=== PATIENT | female | born 1950 | race Caucasian/White ===

== ENCOUNTER → 2016-07-28 | Outpatient (CLI) | payer MEDICARE, OTHER ==
--- NOTE | 2016-07-28 13:38 | CT ---
EXAMINATION TYPE: CT pelvis wo con DATE OF EXAM: 07/28/2016 1:09 PM COMPARISON: NONE HISTORY: Left Hip pain with wound CT DLP: 430.4 mGycm Automated exposure control for dose reduction was used. FINDINGS: There is an ostomy in the right lower quadrant. There are bilateral hip degenerative changes with dmitry rowing of the joint spaces. Some soft tissue thickening and calcifications lateral to the left hip. Soft tissue calcification is also present lateral to the right hip. Some low density air appears to be within the soft tissue thic kening. Phlegmon may be present. A discrete walled abscess is not identified. Note that the lateralmo st portion of the thighs excluded from the [id number]. IMPRESSION: SOFT TISSUE INFECTION IS LIKELY PRESENT LATERAL TO THE LEFT HIP. CORRELATE WITH THE PATIENT'S CLINICA L FINDINGS. UNDERLYING ABSCESS IS NOT IDENTIFIED BY RADIOGRAPHIC CRITERIA AT THIS TIME.
== END ==
LOC: RADCTMAIN 12:42
PROVIDERS: ATTEND Internal Medicine Infectious Disease
DX: M86.9 Osteomyelitis, unspecified (principal)
CPT/HCPCS: 72192

== ENCOUNTER → 2016-08-18 | Outpatient (CLI) | payer MEDICARE, OTHER ==
--- NOTE | 2016-08-19 01:09 | MR ---
EXAMINATION TYPE: MR pelvis wo/w con DATE OF EXAM: 08/18/2016 4:51 PM COMPARISON: NONE HISTORY: Other osteomyelitis, multiple sites CONTRAST: Standard multiplanar, multisequence MRI departmental protocol utilizing 15 mL intravenous MultiHance gadolinium contrast. FINDINGS: On the T2 and STIR images there is abnormal increased signal in the greater trochanter of t he left femur. There is surrounding soft tissue fluid signal consistent with cellulitis. I see no dis crete drainable fluid collection. The area of involvement in the femur is 5 x 3.5 cm. I see no fractu re line. There is increased signal in the soft tissues adjacent to the right ischium. I do not see convincing increased signal in the ischial bone on the right side. There is some mild soft tissue enhancement ar ound the lateral superior left femur as well as the right ischium. I see no fracture line. There is n o evidence of a pelvic mass. Sacroiliac joints appear intact. There is mild enhancement of the intert rochanteric left femur. IMPRESSION: The exam shows evidence of cellulitis with also osteomyelitis in the intertrochanteric left femur. No fracture seen. There is evidence of some cellulitis posterior to the right ischium but no definite osteomyelitis.
== END | disposition home or self-care (01) ==
LOC: RADMRIMAIN 14:59
PROVIDERS: ATTEND Internal Medicine Infectious Disease
DX: M86.8X5 Other osteomyelitis, thigh (principal); L03.116 Cellulitis of left lower limb
CPT/HCPCS: 72197; A9577

== ENCOUNTER → 2016-12-08 | Outpatient (CLI) | payer MEDICARE, OTHER ==
--- NOTE | 2016-12-08 15:34 | CT ---
EXAMINATION TYPE: CT lower extremity LT wo con DATE OF EXAM: 12/08/2016 3:23 PM COMPARISON: NONE HISTORY: Pressure ulcer to left hip area, paraplegic pt. CT DLP: 733.8 mGycm Automated exposure control for dose reduction was used. FINDINGS: There is marked induration adjacent to the greater trochanter on the left. There is air pre sent. There is erosion or partial destruction of the greater tuberosity. There is severe degenerative change in the left hip. There is also mild degenerative change in the le ft knee. There appears to be a sinus tract from the induration to the lateral skin surface. IMPRESSION: 1. MARKED INDURATION ADJACENT TO THE GREATER TROCHANTER ON THE LEFT WITH WHAT APPEARS TO BE A SINUS T RACT TO THE LATERAL SKIN SURFACE. 2. EROSION OR DESTRUCTION OF THE GREATER TUBEROSITY. LV DIFFICULT TO EXCLUDE OSTEOMYELITIS. 3. SEVERE DEGENERATIVE CHANGES WITHIN THE HIP.
== END | disposition home or self-care (01) ==
LOC: RADCTMAIN 14:58
PROVIDERS: ATTEND Surgery
DX: M16.12 Unilateral primary osteoarthritis, left hip (principal)

== ENCOUNTER 2016-12-14 11:17 | Day surgery (SDC) | payer MEDICARE, OTHER ==
[2016-12-09 09:50] VITALS: BMI 29.0
[~2016-12-14 11:17] MED LIST: DEXAMETHASONE SOD PHOSPHATE 10 MG/ML 1 ML VIAL IV ONE; HEPARIN SODIUM,PORCINE 5,000 UNIT/ML 1 ML VIAL SQ ONE; HYDROmorphone 1 MG/ML 1 ML SYRINGE IVP PRN; LACTATED RINGERS 1,000 ML IV SCH; ONDANSETRON 4 MG/2 ML VIAL IVP ONE; Pre Op ABX Message 1 EACH MISC MISCELLANE ONE
[2016-12-14] MEDS ORDERED: LIDOCAINE 1% 20 ML VIAL (10MG/ML) FOR IV START INTRADERMA ONE (12:34)
[2016-12-14] MEDS ORDERED: LIDOCAINE 1% INJ 10MG/ML (20 ML MDV) ONE (13:25)
[2016-12-14] MEDS ORDERED: MIDAZOLAM 2 MG/2 ML VIAL ONE (13:25)
[2016-12-14] MEDS ORDERED: fentaNYL (PF) 50 MCG/ML 2 ML AMP ONE (13:25)
[2016-12-14] MEDS ORDERED: PROPOFOL 10 MG/ML 20 ML VIAL IV ONE (13:25)
[2016-12-14] MEDS ORDERED: SUCCINYLCHOLINE CHLORIDE 100 MG/5 ML SYR IV ONE (13:25)
[2016-12-14] MEDS ORDERED: ePHEDrine 50 MG/ML 1 ML AMP ONE (13:25)
[2016-12-14] MEDS ORDERED: SODIUM CHLORIDE 0.9% 100 ML with CLINDAMYCIN 600 MG IV ONE ×2 (13:48)
[2016-12-14 14:33] VITALS: TEMP 98.1
--- NOTE | 2016-12-14 14:47 | P.OP ---
Date of Procedure: 12/14/16 Preoperative Diagnosis: Left Hip abscess Postoperative Diagnosis: Left Hip abscess and osteomyleitis of the torchanter Procedure(s) Performed: Incision and drainage of abscess. Excisional debridement of the abscess cavity Bone biopsy Implants: Anesthesia: DENITA Surgeon: Chris Almeida Pathology: other Condition: stable Disposition: PACU Indications for Procedure: Operative Findings: Sinus tract leading deep (6 cm) into an abscess cavity around the greater trochanter. Estimated size of the cavity was 5 x 4x 3 cm connected to the sinus tract. Abscess cavity contained pus and involucrum Cultures taken of the abscess and the bone biopsy Description of Procedure: Patient 66-year-old female multiple medical problems presents with an abscess cavity over the greater trochanter involving the bones of the knees. 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 Due to the fact that she has a very small sinus that due to the abscess cavity does not seem to be healing well. She's been recommended incision and drainage of the abscess cavity and excisional debridement with possible bone biopsy. Informed consent obtained from the patient in the preop operating holding area. Patient taken the operating room and given general anesthesia with endotracheal intubation after which was placed in the left lateral decubitus position. Patient was prepped and draped in the usual sterile surgical fashion. A Q-tip was placed within the cavity to direct the area of dissection. Elliptical incision was made around the opening of the sinus tract with the help of electrocautery into the skin and subcutaneous tissue. A core of tissue was excised along hte sinus tract leading down into the abscess cavity. Within the cavity multiple pieces of involucrum was found and removed. The pus was sent for culture. Bone biopsy was taken from the greater trochanter with the help of Rongeur. This was all sent for culture. Skin and subcutis tissue was submitted for culture as well. The cavity itself was thoroughly irrigated and sucked dry hemostasis secured with Electrocautery after which a white and vang foam was placed in the cavity itself. After creating a bridge wound VAC was initiated and therapy 125 continuous. It had to be enforced with multiple Tegaderm. Patient tolerated procedure well there were asked complications she was extubated and taken to recovery room in stable condition.
[2016-12-14 15:27] VITALS: RESP 16
[2016-12-14 15:45] VITALS: BP 118/65; PULSE 75
--- NOTE | 2017-01-04 13:41 | P.GSHP ---
History of Present Illness H&P Date: 12/14/16 Chief Complaint: Non healing left hip wound with osteomyelitis 66-year-old female who presented to Center because she has a long draining sinus tract that extends to the trochanter. His been drinking a lot. He does not closing. As been packed repeatedly for many months. Previous history of paraplegia and while moving she injured herself. Continue drainage and depth of the wound she was brought to me for consultation for debridement. - Constitutional Constitutional: Denies chills, Denies fever - EENT Eyes: denies blurred vision, denies pain - Cardiovascular Cardiovascular: Denies chest pain, Denies shortness of breath - Respiratory Respiratory: Denies cough, Denies 7 - Gastrointestinal Gastrointestinal: Denies abdominal pain, Denies diarrhea, Denies nausea, Denies vomiting - Neurological Comment: Paraplegic Past Medical History Past Medical History: Eye Disorder, GERD/Reflux, Hyperlipidemia, Hypertension, Rheumatoid Arthritis (RA), Thyroid Disorder Additional Past Medical History / Comment(s): PARAPLEGIC (fracture back and neck ) ,GLAUCOMA, wounds on lt hip-Seen in [facility] M-F, rt great toe and top of rt foot wounds healed,lt eye-now only sees shadows/light, PNE VACCINE 2-3 YEARS AGO NOT SURE OF DATE. History of Any Multi-Drug Resistant Organisms: None Reported Past Surgical History: Appendectomy, Back Surgery, Cholecystectomy Additional Past Surgical History / Comment(s): surgery abdominal tumor,UROSTOMY, GLAUCOMA SURGERY, surgery lt eye, DEBRIDEMENT of sores Past Anesthesia/Blood Transfusion Reactions: No Reported Reaction Additional Past Anesthesia/Blood Transfusion Reaction / Comment(s): no prob with prior blood transfusion Smoking Status: Current every day smoker - Past Family History Father Family Medical History: Cancer Additional Family Medical History / Comment(s): colon cancer Mother Family Medical History: CVA/TIA, Renal Disease Medications and Allergies Home Medications Medication Instructions Recorded Confirmed Type Aspirin 81 mg PO DAILY 12/31/13 01/04/17 History Levothyroxine Sodium [Synthroid] 100 mcg PO QAM 12/31/13 01/04/17 History Lovastatin [Mevacor] 40 mg PO HS 12/31/13 01/04/17 History Omeprazole [PriLOSEC] 20 mg PO AC-BRKFST 12/31/13 01/04/17 History Losartan [Cozaar] 25 mg PO QAM 03/30/16 01/04/17 History Travoprost [Travatan Z 0.004%] 1 drop BOTH EYES DAILY 03/30/16 01/04/17 History Ibuprofen 800 mg PO TID PRN 12/09/16 01/04/17 History Sulfamethox-Tmp 800-160Mg [Bactrim 1 tab PO Q12HR 12/09/16 01/04/17 History DS 800-160 mg] Allergies Allergy/AdvReac Type Severity Reaction Status Date / Time Iodinated Contrast Media - AdvReac Itching,ellen Verified 01/04/17 10:10 Oral and h [Iodinated Contrast Media - IV Dye] Surgical - Exam Vital Signs Temp Pulse Resp BP Pulse Ox 98 F 85 16 128/60 97 12/14/16 12:13 12/14/16 12:13 12/14/16 12:13 12/14/16 12:13 12/14/16 12:13 - General well developed, well nourished, no distress - Eyes PERRL, normal ocular movement - ENT normal pinna, normal nares, normal mucosa - Respiratory normal expansion, normal respiratory effort - Cardiovascular Rhythm: regular - Abdomen Abdomen: soft, non tender - Integumentary Cataract wound which measured per nurse's measurements. It is very deep and proximally 7 cm deep there is minimal periwound erythema. 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 We will also attempt doing a bone biopsy to confirm the presence of ostomy mellitus. Detailed discussion of the indications of the procedure and application were done with the patient wonders and is willing to proceed.
== END 2016-12-14 16:00 | disposition home health service (06) ==
LOC: OR 11:17
PROVIDERS: ATTEND Surgery
DX: L02.416 Cutaneous abscess of left lower limb (principal); M86.8X8 Other osteomyelitis, other site; I10 Essential (primary) hypertension; F17.200 Nicotine dependence, unspecified, uncomplicated; E07.9 Disorder of thyroid, unspecified; G82.20 Paraplegia, unspecified; M06.9 Rheumatoid arthritis, unspecified; K21.9 Gastro-esophageal reflux disease without esophagitis; Z79.82 Long term (current) use of aspirin; Z79.899 Other long term (current) drug therapy; Z91.041 Radiographic dye allergy status
CPT/HCPCS: 87070; 87205; 87075; 11044; 20999; J2250; J1644; J1100; J2405; J2001; J3010; J0330; J2704; 87077; 87186

== ENCOUNTER 2017-11-09 17:37 | Emergency (ER) | payer MEDICARE, OTHER ==
[2017-11-09 17:52] VITALS: RESP 16; TEMP 98.6
[2017-11-09] MEDS ORDERED: SODIUM CHLORIDE 0.9% 500 ML IV STA (18:04)
[2017-11-09 18:31] LABS: Basophils % (A) 1 %; Eosinophils # (A) 0.2 k/uL (0-0.7); Eosinophils % (A) 3 %; HCT 32.9 % (34.0-46.0); HGB 10.9 gm/dL (11.4-16.0); Lymphocytes # (A) 1.7 k/uL (1.0-4.8); Lymphocytes % (A) 20 %; MCHC 33.2 g/dL (31.0-37.0); MCV 90.4 fL (80.0-100.0); Mean Platelet Volume 8.2; Monocytes # (A) 0.7 k/uL (0-1.0); Monocytes % (A) 8 %; Neutrophils # (A) 5.7 k/uL (1.3-7.7); Neutrophils % (A) 67 %; Platelet Count 355 k/uL (150-450); RBC 3.63 m/uL (3.80-5.40); WBC 8.5 k/uL (3.8-10.6)
[2017-11-09 18:40] LABS: Albumin 2.9 g/dL (3.5-5.0); Calcium 8.1 mg/dL (8.4-10.2); Potassium 3.5 mmol/L (3.5-5.1); Total Bilirubin 0.5 mg/dL (0.2-1.3); Total Protein 5.8 g/dL (6.3-8.2)
--- NOTE | 2017-11-09 18:49 | XR ---
EXAMINATION TYPE: XR KUB DATE OF EXAM: 11/09/2017 COMPARISON: 04/10/2013 HISTORY: Abdominal pain TECHNIQUE: 4 views. FINDINGS: There is amorphous soft tissue calcification lateral to the greater trochanter of the right femur. Th ere is abduction deformity of the right hip joint. There is severe narrowing of hip joint spaces. There is no sign of intestinal obstruction. There is retained fecal material in the colon. There is n o evidence of a mass. There is coarse interstitial density at the lung bases. IMPRESSION: There is evidence for some degree of constipation. No sign of a mechanical bowel obstruct ion. Fibrotic changes at the lung bases. No free air.
[2017-11-09 19:17] LABS: Amorphous Sediment,Urine Rare /hpf; Appearance,Urine Turbid (Clear); Bilirubin,Urine Negative (Negative); Blood,Urine Moderate (Negative); Color,Urine Yellow; Glucose,Urine (UA) Negative (Negative); Ketones,Urine Negative (Negative); Leukocyte Esterase,Urine Large (Negative); Mucus,Urine Rare /hpf; Nitrite,Urine Negative (Negative); PH, Urine 7.5 (5.0-8.0); Protein,Urine 1+ (Negative); RBC,Urine 83 /hpf (0-5); Specific Gravity,Urine 1.008 (1.001-1.035); Urobilinogen,Urine <2.0 mg/dL (<2.0); WBC,Urine >182 /hpf (0-5)
--- NOTE | 2017-11-09 19:22 | ED ---
Abdominal Pain HPI - General Chief Complaint: Abdominal Pain Stated Complaint: abdominal pain/constipation Time Seen by Provider: 11/09/17 17:52 Source: EMS Mode of arrival: EMS Limitations: no limitations - History of Present Illness Initial Comments: 67-year-old female patient presents to the emergency department today for evaluation of generalized abdominal pain and cramping and complaints of constipation. Patient states that she has been having this pain since Tuesday. States that she did have a small bowel movement on Tuesday but did not improve her symptoms. Patient states she has been nauseated with this but has not vomited. Patient does have a past medical history significant for paraplegia with urostomy. Patient does get home care and did have an enema this morning however the nurse reported only a return of clear fluid. Patient states that she was having some hematuria however this resolved with the change of her bag. She is scheduled to undergo kidney ultrasound. Patient denies any recent rash , fever, chills, shortness breath, chest pain, back pain, numbness, tingling, dizziness, weakness, headache, visual changes, or any other complaints. - Related Data Home Medications Medication Instructions Recorded Confirmed Aspirin 81 mg PO DAILY 12/31/13 11/09/17 Levothyroxine Sodium [Synthroid] 100 mcg PO AC-BRKFST 12/31/13 11/09/17 Omeprazole [PriLOSEC] 20 mg PO DAILY 12/31/13 11/09/17 Ibuprofen 800 mg PO TID PRN 12/09/16 11/09/17 Lovastatin [Mevacor] 40 mg PO HS 11/09/17 11/09/17 Multivitamins, Thera [Multivitamin 1 tab PO DAILY 11/09/17 11/09/17 (formulary)] Previous Rx's Medication Instructions Recorded Sulfamethoxazole/Trimethoprim 1 each PO BID #14 tablet 11/09/17 [Bactrim DS 800-160 mg] Allergies Allergy/AdvReac Type Severity Reaction Status Date / Time Iodinated Contrast- Oral and Allergy Itching,ellen Verified 11/09/17 17:44 IV Dye h [Iodinated Contrast Media - IV Dye] Review of Systems ROS Statement: Those systems with pertinent positive or pertinent negative responses have been documented in the HPI. ROS Other: All systems not noted in ROS Statement are negative. Past Medical History Past Medical History: Eye Disorder, GERD/Reflux, Hyperlipidemia, Hypertension, Rheumatoid Arthritis (RA), Thyroid Disorder Additional Past Medical History / Comment(s): PARAPLEGIC (fracture back and neck ) ,GLAUCOMA, wounds on lt hip, rt great toe and top of rt footeye-now only sees shadows/light. wounds on lt hip(goes to [facility] -has wound vac, RT HEEL(healing areas rt top foot), PNE VACCINE 2-3 YEARS AGO NOT SURE OF DATE. History of Any Multi-Drug Resistant Organisms: None Reported Past Surgical History: Appendectomy, Back Surgery, Cholecystectomy Additional Past Surgical History / Comment(s): surgery abdominal tumor,UROSTOMY, GLAUCOMA SURGERY, surgery lt eye, DEBRIDEMENT of sores Past Anesthesia/Blood Transfusion Reactions: No Reported Reaction Past Psychological History: No Psychological Hx Reported Smoking Status: Current every day smoker Past Alcohol Use History: None Reported Past Drug Use History: None Reported - Past Family History Father Family Medical History: Cancer Additional Family Medical History / Comment(s): colon cancer Mother Family Medical History: CVA/TIA, Renal Disease General Exam Limitations: no limitations General appearance: alert, in no apparent distress, other (This is a well- developed, well-nourished adult female patient in no acute distress. Vital signs upon presentation are temperature 98.6F, pulse 68, respiration 16, blood pressure 135/63, pulse ox 97% on room air.) Eye exam: Present: normal appearance, PERRL, EOMI. Absent: scleral icterus, conjunctival injection, periorbital swelling ENT exam: Present: normal exam, normal oropharynx, mucous membranes moist Respiratory exam: Present: normal lung sounds bilaterally. Absent: respiratory distress, wheezes, rales, rhonchi, stridor Cardiovascular Exam: Present: regular rate, normal rhythm, normal heart sounds. Absent: systolic murmur, diastolic murmur, rubs, gallop, clicks GI/Abdominal exam: Present: soft, tenderness (Upper abdominal tenderness), normal bowel sounds. Absent: distended, guarding, rebound, rigid Neurological exam: Present: alert, oriented X3, CN II-XII intact Psychiatric exam: Present: normal affect, normal mood Skin exam: Present: warm, dry, intact, normal color. Absent: rash Course Vital Signs 11/09/17 11/09/17 17:46 21:05 Temperature 98.6 F Pulse Rate 68 61 Respiratory 16 16 Rate Blood Pressure 135/63 147/63 O2 Sat by Pulse 97 98 Oximetry Medical Decision Making - Medical Decision Making 67-year-old male patient presented to the emergency department today with complaints of constipation and generalized abdominal cramping. Physical examination showed some mild diffuse abdominal tenderness. Labs reviewed and showed a BUN of 18. Alk phos of 138. Urinalysis showed a turbid appearance with 1+ protein, moderate blood, large leukocyte esterase, 83 red blood cells, greater than 182 white blood cells, moderate white blood cell clumps, rare amorphous sediment, and rare meat urine mucus. Patient does have a urostomy. KUB x-ray of the abdomen showed overall nonobstructive bowel gas pattern. Patient is currently afebrile white blood cell count. She is not particularly tender over any specific area of her abdomen. We will treat for constipation with magnesium citrate. We did attempt an enema but given patient's paraplegia she was unable to retain this. She is instructed to follow-up with her primary care physician for recheck in 1-2 days. She is instructed to return here immediately for any new, worsening, or concerning symptoms. She verbalizes understanding and agrees with this plan. - Lab Data Result diagrams: 11/09/17 18:17 11/09/17 18:17 Lab Results 11/09/17 11/09/17 11/09/17 Range/Units 18:17 18:17 18:30 WBC 8.5 (3.8-10.6) k/uL RBC 3.63 L (3.80-5.40) m/uL Hgb 10.9 L (11.4-16.0) gm/dL Hct 32.9 L (34.0-46.0) % MCV 90.4 (80.0-100.0) fL MCH 30.0 (25.0-35.0) pg MCHC 33.2 (31.0-37.0) g/dL RDW 14.0 (11.5-15.5) % Plt Count 355 (150-450) k/uL Neutrophils % 67 % Lymphocytes % 20 % Monocytes % 8 % Eosinophils % 3 % Basophils % 1 % Neutrophils # 5.7 (1.3-7.7) k/uL Lymphocytes # 1.7 (1.0-4.8) k/uL Monocytes # 0.7 (0-1.0) k/uL Eosinophils # 0.2 (0-0.7) k/uL Basophils # 0.0 (0-0.2) k/uL Sodium 138 (137-145) mmol/L Potassium 3.5 (3.5-5.1) mmol/L Chloride 108 H (98-107) mmol/L Carbon Dioxide 20 L (22-30) mmol/L Anion Gap 10 mmol/L BUN 18 H (7-17) mg/dL Creatinine 0.96 (0.52-1.04) mg/dL Est GFR (CKD-EPI)AfAm 70 (>60 ml/min/1.73 sqM) Est GFR (CKD-EPI)NonAf 61 (>60 ml/min/1.73 sqM) Glucose 99 (74-99) mg/dL Calcium 8.1 L (8.4-10.2) mg/dL Total Bilirubin 0.5 (0.2-1.3) mg/dL AST 26 (14-36) U/L ALT 35 (9-52) U/L Alkaline Phosphatase 138 H (38-126) U/L Total Protein 5.8 L (6.3-8.2) g/dL Albumin 2.9 L (3.5-5.0) g/dL Amylase 61 (30-110) U/L Lipase 40 (23-300) U/L Urine Color Yellow Urine Appearance Turbid H (Clear) Urine pH 7.5 (5.0-8.0) Ur Specific [place] 1.008 (1.001-1.035) Urine Protein 1+ H (Negative) Urine Glucose (UA) Negative (Negative) Urine Ketones Negative (Negative) Urine Blood Moderate H (Negative) Urine Nitrite Negative (Negative) Urine Bilirubin Negative (Negative) Urine Urobilinogen <2.0 (<2.0) mg/dL Ur Leukocyte Esterase Large H (Negative) Urine RBC 83 H (0-5) /hpf Urine WBC >182 H (0-5) /hpf Urine WBC Clumps Moderate H (None) /hpf Amorphous Sediment Rare H (None) /hpf Urine Mucus Rare H (None) /hpf - Radiology Data Radiology results: report reviewed, image reviewed KUB x-ray of the abdomen shows amorphous soft tissue calcification lateral to the greater trochanter of the right femur. There is abduction deformity of the right hip joint. There is severe narrowing of the hip joint spaces. There is no sign of intestinal obstruction. There is retained fecal material in the colon. There is no evidence of a mass. There is coarse interstitial density at the lung bases. Impression by Dr. Pat shows evidence for some degree of constipation. No sign of a mechanical obstruction. Fibrotic changes at the lung bases. No free air. Disposition Clinical Impression: Abdominal pain, Urinary tract infection Disposition: HOME SELF-CARE Condition: Good Instructions: Abdominal Pain (ED) Additional Instructions: Increase fluids. Increase fruits and vegetables in the diet. Drink one half of the magnesium citrate and then drink the other half in 12 hours if he had not had results. Complete antibiotic prescription in full. Follow-up with your primary care physician for recheck as soon as possible. Return here immediately for any new, worsening, or concerning symptoms. Prescriptions: Sulfamethoxazole/Trimethoprim [Bactrim DS 800-160 mg] 1 each PO BID #14 tablet Is patient prescribed a controlled substance at d/c from ED?: No Referrals: Jacob Acevedo MD [Primary Care Provider] - 1-2 days Time of Disposition: 20:45
[2017-11-09] MEDS ORDERED: SULFAMETH-TMP DS STARTER PACK 2 TAB BTL PO STA (20:43)
[2017-11-09] MEDS ORDERED: MAGNESIUM CITRATE 296 ML BOTTLE PO ONE (20:43)
[2017-11-09 21:05] VITALS: BP 147/63; PULSE 61
== END 2017-11-09 21:31 | disposition home or self-care (01) ==
LOC: EC 17:37
DX: N39.0 Urinary tract infection, site not specified (principal); R10.84 Generalized abdominal pain; K59.00 Constipation, unspecified; E07.9 Disorder of thyroid, unspecified; E78.5 Hyperlipidemia, unspecified; K21.9 Gastro-esophageal reflux disease without esophagitis; M06.9 Rheumatoid arthritis, unspecified; F17.200 Nicotine dependence, unspecified, uncomplicated; Z91.041 Radiographic dye allergy status; Z91.048 Other nonmedicinal substance allergy status; Z79.82 Long term (current) use of aspirin; Z79.899 Other long term (current) drug therapy; Z90.49 Acquired absence of other specified parts of digestive tract; Z80.0 Family history of malignant neoplasm of digestive organs; Z98.890 Other specified postprocedural states
CPT/HCPCS: 36415; 74018; 80053; 81001; 82150; 83690; 85025; 99284

== ENCOUNTER → 2017-11-10 | Outpatient (CLI) | payer MEDICARE, OTHER ==
--- NOTE | 2017-11-10 11:24 | US ---
EXAMINATION TYPE: US kidneys/renal and bladder DATE OF EXAM: 11/10/2017 COMPARISON: NONE CLINICAL HISTORY: R31.9 Hematuria Unspecified. paraplegic; bladder removed in 1999 EXAM MEASUREMENTS: Right Kidney: 10.8 x 50.2 x 5.2 cm Left Kidney: 10.5 x 5.9 x 5.6 cm Right Kidney: Mild to moderate hydronephrosis, echogenic foci upper pole, possibly of stone Left Kidney: Mild to moderate hydronephrosis, echogenic foci mid pole with in the dilated renal pelvi s. Bladder: surgically absent patient paraplegic, left kidney limited due to bowel gas and patient mobility IMPRESSION: Bilateral mild to moderate hydronephrosis with probable obstructing calculus demonstrated as increase d echogenicity within the left renal pelvis. Nonobstructing right renal calculi are seen. Further basil luation with CT urogram could be performed.
== END | disposition home or self-care (01) ==
LOC: RADUSWWP 10:31
PROVIDERS: ATTEND Internal Medicine Infectious Disease
DX: N13.2 Hydronephrosis with renal and ureteral calculous obstruction (principal)
CPT/HCPCS: 76770

== ENCOUNTER → 2017-11-25 | Outpatient (CLI) | payer MEDICARE, OTHER ==
--- NOTE | 2017-11-25 14:56 | CT ---
EXAMINATION TYPE: CT abdomen pelvis wo con DATE OF EXAM: 11/25/2017 COMPARISON: 06/24/2017 HISTORY: Renal stones, Hydronephrosis CT DLP: 519.3 mGycm Automated exposure control for dose reduction was used. TECHNIQUE: Helical acquisition of images was performed from the lung bases through the pelvis. FINDINGS: LUNG BASES: Patchy right basilar opacity on series 4 image 1 and subpleural reticulation may represen t pneumonitis and/or atelectasis. There is a left basilar posterior medial segment 8 mm pulmonary nod ule accentuated in size as there is a central bronchus. This is seen on series 4 image 16. Right basi lar bleb is noted. LIVER/GB: Unenhanced liver is of unremarkable morphology. Gallbladder is surgically absent. PANCREAS: No significant abnormality is seen. No ductal dilatation. SPLEEN: No significant abnormality is seen. ADRENALS: There is slight thickening of the left adrenal gland however it maintains an adreniform sha pe. This likely relates to adrenal hyperplasia. Right kidney is unremarkable. KIDNEYS: There is severe left-sided hydronephrosis secondary to an obstructing proximal left ureteral 0.7 x 0.9 x 1.7 cm calculus creating proximal renal pelvic dilatation and uroepithelial thickening w ith surrounding inflammatory fat stranding of the renal sinus and inferior calyces. Additional nonobs tructing calculi on the left are seen at least 8 in number measuring up to 9 mm. There is severe right-sided hydronephrosis secondary to a right mid ureteral 1.2 x 0.9 x 0.7 cm. Kory tional nonobstructing punctate 1 to 2 mm right upper pole and 2 mm right lower pole renal calculi are seen. Subsequent to the obstruction there is mild fat stranding surrounding the dilated renal pelvis and right kidney. FREE AIR: No free air is visualized REPRODUCTIVE ORGANS: Uterus is either significantly atrophied or surgically absent URINARY BLADDER: Surgically absent ADENOPATHY: Prominent but nonenlarged left superficial inguinal lymph node measures 1.0 cm in short axis. Left external iliac chain centrally fatty lymph node or epiploic appendage is noted on series 3 image 125 without surrounding inflammatory fat stranding. OSSEOUS STRUCTURES: There is a thick-walled centrally air-containing and fat-containing lesion over the greater trochanter on the left. Measures up to 7.9 x 5.5 cm but is partially visualized. This is seen within atrophic musculature of the left hip girdle. This was present on the exam of 06/24/2017 Ex tensive degenerative changes of the femoral acetabular joints and visualized lumbar sacral spine are noted. Prior fracture deformity of the left inferior pubic ramus is present. BOWEL: Right-sided ileostomy as an ileal conduit is present. Anastomotic site is seen within the rig ht lower quadrant in the distal small bowel with no proximal bowel dilatation. IMPRESSION: 1. THICK-WALLED SUBCUTANEOUS LESION OVER THE LEFT GREATER TROCHANTER CONTAINING INTERNAL FOCI OF AIR WITH PRIOR SUBCUTANEOUS FISTULOUS TRACT SEEN ON THE EXAM OF 06/24/2017 AND EROSIVE CHANGES OF THE LEFT GREATER TROCHANTER CONCERNING FOR ABSCESS AND OSTEOMYELITIS, SIMILAR TO THE PRIOR. 2. BILATERAL OBSTRUCTING URETERAL CALCULI WITHIN THE PROXIMAL LEFT URETER AND MID RIGHT URETER CREATI NG SEVERE BILATERAL HYDRONEPHROSIS AND UROEPITHELIAL THICKENING WITH FAT STRANDING AROUND THE RENAL P ELVISES SEES THAT COULD RELATE TO CALYCEAL RUPTURE. 3. BILATERAL NONOBSTRUCTING RENAL CALCULI, LEFT GREATER THAN RIGHT. 4. LEFT BASILAR 8MM PULMONARY NODULE FOR WHICH SHORT-TERM FOLLOW-UP IS RECOMMENDED WITH CT IN 3-6 MON THS THERE IS A CENTRAL BRONCHUS WITHIN THIS, THUS ACCENTUATING THE SIZE.
== END | disposition home or self-care (01) ==
LOC: RADCTMAIN 12:40
PROVIDERS: ATTEND Urology
DX: N13.2 Hydronephrosis with renal and ureteral calculous obstruction (principal); N28.89 Other specified disorders of kidney and ureter; L98.8 Other specified disorders of the skin and subcutaneous tissue; Z91.041 Radiographic dye allergy status
CPT/HCPCS: 74176

== ENCOUNTER 2018-01-09 06:29 | Inpatient (IN) | payer MEDICARE, OTHER ==
[2017-12-27 15:24] VITALS: BMI 29.0
[~2018-01-09 06:29] MED LIST changes: +AMPICILLIN 1,000 MG in SODIUM CHLORIDE 0.9% 50 ML IVPB ONE; +AMPICILLIN 1,000 MG in SODIUM CHLORIDE 0.9% 50 ML IVPB STA; -DEXAMETHASONE SOD PHOSPHATE 10 MG/ML 1 ML VIAL IV ONE; +GENTAMICIN 100 MG in SODIUM CHLORIDE 0.9% 100 ML IVPB ONE; -HEPARIN SODIUM,PORCINE 5,000 UNIT/ML 1 ML VIAL SQ ONE; -HYDROmorphone 1 MG/ML 1 ML SYRINGE IVP PRN; -LACTATED RINGERS 1,000 ML IV SCH; -ONDANSETRON 4 MG/2 ML VIAL IVP ONE; -Pre Op ABX Message 1 EACH MISC MISCELLANE ONE
[2018-01-09 08:57] LABS: Basophils % (A) 0 %; Eosinophils % (A) 0 %; HCT 39.9 % (34.0-46.0); HGB 12.8 gm/dL (11.4-16.0); Lymphocytes # (A) 1.1 k/uL (1.0-4.8); Lymphocytes % (A) 16 %; MCH 29.5 pg (25.0-35.0); MCV 92.3 fL (80.0-100.0); Mean Platelet Volume 8.2; Monocytes # (A) 0.1 k/uL (0-1.0); Monocytes % (A) 2 %; Neutrophils # (A) 5.6 k/uL (1.3-7.7); Neutrophils % (A) 81 %; Platelet Count 369 k/uL (150-450); RBC 4.33 m/uL (3.80-5.40); RDW 13.7 % (11.5-15.5); WBC 6.9 k/uL (3.8-10.6)
[2018-01-09 09:05] LABS: Calcium 8.9 mg/dL (8.4-10.2); Potassium 4.5 mmol/L (3.5-5.1)
[2018-01-09] MEDS ORDERED: LIDOCAINE 1% (PF) 10MG/ML VIAL SQ ONE (09:51)
[2018-01-09] MEDS: fentaNYL (PF) 50 MCG/ML 2 ML AMP IVP ONE ×2 (10:00→10:04)
[2018-01-09] MEDS ORDERED: SODIUM CHLORIDE 0.9% 500 ML IV ONE (10:04)
[2018-01-09] MEDS ORDERED: IOPAMIDOL-250 50ML BTL IV ONE (10:18)
--- NOTE | 2018-01-09 11:29 | US ---
Ultrasound guidance HISTORY: Hydronephrosis Ultrasound guidance was utilized using sterile technique for bilateral nephrostomy tube placement. Se e report of nephrostomy.
--- NOTE | 2018-01-09 11:33 | IR ---
Bilateral nephrostomy tube placement HISTORY: Bilateral hydronephrosis 3.2 minutes fluoroscopy time, 207 intraoperative C-arm images. 37 minutes conscious sedation time. Maximal barrier technique was utilized. Ultrasound using sterile technique. Skin overlying the kidneys was prepped and draped in a sterile fashion. Lidocaine used for local anes thesia, skin em made with a scalpel. Using ultrasound guidance access was gained to the right kidne y posterior calyx with a 21-gauge needle. Urine returned in the hub of the needle. A 0.018 inch wire was advanced under fluoroscopy. The needle was exchanged for a transitional catheter. Wire was upsize d. Access site was dilated and subsequently a 8.5 Panamanian nephrostomy tube was advanced over the wire into the renal collecting system. Catheter placement was verified with contrast injection under fluor oscopic guidance. Catheter was fixed to the skin with 2-0 silk. Sterile dressing was placed. Catheter attached to gravity drainage. Using similar technique the posterior aspect of the left kidney was accessed under ultrasound guidanc e. Following local anesthesia skin em was made with a scalpel. 21-gauge needle was advanced into a posterior calyx and 0.018 inch wire was advanced. Access site was upsized and an 8.5 [place]ian nephrosto my tube was advanced under fluoroscopy into the renal collecting system. Catheter placement verified with contrast injection. Following the procedure hemostasis achieved. No immediate complications. Cat heter fixed to the skin with 2-0 silk and a sterile dressing. Catheter attached to gravity drainage. Minimal bleeding. No immediate complication. FINDINGS: Clot noted within the left renal collecting system. IMPRESSION: Status post bilateral nephrostomy tube placements. This procedure performed by the unders igned.
[2018-01-09] MEDS ORDERED: Acetaminophen-Codeine 300-30mg TAB PO PRN (13:41)
[2018-01-09] MEDS ORDERED: HYDROmorphone 0.5 MG/0.5 ML SYRINGE IVP PRN (13:41)
[2018-01-09] MEDS: DEXTROSE 5%-0.45% NACL 1,000 ML IV SCH (13:53)
[2018-01-09] MEDS: HYDROcodone/APAP 5-325MG 1 EACH TAB PO PRN (13:54)
[2018-01-09] MEDS ORDERED: VANCOMYCIN IV PER PHARMACY 1 EACH MISC MISCELLANE PRN (17:47)
[2018-01-09] MEDS: VANCOMYCIN 1,500 MG in SODIUM CHLORIDE 0.9% 250 ML IVPB SCH (18:54)
[2018-01-09] MEDS: ATORVASTATIN 10 MG TAB PO SCH (21:24)
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
[2018-01-10] MEDS: HYDROcodone/APAP 5-325MG 1 EACH TAB PO PRN ×2 (06:00→16:59)
[2018-01-10 07:28] LABS: Basophils % (A) 0 %; Eosinophils % (A) 0 %; HCT 36.1 % (34.0-46.0); HGB 11.6 gm/dL (11.4-16.0); Lymphocytes # (A) 2.2 k/uL (1.0-4.8); Lymphocytes % (A) 17 %; MCH 30.4 pg (25.0-35.0); MCHC 32.3 g/dL (31.0-37.0); MCV 94.2 fL (80.0-100.0); Mean Platelet Volume 8.4; Monocytes # (A) 0.6 k/uL (0-1.0); Monocytes % (A) 5 %; Neutrophils # (A) 9.9 k/uL (1.3-7.7); Neutrophils % (A) 77 %; Platelet Count 359 k/uL (150-450); RBC 3.83 m/uL (3.80-5.40); WBC 12.9 k/uL (3.8-10.6)
[2018-01-10 08:01] LABS: Calcium 8.5 mg/dL (8.4-10.2); Potassium 4.5 mmol/L (3.5-5.1)
[2018-01-10] MEDS: DEXTROSE 5%-0.45% NACL 1,000 ML IV SCH ×2 (08:03→09:24)
[2018-01-10] MEDS: LEVOTHYROXINE 100 MCG TAB PO SCH (08:15)
[2018-01-10] MEDS: PANTOPRAZOLE 40 MG TABLET PO SCH (08:15)
[2018-01-10] MEDS: VANCOMYCIN 1,500 MG in SODIUM CHLORIDE 0.9% 250 ML IVPB SCH (09:22)
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
--- NOTE | 2018-01-10 12:17 | P.PN ---
Progress Note - Text Progress Note Date: 01/10/18 Dulce is feeling better this morning. She is afebrile with stable vital signs. She reports less nephrostomy tube discomfort. Her urine is only faintly pink tinged. She is urologically stable for discharge. Attempts will be made for her to be transferred for inpatient rehabilitation.
[2018-01-10] MEDS: ATORVASTATIN 10 MG TAB PO SCH (20:29)
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
[2018-01-11] MEDS: VANCOMYCIN 1,500 MG in SODIUM CHLORIDE 0.9% 250 ML IVPB SCH ×2 (01:49→18:04)
[2018-01-11] MEDS ORDERED: LEVOTHYROXINE 100 MCG TAB ONE (09:00)
[2018-01-11] MEDS ORDERED: HYDROcodone/APAP 5-325MG 1 EACH TAB ONE (09:00)
[2018-01-11] MEDS ORDERED: PANTOPRAZOLE 40 MG TABLET PO ONE (09:00)
[2018-01-11] MEDS: LEVOTHYROXINE 100 MCG TAB PO SCH (11:45)
[2018-01-11] MEDS: PANTOPRAZOLE 40 MG TABLET PO SCH (11:45)
[2018-01-11] MEDS: DEXTROSE 5%-0.45% NACL 1,000 ML IV SCH ×2 (11:46→18:04)
[2018-01-11] MEDS ORDERED: LIDOCAINE 1% INJ 10MG/ML (20 ML MDV) ONE (13:30)
[2018-01-11] MEDS ORDERED: LIDOCAINE 1% INJ 10MG/ML (20 ML MDV) SQ ONE (13:31)
[2018-01-11] MEDS: HYDROcodone/APAP 5-325MG 1 EACH TAB PO PRN ×2 (14:19→20:16)
--- NOTE | 2018-01-11 14:37 | P.PN ---
Progress Note - Text Progress Note Date: 01/11/18 The patient underwent successful insertion of bilateral percutaneous nephrostomy tubes on January 09. Her condition is stable, and she is afebrile. Both nephrostomy tubes are draining urine which is essentially clear in color, as is the ureterostomy. She reports mild discomfort at the right nephrostomy tube insertion site. She is receiving IV Vancomycin for treatment of a non- healing ulcer over the left trochanteric area, and a PICC line was inserted earlier today. She may benefit from inpatient rehabilitation.
--- NOTE | 2018-01-11 15:03 | IR ---
EXAMINATION TYPE: IR cvc insert >=5 years DATE OF EXAM: 01/11/2018 COMPARISON: NONE CLINICAL HISTORY: Infection Needs long-term intravenous access for antibiotics. PROCEDURE: After informed consent, the skin overlying the left basilic vein was localized with ultrasound and no mariot to be compressible and patent. An ultrasound image was obtained and submitted on the patient's c guerra. The overlying skin was prepped and draped and Lidocaine was used for local anesthesia. A skin em was made with a scalpel. Access was gained to the vein under ultrasound guidance with a 21 gau ge needle and a 0.018 inch wire was advanced. Access site was dilated with Peel-Away sheath and cath eter tailored to the appropriate length and advanced such that the distal tip is at the cavoatrial ju nction. Spot image was obtained verifying placement. Catheter was fixed to the skin and a sterile dressing was placed following hemostasis. Catheter was aspirated and flushed with saline. Patient w as discharged in stable condition without complication. Maximal barrier technique is utilized. Ultra sound image is documented on the chart. Ultrasound used with sterile technique. Fluoro time and fluoroscopic images submitted to document procedure: 0.2 minutes fluoroscopy time, 8 intraoperative C-arm images document the procedure IMPRESSION: STATUS POST ULTRASOUND AND FLUOROSCOPIC GUIDED PICC LINE PLACEMENT, READY FOR USE. THIS PROCEDURE WAS PERFORMED BY THE UNDERSIGNED.
[2018-01-11] MEDS: ATORVASTATIN 10 MG TAB PO SCH (20:32)
[2018-01-11] MEDS: LATANOPROST 0.005% OPHTH DROPS 2.5 ML BTL BOTH EYES SCH (20:33)
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
[2018-01-12] MEDS: HYDROcodone/APAP 5-325MG 1 EACH TAB PO PRN ×3 (07:29→19:40)
[2018-01-12] MEDS ORDERED: VANCOMYCIN TROUGH DUE 1 EACH MISC MISCELLANE ONE (09:00)
[2018-01-12] MEDS: LEVOTHYROXINE 100 MCG TAB PO SCH (09:17)
[2018-01-12] MEDS: PANTOPRAZOLE 40 MG TABLET PO SCH (09:17)
[2018-01-12] MEDS: DEXTROSE 5%-0.45% NACL 1,000 ML IV SCH ×2 (09:31→23:40)
[2018-01-12] MEDS: VANCOMYCIN 1,500 MG in SODIUM CHLORIDE 0.9% 250 ML IVPB SCH (09:32)
--- NOTE | 2018-01-12 19:24 | P.PN ---
Progress Note - Text Progress Note Date: 01/12/18 Dulce underwent successful insertion of bilateral percutaneous nephrostomy tubes on January 09. Her condition is stable, and she is afebrile. the right nephrostomy tube is draining clear yellow urine, but the left nephrostomy tube has quit draining. She reports left upper quadrant abdominal discomfort. The left nephrostomy tube was irrigated and now appears to be draining well. Given that it irrigated well, I am not concerned about its location within the renal pelvis. She will continue to receive IV Vancomycin for treatment of a non- healing ulcer over the left trochanteric area. It is my understanding that she will be transferred to [facility] on January 14.
[2018-01-12] MEDS: ATORVASTATIN 10 MG TAB PO SCH (19:40)
[2018-01-12] MEDS: LATANOPROST 0.005% OPHTH DROPS 2.5 ML BTL BOTH EYES SCH (19:41)
[2018-01-13] MEDS: VANCOMYCIN 1,500 MG in SODIUM CHLORIDE 0.9% 250 ML IVPB SCH (01:14)
[2018-01-13 05:56] VITALS: RESP 16
[2018-01-13 07:11] LABS: Basophils # (A) 0.1 k/uL (0-0.2); Basophils % (A) 1 %; Eosinophils # (A) 0.2 k/uL (0-0.7); Eosinophils % (A) 3 %; HGB 12.5 gm/dL (11.4-16.0); Lymphocytes # (A) 1.8 k/uL (1.0-4.8); Lymphocytes % (A) 24 %; MCHC 32.1 g/dL (31.0-37.0); MCV 93.4 fL (80.0-100.0); Mean Platelet Volume 8.1; Monocytes # (A) 0.5 k/uL (0-1.0); Monocytes % (A) 6 %; Neutrophils # (A) 4.9 k/uL (1.3-7.7); Neutrophils % (A) 65 %; Platelet Count 324 k/uL (150-450); RBC 4.18 m/uL (3.80-5.40); RDW 14.2 % (11.5-15.5); WBC 7.5 k/uL (3.8-10.6)
[2018-01-13 07:29] LABS: Calcium 8.5 mg/dL (8.4-10.2); Potassium 4.9 mmol/L (3.5-5.1)
[2018-01-13] MEDS: PANTOPRAZOLE 40 MG TABLET PO SCH (08:27)
[2018-01-13] MEDS: LEVOTHYROXINE 100 MCG TAB PO SCH (08:27)
[2018-01-13] MEDS ORDERED: BISACODYL 10 MG SUPP RECTAL STA (10:02)
[2018-01-13] MEDS: DEXTROSE 5%-0.45% NACL 1,000 ML IV SCH (11:47)
[2018-01-13] MEDS: HYDROcodone/APAP 5-325MG 1 EACH TAB PO PRN (14:19)
[2018-01-13] MEDS: VANCOMYCIN 1,250 MG in SODIUM CHLORIDE 0.9% 250 ML IVPB SCH (17:49)
[2018-01-13] MEDS: LATANOPROST 0.005% OPHTH DROPS 2.5 ML BTL BOTH EYES SCH (21:29)
[2018-01-13] MEDS: ATORVASTATIN 10 MG TAB PO SCH (21:29)
[2018-01-14] MEDS: DEXTROSE 5%-0.45% NACL 1,000 ML IV SCH ×2 (05:21→14:17)
[2018-01-14 06:10] VITALS: BP 127/61; PULSE 79; TEMP 98.2
--- NOTE | 2018-01-14 07:30 | P.PN ---
Progress Note - Text Progress Note Date: 01/13/18 Dulce underwent successful insertion of bilateral percutaneous nephrostomy tubes on January 09. Her condition is stable, and she is afebrile. Her WBC count is normal, as is her serum creatinine level. She has no complaints. The right nephrostomy tube output is blood-tinged, whereas the left nephrostomy tube is draining clear yellow urine. She will continue to receive IV Vancomycin for treatment of a non-healing ulcer over the left trochanteric area. It is my understanding that she will be transferred to [facility] on January 14. She will ultimately require bilateral percutaneous removal of renal and ureteral calculi.
[2018-01-14] MEDS: LEVOTHYROXINE 100 MCG TAB PO SCH (07:42)
[2018-01-14] MEDS: PANTOPRAZOLE 40 MG TABLET PO SCH (07:42)
[2018-01-14] MEDS: VANCOMYCIN 1,250 MG in SODIUM CHLORIDE 0.9% 250 ML IVPB SCH (09:21)
[2018-01-14] MEDS: HYDROcodone/APAP 5-325MG 1 EACH TAB PO PRN ×2 (09:27→14:15)
--- NOTE | 2018-01-14 12:25 | P.DS ---
Providers Date of admission: 01/11/18 14:57 Attending physician: Juni Tomlin Consults: 01/09/18 14:15 Consult Physician Routine Consulting Provider: Carlos Vaughan Reason/Comments: wound vac management Do you want consulting provider notified?: Yes Primary care physician: Jacob Acevedo Hospital Course: Patient is a 67-year-old female admitted the hospital after placement of bilateral nephrostomy tubes for obstructing urinary stones. 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 She developed bilateral stones. His are infected stones. Nephrostomy tubes were placed for a potential percutaneous nephrostolithotomy bilateral in the future. The patient was seen in consultation by Dr. Vaughan because of a nonhealing sacral ulcer. She has a PICC line with vancomycin. She'll be discharged with fat to the rehab facility. She'll be given a prescription [place]. She'll follow-up in the office in one week. She'll be set up for a percutaneous nephrostolithotomy after the status of her ulcer is clarified. Her condition upon discharge is stable. She resume her home medications. Patient Condition at Discharge: Stable Plan - Discharge Summary Discharge Rx Participant: Yes New Discharge Prescriptions: New HYDROcodone/APAP 5-325MG [[place] 5-325] 1 tab PO Q4HR PRN #14 tab PRN Reason: Pain No Action Aspirin 81 mg PO DAILY Omeprazole [PriLOSEC] 20 mg PO DAILY Levothyroxine Sodium [Synthroid] 100 mcg PO AC-BRKFST Ibuprofen 800 mg PO TID PRN PRN Reason: Pain Multivitamins, Thera [Multivitamin (formulary)] 1 tab PO DAILY Lovastatin [Mevacor] 40 mg PO HS Travoprost [Travatan Z 0.004%] 2 drops BOTH EYES ONCE Discharge Medication List Aspirin 81 mg PO DAILY 12/31/13 [History] Levothyroxine Sodium [Synthroid] 100 mcg PO AC-BRKFST 12/31/13 [History] Omeprazole [PriLOSEC] 20 mg PO DAILY 12/31/13 [History] Ibuprofen 800 mg PO TID PRN 12/09/16 [History] Lovastatin [Mevacor] 40 mg PO HS 11/09/17 [History] Multivitamins, Thera [Multivitamin (formulary)] 1 tab PO DAILY 11/09/17 [History ] Travoprost [Travatan Z 0.004%] 2 drops BOTH EYES ONCE 01/11/18 [History] HYDROcodone/APAP 5-325MG [[place] 5-325] 1 tab PO Q4HR PRN #14 tab 01/14/18 [Rx] Follow up Appointment(s)/Referral(s): Juni Tomlin MD [STAFF PHYSICIAN] - 1 Week Activity/Diet/Wound Care/Special Instructions: Home with nephrostomy tubes, PICC line with vancomycin as directed per Dr. Vaughan Discharge Disposition: TRANSFER TO SNF/ECF
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
--- NOTE | 2018-01-19 09:07 | CDI ---
Last Revision, June 2017 Documentation Clarification Form Date: 01/19/18 From: Vandana Veto Elaina Patino, Manager Sign Hours-8:30 am & 5 pm Phillip Admit Date: 01/11/2018 2:57:00 PM Patient Name: Dulce Ramos Visit Number: [id number] Discharge Date: 01/14/18 ATTENTION: The Clinical Documentation Specialists (CDI) and [facility] Coding Staff appreciate your assistance in clarifying documentation. Please respond to the clarification below the line at the bottom and electronically sign. The CDI & [facility] staff will review the response and follow-up if needed. Please note: Queries are made part of the Legal Health Record. If you have any questions, please contact the author of this message via ITS. Dr. Figueroa Hunter Patient presented for outpatient bilateral nephrostomy tube placement on 01/09. Later on 01/09, the patient was converted to Inpatient status. Dr Vaughan was consulted to evaluate her pressure ulcer of left hip, stage 4. He also states that the patient did not feel well after the procedure and she was having significant anxiety. Per Official Billing Guidelines for Hospitals-Admission from Observation Unit to Inpatient status: When a patient is admitted to an observation unit for a medical condition, which either worsens or does not improve, and is subsequently admitted as an inpatient of the same hospital for this same medical condition, the primary diagnosis would be the medical condition which led to the hospital admission. In your professional opinion, can you please clarify which diagnosis, after study, was the reason for the conversion from outpt to inpatient admission status? Pressure ulcer sacral/left hip Pain or other condition related to placement of nephrostomy tubes Other Unable to determine. The patients in patient status was due to both pain from the nephjrptsotomy tubes as well as the pressure ulcers MTDD
== END 2018-01-14 15:35 | DRG 592 ==
LOC: CATHCVL 06:29 → 3OBS 10:22 → 3SUR 12:28 → CATHCVL 01-11 14:56 → 3SUR 01-11 14:57 → 5MS5E 01-12 18:00
PROVIDERS: ADMIT Urology; ATTEND Urology
PROC: 0T9130Z Drainage of Left Kidney with Drainage Device, Percutaneous Approach (ICD-10-PCS; principal; 2018-01-09 09:30)
PROC: 0T9030Z Drainage of Right Kidney with Drainage Device, Percutaneous Approach (ICD-10-PCS; 2018-01-09 09:30)
PROC: 02HV33Z Insertion of Infusion Device into Superior Vena Cava, Percutaneous Approach (ICD-10-PCS; 2018-01-11 13:20)
DX: L89.224 Pressure ulcer of left hip, stage 4 (principal); N13.2 Hydronephrosis with renal and ureteral calculous obstruction; G82.20 Paraplegia, unspecified; N31.9 Neuromuscular dysfunction of bladder, unspecified; M06.9 Rheumatoid arthritis, unspecified; K21.9 Gastro-esophageal reflux disease without esophagitis; E78.5 Hyperlipidemia, unspecified; I10 Essential (primary) hypertension; F41.9 Anxiety disorder, unspecified; E07.9 Disorder of thyroid, unspecified; R31.0 Gross hematuria; H40.9 Unspecified glaucoma; Z71.6 Tobacco abuse counseling; F17.210 Nicotine dependence, cigarettes, uncomplicated; Z93.2 Ileostomy status; Z87.442 Personal history of urinary calculi; Z90.49 Acquired absence of other specified parts of digestive tract; Z79.82 Long term (current) use of aspirin; Z79.890 Hormone replacement therapy; Z79.899 Other long term (current) drug therapy; Z91.041 Radiographic dye allergy status; Z80.0 Family history of malignant neoplasm of digestive organs; Z82.3 Family history of stroke; Z84.1 Family history of disorders of kidney and ureter
CPT/HCPCS: 36569; 50432; 76937; 76942; 77001; 80048; 80202; 85025

== ENCOUNTER 2018-02-01 19:13 | Inpatient (IN) | payer MEDICARE, OTHER ==
[2018-02-01] MEDS ORDERED: SODIUM CHLORIDE 0.9% 500 ML IV STA (20:02)
[2018-02-01] MEDS ORDERED: ACETAMINOPHEN TAB 325 MG TAB PO STA (20:02)
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
[2018-02-01 20:55] LABS: Basophils # (A) 0.1 k/uL (0-0.2); Basophils % (A) 1 %; Eosinophils # (A) 0.2 k/uL (0-0.7); Eosinophils % (A) 2 %; HCT 36.8 % (34.0-46.0); HGB 12.3 gm/dL (11.4-16.0); Lymphocytes % (A) 15 %; MCH 30.1 pg (25.0-35.0); MCHC 33.5 g/dL (31.0-37.0); MCV 89.9 fL (80.0-100.0); Mean Platelet Volume 7.9; Monocytes # (A) 0.9 k/uL (0-1.0); Monocytes % (A) 7 %; Neutrophils # (A) 9.7 k/uL (1.3-7.7); Neutrophils % (A) 74 %; Platelet Count 484 k/uL (150-450); RBC 4.09 m/uL (3.80-5.40); RDW 13.6 % (11.5-15.5); WBC 13.1 k/uL (3.8-10.6)
[2018-02-01 21:06] LABS: Albumin 3.5 g/dL (3.5-5.0); Potassium 4.6 mmol/L (3.5-5.1); Total Bilirubin 0.4 mg/dL (0.2-1.3); Total Protein 6.6 g/dL (6.3-8.2)
[2018-02-01 21:16] LABS: Appearance,Urine Turbid (Clear); Bacteria,Urine Rare /hpf; Bilirubin,Urine Negative (Negative); Blood,Urine Moderate (Negative); Budding Yeast,Urine Moderate /hpf; Color,Urine Yellow; Glucose,Urine (UA) Negative (Negative); Ketones,Urine Negative (Negative); Leukocyte Esterase,Urine Large (Negative); Mucus,Urine Occasional /hpf; Nitrite,Urine Positive (Negative); PH, Urine 8.5 (5.0-8.0); Protein,Urine 2+ (Negative); RBC,Urine 74 /hpf (0-5); Specific Gravity,Urine 1.014 (1.001-1.035); Urobilinogen,Urine <2.0 mg/dL (<2.0); WBC,Urine 126 /hpf (0-5)
[2018-02-01 21:27] LABS: Appearance,Urine Turbid (Clear); Bacteria,Urine Rare /hpf; Bilirubin,Urine Negative (Negative); Blood,Urine Moderate (Negative); Color,Urine Yellow; Glucose,Urine (UA) Negative (Negative); Ketones,Urine Negative (Negative); Leukocyte Esterase,Urine Large (Negative); Mucus,Urine Rare /hpf; Nitrite,Urine Positive (Negative); PH, Urine 8.5 (5.0-8.0); Protein,Urine 3+ (Negative); RBC,Urine >182 /hpf (0-5); Specific Gravity,Urine 1.014 (1.001-1.035); Urobilinogen,Urine <2.0 mg/dL (<2.0)
--- NOTE | 2018-02-01 21:32 | CT ---
EXAMINATION TYPE: CT abdomen pelvis wo con DATE OF EXAM: 02/01/2018 COMPARISON: 11/25/2017 HISTORY: Bilateral flank pain. CT DLP: 817 mGycm Automated exposure control for dose reduction was used. TECHNIQUE: Helical acquisition of images was performed from the lung bases through the pelvis. FINDINGS: There is small linear reticular density at the superior segment right lower lobe. There is no pleural effusion. Heart size is normal. There are clips from cholecystectomy. Liver appears normal. Spleen and pancreas appear normal. Bile d ucts are not dilated. There are bilateral nephrostomy tubes. There is left-sided hydronephrosis. Ther e is 1 cm calculus at the left ureteral pelvic junction. There is a 7 mm calculus in the proximal rig ht ureter. There is no significant enlargement of the right renal collecting system. There is no retr operitoneal adenopathy. Abdominal aorta is atheromatous. There is right-sided loop colostomy. I see n o intestinal wall thickening. There is no evidence of a bowel obstruction. There is dilated rectosigm oid colon with fecal material. This measures 7 cm. Urinary bladder is small and contains air. There i s moderate narrowing of the T10-11 disc space with anterior subluxation of T10. There is thoracic lum bar kyphotic deformity. There is slight anterior wedging of T11. There is a cavity with wall thickeni ng lateral to the greater trochanter of the left femur. IMPRESSION: THERE IS A LOOP COLOSTOMY. THERE IS RECTAL FECAL IMPACTION AND INCONTINENCE. FECAL IMPACTION IS NEW C OMPARED TO LAST EXAM. BILATERAL NEPHROSTOMY TUBES APPEAR IN GOOD POSITION. THERE IS IMPROVEMENT IN THE RIGHT-SIDED HYDRONEP HROSIS COMPARED TO OLD EXAM. THERE IS OBSTRUCTING CALCULUS IN THE PROXIMAL RIGHT URETER THAT IT APPEA RS SMALLER THAN LAST EXAM. THERE IS LEFT-SIDED HYDRONEPHROSIS WITH CALCULUS IN THE PROXIMAL LEFT URETER. HYDRONEPHROSIS IS NOT S IGNIFICANTLY DIFFERENT THAN LAST EXAM. MULTIPLE BILATERAL RENAL CALCULI. THERE IS THORACOLUMBAR KYPHOTIC DEFORMITY WITH SUBLUXATION AND SPINAL STENOSIS. THIS IS UNCHANGED. THERE IS SOFT TISSUE AIR LATERAL TO THE GREATER TROCHANTER OF THE LEFT FEMUR WITH SOME OSTEOSCLEROSIS AND INCREASED SOFT TISSUE DENSITY THAT COULD RELATE TO CHRONIC INFLAMMATORY PROCESS AND ABSCESS. THI S IS SIMILAR TO OLD EXAM. THIS MEASURES 8 X 4 CM AND NOT SIGNIFICANTLY CHANGED IN SIZE.
--- NOTE | 2018-02-01 21:33 | XR ---
EXAMINATION TYPE: XR chest 2V DATE OF EXAM: 02/01/2018 COMPARISON: 1117 HISTORY: Fever and chills TECHNIQUE: Frontal and lateral views of the chest are obtained. FINDINGS: Heart and mediastinum are normal. Lungs are clear. There is left side central venous george ter with tip in the superior vena cava. Bony thorax appears intact. IMPRESSION: No active cardiopulmonary disease. No change.
[2018-02-02] MEDS ORDERED: NALOXONE 0.4 MG/ML 1 ML VIAL IV PRN (01:08)
[2018-02-02] MEDS ORDERED: VANCOMYCIN IV PER PHARMACY 1 EACH MISC MISCELLANE PRN (01:23)
[2018-02-02] MEDS ORDERED: VANCOMYCIN 1,500 MG in SODIUM CHLORIDE 0.9% 250 ML IVPB ONE (01:30)
--- NOTE | 2018-02-02 01:56 | CDI ---
Documentation Clarification OP Dear Katelyn Damon MD Please do addendum to ED report for missing MDM, Clinical Impression and Disposition Thank you, Smita Kaufman Registered Public Surveyor If you have any questions, please contact Rolling Attendant at [phone] [facility]
[2018-02-02] MEDS: SODIUM CHLORIDE 0.9% 1,000 ML IV SCH (04:59)
[2018-02-02] MEDS: HEPARIN SODIUM,PORCINE 5,000 UNIT/ML 1 ML VIAL SQ SCH ×2 (10:14→16:04)
[2018-02-02] MEDS ORDERED: IBUPROFEN 800 MG TAB PO PRN (10:34)
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
[2018-02-02] MEDS: VANCOMYCIN 1,500 MG in SODIUM CHLORIDE 0.9% 250 ML IVPB SCH (16:04)
[2018-02-02] MEDS: LEVOTHYROXINE 100 MCG TAB PO SCH (16:04)
[2018-02-02] MEDS ORDERED: BISACODYL 10 MG SUPP RECTAL STA (16:07)
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
[2018-02-02] MEDS: ATORVASTATIN 10 MG TAB PO SCH (20:44)
[2018-02-03] MEDS ORDERED: HEPARIN SODIUM,PORCINE 5,000 UNIT/ML 1 ML VIAL ONE
[2018-02-03] MEDS: SODIUM CHLORIDE 0.9% 1,000 ML IV SCH (05:08)
[2018-02-03] MEDS: HEPARIN SODIUM,PORCINE 5,000 UNIT/ML 1 ML VIAL SQ SCH ×3 (05:08→16:54)
[2018-02-03] MEDS: LEVOTHYROXINE 100 MCG TAB PO SCH (05:29)
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
[2018-02-03 08:13] LABS: Calcium 8.3 mg/dL (8.4-10.2); Potassium 4.3 mmol/L (3.5-5.1)
[2018-02-03] MEDS: cefTRIAXone IN SWFI 2,000 MG/20 ML SYRINGE IVP SCH (08:48)
[2018-02-03] MEDS: VANCOMYCIN 1,500 MG in SODIUM CHLORIDE 0.9% 250 ML IVPB SCH (08:48)
[2018-02-03] MEDS: ASPIRIN 81 MG PO SCH (08:48)
[2018-02-03] MEDS: PANTOPRAZOLE 40 MG TABLET PO SCH (08:48)
[2018-02-03] MEDS ORDERED: cefTRIAXone 2,000 MG in SODIUM CHLORIDE 0.9% 100 ML IVPB SCH (09:00)
[2018-02-03] MEDS: MULTIVITAMINS, THERA 1 EACH TAB PO SCH (11:09)
[2018-02-03] MEDS: HYDROcodone/APAP 5-325MG 1 EACH TAB PO PRN ×2 (11:09→21:44)
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
[2018-02-03 16:16] VITALS: PULSE 77
[2018-02-03] MEDS: ATORVASTATIN 10 MG TAB PO SCH (21:35)
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
[2018-02-04] MEDS: HEPARIN SODIUM,PORCINE 5,000 UNIT/ML 1 ML VIAL SQ SCH ×3 (02:00→17:30)
[2018-02-04] MEDS: LEVOTHYROXINE 100 MCG TAB PO SCH (05:39)
[2018-02-04 06:22] VITALS: BP 139/74; RESP 16; TEMP 98.3
[2018-02-04 07:55] LABS: HGB 10.7 gm/dL (11.4-16.0); MCH 28.6 pg (25.0-35.0); MCHC 31.5 g/dL (31.0-37.0); MCV 90.6 fL (80.0-100.0); Platelet Count 425 k/uL (150-450); RBC 3.76 m/uL (3.80-5.40); RDW 13.8 % (11.5-15.5); WBC 6.9 k/uL (3.8-10.6)
[2018-02-04] MEDS: SODIUM CHLORIDE 0.9% 1,000 ML IV SCH (07:58)
[2018-02-04 08:24] LABS: Anion Gap 7 mmol/L; Blood Urea Nitrogen 20 mg/dL (7-17); Calcium 8.6 mg/dL (8.4-10.2); Carbon Dioxide 20 mmol/L (22-30); Chloride 111 mmol/L (98-107); Glucose 94 mg/dL (74-99); Potassium 4.8 mmol/L (3.5-5.1); Sodium 138 mmol/L (137-145)
[2018-02-04] MEDS: ASPIRIN 81 MG PO SCH (09:19)
[2018-02-04] MEDS: cefTRIAXone IN SWFI 2,000 MG/20 ML SYRINGE IVP SCH (09:19)
[2018-02-04] MEDS: PANTOPRAZOLE 40 MG TABLET PO SCH (09:20)
[2018-02-04] MEDS: HYDROcodone/APAP 5-325MG 1 EACH TAB PO PRN (09:30)
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
[2018-02-04] MEDS: MULTIVITAMINS, THERA 1 EACH TAB PO SCH (13:00)
[2018-02-04] MEDS ORDERED: VANCOMYCIN TROUGH DUE 1 EACH MISC MISCELLANE ONE (15:00)
--- NOTE | 2018-02-13 05:53 | CDI ---
Last Revision, June 2017 Documentation Clarification Form Date: 02/13/2018 12:00:00 AM From: Selene Julian Phone: you have a question about this query, please contact Elaina Patino, Drill Foreman at [phone] between 8am and 5pm. Admit Date: 02/02/2018 5:43:00 AM Patient Name: Dulce Ramos Visit Number: [id number] Discharge Date: 02/04/18 ATTENTION: The Clinical Documentation Specialists (CDI) and [facility] Coding Staff appreciate your assistance in clarifying documentation. Please respond to the clarification below the line at the bottom and electronically sign. The CDI & [facility] Coding staff will review the response and follow-up if needed. Please note: Queries are made part of the Legal Health Record. If you have any questions, please contact the author of this message via ITS. Dr. Lefty Moore A pressure ulcer was documented on left trochanger which has grown Proteus and staph aureus . History/Risk Factors: Patient is paraplegic Location: Left hip Treatment: IV Vancomycin Stage I-IV, Unstageable, Suspected Deep Tissue Injury (To the deepest stage) If the ulcer was present at admission (POA) or occurred after admission In your professional opinion, can you please clarify The stage of ulcer: Stage 1 Pressure/Decubitus Ulcer (intact skin, non-blanching redness of local area) Stage 2 Pressure/Decubitus Ulcer (Partial thickness, loss of dermis, pink wound bed) Stage 3 Pressure/Decubitus Ulcer (Full thickness tissue loss) Stage 4 Pressure/Decubitus Ulcer (Full thickness tissue loss with exposed bone , tendon, or muscle. May have slough or eschar present) Unstageable Other condition, please specify Unable to determine Please indicate etiology of pressure ulcer (if known). Unstageable MTDD
--- NOTE | 2018-02-23 05:51 | CDI ---
Last Revision, June 2017 Documentation Clarification Form Date: 02/23/2018 5:31:09 AM From: Selene Julian Phone: If you have a question about this query, please contact Elaina Patino Fur Dressing Supervisor at [phone] between 8am and 5pm. Admit Date: 02/02/2018 5:43:00 AM Patient Name: Dulce Ramos Visit Number: [id number] Discharge Date: 02/04/18 ATTENTION: The Clinical Documentation Specialists (CDI) and [facility] Coding Staff appreciate your assistance in clarifying documentation. Please respond to the clarification below the line at the bottom and electronically sign. The CDI & [facility] Coding staff will review the response and follow-up if needed. Please note: Queries are made part of the Legal Health Record. If you have any questions, please contact the author of this message via ITS. Lefty Mcfarland MD Documentation in DCS states possible sepsis due to UTI, PICC or wound infection. For accurate coding please specifiy source of sepsis. History/Risk Factors: Proteus UTI WBC/Left Shift 13.1 Blood cultures: No growth Vitals signs on admission: 99.7F 90 BPM 16 136/61 9: Treatment: antibiotics Antibiotics: Vancomycin In your professional opinion, please clarify source of sepsis: Proteus UTI (pyenephrosis) PICC line wound infection Other, please specify Unable to determine Present on Admission: Yes No MTDD
== END 2018-02-04 18:00 | disposition home health service (06) | DRG 872 ==
LOC: EC 19:13 → 5MS5E 02-02 01:12 → OBSVTOIN 02-02 05:43
PROVIDERS: ADMIT Hospitalist; ATTEND Hospitalist
DX: A41.59 Other Gram-negative sepsis (principal); N13.6 Pyonephrosis; A41.01 Sepsis due to Methicillin susceptible Staphylococcus aureus; L89.220 Pressure ulcer of left hip, unstageable; G82.20 Paraplegia, unspecified; E03.9 Hypothyroidism, unspecified; Z79.2 Long term (current) use of antibiotics; Z79.82 Long term (current) use of aspirin; Z79.890 Hormone replacement therapy; Z79.899 Other long term (current) drug therapy; E78.5 Hyperlipidemia, unspecified; F17.200 Nicotine dependence, unspecified, uncomplicated; H40.9 Unspecified glaucoma; I10 Essential (primary) hypertension; K21.9 Gastro-esophageal reflux disease without esophagitis; K56.41 Fecal impaction; M06.9 Rheumatoid arthritis, unspecified; N31.9 Neuromuscular dysfunction of bladder, unspecified; V89.2XXS Person injured in unspecified motor-vehicle accident, traffic, sequela; Y92.410 Unspecified street and highway as the place of occurrence of the external cause; Z80.0 Family history of malignant neoplasm of digestive organs; Z87.442 Personal history of urinary calculi; Z91.041 Radiographic dye allergy status; Z82.3 Family history of stroke
CPT/HCPCS: 36415; 71046; 74176; 80048; 80053; 80202; 81001; 83605; 85025; 85027; 85652; 86140; 87040; 87077; 87086; 87186; 93005; 96361; 96365; 99285

== ENCOUNTER → 2018-02-22 | Outpatient (CLI) | payer MEDICARE, OTHER ==
[2018-02-22 13:34] LABS: Basophils # (A) 0.1 k/uL (0-0.2); Basophils % (A) 1 %; Eosinophils # (A) 0.5 k/uL (0-0.7); Eosinophils % (A) 7 %; HCT 39.2 % (34.0-46.0); HGB 12.5 gm/dL (11.4-16.0); Hypochromasia Slight; Lymphocytes # (A) 1.9 k/uL (1.0-4.8); Lymphocytes % (A) 25 %; MCH 28.7 pg (25.0-35.0); MCHC 31.7 g/dL (31.0-37.0); MCV 90.4 fL (80.0-100.0); Mean Platelet Volume 8.4; Monocytes # (A) 0.5 k/uL (0-1.0); Monocytes % (A) 7 %; Neutrophils # (A) 4.6 k/uL (1.3-7.7); Neutrophils % (A) 60 %; Platelet Count 358 k/uL (150-450); RBC 4.34 m/uL (3.80-5.40); RDW 14.2 % (11.5-15.5); WBC 7.7 k/uL (3.8-10.6)
[2018-02-22 14:10] LABS: Calcium 9.3 mg/dL (8.4-10.2)
--- NOTE | 2018-02-22 15:23 | XR ---
EXAMINATION TYPE: XR chest 2V DATE OF EXAM: 02/22/2018 COMPARISON: 02/01/2018 INDICATION: Left renal calculus, presurgical clearance TECHNIQUE: Frontal and lateral views of the chest are obtained. FINDINGS: The heart size is normal. The pulmonary vasculature is normal. The lungs are clear. IMPRESSION: 1. No acute pulmonary process.
== END ==
LOC: RADXRMAIN 12:15
PROVIDERS: ATTEND Urology
DX: Z01.818 Encounter for other preprocedural examination (principal); Z01.812 Encounter for preprocedural laboratory examination; N20.0 Calculus of kidney; E03.9 Hypothyroidism, unspecified; R35.0 Frequency of micturition; R31.29 Other microscopic hematuria
CPT/HCPCS: 36415; 71046; 80048; 85025

== ENCOUNTER → 2018-02-27 | Outpatient (CLI) | payer MEDICARE, OTHER | END | disposition home or self-care (01) | LOC: LABPAT 12:56 | PROVIDERS: ATTEND Urology | DX: Z01.818 Encounter for other preprocedural examination (principal); Z01.812 Encounter for preprocedural laboratory examination; N20.0 Calculus of kidney; E03.9 Hypothyroidism, unspecified; R35.0 Frequency of micturition; R31.29 Other microscopic hematuria | CPT/HCPCS: 87086; 93005 ==

== ENCOUNTER → 2018-02-27 | Outpatient (CLI) | payer MEDICARE, OTHER ==
[~2018-02-27] MED LIST changes: -AMPICILLIN 1,000 MG in SODIUM CHLORIDE 0.9% 50 ML IVPB ONE; -AMPICILLIN 1,000 MG in SODIUM CHLORIDE 0.9% 50 ML IVPB STA; -GENTAMICIN 100 MG in SODIUM CHLORIDE 0.9% 100 ML IVPB ONE; +SODIUM CHLORIDE 0.9% 500 ML in EMPTY BAG 1 BAG IV PRN
[2018-02-27 14:26] VITALS: BP 143/69; PULSE 70; RESP 18; TEMP 97.6
[2018-02-27 14:50] LABS: Appearance,Urine Cloudy (Clear); Bilirubin,Urine Negative (Negative); Blood,Urine Large (Negative); Color,Urine Red; Glucose,Urine (UA) Negative (Negative); Ketones,Urine Negative (Negative); Leukocyte Esterase,Urine Moderate (Negative); Nitrite,Urine Negative (Negative); PH, Urine 6.5 (5.0-8.0); Protein,Urine 2+ (Negative); RBC,Urine >182 /hpf (0-5); Specific Gravity,Urine 1.013 (1.001-1.035); Urobilinogen,Urine <2.0 mg/dL (<2.0); WBC,Urine 165 /hpf (0-5)
== END | disposition home or self-care (01) ==
LOC: PROCWHC3 12:53
PROVIDERS: ATTEND Urology
DX: Z01.812 Encounter for preprocedural laboratory examination (principal); N20.0 Calculus of kidney; E03.9 Hypothyroidism, unspecified; R35.0 Frequency of micturition; R31.29 Other microscopic hematuria
CPT/HCPCS: 81001

== ENCOUNTER 2018-03-01 07:25 | Inpatient (IN) | payer MEDICARE, OTHER ==
[2018-02-21 11:58] VITALS: BMI 27.7
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
[~2018-03-01 07:25] MED LIST changes: +AMPICILLIN 1,000 MG in SODIUM CHLORIDE 0.9% 50 ML IVPB ONE; +DEXAMETHASONE SOD PHOSPHATE 10 MG/ML 1 ML VIAL IV ONE; +GENTAMICIN 120 MG in SODIUM CHLORIDE 0.9% 100 ML IVPB ONE; +LIDOCAINE 1% 20 ML VIAL (10MG/ML) FOR IV START INTRADERMA PRN; +MIDAZOLAM 2 MG/2 ML VIAL IV PRN; +ONDANSETRON 4 MG/2 ML VIAL IVP ONE; -SODIUM CHLORIDE 0.9% 500 ML in EMPTY BAG 1 BAG IV PRN
--- NOTE | 2018-03-01 07:58 | XR ---
EXAMINATION TYPE: XR KUB DATE OF EXAM: 03/01/2018 7:43 AM CLINICAL HISTORY: History of left-sided kidney stones. TECHNIQUE: Two supine KUB images of the abdomen are obtained. COMPARISON: CT abdomen pelvis February 01, 2018. FINDINGS: There are percutaneous nephrostomy tubes bilaterally redemonstrated. There is no definitive right-sided nephrolithiasis. Calculi along course of proximal right ureter are less well seen on alberto in films versus CT. Redemonstration of oval shaped 11 mm calculus left kidney. Scattered smaller calc harleen on CT are less well seen on plain films including proximal left ureter calculi. Numerous clips overlie the pelvis. Cholecystectomy clips are redemonstrated. Underlying rotary scolio sis is again seen. Advanced degenerative change in both hips is partially imaged. Chronic widening an d deformity of pubic symphysis is redemonstrated. IMPRESSION: Persistent bilateral nephrostomy tubes with less well visualized bilateral ureter calculi on plain films versus recent CT.
[2018-03-01] MEDS: LACTATED RINGERS 1,000 ML IV SCH (08:00)
[2018-03-01] MEDS ORDERED: NEOSTIGMINE 1 MG/ML 10 ML VIAL ONE (08:30)
[2018-03-01] MEDS ORDERED: fentaNYL (PF) 50 MCG/ML 2 ML AMP ONE (08:30)
[2018-03-01] MEDS ORDERED: MIDAZOLAM 2 MG/2 ML VIAL ONE (08:30)
[2018-03-01] MEDS ORDERED: ROCURONIUM BROMIDE 10 MG/ML 10 ML VIAL IV ONE (08:30)
[2018-03-01] MEDS ORDERED: LIDOCAINE 1% INJ 10MG/ML (20 ML MDV) ONE (08:30)
[2018-03-01] MEDS ORDERED: GLYCOPYRROLATE 0.2 MG/ML 2 ML VIAL ONE (08:30)
[2018-03-01] MEDS ORDERED: PROPOFOL 10 MG/ML 20 ML VIAL IV ONE (08:30)
[2018-03-01] MEDS ORDERED: IOPAMIDOL-370 50ML BTL MISCELLANE ONE (09:00)
[2018-03-01] MEDS ORDERED: HYDROcodone/APAP 5-325MG 1 EACH TAB PO PRN (10:51)
[2018-03-01] MEDS ORDERED: ACETAMINOPHEN TAB 325 MG TAB PO PRN (10:52)
[2018-03-01] MEDS ORDERED: ONDANSETRON 4 MG/2 ML VIAL IVP PRN (10:52)
[2018-03-01] MEDS ORDERED: MAG HYDROX/AL HYDROX/SIMETH 30 ML CUP PO PRN (10:52)
[2018-03-01] MEDS ORDERED: NALOXONE 0.4 MG/ML 1 ML VIAL IV PRN (10:55)
--- NOTE | 2018-03-01 11:01 | FL ---
EXAMINATION TYPE: FL guidance operating room DATE OF EXAM: 03/01/2018 CLINICAL HISTORY: Left kidney stones TECHNIQUE: Fluoroscopy. COMPARISON: None. FINDINGS: Fluoroscopic guidance was provided during percutaneous access procedure for lithotripsy pe rformed by Dr. Hunter. A total of 12 seconds of fluoroscopic time was utilized during the procedure a nd 3 spot images was acquired. Images acquired show contrast opacification of collecting system with subsequent placement of guidewire and catheter into ureter. IMPRESSION: As Above.
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
[2018-03-01] MEDS: HYDROmorphone 0.5 MG/0.5 ML SYRINGE IVP PRN ×4 (11:15→11:46)
[2018-03-01] MEDS: KETOROLAC 30 MG/ML 1 ML VIAL IVP PRN (11:45)
[2018-03-01] MEDS: DEXTROSE 5%-0.45% NACL 1,000 ML IV SCH ×2 (11:50→21:30)
[2018-03-01] MEDS: HYDROmorphone PCA 5 MG/25 ML SYRINGE IV PRN (12:58)
[2018-03-01] MEDS: PANTOPRAZOLE 40 MG TABLET PO SCH (18:21)
[2018-03-01] MEDS: SULFAMETHOX-TMP 800-160MG 1 EACH TAB PO SCH (20:17)
[2018-03-01] MEDS: ATORVASTATIN 10 MG TAB PO SCH (20:17)
[2018-03-01] MEDS: LATANOPROST 0.005% OPHTH DROPS 2.5 ML BTL BOTH EYES SCH (21:30)
[2018-03-02] MEDS ORDERED: LEVOTHYROXINE 112 MCG TAB PO SCH (06:30)
--- NOTE | 2018-03-02 06:49 | P.PN ---
Subjective Progress Note Date: 03/02/18 The patient is in her first day post left percutaneous nephrostolithotomy to remove ureteral and renal infected stones. I did leave an antegrade stent on the left side. Her urine is cleared nicely. Her pain is not completely relieved and I would prefer that she stay another 24 hours so that this is under better control and that she becomes more mobile to her wheelchair. Depending on how she does as to when I will pull the nephrostomy tube. The stent will remain in about 3 weeks and probably I'll remove it in time I do the right percutaneous nephrostolithotomy. Objective - Vital Signs Vital signs: Vital Signs Temp 97.7 F 03/01/18 23:47 Pulse 63 03/01/18 23:47 Resp 15 03/01/18 23:47 BP 104/66 03/01/18 23:47 Pulse Ox 95 03/01/18 23:47 Intake & Output 03/01/18 03/01/18 03/02/18 06:59 18:59 06:59 Intake Total 1753 900 Output Total 900 610 Balance 853 290 Weight 78.018 kg Intake: IV 1753 Intake, IV Titration 900 Amount Dextrose 5%-0.45% NaCl 1, 900 000 ml @ 100 mls/hr IV . Q10H [facility] Rx#:[id number] Output: Drainage 900 410 Abdomen 100 Left flank 500 310 Right flank 400 0 Urine 200 Other: Voiding Method Indwelling Catheter Indwelling Catheter - Labs CBC & Chem 7: 03/01/18 08:00
[2018-03-02] MEDS: DEXTROSE 5%-0.45% NACL 1,000 ML IV SCH ×2 (07:58→17:41)
[2018-03-02] MEDS: LACTATED RINGERS 1,000 ML IV SCH (07:58)
[2018-03-02] MEDS: SULFAMETHOX-TMP 800-160MG 1 EACH TAB PO SCH ×2 (08:03→21:16)
[2018-03-02] MEDS: PANTOPRAZOLE 40 MG TABLET PO SCH (17:46)
[2018-03-02] MEDS: HYDROmorphone PCA 5 MG/25 ML SYRINGE IV PRN (20:27)
[2018-03-02] MEDS: ATORVASTATIN 10 MG TAB PO SCH (21:16)
[2018-03-02] MEDS: LATANOPROST 0.005% OPHTH DROPS 2.5 ML BTL BOTH EYES SCH (21:16)
[2018-03-03] MEDS: DEXTROSE 5%-0.45% NACL 1,000 ML IV SCH ×2 (04:56→13:22)
[2018-03-03] MEDS ORDERED: LEVOTHYROXINE 100 MCG TAB PO SCH (06:30)
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
[2018-03-03] MEDS: LACTATED RINGERS 1,000 ML IV SCH (07:54)
[2018-03-03] MEDS: SULFAMETHOX-TMP 800-160MG 1 EACH TAB PO SCH (08:51)
[2018-03-03] MEDS: KETOROLAC 30 MG/ML 1 ML VIAL IVP PRN (11:21)
[2018-03-03] MEDS ORDERED: HYDROcodone/APAP 5-325MG 1 EACH TAB PO PRN (13:43)
[2018-03-03] MEDS: HYDROcodone/APAP 5-325MG 1 EACH TAB PO PRN ×2 (13:59→17:41)
[2018-03-03 15:17] VITALS: BP 109/66; PULSE 67; RESP 12; TEMP 97.6
[2018-03-03] MEDS: PANTOPRAZOLE 40 MG TABLET PO SCH (17:41)
== END 2018-03-03 20:00 | disposition home or self-care (01) | DRG 660 ==
LOC: 2ORMAIN 07:25 → 3SUR 11:05
PROVIDERS: ADMIT Urology; ATTEND Urology
PROC: 0TC18ZZ Extirpation of Matter from Left Kidney, Via Natural or Artificial Opening Endoscopic (ICD-10-PCS; principal; 2018-03-01 08:30)
PROC: 0TC78ZZ Extirpation of Matter from Left Ureter, Via Natural or Artificial Opening Endoscopic (ICD-10-PCS; principal; 2018-03-01 08:30)
PROC: 0T778DZ Dilation of Left Ureter with Intraluminal Device, Via Natural or Artificial Opening Endoscopic (ICD-10-PCS; principal; 2018-03-01 08:30)
DX: N13.6 Pyonephrosis (principal); G82.20 Paraplegia, unspecified; E78.5 Hyperlipidemia, unspecified; S12.9XXS Fracture of neck, unspecified, sequela; V89.2XXS Person injured in unspecified motor-vehicle accident, traffic, sequela; H40.9 Unspecified glaucoma; I10 Essential (primary) hypertension; K21.9 Gastro-esophageal reflux disease without esophagitis; M06.9 Rheumatoid arthritis, unspecified; N31.9 Neuromuscular dysfunction of bladder, unspecified; Z79.82 Long term (current) use of aspirin; Z80.0 Family history of malignant neoplasm of digestive organs; Z87.442 Personal history of urinary calculi; Z87.891 Personal history of nicotine dependence; Z90.49 Acquired absence of other specified parts of digestive tract; Z79.899 Other long term (current) drug therapy; Z79.1 Long term (current) use of non-steroidal anti-inflammatories (NSAID); Z79.890 Hormone replacement therapy; Z79.891 Long term (current) use of opiate analgesic; Z91.041 Radiographic dye allergy status; E07.9 Disorder of thyroid, unspecified
CPT/HCPCS: 74018; 81001; 82365; 84132; 86850; 86900; 86901; 87086; 93005; 94760; 94762

== ENCOUNTER → 2018-03-29 | Outpatient (CLI) | payer MEDICARE, OTHER ==
[2018-03-29 15:23] LABS: Basophils # (A) 0.1 k/uL (0-0.2); Basophils % (A) 1 %; Eosinophils # (A) 0.2 k/uL (0-0.7); Eosinophils % (A) 2 %; HCT 38.9 % (34.0-46.0); HGB 12.2 gm/dL (11.4-16.0); Lymphocytes # (A) 1.5 k/uL (1.0-4.8); Lymphocytes % (A) 19 %; MCH 27.7 pg (25.0-35.0); MCHC 31.3 g/dL (31.0-37.0); MCV 88.6 fL (80.0-100.0); Mean Platelet Volume 7.8; Monocytes # (A) 0.5 k/uL (0-1.0); Monocytes % (A) 7 %; Neutrophils # (A) 5.7 k/uL (1.3-7.7); Neutrophils % (A) 71 %; Platelet Count 396 k/uL (150-450); RBC 4.39 m/uL (3.80-5.40)
[2018-03-29 15:36] LABS: Calcium 9.4 mg/dL (8.4-10.2); Potassium 4.6 mmol/L (3.5-5.1)
[2018-03-29 16:05] LABS: Appearance,Urine Bloody (Clear); Color,Urine Dark Red; RBC,Urine >182 /hpf (0-5)
== END | disposition home or self-care (01) ==
LOC: LABPAT 14:40
PROVIDERS: ATTEND Urology
DX: Z01.812 Encounter for preprocedural laboratory examination (principal); N20.0 Calculus of kidney; E03.9 Hypothyroidism, unspecified; R35.0 Frequency of micturition
CPT/HCPCS: 36415; 80048; 85025; 87077; 87086; 87186

== ENCOUNTER 2018-04-05 07:59 | Day surgery (SDC) | payer MEDICARE, OTHER ==
[2018-03-30 16:27] VITALS: BMI 27.4
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
[~2018-04-05 07:59] MED LIST changes: +SCOPOLAMINE 1.5MG/72HR PATCH TRANSDERM ONE
--- NOTE | 2018-04-05 08:44 | XR ---
Abdomen HISTORY: Preop Frontal view of the abdomen submitted and correlated to prior exam 03/01/[address] abdom en pelvis 02/01/2018 Right-sided nephrostomy tube is in place. Left-sided double-J tube has been placed in the interval co ursing towards the right lower quadrant from the left upper quadrant possibly due to ileal loop. Inte rval removal of the left nephrostomy tube. Surgical clips are present in the pelvis and right upper q uadrant. Lung bases are clear. No pneumoperitoneum or bowel obstruction. Retained fecal debris presen t throughout the distribution of the colon, overlying bowel gas obscures detail within the kidneys. M arked arthropathy noted within the hips. Degenerative disc disease present within the lumbar spine, t here is a spinal curvature. Left-sided renal calculus not seen with certainty. Probable injection gra nuloma over the right gluteal region. IMPRESSION: Interval procedural changes. Calcifications within the kidney on the right may be obscure d.
[2018-04-05] MEDS: LACTATED RINGERS 1,000 ML IV SCH (09:33)
[2018-04-05] MEDS ORDERED: LIDOCAINE 1% INJ 10MG/ML (20 ML MDV) ONE (10:41)
[2018-04-05] MEDS ORDERED: fentaNYL (PF) 50 MCG/ML 2 ML AMP ONE (10:41)
[2018-04-05] MEDS ORDERED: NEOSTIGMINE 1 MG/ML 10 ML VIAL ONE (10:41)
[2018-04-05] MEDS ORDERED: PROPOFOL 10 MG/ML 20 ML VIAL IV ONE (10:41)
[2018-04-05] MEDS ORDERED: MIDAZOLAM 2 MG/2 ML VIAL ONE (10:41)
[2018-04-05] MEDS ORDERED: ROCURONIUM BROMIDE 10 MG/ML 10 ML VIAL IV ONE (10:41)
[2018-04-05] MEDS ORDERED: GLYCOPYRROLATE 0.2 MG/ML 2 ML VIAL ONE (10:41)
[2018-04-05] MEDS ORDERED: SODIUM CHLORIDE 0.9% IRRIGATION ONE ×2 (11:19)
[2018-04-05] MEDS ORDERED: IOHEXOL IRRIGATION ONE ×2 (11:19)
[2018-04-05] MEDS ORDERED: LACTATED RINGERS 1,000 ML IV ONE (11:49)
[2018-04-05] MEDS ORDERED: HYDROcodone/APAP 5-325MG 1 EACH TAB PO PRN (12:08)
[2018-04-05] MEDS ORDERED: ONDANSETRON 4 MG/2 ML VIAL IVP PRN (12:10)
[2018-04-05] MEDS ORDERED: ACETAMINOPHEN TAB 325 MG TAB PO PRN (12:10)
[2018-04-05] MEDS ORDERED: MAG HYDROX/AL HYDROX/SIMETH 30 ML CUP PO PRN (12:10)
[2018-04-05] MEDS ORDERED: NALOXONE 0.4 MG/ML 1 ML VIAL IV PRN (12:11)
--- NOTE | 2018-04-05 12:17 | P.OP ---
Date of Procedure: 04/05/18 Preoperative Diagnosis: Right renal stones, infected. Neurogenic bladder with ileal loop, paraplegia Postoperative Diagnosis: Same Procedure(s) Performed: Looposcopy with removal of double-J catheter left, percutaneous nephrostomy right Anesthesia: DENITA Surgeon: Figueroa Hunter Estimated Blood Loss (ml): 25 Pathology: none sent Condition: stable Disposition: PACU Indications for Procedure: The patient is 67. She has a neurogenic bladder and this ileal loop to drain her urine. She underwent a left percutaneous nephrostolithotomy for a full branch staghorn on the left recently as well as ureteral stones. She had a double-J catheter that remains. She comes for nephrostolithotomy on the right for multiple small stones as well as removal with stent Description of Procedure: Patient is brought to the operating suite she is given a general anesthesia on the transport gurney. The bag for the ileal conduit is removed. With a rigid 21-Surinamese nephroscope I introduced this into the ileal conduit. Double-J catheters identified grasped and removed. I re-apply an appliance to the ileal loop. The patient is placed in a prone position with care to airways and extremities. A sterile prep and drape is maintained. Through the established 8-Surinamese nephrostomy tube and 035 wires passed down into the right ureter ureter and into the ileal conduit. I attempt to do ureteroscopy alongside the wire but am unable to access the collecting system. Because of the amount of small stone and debris I will therefore perform percutaneous nephrostolithotomy. Over the wire previously passed and the ureters passed another catheter and a second wire is passed down into the ureter. Over the working wire I dilate the tract to 30-Surinamese with a dilating balloon. The 30-Surinamese sheath was passed into the collecting system. I then introduced the rigid scope into the collecting system and irrigate out a lot of infected debris and small stony debris. I then pass the flexible scope down in the ureter into the ileal loop and several small stones flow into the ileal conduit. The ureters clear of any stones at this point in time. I then tediously going throughout the collecting system making sure intubate each calyx and I see no remaining stones after I flushed all the debris out. Then of the procedure I passed a 8-Surinamese J nephrostomy tube over the working wire that coils in the renal pelvis. The working sheath is removed. His secured the skin with 2-0 silk. The patient's awakened and returned recovery room good condition. Blood loss is approximately 25 mL. She' ll be placed in the hospital overnight.
[2018-04-05] MEDS: HYDROmorphone 0.5 MG/0.5 ML SYRINGE IVP PRN ×2 (12:38→12:42)
[2018-04-05] MEDS: LEVOTHYROXINE 100 MCG TAB PO SCH (13:18)
[2018-04-05] MEDS: HYDROmorphone PCA 5 MG/25 ML SYRINGE IV PRN (15:08)
--- NOTE | 2018-04-05 15:18 | FL ---
Fluoroscopy HISTORY: Nephrostomy tube change 3 minutes 17 seconds fluoroscopy time supplied to the referring clinician. 3 intraoperative C-arm im ages document the procedure. See dictated report from urology.
[2018-04-05] MEDS: DEXTROSE 5%-0.45% NACL 1,000 ML IV SCH (15:21)
[2018-04-05] MEDS: PANTOPRAZOLE 40 MG TABLET PO SCH (17:24)
[2018-04-05] MEDS: CIPROFLOXACIN HCL 500 MG TAB PO SCH (21:33)
[2018-04-05] MEDS: LATANOPROST 0.005% OPHTH DROPS 2.5 ML BTL BOTH EYES SCH (21:33)
[2018-04-06] MEDS: DEXTROSE 5%-0.45% NACL 1,000 ML IV SCH ×2 (03:08→15:20)
[2018-04-06] MEDS: HYDROmorphone PCA 5 MG/25 ML SYRINGE IV PRN ×2 (04:26→18:00)
[2018-04-06] MEDS ORDERED: LEVOTHYROXINE 112 MCG TAB PO SCH (06:30)
--- NOTE | 2018-04-06 06:34 | P.PN ---
Subjective Progress Note Date: 04/06/18 The patient is in her first postoperative day from a right percutaneous nephrostolithotomy. The urine is clear. She is not having any pain on the right side. I also removed her stent from the left side. She did have some colic from that this morning but it is feeling better. Due to the Colic on the left side we will observe her for another 24 hours. Her vital signs are stable she is afebrile. I will advance her diet. I'll get her up in her chair. If she feels well she'll be discharged home tomorrow. Objective - Vital Signs Vital signs: Vital Signs Temp 97.4 F L 04/06/18 00:47 Pulse 52 L 04/06/18 00:47 Resp 16 04/06/18 00:47 BP 106/65 04/06/18 00:47 Pulse Ox 98 04/06/18 00:47 Intake & Output 04/05/18 04/05/18 04/06/18 06:59 18:59 06:59 Intake Total 1454 825 Output Total 490 615 Balance 964 210 Weight 77.111 kg Intake: IV 1454 Intake, IV Titration 825 Amount Dextrose 5%-0.45% NaCl 1, 825 000 ml @ 75 mls/hr IV . [id number] [facility] Rx#:[id number] Output: Drainage 450 215 Right 450 215 Urine 400 Estimated Blood Loss 40 Other: Voiding Method Ileal Conduit (Right)
[2018-04-06] MEDS: CIPROFLOXACIN HCL 500 MG TAB PO SCH ×2 (08:32→21:11)
[2018-04-06] MEDS: LACTATED RINGERS 1,000 ML IV SCH (08:33)
[2018-04-06] MEDS: PANTOPRAZOLE 40 MG TABLET PO SCH (17:36)
[2018-04-06] MEDS: LATANOPROST 0.005% OPHTH DROPS 2.5 ML BTL BOTH EYES SCH (21:12)
[2018-04-07] MEDS: DEXTROSE 5%-0.45% NACL 1,000 ML IV SCH ×2 (04:15→19:37)
[2018-04-07] MEDS: LEVOTHYROXINE 100 MCG TAB PO SCH (05:44)
--- NOTE | 2018-04-07 06:41 | P.DS ---
Providers Attending physician: Figueroa Hunter Consults: 04/06/18 13:56 Consult Physician Routine Consulting Provider: Carlos Vaughan Consult Reason/Comments: Wound Vac Do you want consulting provider notified?: Yes Primary care physician: Jacob Acevedo [facility] Course: The patient is a 67-year-old clot paraplegic who was brought in the hospital for right percutaneous nephrostolithotomy. She previously underwent a left percutaneous nephrostolithotomy. She underwent this without difficulty. A double-J catheter from the left side was also removed. Postoperatively she did well with stable vital signs. She had a moderate amount of pain that kept in the hospital extra 24 hours. I removed her nephrostomy tube today. She is feeling better. If she feels well this afternoon she'll go home later today. She and prescription of [place] and Cipro. She'll follow-up in the office in one week. Condition is good. Patient Condition at Discharge: Good Plan - Discharge Summary Discharge Rx Participant: Yes New Discharge Prescriptions: New HYDROcodone/APAP 5-325MG [[place] 5-325] 1 tab PO Q4HR PRN #14 tab PRN Reason: Pain Control Ciprofloxacin HCl [Cipro] 500 mg PO Q12H 3 Days #14 tab No Action Aspirin 81 mg PO DAILY Omeprazole [PriLOSEC] 20 mg PO PC-SUPPER Levothyroxine Sodium [Synthroid] 100 mcg PO SUTUWEFRSA Ibuprofen 800 mg PO TID PRN PRN Reason: Pain Multivitamins, Thera [Multivitamin (formulary)] 1 tab PO DAILY Lovastatin [Mevacor] 40 mg PO HS Travoprost [Travatan Z 0.004%] 1 drop BOTH EYES HS HYDROcodone/APAP 5-325MG [[place] 5-325] 1 tab PO Q4HR PRN #14 tab PRN Reason: Pain Levothyroxine Sodium [Synthroid] 112 mcg PO MOTH Sulfamethox-Tmp 400-80Mg [Bactrim SS 400-80 mg] 1 tab PO Q12HR Imodium (Unknown Dose) 1 tab PO DIRECTED PRN PRN Reason: Diarrhea Discharge Medication List Aspirin 81 mg PO DAILY 12/31/13 [History] Levothyroxine Sodium [Synthroid] 100 mcg PO SUTUWEFRSA 12/31/13 [History] Omeprazole [PriLOSEC] 20 mg PO PC-SUPPER 12/31/13 [History] Ibuprofen 800 mg PO TID PRN 12/09/16 [History] Lovastatin [Mevacor] 40 mg PO HS 11/09/17 [History] Multivitamins, Thera [Multivitamin (formulary)] 1 tab PO DAILY 11/09/17 [History ] Travoprost [Travatan Z 0.004%] 1 drop BOTH EYES HS 01/11/18 [History] HYDROcodone/APAP 5-325MG [[place] 5-325] 1 tab PO Q4HR PRN #14 tab 01/14/18 [Rx] Levothyroxine Sodium [Synthroid] 112 mcg PO MOTH 02/01/18 [History] Imodium (Unknown Dose) 1 tab PO DIRECTED PRN 03/30/18 [History] Sulfamethox-Tmp 400-80Mg [Bactrim SS 400-80 mg] 1 tab PO Q12HR 03/30/18 [History ] Ciprofloxacin HCl [Cipro] 500 mg PO Q12H 3 Days #14 tab 04/07/18 [Rx] HYDROcodone/APAP 5-325MG [[place] 5-325] 1 tab PO Q4HR PRN #14 tab 04/07/18 [Rx] Follow up Appointment(s)/Referral(s): Figueroa Hunter MD [STAFF PHYSICIAN] - 1 Week Discharge Disposition: HOME SELF-CARE
[2018-04-07] MEDS: LACTATED RINGERS 1,000 ML IV SCH (07:54)
[2018-04-07] MEDS: CIPROFLOXACIN HCL 500 MG TAB PO SCH ×2 (08:46→22:10)
[2018-04-07] MEDS ORDERED: BISACODYL 10 MG SUPP RECTAL ONE (09:17)
[2018-04-07] MEDS: HYDROmorphone PCA 5 MG/25 ML SYRINGE IV PRN (09:18)
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
[2018-04-07] MEDS: PANTOPRAZOLE 40 MG TABLET PO SCH (19:34)
[2018-04-07] MEDS: LATANOPROST 0.005% OPHTH DROPS 2.5 ML BTL BOTH EYES SCH (22:10)
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
[2018-04-08] MEDS: LEVOTHYROXINE 100 MCG TAB PO SCH (06:12)
[2018-04-08] MEDS: HYDROcodone/APAP 5-325MG 1 EACH TAB PO PRN ×3 (08:02→15:38)
[2018-04-08] MEDS ORDERED: LACTULOSE 20 GM/30 ML CUP PO SCH (09:00)
[2018-04-08] MEDS: CIPROFLOXACIN HCL 500 MG TAB PO SCH (09:14)
[2018-04-08] MEDS: DEXTROSE 5%-0.45% NACL 1,000 ML IV SCH (09:15)
[2018-04-08] MEDS: LACTATED RINGERS 1,000 ML IV SCH (09:16)
--- NOTE | 2018-04-08 10:58 | P.PN ---
Progress Note - Text Progress Note Date: 04/08/18 The patient is afebrile. Her planned discharge yesterday was postponed due to pain but she says she's feeling much better today. Her urine is grossly clear. She will contact Dr. Hunter next week to set up a follow-up appointment.
[2018-04-08 11:39] VITALS: BP 110/66; PULSE 86; RESP 16; TEMP 98
[2018-04-08] MEDS ORDERED: ONDANSETRON 4 MG TAB PO PRN (14:12)
--- NOTE | 2018-04-14 05:38 | CDI ---
Date: 04/14/18 CDS/National Account Executive Name: Diana Barbosa Phone: If any questions, call Elaina Patino Quarter Doper at [phone] Patient Name: Dulce Ramos Admit Date: 04/05/18 Discharge Date: 04.05.18 ATTENTION: The [facility] Coding Staff appreciate your assistance in clarifying documentation. Please respond to the clarification below the line at the bottom and electronically sign. The [facility] Coding staff will review the response and follow-up if needed. Please note: Queries are made part of the Legal Health Record. If you have any questions, please contact the Quarter Doper. Dear Dr. Hunter, Please provide clarification as to the size of the stone removed by percutaneious nephrolithotomy. Please clarify if the stone(s) were up to 2 cm or over 2 cm. Thank you for your kind consideration. ___stones were less than 2 cm MTDD
== END 2018-04-08 16:07 | disposition home or self-care (01) ==
LOC: OR 07:59 → 3SUR 12:13 → OR 23:37 → UNDOADMOB 23:37 → OR 04-08 16:07
PROVIDERS: ATTEND Urology
DX: N20.0 Calculus of kidney (principal); Z46.89 Encounter for fitting and adjustment of other specified devices; N23 Unspecified renal colic; H40.9 Unspecified glaucoma; K21.9 Gastro-esophageal reflux disease without esophagitis; H91.90 Unspecified hearing loss, unspecified ear; E78.5 Hyperlipidemia, unspecified; I10 Essential (primary) hypertension; M06.9 Rheumatoid arthritis, unspecified; E07.9 Disorder of thyroid, unspecified; G82.20 Paraplegia, unspecified; Z93.6 Other artificial openings of urinary tract status; F17.210 Nicotine dependence, cigarettes, uncomplicated; L97.829 Non-pressure chronic ulcer of other part of left lower leg with unspecified severity; K59.09 Other constipation; Z96.89 Presence of other specified functional implants; Z96.0 Presence of urogenital implants; H54.40 Blindness, one eye, unspecified eye; Z79.2 Long term (current) use of antibiotics; Z79.82 Long term (current) use of aspirin; Z79.890 Hormone replacement therapy; Z79.899 Other long term (current) drug therapy; Z91.041 Radiographic dye allergy status
CPT/HCPCS: 50080; 50435; 74018; C1769; C1729; J2250; J1580; J1100; J2710; J2405 ×2; J2001; J3010; J0290; J1170 ×4; J2704; Q9967; 86850; 86900; 86901

== ENCOUNTER 2018-04-23 02:45 | Inpatient (IN) | payer MEDICARE, OTHER ==
[2018-04-23] MEDS ORDERED: ACETAMINOPHEN IV (For NPO) 1,000 MG in EMPTY BAG 1 BAG IVPB STA (03:32)
[2018-04-23] MEDS ORDERED: PIPERACILLIN-TAZOBACTAM 3.375 GM in DEXTROSE/WATER 1 50ML.BAG IVPB STA (03:32)
[2018-04-23] MEDS ORDERED: VANCOMYCIN IV PER PHARMACY 1 EACH MISC MISCELLANE PRN (03:32)
[2018-04-23] MEDS ORDERED: VANCOMYCIN 1,500 MG in SODIUM CHLORIDE 0.9% 250 ML IVPB SCH (04:00)
[2018-04-23 04:10] LABS: Albumin 3.2 g/dL (3.5-5.0); Calcium 8.8 mg/dL (8.4-10.2); Potassium 4.6 mmol/L (3.5-5.1); Total Bilirubin 0.5 mg/dL (0.2-1.3)
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
[2018-04-23 04:19] LABS: Creatine Kinase 63 U/L (30-135)
[2018-04-23] MEDS: SODIUM CHLORIDE 0.9% 500 ML 500 ML IV SCH ×2 (04:22→05:09)
[2018-04-23 04:31] LABS: Creatine Kinase MB 0.6 ng/mL (0.0-2.4); Troponin I <0.012 ng/mL (0.000-0.034)
--- NOTE | 2018-04-23 04:41 | XR ---
EXAMINATION TYPE: XR chest 2V DATE OF EXAM: 04/23/2018 COMPARISON: 02/22/2018 HISTORY: Fever TECHNIQUE: Frontal and lateral views of the chest are obtained. FINDINGS: Heart and mediastinum are normal. Lungs are clear of infiltrate. Costophrenic angles are c lear. There are chest leads. IMPRESSION: No active cardiopulmonary disease. No change. There is removal of left side central veno us catheter compared to old exam.
--- NOTE | 2018-04-23 05:04 | CT ---
EXAMINATION TYPE: CT abdomen pelvis wo con DATE OF EXAM: 04/23/2018 COMPARISON: 02/01/2018 HISTORY: fever CT DLP: 669.10 mGycm Automated exposure control for dose reduction was used. TECHNIQUE: Helical acquisition of images was performed from the lung bases through the pelvis. FINDINGS: Lung bases are clear of consolidation. There is no pleural effusion. There is no pericardial effusion . Heart size is normal. Liver and spleen appear normal. Pancreas appears normal. There are clips from cholecystectomy. Bile d ucts are not dilated. There is bilateral hydronephrosis. There is apparent ileal conduit. There is no ascites. There is 4 m m calculus lateral left kidney. There is faint 3 mm calculus posterior left kidney. There is no retroperitoneal adenopathy. There is no mesenteric adenopathy. I see no intestinal wall t hickening. There are no dilated loops. There is moderate osteoarthritis in the hip joints. There is s oft tissue calcification lateral to the right hip joint. There are multiples soft tissue air bubbles in the lateral aspect of the left proximal femur. There is no sign of pneumoperitoneum. Bladder is absent. I see no pelvic mass. There is 15 mm left-si ded pelvic lymph node. There is anterior subluxation of T10 in relation to T11. There is 20% anterior wedging of T11. There is narrowing of the spinal canal related to the subluxation deformity. There i s a 1st to 2nd degree listhesis. There is no inguinal hernia. IMPRESSION: SINCE THE LAST EXAM THERE HAS BEEN REMOVAL OF THE NEPHROSTOMY TUBES. THERE IS BILATERAL HYDRONEPHROSI S UNCHANGED. THERE ARE 2 LEFT RENAL CALCULI. THERE IS DECREASE IN THE LEFT RENAL CALCULI COMPARED TO LAST EXAM. THERE IS A LARGE 1 CENTIMETER CALCULUS IN THE LEFT RENAL PELVIS ON THE OLD EXAM IS NOT PRE SENT ON TODAY'S EXAM. NO SIGNIFICANT RENAL ATROPHY. SPINAL STENOSIS AT T10-11 DUE TO SUBLUXATION DEFORMITY UNCHANGED. THERE IS CLEARING OF THE RECTAL FECAL IMPACTION COMPARED TO OLD EXAM. THERE IS INCREASED SOFT TISSUE AIR ADJACENT TO THE GREATER TROCHANTER OF THE LEFT FEMUR COMPARED TO L AST EXAM. THERE IS A APPARENT SINUS TRACT TO THE LATERAL SKIN SURFACE UNCHANGED. NO ACUTE BONY ABNORM ALITY SEEN. THERE IS INCREASED SOFT TISSUE DENSITY AND FAT STRANDING AROUND THE LATERAL LEFT PROXIMAL FEMUR CONSISTENT WITH PHLEGMON THAT IS THE SAME OR INCREASED COMPARED TO LAST EXAM.
[2018-04-23] MEDS ORDERED: NALOXONE 0.4 MG/ML 1 ML VIAL IV PRN (05:14)
[2018-04-23] MEDS ORDERED: PANTOPRAZOLE 40 MG/10 ML VIAL IVP STA (05:29)
[2018-04-23] MEDS: SODIUM CHLORIDE 0.9% 1,000 ML IV SCH ×2 (05:39→18:36)
[2018-04-23 05:56] LABS: INR 1.1 (<1.2); Partial Thromboplastin Time 25.2 sec (22.0-30.0); Prothrombin Time 10.7 sec (9.0-12.0)
[2018-04-23 05:57] LABS: Amorphous Sediment,Urine Rare /hpf; Appearance,Urine Turbid (Clear); Bacteria,Urine Occasional /hpf; Bilirubin,Urine Negative (Negative); Blood,Urine Trace (Negative); Budding Yeast,Urine Occasional /hpf; Color,Urine Yellow; Glucose,Urine (UA) Negative (Negative); Hyaline Casts,Urine 3 /lpf (0-2); Ketones,Urine Negative (Negative); Leukocyte Esterase,Urine Large (Negative); Mucus,Urine Rare /hpf; Nitrite,Urine Negative (Negative); PH, Urine 6.5 (5.0-8.0); Protein,Urine Trace (Negative); RBC,Urine 3 /hpf (0-5); Specific Gravity,Urine 1.013 (1.001-1.035); Squamous Epithelial Cell,Urine 1 /hpf (0-4); Urobilinogen,Urine <2.0 mg/dL (<2.0); WBC,Urine 80 /hpf (0-5)
[2018-04-23 06:11] LABS: Basophils # (A) 0.1 k/uL (0-0.2); Basophils % (A) 1 %; Eosinophils # (A) 0.1 k/uL (0-0.7); Eosinophils % (A) 1 %; HGB 10.5 gm/dL (11.4-16.0); Lymphocytes # (A) 2.4 k/uL (1.0-4.8); Lymphocytes % (A) 19 %; MCH 27.6 pg (25.0-35.0); MCHC 32.8 g/dL (31.0-37.0); MCV 84.1 fL (80.0-100.0); Monocytes % (A) 8 %; Neutrophils # (A) 8.5 k/uL (1.3-7.7); Neutrophils % (A) 68 %; Platelet Count 491 k/uL (150-450); RBC 3.81 m/uL (3.80-5.40); RDW 14.5 % (11.5-15.5); WBC 12.4 k/uL (3.8-10.6)
[2018-04-23] MEDS: ASPIRIN 81 MG PO SCH (08:32)
[2018-04-23] MEDS: MULTIVITAMINS, THERA 1 EACH TAB PO SCH (08:32)
[2018-04-23] MEDS: HEPARIN SODIUM,PORCINE 5,000 UNIT/ML 1 ML VIAL SQ SCH ×2 (08:34→16:35)
[2018-04-23] MEDS: FAMOTIDINE 20 MG/2 ML VIAL IV SCH ×2 (08:35→22:15)
[2018-04-23] MEDS: LEVOTHYROXINE 100 MCG TAB PO SCH (08:35)
[2018-04-23] MEDS ORDERED: BISACODYL 10 MG SUPP RECTAL PRN (08:39)
[2018-04-23 10:04] VITALS: BMI 27.4
[2018-04-23] MEDS: IBUPROFEN 800 MG TAB PO PRN (10:11)
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
[2018-04-23] MEDS ORDERED: TEMAZEPAM 15 MG CAP PO PRN (15:12)
[2018-04-23] MEDS: PIPERACILLIN-TAZOBACTAM 3.375 GM in DEXTROSE/WATER 1 50ML.BAG IVPB SCH (16:35)
--- NOTE | 2018-04-23 17:37 | HP ---
HISTORY AND PHYSICAL CHIEF COMPLAINT: Wound infection. HISTORY OF PRESENT ILLNESS: This 67-year-old woman with a past medical history of paraplegia, hypertension, rheumatoid arthritis, history of thyroid, history of appendectomy, back surgery being followed by Dr. Jacob Acevedo in the outpatient setting has had chronic left trochanteric wound which has been managed in the outpatient clinic with Infectious Disease and wound care. The patient had a wound VAC placed at this time, currently the patient is complaining of foul smelling discharge and otherwise infection was suspected. Patient came to [facility] and admitted for further evaluation and treatment. Patient did not have any sensation in the lower limbs after the paraplegia. The wound VAC site was showing some foul-smelling discharge. The patient will be admitted for further evaluation and treatment. Currently the patient is started on vancomycin and Infectious Disease evaluation by Dr. Vaughan and surgical evaluation also in progress. There is no history of fever, rigors. No history of headache, loss of consciousness, seizures at this time. PAST MEDICAL HISTORY: History of paraplegia, history of hypertension, hyperlipidemia, rheumatoid arthritis, history of appendectomy, back surgery. MEDICATIONS: Prior to admission include: 1. Travatan 0.04% 1 drop both eyes q.h.s. 2. Bactrim DS 1 p.o. b.i.d. 3. Prilosec 20 mg with supper. 4. Multivitamins one p.o. daily. 5. Mevacor 40 mg q.h.s. 6. Synthroid 112 mcg p.o. month, Tuesday, and 100 mcg Tuesday, Tuesday, Tuesday, Tuesday and Tuesday. 7. Ibuprofen 800 mg t.i.d. p.r.n. 8. Aspirin 81 mg p.o. daily. ALLERGIES: IODINATED CONTRAST DYES. FAMILY HISTORY: History of colon cancer in the family. SOCIAL HISTORY: No history of current smoking. Previous history of smoking. REVIEW OF SYSTEMS: ENT: No diminished vision. No diminished hearing. CARDIOVASCULAR: No angina or palpitations. RESPIRATORY: As mentioned earlier. GI: No nausea. No vomiting. no dysuria. Nervous system: No numbness or weakness. ALLERGY/IMMUNOLOGY: No asthma or hayfever. MUSCULOSKELETAL: As mentioned earlier. Hematology/Oncology: No history of anemia. ENDOCRINE: Hypothyroidism. CONSTITUTIONAL: As mentioned earlier. Dermatology: Negative. Rheumatology: Negative. Psychiatry: As mentioned earlier. NEUROLOGY: As mentioned earlier. PHYSICAL EXAMINATION: Alert, oriented x3. Pulse 86, blood pressure 120/59, respirations 16, temperature 97 degrees, pulse ox 97% on room air. HEENT: Conjunctivae normal. Oral mucosa moist. Neck is no jugular venous distention. No carotid bruit. No lymph node enlargement. Cardiovascular system: S1, S2 muffled. Respiratory: Breath sounds diminished in the bases. No rhonchi and no crackles. ABDOMEN: Soft, nontender. No mass palpable. Legs: Paraplegia present otherwise. Infected wound also. Wound VAC is present. No evidence of any cellulitis. The wound VAC is draining foul-smelling drainage. Nervous system: Paraplegia. Otherwise upper limbs are normal. Skin as mentioned earlier. Lymphatics: No lymph nodes palpable in the neck, axillae or groin. Joints: No active deforming arthropathy. LAB STUDIES: WBC 12.5, hemoglobin 10.5, sodium 136, AST 58, ALT 55. UA noted. ASSESSMENT: 1. Left trochanteric wound, chronic with acute exacerbation with a foul smelling drainage. 2. Urinary tract infection. 3. Paraplegia. 4. Increased AST and ALT. 5. Hyponatremia. 6. Increased WBC. 7. Anemia of chronic disease. 8. Hypertension. 9. Hyperlipidemia. 10.History of rheumatoid arthritis. 11.Hypothyroidism. 12.History of appendectomy. 13.History of degenerative joint disease. 14.Remote history of nicotine dependence. RECOMMENDATIONS AND DISCUSSION: In this 61-year-old woman who presented with multiple medical issues at this time I would recommend continue the current medications, management and symptomatic treatment. Otherwise at this time I would recommend broad-spectrum IV antibiotics. Obtain cultures. Infectious disease evaluation. Possible change in the wound VAC. Surgical evaluation. Resume the rest of medications. Guarded prognosis because of multiple complex medical issues. Further recommendations to follow. Copy of dictation being forwarded to Dr. Jacob Acevedo who is the primary physician, Dr. Jacob Acevedo will follow. MMODL / LANGN: [id number] / MTDD
[2018-04-23] MEDS ORDERED: NON-FORMULARY DRUG (Omeprazole [Prilosec] 20 MG) PO SCH (18:30)
[2018-04-23] MEDS: ATORVASTATIN 10 MG TAB PO SCH (21:26)
[2018-04-23] MEDS: LATANOPROST 0.005% OPHTH DROPS 2.5 ML BTL BOTH EYES SCH (21:26)
[2018-04-23] MEDS: VANCOMYCIN 1,500 MG in SODIUM CHLORIDE 0.9% 250 ML IVPB SCH (21:26)
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
[2018-04-24] MEDS: HEPARIN SODIUM,PORCINE 5,000 UNIT/ML 1 ML VIAL SQ SCH ×3 (00:27→15:10)
[2018-04-24] MEDS: PIPERACILLIN-TAZOBACTAM 3.375 GM in DEXTROSE/WATER 1 50ML.BAG IVPB SCH ×3 (00:27→15:10)
[2018-04-24] MEDS ORDERED: ONDANSETRON 4 MG/2 ML VIAL IVP STA (01:51)
[2018-04-24] MEDS: SODIUM CHLORIDE 0.9% 1,000 ML IV SCH ×3 (02:00→22:40)
[2018-04-24] MEDS: IBUPROFEN 800 MG TAB PO PRN ×2 (02:50→23:01)
[2018-04-24] MEDS: LEVOTHYROXINE 112 MCG TAB PO SCH (05:31)
[2018-04-24] MEDS: FAMOTIDINE 20 MG/2 ML VIAL IV SCH ×2 (08:05→19:32)
[2018-04-24] MEDS: MULTIVITAMINS, THERA 1 EACH TAB PO SCH (08:05)
[2018-04-24] MEDS: PANTOPRAZOLE 40 MG TABLET PO SCH (08:05)
[2018-04-24] MEDS: ASPIRIN 81 MG PO SCH (08:05)
--- NOTE | 2018-04-24 12:18 | P.PN ---
Subjective Patient resting in bed without complaint at this time. Has consultation with Dr. Pruitt and Dr. Vaughan regarding cellulitis and osteomyelitis of the left hip Objective - Vital Signs Vital signs: Vital Signs Temp 99.5 F 04/24/18 06:00 Pulse 88 04/24/18 06:00 Resp 20 04/24/18 06:00 BP 119/67 04/24/18 06:00 Pulse Ox 96 04/24/18 06:00 Intake & Output 04/23/18 04/24/18 04/24/18 18:59 06:59 18:59 Intake Total 650 300 Output Total 450 600 Balance 200 -300 Weight 77.111 kg Intake: Intake, IV Titration 650 Amount Piperacillin-Tazobactam 3 50 .375 gm In Dextrose/Water 1 50ml.bag @ 12.5 mls/hr IVPB Q8HR [facility] Rx#: [id number] Sodium Chloride 0.9% 1, 600 000 ml @ 100 mls/hr IV . Q10H [facility] Rx#:[id number] Oral 300 Output: Urine 450 600 Other: Voiding Method Ileal Conduit (Right) Ileal Conduit (Right) Ileal Conduit ( Right) - Constitutional General appearance: Present: mild distress - EENT Eyes: Present: PERRLA Ears: bilateral: normal - Neck Neck: Present: normal ROM - Respiratory Respiratory: bilateral: CTA - Cardiovascular Rhythm: regular - Gastrointestinal General gastrointestinal: Present: soft - Integumentary Integumentary Comment(s): Dressing noticed to left Integumentary: Present: cellulitis - Neurologic Neurologic: Present: CNII-XII intact - Musculoskeletal Musculoskeletal: Present: generalized weakness - Psychiatric Psychiatric: Present: A&O x's 3, appropriate affect, intact judgment & insight - Labs CBC & Chem 7: 04/23/18 05:04 04/23/18 03:22 Labs: Microbiology - Last 24 Hours (Table) 04/23/18 03:22 Blood Culture - Preliminary Blood No Growth after 24 hours 04/23/18 14:30 Gram Stain - Preliminary Hip - Left Wound Culture - Preliminary 04/23/18 05:15 Urine Culture - Preliminary Urine,Voided - Imaging and Cardiology CT scan - pelvis: report reviewed Assessment and Plan Plan: Assessment Left trochanter wound with osteomyelitis left hip Urinary tract infection history of bilateral hydronephrosis with urostomy bag Paraplegia Elevated is TLT Hypo-natremia leukocytosis Anemia chronic disease Hypertension Hyperlipidemia History of rheumatoid arthritis Hypothyroidism Plan Continue consultation with Dr. Vaughan and Dr. Recio patient on Zosyn and vancomycin
[2018-04-24 13:00] LABS: Basophils % (A) 0 %; Eosinophils # (A) 0.3 k/uL (0-0.7); Eosinophils % (A) 4 %; HCT 29.8 % (34.0-46.0); HGB 9.5 gm/dL (11.4-16.0); Lymphocytes # (A) 1.5 k/uL (1.0-4.8); Lymphocytes % (A) 19 %; MCH 27.2 pg (25.0-35.0); MCHC 31.8 g/dL (31.0-37.0); MCV 85.5 fL (80.0-100.0); Mean Platelet Volume 7.8; Monocytes # (A) 0.7 k/uL (0-1.0); Monocytes % (A) 9 %; Neutrophils # (A) 5.5 k/uL (1.3-7.7); Neutrophils % (A) 66 %; Platelet Count 481 k/uL (150-450); RBC 3.49 m/uL (3.80-5.40); RDW 14.6 % (11.5-15.5); WBC 8.3 k/uL (3.8-10.6)
[2018-04-24 13:17] LABS: Calcium 7.9 mg/dL (8.4-10.2); Potassium 4.7 mmol/L (3.5-5.1)
[2018-04-24 13:35] LABS: C Reactive Protein 153.5 mg/L (<10.0)
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
[2018-04-24 14:42] LABS: Erythrocyte Sedimentation Rate >140 mm/hr (0-20)
[2018-04-24] MEDS: BISACODYL 10 MG SUPP RECTAL SCH (20:05)
[2018-04-24] MEDS: ATORVASTATIN 10 MG TAB PO SCH (20:05)
[2018-04-24] MEDS: ONDANSETRON 4 MG/2 ML VIAL IVP PRN (20:06)
[2018-04-24] MEDS: LATANOPROST 0.005% OPHTH DROPS 2.5 ML BTL BOTH EYES SCH (22:38)
[2018-04-24] MEDS: VANCOMYCIN 1,500 MG in SODIUM CHLORIDE 0.9% 250 ML IVPB SCH (22:39)
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
[2018-04-25] MEDS: HEPARIN SODIUM,PORCINE 5,000 UNIT/ML 1 ML VIAL SQ SCH ×3 (00:16→16:23)
[2018-04-25] MEDS: PIPERACILLIN-TAZOBACTAM 3.375 GM in DEXTROSE/WATER 1 50ML.BAG IVPB SCH ×3 (00:17→16:24)
[2018-04-25] MEDS: PANTOPRAZOLE 40 MG TABLET PO SCH (06:29)
[2018-04-25] MEDS: LEVOTHYROXINE 100 MCG TAB PO SCH (06:29)
[2018-04-25] MEDS: MULTIVITAMINS, THERA 1 EACH TAB PO SCH (08:49)
[2018-04-25] MEDS: FAMOTIDINE 20 MG/2 ML VIAL IV SCH ×2 (08:49→21:44)
[2018-04-25] MEDS: ASPIRIN 81 MG PO SCH (08:49)
[2018-04-25] MEDS: SODIUM CHLORIDE 0.9% 1,000 ML IV SCH ×2 (09:04→16:36)
[2018-04-25] MEDS: IBUPROFEN 800 MG TAB PO PRN ×3 (09:24→23:45)
[2018-04-25 09:52] LABS: Basophils % (A) 0 %; Eosinophils # (A) 0.3 k/uL (0-0.7); Eosinophils % (A) 4 %; HCT 30.5 % (34.0-46.0); HGB 9.4 gm/dL (11.4-16.0); Hypochromasia Moderate; Lymphocytes # (A) 1.5 k/uL (1.0-4.8); Lymphocytes % (A) 18 %; MCV 87.3 fL (80.0-100.0); Mean Platelet Volume 7.9; Monocytes # (A) 0.7 k/uL (0-1.0); Monocytes % (A) 8 %; Neutrophils # (A) 5.6 k/uL (1.3-7.7); Neutrophils % (A) 68 %; Platelet Count 478 k/uL (150-450); RBC 3.49 m/uL (3.80-5.40); RDW 14.8 % (11.5-15.5); WBC 8.3 k/uL (3.8-10.6)
[2018-04-25 10:09] LABS: Anion Gap 4 mmol/L; Blood Urea Nitrogen 14 mg/dL (7-17); Calcium 8.1 mg/dL (8.4-10.2); Carbon Dioxide 20 mmol/L (22-30); Chloride 112 mmol/L (98-107); Glucose 111 mg/dL (74-99); Potassium 4.5 mmol/L (3.5-5.1); Sodium 136 mmol/L (137-145)
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
[2018-04-25] MEDS ORDERED: MINERAL OIL 133 ML ENEMA RECTAL STA (13:24)
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
[2018-04-25] MEDS: ONDANSETRON 4 MG/2 ML VIAL IVP PRN (14:55)
[2018-04-25] MEDS: ALPRAZolam 0.25 MG TAB PO PRN (16:34)
[2018-04-25] MEDS ORDERED: VANCOMYCIN TROUGH DUE 1 EACH MISC MISCELLANE ONE (21:00)
--- NOTE | 2018-04-25 21:30 | XR ---
EXAMINATION TYPE: XR abdomen 3V DATE OF EXAM: 04/25/2018 COMPARISON: NONE HISTORY: Pain and constipation TECHNIQUE: Upright and 2 supine views FINDINGS: Visualized lung bases and pleural spaces are negative. There is no pneumoperitoneum. Bowel gas pattern is negative for obstruction but shows constipation, with excessive pancolonic stool . No definite acute skeletal or soft tissue findings. IMPRESSION: Constipation pattern.
[2018-04-25] MEDS: ATORVASTATIN 10 MG TAB PO SCH (21:43)
[2018-04-25] MEDS: LATANOPROST 0.005% OPHTH DROPS 2.5 ML BTL BOTH EYES SCH (21:44)
[2018-04-25] MEDS: BISACODYL 10 MG SUPP RECTAL SCH (21:44)
[2018-04-25] MEDS ORDERED: HYDROmorphone 1 MG/ML 1 ML SYRINGE IVP PRN (22:02)
[2018-04-25] MEDS ORDERED: ONDANSETRON 4 MG/2 ML VIAL IVP PRN (22:02)
[2018-04-25] MEDS ORDERED: MORPHINE SULFATE 2 MG/ML SYRINGE IV PRN (22:02)
[2018-04-25] MEDS ORDERED: LACTATED RINGERS 1,000 ML IV SCH (22:15)
[2018-04-25] MEDS: VANCOMYCIN 1,500 MG in SODIUM CHLORIDE 0.9% 250 ML IVPB SCH (22:57)
[2018-04-26] MEDS: PIPERACILLIN-TAZOBACTAM 3.375 GM in DEXTROSE/WATER 1 50ML.BAG IVPB SCH ×4 (02:23→23:55)
[2018-04-26] MEDS: HEPARIN SODIUM,PORCINE 5,000 UNIT/ML 1 ML VIAL SQ SCH ×4 (02:23→23:55)
[2018-04-26] MEDS: SODIUM CHLORIDE 0.9% 1,000 ML IV SCH ×3 (05:25→23:55)
[2018-04-26] MEDS: LEVOTHYROXINE 100 MCG TAB PO SCH (06:54)
[2018-04-26] MEDS: PANTOPRAZOLE 40 MG TABLET PO SCH (08:15)
--- NOTE | 2018-04-26 08:31 | P.PN ---
Progress Note - Text Progress Note Date: 04/25/18 Patient seen and evaluated. Discussion with nursing reports patient complaining of abdominal pain and severe constipation. Patient had a bowel movement 5 days. Will obtain abdominal x-ray. Surgery deferred pending improvement of abdominal pain.
[2018-04-26] MEDS: ASPIRIN 81 MG PO SCH (09:25)
[2018-04-26] MEDS: FAMOTIDINE 20 MG/2 ML VIAL IV SCH (09:25)
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
[2018-04-26] MEDS: MULTIVITAMINS, THERA 1 EACH TAB PO SCH (10:45)
[2018-04-26] MEDS ORDERED: LACTULOSE 20 GM/30 ML CUP PO ONE (11:06)
[2018-04-26] MEDS ORDERED: MAGNESIUM HYDROXIDE 2,400 MG/10 ML CUP PO PRN (11:07)
[2018-04-26 12:06] LABS: Basophils # (A) 0.1 k/uL (0-0.2); Basophils % (A) 1 %; Eosinophils # (A) 0.3 k/uL (0-0.7); Eosinophils % (A) 3 %; HCT 33.5 % (34.0-46.0); HGB 10.2 gm/dL (11.4-16.0); Hypochromasia Slight; Lymphocytes # (A) 1.6 k/uL (1.0-4.8); Lymphocytes % (A) 16 %; MCH 26.5 pg (25.0-35.0); MCHC 30.5 g/dL (31.0-37.0); MCV 86.9 fL (80.0-100.0); Mean Platelet Volume 7.8; Monocytes # (A) 0.5 k/uL (0-1.0); Monocytes % (A) 5 %; Neutrophils # (A) 7.5 k/uL (1.3-7.7); Neutrophils % (A) 74 %; Platelet Count 564 k/uL (150-450); RBC 3.86 m/uL (3.80-5.40); RDW 14.7 % (11.5-15.5); WBC 10.2 k/uL (3.8-10.6)
--- NOTE | 2018-04-26 12:08 | P.PN ---
<Laura Kelley - Last Filed: 04/26/18 12:01> Subjective Progress Note Date: 04/26/18 67-year-old female being seen. Being treated for constipation. X-ray of the abdomen done last evening showed a constipation pattern. Patient states less abdominal pain compared to yesterday evening. Patient is to receive this morning milk of molasses enema for constipation. If no results lactulose will be started. Currently abdomen is soft not firm not distended no nausea no vomiting dressing to the left hip currently is dry Objective - Vital Signs Vital signs: Vital Signs Temp 98.1 F 04/26/18 05:56 Pulse 73 04/26/18 05:56 Resp 16 04/26/18 05:56 BP 130/69 04/26/18 05:56 Pulse Ox 98 04/26/18 05:56 Intake & Output 04/25/18 04/26/18 04/26/18 18:59 06:59 18:59 Intake Total 200 Output Total 1400 2000 Balance -1400 -2000 200 Intake: Oral 200 Output: Urine 1400 2000 Other: Voiding Method Ileal Conduit (Right) Ileal Conduit (Right) # Bowel Movements 0 - Exam Physical exam Pleasant 67-year-old female resting in bed states still has abdominal cramping lower abdomen currently no stool Lungs adequate air movement bilaterally clear on room air Heart S1-S2 audible regular Abdomen soft nondistended nontender indwelling Johnson catheter in place Extremity dressing to the left hip area dry. Muscle wasting bilateral lower extremities with paraplegia - Labs CBC & Chem 7: 04/25/18 09:28 04/25/18 09:28 Labs: Microbiology - Last 24 Hours (Table) 04/23/18 03:22 Blood Culture - Preliminary Blood No Growth after 72 hours 04/23/18 14:30 Gram Stain - Final Hip - Left Wound Culture - Final Enterococcus faecalis 04/23/18 05:15 Urine Culture - Final Urine,Voided Enterococcus faecium VRE Ila albicans Assessment and Plan Assessment: Impression Chronic left trochanteric nonhealing ulcer History of surgical debridement of the nonhealing trochanteric last debridement June 2016 Abdominal x-ray shows Constipation pattern Plan Scheduled , April 27 for a debridement of the nonhealing trochanteric wound Defer to infectious disease for antibiotic wound care Nutritional support for optimal wound healing defer to dietitian for supplement Will follow with you Milk of molasses enema to be given now The above impression and plan of care have been discussed and directed by signing physician. Laura Kelley nurse practitioner acting as scribe for signing physician. <Luda Recio - Last Filed: 04/26/18 12:20> Objective - Vital Signs Vital signs: Vital Signs Temp 98.1 F 04/26/18 05:56 Pulse 73 04/26/18 05:56 Resp 16 04/26/18 05:56 BP 130/69 04/26/18 05:56 Pulse Ox 98 04/26/18 05:56 Intake & Output 04/25/18 04/26/18 04/26/18 18:59 06:59 18:59 Intake Total 200 Output Total 1400 2000 Balance -1399 -1999 200 Intake: Oral 200 Output: Urine 1400 1999 Other: Voiding Method Ileal Conduit (Right) Ileal Conduit (Right) # Bowel Movements 0 - Labs CBC & Chem 7: 04/26/18 11:24 04/25/18 09:28 Labs: Abnormal Lab Results - Last 24 Hours (Table) 04/26/18 Range/Units 11:24 Hgb 10.2 L (11.4-16.0) gm/dL Hct 33.5 L (34.0-46.0) % MCHC 30.5 L (31.0-37.0) g/dL Plt Count 564 H (150-450) k/uL Microbiology - Last 24 Hours (Table) 04/23/18 03:22 Blood Culture - Preliminary Blood No Growth after 72 hours 04/23/18 14:30 Gram Stain - Final Hip - Left Wound Culture - Final Enterococcus faecalis 04/23/18 05:15 Urine Culture - Final Urine,Voided Enterococcus faecium VRE Ila albicans
[2018-04-26 12:20] LABS: Anion Gap 10 mmol/L; Blood Urea Nitrogen 11 mg/dL (7-17); Calcium 8.4 mg/dL (8.4-10.2); Carbon Dioxide 21 mmol/L (22-30); Chloride 108 mmol/L (98-107); Glucose 74 mg/dL (74-99); Potassium 4.6 mmol/L (3.5-5.1); Sodium 139 mmol/L (137-145)
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
[2018-04-26] MEDS: POLYETHYLENE GLYCOL 3350 17 GM POWD.PACK PO SCH (13:27)
[2018-04-26] MEDS ORDERED: ONDANSETRON 4 MG/2 ML VIAL IVP PRN (14:01)
[2018-04-26] MEDS: IBUPROFEN 800 MG TAB PO PRN (14:58)
[2018-04-26] MEDS: LACTULOSE 20 GM/30 ML CUP PO SCH ×2 (16:23→21:04)
[2018-04-26] MEDS: LATANOPROST 0.005% OPHTH DROPS 2.5 ML BTL BOTH EYES SCH (20:40)
[2018-04-26] MEDS: BISACODYL 10 MG SUPP RECTAL SCH (20:40)
[2018-04-26] MEDS: ATORVASTATIN 10 MG TAB PO SCH (20:40)
[2018-04-26] MEDS: VANCOMYCIN 1,500 MG in SODIUM CHLORIDE 0.9% 250 ML IVPB SCH (20:40)
[2018-04-26] MEDS: DOCUSATE 100 MG CAP PO SCH (20:40)
--- NOTE | 2018-04-26 21:03 | P.PN ---
Progress Note - Text Progress Note Date: 04/26/18 Patient reevaluate this evening. Abdominal pain now resolved as she had bowel movements. We'll proceed with I&D tomorrow.
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
[2018-04-27] MEDS: ALPRAZolam 0.25 MG TAB PO PRN (01:23)
[2018-04-27] MEDS: LEVOTHYROXINE 112 MCG TAB PO SCH (06:07)
[2018-04-27] MEDS: HEPARIN SODIUM,PORCINE 5,000 UNIT/ML 1 ML VIAL SQ SCH ×4 (07:20→23:42)
[2018-04-27] MEDS: ASPIRIN 81 MG PO SCH (07:20)
[2018-04-27] MEDS: DOCUSATE 100 MG CAP PO SCH ×2 (07:20→20:59)
[2018-04-27] MEDS: MULTIVITAMINS, THERA 1 EACH TAB PO SCH (07:20)
[2018-04-27] MEDS: LACTULOSE 20 GM/30 ML CUP PO SCH ×3 (07:20→22:05)
[2018-04-27] MEDS: POLYETHYLENE GLYCOL 3350 17 GM POWD.PACK PO SCH (07:21)
[2018-04-27] MEDS: PANTOPRAZOLE 40 MG TABLET PO SCH (07:21)
[2018-04-27] MEDS: PIPERACILLIN-TAZOBACTAM 3.375 GM in DEXTROSE/WATER 1 50ML.BAG IVPB SCH ×3 (08:37→23:42)
[2018-04-27] MEDS: LACTATED RINGERS 1,000 ML IV SCH (08:43)
[2018-04-27 09:52] LABS: Basophils % (A) 0 %; Eosinophils # (A) 0.3 k/uL (0-0.7); Eosinophils % (A) 4 %; HCT 31.6 % (34.0-46.0); HGB 9.9 gm/dL (11.4-16.0); Hypochromasia Slight; Lymphocytes # (A) 1.4 k/uL (1.0-4.8); Lymphocytes % (A) 21 %; MCH 27.2 pg (25.0-35.0); MCHC 31.2 g/dL (31.0-37.0); MCV 87.3 fL (80.0-100.0); Mean Platelet Volume 7.9; Monocytes # (A) 0.5 k/uL (0-1.0); Monocytes % (A) 7 %; Neutrophils # (A) 4.6 k/uL (1.3-7.7); Neutrophils % (A) 67 %; Platelet Count 535 k/uL (150-450); RBC 3.63 m/uL (3.80-5.40); WBC 6.9 k/uL (3.8-10.6)
[2018-04-27 10:02] LABS: Anion Gap 8 mmol/L; Blood Urea Nitrogen 7 mg/dL (7-17); Calcium 8.2 mg/dL (8.4-10.2); Carbon Dioxide 19 mmol/L (22-30); Chloride 112 mmol/L (98-107); Glucose 73 mg/dL (74-99); Potassium 4.2 mmol/L (3.5-5.1); Sodium 139 mmol/L (137-145)
[2018-04-27] MEDS: SODIUM CHLORIDE 0.9% 1,000 ML IV SCH ×2 (11:27→20:59)
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
--- NOTE | 2018-04-27 13:20 | P.HPADDEND ---
H&P Addendum H&P Addendum Date: 04/27/18 Patient has history of complicated left trochanteric abscess and ulcer. We'll proceed with debridement.
[2018-04-27] MEDS ORDERED: LIDOCAINE 1% INJ 10MG/ML (20 ML MDV) SQ ONE (14:29)
[2018-04-27] MEDS ORDERED: LACTATED RINGERS 1,000 ML IV ONE (14:56)
--- NOTE | 2018-04-27 15:57 | IR ---
EXAMINATION TYPE: IR cvc insert >=5 years DATE OF EXAM: 04/27/2018 COMPARISON: NONE CLINICAL HISTORY: Infection Needs long-term intravenous access for antibiotics. PROCEDURE: After informed consent, the skin overlying the left brachial vein was localized with ultrasound and n oted to be compressible and patent. An ultrasound image was obtained and submitted on the patient's chart. The overlying skin was prepped and draped and Lidocaine was used for local anesthesia. A ski n em was made with a scalpel. Access was gained to the vein under ultrasound guidance with a 21 ga uge needle and a 0.018 inch wire was advanced. Access site was dilated with Peel-Away sheath and cat heter tailored to the appropriate length and advanced such that the distal tip is at the cavoatrial j unction. Spot image was obtained verifying placement. Catheter was fixed to the skin and a sterile dressing was placed following hemostasis. Catheter was aspirated and flushed with saline. Patient w as discharged in stable condition without complication.Maximal barrier technique is utilized. Ultras ound image is documented on the chart. Ultrasound used with sterile technique. Fluoro time and fluoroscopic images submitted to document procedure: 157 intraoperative images, 0.4 m inutes fluoroscopy time IMPRESSION: STATUS POST ULTRASOUND AND FLUOROSCOPIC GUIDED PICC LINE PLACEMENT, READY FOR USE. THIS PROCEDURE WAS PERFORMED BY THE UNDERSIGNED.
--- NOTE | 2018-04-27 16:43 | P.OP ---
Date of Procedure: 04/27/18 Preoperative Diagnosis: Nonhealing left trochanteric ulcer, stage IV Postoperative Diagnosis: Same Procedure(s) Performed: Washout for mechanical debridement of left trochanteric complicated ulcer, stage IV Anesthesia: MAC Surgeon: Luda Recio Estimated Blood Loss (ml): 5 Pathology: other (Anaerobic and aerobic cultures) Condition: stable Disposition: floor Operative Findings: 1. Measurements of trochanteric wound 7 cm depth by 5 cm with with undermining by 2 cm orifice. 2. At base of wound wide space with immediate involvement of the left trochanter bone and gel capsule necessitating likely orthopedic intervention 3. Purulence drained from the wound with mechanical debridement using Pulsavac 3 L normal saline and wound packed with iodoform half-inch size and length of 24 inches 4. Recommend assessment by orthopedic tean for left hip bone and access for appropriate debridement
[2018-04-27] MEDS: VANCOMYCIN 1,750 MG in SODIUM CHLORIDE 0.9% 500 ML 500 ML IVPB SCH (18:00)
--- NOTE | 2018-04-27 19:41 | P.PN ---
Progress Note - Text Progress Note Date: 04/27/18 Patient seen and evaluated post procedure. Findings of left trochanter joint capsule noted for osteomyelitis. Significant undermining identified at the left hip area. Recommend evaluation by orthopedics for osteomyelitis including management of joint capsule involvement from nonhealing left trochanteric ulcer
[2018-04-27] MEDS: BISACODYL 10 MG SUPP RECTAL SCH (20:59)
[2018-04-27] MEDS: ATORVASTATIN 10 MG TAB PO SCH (20:59)
[2018-04-27] MEDS: LATANOPROST 0.005% OPHTH DROPS 2.5 ML BTL BOTH EYES SCH (21:00)
[2018-04-27] MEDS: HYDROcodone/APAP 5-325MG 1 EACH TAB PO PRN (23:45)
[2018-04-28] MEDS: LEVOTHYROXINE 100 MCG TAB PO SCH (06:12)
[2018-04-28] MEDS: SODIUM CHLORIDE 0.9% 1,000 ML IV SCH ×2 (06:12→17:22)
[2018-04-28] MEDS: LACTATED RINGERS 1,000 ML IV SCH (06:14)
[2018-04-28] MEDS: ASPIRIN 81 MG PO SCH (09:14)
[2018-04-28] MEDS: PIPERACILLIN-TAZOBACTAM 3.375 GM in DEXTROSE/WATER 1 50ML.BAG IVPB SCH ×2 (09:14→17:21)
[2018-04-28] MEDS: DOCUSATE 100 MG CAP PO SCH ×2 (09:14→21:58)
[2018-04-28] MEDS: PANTOPRAZOLE 40 MG TABLET PO SCH (09:14)
[2018-04-28] MEDS: POLYETHYLENE GLYCOL 3350 17 GM POWD.PACK PO SCH (09:15)
[2018-04-28] MEDS: MULTIVITAMINS, THERA 1 EACH TAB PO SCH (09:15)
[2018-04-28] MEDS: LACTULOSE 20 GM/30 ML CUP PO SCH ×3 (09:15→21:58)
[2018-04-28] MEDS: HEPARIN SODIUM,PORCINE 5,000 UNIT/ML 1 ML VIAL SQ SCH ×2 (09:19→17:22)
[2018-04-28 10:28] LABS: Basophils % (A) 1 %; Eosinophils # (A) 0.2 k/uL (0-0.7); Eosinophils % (A) 3 %; HCT 32.1 % (34.0-46.0); HGB 9.8 gm/dL (11.4-16.0); Hypochromasia Moderate; Lymphocytes # (A) 1.6 k/uL (1.0-4.8); Lymphocytes % (A) 24 %; MCH 26.6 pg (25.0-35.0); MCHC 30.4 g/dL (31.0-37.0); MCV 87.5 fL (80.0-100.0); Mean Platelet Volume 7.8; Monocytes # (A) 0.5 k/uL (0-1.0); Monocytes % (A) 7 %; Neutrophils # (A) 4.2 k/uL (1.3-7.7); Neutrophils % (A) 64 %; Platelet Count 522 k/uL (150-450); RBC 3.66 m/uL (3.80-5.40); RDW 14.9 % (11.5-15.5); WBC 6.6 k/uL (3.8-10.6)
[2018-04-28 10:37] LABS: Calcium 8.2 mg/dL (8.4-10.2); Potassium 4.1 mmol/L (3.5-5.1)
[2018-04-28] MEDS: HYDROcodone/APAP 5-325MG 1 EACH TAB PO PRN (10:55)
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
--- NOTE | 2018-04-28 11:39 | XR ---
EXAMINATION TYPE: XR Hip Complete LT DATE OF EXAM: 04/28/2018 COMPARISON: 03/30/2016 HISTORY: Left hip wound TECHNIQUE: 2 view left hip FINDINGS: Subcutaneous air extends to the greater trochanter. Calcification which was present previou sly lateral to the greater trochanter is no longer evident. Cortical erosion is not clearly identifie d. 3 phase bone scan be required if there is clinical concern for osteomyelitis Acute displaced fracture is not identified. Hip dysplasia is evident. Morphology appears similar to t 2015 exam. The lateral crosstable view is essentially nondiagnostic. IMPRESSION: 1. Subcutaneous air and soft tissue changes lateral to the greater trochanter. Definite osteomyeliti s is not identified. 3 phase bone scan could be performed for sufficient clinical suspicion
--- NOTE | 2018-04-28 12:38 | P.PN ---
<Inna Kelleyvarun Means - Last Filed: 04/28/18 12:25> Subjective Progress Note Date: 04/28/18 59-year-old female seen at bedside dressing dry to the left hip. Patient is postop done on April 27 Washout for mechanical debridement of left trochanteric complicated ulcer, stage IV did note orthopedics recommendations. Orthopedics recommending due to the very complex condition involving the chronic left hip wound with multiple surgeries along with IV antibiotics and wound care transferred to a tertiary center for evaluation from a trauma surgeon for further eval and treatment is recommended Objective - Vital Signs Vital signs: Vital Signs Temp 98.0 F 04/28/18 07:15 Pulse 75 04/28/18 07:15 Resp 16 04/28/18 07:15 BP 144/74 04/28/18 07:15 Pulse Ox 97 04/28/18 07:48 Intake & Output 04/27/18 04/28/18 04/28/18 18:59 06:59 18:59 Intake Total 825 500 Output Total 1200 1400 Balance -375 -900 Intake: IV 475 Intake, IV Titration 350 Amount Piperacillin-Tazobactam 3 50 .375 gm In Dextrose/Water 1 50ml.bag @ 12.5 mls/hr IVPB Q8HR JANA Rx#: [id number] Sodium Chloride 0.9% 1, 300 000 ml @ 100 mls/hr IV . Q10H JANA Rx#:[id number] Oral 500 Output: Urine 1200 1400 Estimated Blood Loss 0 Other: Voiding Method Ileal Conduit (Right) Ileal Conduit (Right) - Exam Physical exam Pleasant 67-year-old female resting in bed appears in no acute distress Lungs adequate air movement bilaterally clear on room air no shortness of breath Heart S1-S2 audible regular no chest pain Abdomen soft nondistended nontender indwelling Johnson catheter in place states abdominal pain has significantly improved after having a bowel movement 2 days ago currently has not had a bowel movement since and was given 48 hours ago Extremity dressing to the left hip area dry. Muscle wasting bilateral lower extremities with paraplegia - Labs CBC & Chem 7: 04/28/18 09:53 04/28/18 09:53 Labs: Abnormal Lab Results - Last 24 Hours (Table) 04/28/18 04/28/18 Range/Units 09:53 09:53 RBC 3.66 L (3.80-5.40) m/uL Hgb 9.8 L (11.4-16.0) gm/dL Hct 32.1 L (34.0-46.0) % MCHC 30.4 L (31.0-37.0) g/dL Plt Count 522 H (150-450) k/uL Chloride 109 H (98-107) mmol/L Glucose 141 H (74-99) mg/dL Calcium 8.2 L (8.4-10.2) mg/dL Microbiology - Last 24 Hours (Table) 04/23/18 03:22 Blood Culture - Preliminary Blood No Growth after 120 hours 04/27/18 16:21 Gram Stain - Preliminary Hip - Left Wound Culture - Preliminary 04/27/18 16:21 Anaerobic Culture - Preliminary Hip - Left Assessment and Plan Assessment: Impression Chronic left trochanteric nonhealing ulcer History of surgical debridement of the nonhealing trochanteric last debridement June 2016 Abdominal x-ray shows Constipation pattern Status post April 27 washout for mechanical debridement of left trochanteric complicated ulcer, stage IV Nonhealing left trochanteric ulcer, stage IV Present on admission Measurements of trochanteric wound 7 cm depth by 5 cm with with undermining by 2 cm orifice. Operative findings At base of wound wide space with immediate involvement of the left trochanter bone and gel capsule Plan Scheduled , April 27 for a debridement of the nonhealing trochanteric wound Defer to infectious disease for antibiotic wound care Recommend assessment by orthopedic tean for left hip bone and access for appropriate debridement Agree with transferring the patient to a tertiary center given the very complex chronic nonhealing left with a history of multiple surgeries to the left hip wound with IV therapy and a wound VAC The above impression and plan of care have been discussed and directed by signing physician. Laura Kelley nurse practitioner acting as scribe for signing physician. <Luda Recio - Last Filed: 05/01/18 19:11> Objective - Vital Signs Vital signs: Vital Signs Temp 97.2 F L 05/01/18 07:30 Pulse 77 05/01/18 07:30 Resp 16 05/01/18 07:30 BP 153/68 05/01/18 07:30 Pulse Ox 97 05/01/18 07:30 Intake & Output 05/01/18 05/01/18 05/02/18 06:59 18:59 06:59 Intake Total 400 Output Total 1000 Balance -600 Weight 77.111 kg Intake: Oral 400 Output: Urine 1000 Other: Voiding Method Ileal Conduit (Right) Ileal Conduit (Right) - Labs CBC & Chem 7: 04/29/18 07:40 04/29/18 07:40 Labs: Microbiology - Last 24 Hours (Table) 04/27/18 16:21 Anaerobic Culture - Final Hip - Left Anaerobic Gm Negative Bacilli
[2018-04-28] MEDS: VANCOMYCIN 1,750 MG in SODIUM CHLORIDE 0.9% 500 ML 500 ML IVPB SCH (17:22)
[2018-04-28] MEDS: LATANOPROST 0.005% OPHTH DROPS 2.5 ML BTL BOTH EYES SCH (21:57)
[2018-04-28] MEDS: ATORVASTATIN 10 MG TAB PO SCH (21:58)
[2018-04-28] MEDS: BISACODYL 10 MG SUPP RECTAL SCH (21:58)
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
[2018-04-29] MEDS: HEPARIN SODIUM,PORCINE 5,000 UNIT/ML 1 ML VIAL SQ SCH ×3 (00:46→15:05)
[2018-04-29] MEDS: PIPERACILLIN-TAZOBACTAM 3.375 GM in DEXTROSE/WATER 1 50ML.BAG IVPB SCH ×3 (00:46→15:06)
[2018-04-29] MEDS ORDERED: CALCIUM CARBONATE 500 MG CHEWABLE PO PRN ×2 (04:14→11:58)
[2018-04-29] MEDS: SODIUM CHLORIDE 0.9% 1,000 ML IV SCH ×3 (04:17→23:37)
[2018-04-29] MEDS: LEVOTHYROXINE 100 MCG TAB PO SCH (06:24)
[2018-04-29] MEDS: LACTATED RINGERS 1,000 ML IV SCH (06:24)
[2018-04-29 08:31] LABS: Basophils # (A) 0.1 k/uL (0-0.2); Basophils % (A) 1 %; Eosinophils # (A) 0.3 k/uL (0-0.7); Eosinophils % (A) 3 %; HCT 32.7 % (34.0-46.0); HGB 10.1 gm/dL (11.4-16.0); Hypochromasia Slight; Lymphocytes # (A) 1.7 k/uL (1.0-4.8); Lymphocytes % (A) 18 %; MCV 87.3 fL (80.0-100.0); Mean Platelet Volume 7.7; Monocytes # (A) 0.7 k/uL (0-1.0); Monocytes % (A) 7 %; Neutrophils # (A) 6.3 k/uL (1.3-7.7); Neutrophils % (A) 70 %; Platelet Count 536 k/uL (150-450); RBC 3.75 m/uL (3.80-5.40); RDW 15.1 % (11.5-15.5); WBC 9.1 k/uL (3.8-10.6)
[2018-04-29 08:48] LABS: Calcium 8.4 mg/dL (8.4-10.2); Potassium 4.6 mmol/L (3.5-5.1)
[2018-04-29] MEDS: POLYETHYLENE GLYCOL 3350 17 GM POWD.PACK PO SCH (09:14)
[2018-04-29] MEDS: ASPIRIN 81 MG PO SCH (09:14)
[2018-04-29] MEDS: PANTOPRAZOLE 40 MG TABLET PO SCH (09:14)
[2018-04-29] MEDS: LACTULOSE 20 GM/30 ML CUP PO SCH ×3 (09:14→21:48)
[2018-04-29] MEDS: DOCUSATE 100 MG CAP PO SCH ×2 (09:14→21:48)
[2018-04-29] MEDS: MULTIVITAMINS, THERA 1 EACH TAB PO SCH (09:15)
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
[2018-04-29] MEDS: BISACODYL 10 MG SUPP RECTAL SCH (14:45)
[2018-04-29] MEDS: VANCOMYCIN 1,750 MG in SODIUM CHLORIDE 0.9% 500 ML 500 ML IVPB SCH (17:23)
[2018-04-29] MEDS: ATORVASTATIN 10 MG TAB PO SCH (21:48)
[2018-04-29] MEDS: LATANOPROST 0.005% OPHTH DROPS 2.5 ML BTL BOTH EYES SCH (21:48)
[2018-04-30] MEDS: PIPERACILLIN-TAZOBACTAM 3.375 GM in DEXTROSE/WATER 1 50ML.BAG IVPB SCH ×4 (01:02→23:24)
[2018-04-30] MEDS: HEPARIN SODIUM,PORCINE 5,000 UNIT/ML 1 ML VIAL SQ SCH ×4 (01:02→23:24)
[2018-04-30] MEDS: LACTATED RINGERS 1,000 ML IV SCH (06:03)
[2018-04-30] MEDS: POLYETHYLENE GLYCOL 3350 17 GM POWD.PACK PO SCH (08:25)
[2018-04-30] MEDS: PANTOPRAZOLE 40 MG TABLET PO SCH (08:25)
[2018-04-30] MEDS: LEVOTHYROXINE 100 MCG TAB PO SCH (08:25)
[2018-04-30] MEDS: ASPIRIN 81 MG PO SCH (08:25)
[2018-04-30] MEDS: DOCUSATE 100 MG CAP PO SCH ×2 (08:25→20:54)
[2018-04-30] MEDS: MULTIVITAMINS, THERA 1 EACH TAB PO SCH (08:26)
[2018-04-30] MEDS: LACTULOSE 20 GM/30 ML CUP PO SCH ×3 (08:26→20:54)
[2018-04-30] MEDS: SODIUM CHLORIDE 0.9% 1,000 ML IV SCH ×2 (08:26→17:30)
[2018-04-30] MEDS ORDERED: VANCOMYCIN TROUGH DUE 1 EACH MISC MISCELLANE ONE (17:00)
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
[2018-04-30] MEDS: VANCOMYCIN 1,750 MG in SODIUM CHLORIDE 0.9% 500 ML 500 ML IVPB SCH (17:19)
[2018-04-30] MEDS: LATANOPROST 0.005% OPHTH DROPS 2.5 ML BTL BOTH EYES SCH (20:54)
[2018-04-30] MEDS: ATORVASTATIN 10 MG TAB PO SCH (20:54)
[2018-04-30] MEDS: BISACODYL 10 MG SUPP RECTAL SCH (20:54)
[2018-04-30] MEDS: IBUPROFEN 800 MG TAB PO PRN (20:56)
[2018-05-01] MEDS: SODIUM CHLORIDE 0.9% 1,000 ML IV SCH ×2 (05:10→10:15)
[2018-05-01] MEDS: LEVOTHYROXINE 112 MCG TAB PO SCH (06:32)
[2018-05-01] MEDS: LACTATED RINGERS 1,000 ML IV SCH (06:32)
[2018-05-01 07:44] VITALS: BP 153/68; PULSE 77; RESP 16; TEMP 97.2
[2018-05-01] MEDS: POLYETHYLENE GLYCOL 3350 17 GM POWD.PACK PO SCH (10:14)
[2018-05-01] MEDS: MULTIVITAMINS, THERA 1 EACH TAB PO SCH (10:14)
[2018-05-01] MEDS: HEPARIN SODIUM,PORCINE 5,000 UNIT/ML 1 ML VIAL SQ SCH (10:14)
[2018-05-01] MEDS: PANTOPRAZOLE 40 MG TABLET PO SCH (10:14)
[2018-05-01] MEDS: ASPIRIN 81 MG PO SCH (10:14)
[2018-05-01] MEDS: LACTULOSE 20 GM/30 ML CUP PO SCH (10:14)
[2018-05-01] MEDS: DOCUSATE 100 MG CAP PO SCH (10:14)
[2018-05-01] MEDS: PIPERACILLIN-TAZOBACTAM 3.375 GM in DEXTROSE/WATER 1 50ML.BAG IVPB SCH (10:48)
[2018-05-01] MEDS: IBUPROFEN 800 MG TAB PO PRN (10:51)
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
[2018-05-01] MEDS ORDERED: VANCOMYCIN 1,500 MG in SODIUM CHLORIDE 0.9% 250 ML IVPB SCH (21:00)
== END 2018-05-01 16:18 | disposition home health service (06) | DRG 500 ==
LOC: EC 02:45 → 4MS4W 05:17
PROVIDERS: ADMIT Family Medicine; ATTEND Family Medicine
PROC: 0JDM0ZZ Extraction of Left Upper Leg Subcutaneous Tissue and Fascia, Open Approach (ICD-10-PCS; principal; 2018-04-27 14:14)
PROC: 02HV33Z Insertion of Infusion Device into Superior Vena Cava, Percutaneous Approach (ICD-10-PCS; 2018-04-27 14:14)
DX: M86.652 Other chronic osteomyelitis, left thigh (principal); L89.224 Pressure ulcer of left hip, stage 4; N39.0 Urinary tract infection, site not specified; E87.1 Hypo-osmolality and hyponatremia; G82.20 Paraplegia, unspecified; L02.416 Cutaneous abscess of left lower limb; L03.116 Cellulitis of left lower limb; N13.6 Pyonephrosis; B95.2 Enterococcus as the cause of diseases classified elsewhere; Z16.22 Resistance to vancomycin related antibiotics; D63.8 Anemia in other chronic diseases classified elsewhere; E03.9 Hypothyroidism, unspecified; E78.5 Hyperlipidemia, unspecified; T14.90XS Injury, unspecified, sequela; V89.2XXS Person injured in unspecified motor-vehicle accident, traffic, sequela; H54.62 Unqualified visual loss, left eye, normal vision right eye; H91.90 Unspecified hearing loss, unspecified ear; I10 Essential (primary) hypertension; K21.9 Gastro-esophageal reflux disease without esophagitis; K59.00 Constipation, unspecified; M06.9 Rheumatoid arthritis, unspecified; M16.12 Unilateral primary osteoarthritis, left hip; Z79.82 Long term (current) use of aspirin; Z80.0 Family history of malignant neoplasm of digestive organs; Z87.440 Personal history of urinary (tract) infections; Z87.442 Personal history of urinary calculi; Z90.49 Acquired absence of other specified parts of digestive tract; Z93.6 Other artificial openings of urinary tract status; F17.200 Nicotine dependence, unspecified, uncomplicated
CPT/HCPCS: 36415; 36569; 71046; 73502; 74019; 74176; 76937; 77001; 80048; 80053; 80202; 81001; 82550; 82553; 83605; 84484; 85025; 85610; 85652; 85730; 86140; 87040; 87070; 87075; 87077; 87086; 87186; 87205; 93005; 94760; 96365; 96375; 99285

== ENCOUNTER 2018-09-12 18:09 | Inpatient (IN) | payer MEDICARE, OTHER ==
[2018-09-12] MEDS ORDERED: VANCOMYCIN IV PER PHARMACY 1 EACH MISC MISCELLANE PRN (19:13)
[2018-09-12] MEDS ORDERED: SODIUM CHLORIDE 0.9% 1,000 ML IV STA (19:14)
[2018-09-12] MEDS ORDERED: VANCOMYCIN 1,500 MG in SODIUM CHLORIDE 0.9% 250 ML IVPB STA (19:18)
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
[2018-09-12 20:17] LABS: Anisocytosis Slight; Basophils % (A) 1 %; Eosinophils # (A) 0.1 k/uL (0-0.7); Eosinophils % (A) 2 %; HCT 31.9 % (34.0-46.0); HGB 9.7 gm/dL (11.4-16.0); Hypochromasia Moderate; Lymphocytes # (A) 1.8 k/uL (1.0-4.8); Lymphocytes % (A) 22 %; MCH 24.9 pg (25.0-35.0); MCHC 30.3 g/dL (31.0-37.0); MCV 82.2 fL (80.0-100.0); Mean Platelet Volume 6.7; Monocytes # (A) 0.6 k/uL (0-1.0); Monocytes % (A) 8 %; Neutrophils # (A) 5.4 k/uL (1.3-7.7); Neutrophils % (A) 67 %; Platelet Count 605 k/uL (150-450); RBC 3.88 m/uL (3.80-5.40); RDW 16.5 % (11.5-15.5); WBC 8.1 k/uL (3.8-10.6)
[2018-09-12 20:26] LABS: INR 0.9 (<1.2); Partial Thromboplastin Time 23.9 sec (22.0-30.0); Prothrombin Time 10.2 sec (9.0-12.0)
[2018-09-12 20:34] LABS: ALT 34 U/L (9-52); AST 20 U/L (14-36); Albumin 2.4 g/dL (3.5-5.0); Alkaline Phosphatase 134 U/L (38-126); Anion Gap 6 mmol/L; Blood Urea Nitrogen 13 mg/dL (7-17); Carbon Dioxide 26 mmol/L (22-30); Chloride 101 mmol/L (98-107); Glucose 90 mg/dL (74-99); Potassium 4.5 mmol/L (3.5-5.1); Sodium 133 mmol/L (137-145); Total Bilirubin 0.4 mg/dL (0.2-1.3); Total Protein 5.5 g/dL (6.3-8.2)
[2018-09-12 20:51] LABS: Appearance,Urine Cloudy (Clear); Bacteria,Urine Many /hpf; Bilirubin,Urine Negative (Negative); Blood,Urine Negative (Negative); Budding Yeast,Urine Moderate /hpf; Color,Urine Yellow; Glucose,Urine (UA) Negative (Negative); Ketones,Urine Negative (Negative); Leukocyte Esterase,Urine Large (Negative); Mucus,Urine Rare /hpf; Nitrite,Urine Positive (Negative); PH, Urine 7.5 (5.0-8.0); Protein,Urine Trace (Negative); RBC,Urine 6 /hpf (0-5); Urobilinogen,Urine <2.0 mg/dL (<2.0); WBC,Urine 87 /hpf (0-5)
--- NOTE | 2018-09-12 21:56 | XR ---
EXAM: XR Left Hip With Pelvis When Performed, 2 or 3 Views CLINICAL HISTORY: ITS.REASON XR Reason: Pain TECHNIQUE: Two or three views of the left hip, with pelvis when performed. COMPARISON: CT left hip on 06/24/2017 FINDINGS: Bones/joints: Irregularity of the proximal left femur in the region of the greater tuberosity which again may represent osteomyelitis. The left femoral head and neck is not well-visualized on this exam. Osteopenia. Similar probable postsurgical changes of the left ischium. Soft tissues: Soft tissue density and soft tissue gas overlying the left femur greater tuberosity, similar to prior CT. Vascular calcifications. Surgical clip in the left pelvis. IMPRESSION: Irregularity of the proximal left femur with sclerosis and probable erosions in the region of the greater tuberosity which again may represent osteomyelitis. The left femoral head and neck is not well- visualized on this exam. Soft tissue density and soft tissue gas overlying the left femur greater tuberosity, similar to prior CT, compatible with known soft tissue wound.
[2018-09-12] MEDS ORDERED: NALOXONE 0.4 MG/ML 1 ML VIAL IV PRN (22:09)
[2018-09-13] MEDS: SODIUM CHLORIDE 0.9% 1,000 ML IV SCH ×2 (00:04→23:16)
[2018-09-13 09:34] LABS: Anisocytosis Slight; Basophils % (A) 1 %; Eosinophils # (A) 0.1 k/uL (0-0.7); Eosinophils % (A) 2 %; HCT 28.8 % (34.0-46.0); HGB 8.9 gm/dL (11.4-16.0); Hypochromasia Moderate; Lymphocytes # (A) 1.4 k/uL (1.0-4.8); Lymphocytes % (A) 25 %; MCH 25.3 pg (25.0-35.0); MCHC 30.9 g/dL (31.0-37.0); MCV 81.8 fL (80.0-100.0); Mean Platelet Volume 7.1; Monocytes # (A) 0.5 k/uL (0-1.0); Monocytes % (A) 10 %; Neutrophils # (A) 3.4 k/uL (1.3-7.7); Neutrophils % (A) 61 %; Platelet Count 548 k/uL (150-450); RBC 3.52 m/uL (3.80-5.40); RDW 16.7 % (11.5-15.5); WBC 5.5 k/uL (3.8-10.6)
[2018-09-13 09:59] LABS: Anion Gap 6 mmol/L; Blood Urea Nitrogen 12 mg/dL (7-17); Calcium 8.2 mg/dL (8.4-10.2); Carbon Dioxide 22 mmol/L (22-30); Chloride 107 mmol/L (98-107); Glucose 106 mg/dL (74-99); Potassium 4.8 mmol/L (3.5-5.1); Sodium 135 mmol/L (137-145)
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
[2018-09-13] MEDS: VANCOMYCIN 1,250 MG in SODIUM CHLORIDE 0.9% 250 ML IVPB SCH (12:20)
[2018-09-13] MEDS: LEVOTHYROXINE 100 MCG TAB PO SCH (12:24)
[2018-09-13 15:15] VITALS: BMI 29.3
[2018-09-13] MEDS: PANTOPRAZOLE 40 MG TABLET PO SCH (17:08)
[2018-09-13] MEDS: CEFEPIME 2 GM in SODIUM CHLORIDE 0.9% 100 ML IVPB SCH ×2 (17:11→23:15)
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
[2018-09-13] MEDS: ATORVASTATIN 10 MG TAB PO SCH (23:15)
[2018-09-13] MEDS: LATANOPROST 0.005% OPHTH DROPS 2.5 ML BTL BOTH EYES SCH (23:15)
[2018-09-14] MEDS: LEVOTHYROXINE 112 MCG TAB PO SCH (06:02)
[2018-09-14] MEDS: VANCOMYCIN 1,250 MG in SODIUM CHLORIDE 0.9% 250 ML IVPB SCH ×2 (06:05→22:15)
[2018-09-14] MEDS: ASPIRIN 81 MG PO SCH (08:17)
[2018-09-14] MEDS: CEFEPIME 2 GM in SODIUM CHLORIDE 0.9% 100 ML IVPB SCH ×2 (08:17→15:28)
[2018-09-14] MEDS: LACTOBACILLUS ACIDOPH & BULGAR 1 EACH PACKET PO SCH (08:18)
[2018-09-14] MEDS: MULTIVITAMINS, THERA 1 EACH TAB PO SCH (08:18)
[2018-09-14 10:20] LABS: Anion Gap 5 mmol/L; Blood Urea Nitrogen 13 mg/dL (7-17); Calcium 7.9 mg/dL (8.4-10.2); Carbon Dioxide 23 mmol/L (22-30); Chloride 107 mmol/L (98-107); Glucose 142 mg/dL (74-99); Potassium 4.6 mmol/L (3.5-5.1); Sodium 135 mmol/L (137-145)
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
[2018-09-14] MEDS: PANTOPRAZOLE 40 MG TABLET PO SCH (18:30)
[2018-09-14] MEDS: ATORVASTATIN 10 MG TAB PO SCH (22:04)
[2018-09-14] MEDS: LATANOPROST 0.005% OPHTH DROPS 2.5 ML BTL BOTH EYES SCH (22:05)
[2018-09-14] MEDS: SODIUM CHLORIDE 0.9% 1,000 ML IV SCH (22:15)
[2018-09-15] MEDS: CEFEPIME 2 GM in SODIUM CHLORIDE 0.9% 100 ML IVPB SCH ×4 (02:08→23:19)
[2018-09-15] MEDS: LEVOTHYROXINE 100 MCG TAB PO SCH (05:39)
[2018-09-15] MEDS: ASPIRIN 81 MG PO SCH (08:08)
[2018-09-15] MEDS: LACTOBACILLUS ACIDOPH & BULGAR 1 EACH PACKET PO SCH (08:08)
[2018-09-15 09:19] LABS: Anion Gap 6 mmol/L; Blood Urea Nitrogen 17 mg/dL (7-17); Carbon Dioxide 22 mmol/L (22-30); Chloride 106 mmol/L (98-107); Glucose 119 mg/dL (74-99); Potassium 4.6 mmol/L (3.5-5.1); Sodium 134 mmol/L (137-145)
[2018-09-15] MEDS ORDERED: VANCOMYCIN TROUGH DUE 1 EACH MISC MISCELLANE ONE (12:00)
[2018-09-15] MEDS: MULTIVITAMINS, THERA 1 EACH TAB PO SCH (12:35)
[2018-09-15] MEDS: VANCOMYCIN 1,250 MG in SODIUM CHLORIDE 0.9% 250 ML IVPB SCH (12:35)
[2018-09-15] MEDS ORDERED: CALCIUM CARBONATE 500 MG CHEWABLE PO PRN ×2 (15:45→16:12)
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
[2018-09-15] MEDS: PANTOPRAZOLE 40 MG TABLET PO SCH (17:09)
[2018-09-15] MEDS: SODIUM CHLORIDE 0.9% 1,000 ML IV SCH (20:24)
[2018-09-15] MEDS: ATORVASTATIN 10 MG TAB PO SCH (20:25)
[2018-09-15] MEDS: LATANOPROST 0.005% OPHTH DROPS 2.5 ML BTL BOTH EYES SCH (20:25)
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
[2018-09-16] MEDS: LEVOTHYROXINE 100 MCG TAB PO SCH (05:35)
[2018-09-16 07:22] LABS: Anion Gap 4 mmol/L; Blood Urea Nitrogen 20 mg/dL (7-17); Calcium 8.3 mg/dL (8.4-10.2); Carbon Dioxide 21 mmol/L (22-30); Chloride 109 mmol/L (98-107); Glucose 93 mg/dL (74-99); Potassium 4.7 mmol/L (3.5-5.1); Sodium 134 mmol/L (137-145)
[2018-09-16] MEDS: ASPIRIN 81 MG PO SCH (07:52)
[2018-09-16] MEDS: LACTOBACILLUS ACIDOPH & BULGAR 1 EACH PACKET PO SCH (07:52)
[2018-09-16] MEDS: MULTIVITAMINS, THERA 1 EACH TAB PO SCH (07:52)
[2018-09-16] MEDS: CEFEPIME 2 GM in SODIUM CHLORIDE 0.9% 100 ML IVPB SCH ×2 (07:52→14:50)
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
[2018-09-16] MEDS: PANTOPRAZOLE 40 MG TABLET PO SCH (17:22)
[2018-09-16] MEDS: ATORVASTATIN 10 MG TAB PO SCH (21:15)
[2018-09-16] MEDS: LATANOPROST 0.005% OPHTH DROPS 2.5 ML BTL BOTH EYES SCH (21:15)
[2018-09-16] MEDS: SODIUM CHLORIDE 0.9% 1,000 ML IV SCH (21:15)
[2018-09-17] MEDS: CEFEPIME 2 GM in SODIUM CHLORIDE 0.9% 100 ML IVPB SCH ×3 (00:18→16:43)
[2018-09-17] MEDS: LEVOTHYROXINE 100 MCG TAB PO SCH (06:02)
[2018-09-17] MEDS: MULTIVITAMINS, THERA 1 EACH TAB PO SCH (07:29)
[2018-09-17] MEDS: ASPIRIN 81 MG PO SCH (07:29)
[2018-09-17] MEDS: LACTOBACILLUS ACIDOPH & BULGAR 1 EACH PACKET PO SCH (07:29)
[2018-09-17 08:38] LABS: Anion Gap 6 mmol/L; Blood Urea Nitrogen 24 mg/dL (7-17); Calcium 8.5 mg/dL (8.4-10.2); Carbon Dioxide 23 mmol/L (22-30); Chloride 107 mmol/L (98-107); Glucose 80 mg/dL (74-99); Potassium 4.8 mmol/L (3.5-5.1); Sodium 136 mmol/L (137-145)
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
[2018-09-17] MEDS: PANTOPRAZOLE 40 MG TABLET PO SCH (16:43)
[2018-09-17] MEDS: ATORVASTATIN 10 MG TAB PO SCH (21:15)
[2018-09-17] MEDS: LATANOPROST 0.005% OPHTH DROPS 2.5 ML BTL BOTH EYES SCH (21:15)
[2018-09-17] MEDS: SODIUM CHLORIDE 0.9% 1,000 ML IV SCH (21:16)
[2018-09-18] MEDS: CEFEPIME 2 GM in SODIUM CHLORIDE 0.9% 100 ML IVPB SCH ×3 (00:04→15:53)
[2018-09-18] MEDS: LEVOTHYROXINE 112 MCG TAB PO SCH (06:06)
[2018-09-18] MEDS: LACTOBACILLUS ACIDOPH & BULGAR 1 EACH PACKET PO SCH (07:41)
[2018-09-18] MEDS: MULTIVITAMINS, THERA 1 EACH TAB PO SCH (07:41)
[2018-09-18] MEDS: ASPIRIN 81 MG PO SCH (07:41)
[2018-09-18 08:48] VITALS: BP 118/60; PULSE 92; RESP 12; TEMP 97.7
[2018-09-18 09:30] LABS: Anion Gap 6 mmol/L; Blood Urea Nitrogen 29 mg/dL (7-17); Calcium 8.6 mg/dL (8.4-10.2); Carbon Dioxide 22 mmol/L (22-30); Chloride 108 mmol/L (98-107); Glucose 136 mg/dL (74-99); Potassium 4.4 mmol/L (3.5-5.1); Sodium 136 mmol/L (137-145)
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
== END 2018-09-18 16:55 | disposition short-term general hospital (02) | DRG 539 ==
LOC: EC 18:09 → 4SSUR 22:12
PROVIDERS: ADMIT Family Medicine; ATTEND Family Medicine
DX: M86.68 Other chronic osteomyelitis, other site (principal); L89.313 Pressure ulcer of right buttock, stage 3; L89.224 Pressure ulcer of left hip, stage 4; G82.20 Paraplegia, unspecified; M00.9 Pyogenic arthritis, unspecified; N39.0 Urinary tract infection, site not specified; B96.1 Klebsiella pneumoniae [K. pneumoniae] as the cause of diseases classified elsewhere; D63.8 Anemia in other chronic diseases classified elsewhere; E03.9 Hypothyroidism, unspecified; E78.5 Hyperlipidemia, unspecified; E86.0 Dehydration; H54.62 Unqualified visual loss, left eye, normal vision right eye; H91.93 Unspecified hearing loss, bilateral; I10 Essential (primary) hypertension; K21.9 Gastro-esophageal reflux disease without esophagitis; M06.9 Rheumatoid arthritis, unspecified; Z91.81 History of falling; Z79.82 Long term (current) use of aspirin; Z79.890 Hormone replacement therapy; Z80.0 Family history of malignant neoplasm of digestive organs; Z87.442 Personal history of urinary calculi; Z87.891 Personal history of nicotine dependence; Z93.6 Other artificial openings of urinary tract status; H40.9 Unspecified glaucoma; V89.2XXS Person injured in unspecified motor-vehicle accident, traffic, sequela; Z79.899 Other long term (current) drug therapy; Z98.41 Cataract extraction status, right eye
CPT/HCPCS: 36415; 73502; 80048; 80053; 80202; 81001; 83605; 85025; 85610; 85730; 87040; 87070; 87077; 87086; 87186; 87205; 96365; 96366; 96367; 99285

== ENCOUNTER → 2019-06-22 | Outpatient (CLI) | payer MEDICARE, OTHER | LOC: RADMRIMAIN 14:20 | PROVIDERS: ATTEND Family Medicine | DX: Z53.9 Procedure and treatment not carried out, unspecified reason (principal) ==

== ENCOUNTER → 2019-07-16 | Outpatient (CLI) | payer MEDICARE, OTHER ==
--- NOTE | 2019-07-16 17:24 | MR ---
EXAMINATION TYPE: MR hip LT wo con DATE OF EXAM: 07/16/2019 COMPARISON: Correlation radiographs 04/28/2018 and report from 09/12/2018 HISTORY: 68-year-old female Chronic non-healing ulcer lt hip TECHNIQUE: Multiplanar, multisequence images of the left hip were obtained without IV contrast. FINDINGS: There is generalized muscular atrophy compatible with the previously stated history of paraplegia. There is a 2.5 cm low signal focus adjacent to the right greater trochanter of uncertain etiology. So me edema tracks proximally along the right gluteal insertion and gluteus musculature. There is a soft tissue ulcer along the lateral aspect of the left thigh with a low T1-weighted signal and intermediate T2 signal. Interposed signal void suggesting air tracking along posterior which is fairly deep contacting to nearly contacting the underlying greater trochanter which appears abnormal and rounded in appearance. 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 Patchy marrow edema is demonstrated within both the acetabular and proximal femoral sides of the a bnormal joint. T1-weighted sequence shows low signal intensity along the eroded proximal margin of the femur and yves e abnormal widening of the left acetabulum. Heterogeneous and thickened area of bright signal is present within the joint space measuring 3.4 x 2 .0 cm. There appear to be old decubitus ulcers along the region of the ischial tuberosities. The left sciatic nerve traverses abnormal thickened soft tissue posterior to the left hip, possible a rbeecca of decubitus ulcer or granulation tissue. IMPRESSION: 1. Left hip deformity with widening of the acetabulum. 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 Given the overlying decubitus ulcer (which con tacts to nearly contacts the proximal femur) findings suggest destructive erosion from prior osteomye litis. 2. There is some heterogeneous high signal material widening the left hip joint space and heterogeneo us signal on both sides of the deranged left hip joint. Chronic osteomyelitis and infected granulatio n tissue within the joint space are not excluded. 3. Focal low signal along the eroded proximal margin of the left femur; a small focus of superimposed acute osteomyelitis is not excluded. 4. A 2.5 cm focus of low signal adjacent to the right greater trochanter. Radiographic correlation is recommended to determine if this represents soft tissue air such as from an overlying ulcer or a foc us of ossification. 5. Chronic scarring from prior decubitus ulcers overlying the ischial tuberosities.
== END | disposition home or self-care (01) ==
LOC: RADMRIMAIN 14:21
PROVIDERS: ATTEND Family Medicine
DX: L89.229 Pressure ulcer of left hip, unspecified stage (principal); M21.952 Unspecified acquired deformity of left thigh; L90.5 Scar conditions and fibrosis of skin

== ENCOUNTER → 2019-08-27 | Outpatient (CLI) | payer MEDICARE, OTHER ==
--- NOTE | 2019-08-27 09:07 | CT ---
EXAMINATION TYPE: CT abdomen pelvis wo con DATE OF EXAM: 08/27/2019 COMPARISON: 04/23/2018 INDICATION: Kidney stones DLP: 913.2 mGycm, Automated exposure control for dose reduction was used. CONTRAST: 0 mL of Isovue 300. Study performed without Oral Contrast TECHNIQUE: Axial images were obtained from above the diaphragm to the pubic rami in the axial plane a t 5 mm thick sections. Reconstructed images are reviewed on the computer in the coronal plane. FINDINGS: Limited CT sections are obtained the lung bases. Mild streak atelectasis at the right posterior lung base.. Some coronary artery calcifications present. CT ABDOMEN: Liver: Normal Spleen: Normal Pancreas: Normal Adrenal glands: The adrenal glands are normal. Gallbladder: Gallbladder is surgically absent Kidneys: No masses are evident. There is a left hydronephrosis with mild left hydroureter. No left ur eteral stones are evident. There is mild right hydronephrosis and mild to moderate right hydroureter. No ureteral stone is evident on the right. Ureters extend to the neobladder. No cysts are present. There is a 0.4 cm posterior left mid renal stone and a 0.5 cm inferior lateral left renal stone. Thes e are nonobstructing. Aorta: Vascular calcification is within the aorta. Inferior vena cava: Normal. CT PELVIS: There is an ostomy in the right lower quadrant which appears to be for the neobladder. No herniation of bowel into the ostomy site is evident. Loops of bowel within the abdomen and pelvis are normal. Studies performed without oral contrast limiting bowel evaluation. Appendix: Not visualized. Urinary bladder: Surgically absent. This could be decompressed. Genitourinary structures: Uterus and ovaries not identified. There is a soft tissue density which wou ld be difficult to separate from a decompressed urinary bladder from a small atrophic uterus. Correla te with surgical history. Osseous structures: There is destruction of the left femoral head. Soft tissue density is in the left hip region with adjacent stranding. Correlate for infection and neoplasm. There is some diastases of the pubic symphysis. Scoliosis to the lumbar spine. There is within the right sacroiliac joint. IMPRESSIONS: 1. Mild bilateral hydronephrosis and hydroureter extending to the apparent neobladder. No obstructin g ureteral stones are evident. Nonobstructing renal stones are on the left. 2. Interval destruction of the left femoral head and acetabulum with soft tissue density in the left hip joint space.
== END | disposition home or self-care (01) ==
LOC: RADCTMAIN 07:57
PROVIDERS: ATTEND Urology
DX: N13.2 Hydronephrosis with renal and ureteral calculous obstruction (principal); N13.4 Hydroureter; Z91.041 Radiographic dye allergy status; Z91.09 Other allergy status, other than to drugs and biological substances
CPT/HCPCS: 74176

== ENCOUNTER 2019-10-17 15:25 | Emergency (ER) | payer MEDICARE, OTHER ==
[2019-10-17] MEDS ORDERED: MORPHINE SULFATE 4 MG/ML SYRINGE IV STA (15:34)
[2019-10-17] MEDS ORDERED: SODIUM CHLORIDE 0.9% 500 ML 500 ML IV STA (15:34)
[2019-10-17] MEDS ORDERED: ONDANSETRON 4 MG/2 ML VIAL IVP STA (15:34)
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
[2019-10-17 15:52] LABS: Basophils % (A) 0 %; Eosinophils # (A) 0.2 k/uL (0-0.7); Eosinophils % (A) 3 %; HCT 42.8 % (34.0-46.0); HGB 13.7 gm/dL (11.4-16.0); Lymphocytes # (A) 2.5 k/uL (1.0-4.8); Lymphocytes % (A) 32 %; MCH 30.2 pg (25.0-35.0); MCHC 31.9 g/dL (31.0-37.0); MCV 94.9 fL (80.0-100.0); Mean Platelet Volume 10.2; Monocytes # (A) 0.5 k/uL (0-1.0); Monocytes % (A) 7 %; Neutrophils # (A) 4.3 k/uL (1.3-7.7); Neutrophils % (A) 56 %; Platelet Count 233 k/uL (150-450); RBC 4.52 m/uL (3.80-5.40); WBC 7.7 k/uL (3.8-10.6)
[2019-10-17 16:01] LABS: Calcium 9.3 mg/dL (8.4-10.2); Potassium 5.2 mmol/L (3.5-5.1); Total Bilirubin 0.3 mg/dL (0.2-1.3); Total Protein 7.2 g/dL (6.3-8.2)
--- NOTE | 2019-10-17 16:27 | CT ---
EXAMINATION TYPE: CT abdomen pelvis wo con DATE OF EXAM: 10/17/2019 COMPARISON: 08/27/2019 INDICATION: LLQ pain for 4 days with loose stool DLP: 923 mGycm, Automated exposure control for dose reduction was used. CONTRAST: 0 mL of Isovue 300. Study performed without Oral Contrast TECHNIQUE: Axial images were obtained from above the diaphragm to the pubic rami in the axial plane a t 5 mm thick sections. Reconstructed images are reviewed on the computer in the coronal plane. FINDINGS: Limited CT sections are obtained the lung bases. The lung bases are clear. Coronary artery calcific ation is present. Calcified granulomas inferior to the left hilum. CT ABDOMEN: Liver: Normal Spleen: Normal Pancreas: Normal Adrenal glands: The adrenal glands are normal. Gallbladder: Surgically absent. Kidneys: No masses are evident. Bilateral hydronephrosis is present. Bilateral hydroureter extends to the neobladder. The neobladder appears decompressed. Ostomy is evident in the right lower quadrant. No cysts are present. Nonobstructing renal stones may be present on the left. Portion of the calcifi cation may be attributed to vascular calcification. Obstructing ureteral stones are not identified. Aorta: Vascular calcification is within the aorta. Inferior vena cava: Normal. CT PELVIS: No suspicious acute changes within the noncontrast imaging through the loops of bowel are evident. Ne obladder in the right lower quadrant is identified. Within the rectum there may be some rectal wall t hickening. There may be some inflammatory change and thickening in the perineal region at the buttock s and perineum. These findings were present previously. Appendix: Not identified. No suspicious inflammatory changes or dilated tubular structures are eviden t. Urinary bladder: Surgically absent Genitourinary structures: Uterus and ovaries are not identified. Osseous structures: There is advanced degenerative change at the right hip. Some ossification within the soft tissues lateral to the greater trochanter on the right. There is irregular shallow left hip joint space with loss of the left femoral head. Findings were present previously. Scoliosis is eviden t. IMPRESSIONS: 1. No suspicious abnormality to account for left lower quadrant pain. 2. Note is made of a stable degenerative type change through the left hip. Degenerative changes are a lso at the right hip. 3. Status post cystectomy with neobladder formation. Hydroureter and hydronephrosis, present previous ly, is again evident. Hydronephrosis may be increasing slightly over the interval. 4. Some irregular wall thickening and inflammatory change and increased density in the perineal regio n and distal rectum is again evident. Evaluation of this region may be warranted.
[2019-10-17 18:15] LABS: Appearance,Urine Turbid (Clear); Bilirubin,Urine Negative (Negative); Blood,Urine Trace (Negative); Color,Urine Light Yellow; Glucose,Urine (UA) Negative (Negative); Hyaline Casts,Urine 3 /lpf (0-2); Ketones,Urine Negative (Negative); Leukocyte Esterase,Urine Small (Negative); Mucus,Urine Occasional /hpf; Nitrite,Urine Negative (Negative); PH, Urine 5.5 (5.0-8.0); Protein,Urine Negative (Negative); RBC,Urine 1 /hpf (0-5); Specific Gravity,Urine 1.006 (1.001-1.035); Squamous Epithelial Cell,Urine <1 /hpf (0-4); Urobilinogen,Urine <2.0 mg/dL (<2.0); WBC,Urine 3 /hpf (0-5)
[2019-10-17 18:56] VITALS: BP 128/78; PULSE 78; RESP 17; TEMP 98.3
== END 2019-10-17 18:56 | disposition home or self-care (01) ==
LOC: EC 15:25
DX: R10.32 Left lower quadrant pain (principal); N13.30 Unspecified hydronephrosis; K62.89 Other specified diseases of anus and rectum; K66.8 Other specified disorders of peritoneum; R14.0 Abdominal distension (gaseous); K21.9 Gastro-esophageal reflux disease without esophagitis; H91.90 Unspecified hearing loss, unspecified ear; E78.5 Hyperlipidemia, unspecified; I10 Essential (primary) hypertension; M06.9 Rheumatoid arthritis, unspecified; E07.9 Disorder of thyroid, unspecified; G82.20 Paraplegia, unspecified; H54.62 Unqualified visual loss, left eye, normal vision right eye; H40.9 Unspecified glaucoma; Z87.891 Personal history of nicotine dependence; Z91.041 Radiographic dye allergy status; Z79.01 Long term (current) use of anticoagulants; Z79.890 Hormone replacement therapy; Z79.891 Long term (current) use of opiate analgesic; Z79.899 Other long term (current) drug therapy; Z93.6 Other artificial openings of urinary tract status; Z97.4 Presence of external hearing-aid; Z87.442 Personal history of urinary calculi; Z96.0 Presence of urogenital implants; Z86.018 Personal history of other benign neoplasm; Z90.49 Acquired absence of other specified parts of digestive tract; Z80.0 Family history of malignant neoplasm of digestive organs; Z84.1 Family history of disorders of kidney and ureter; Z98.890 Other specified postprocedural states
CPT/HCPCS: 36415; 80053; 82150; 83605; 83690; 85025; 81001; 74176; 99284; 96374; 96375; 96361 ×2; J2270; J2405

== ENCOUNTER 2020-05-22 08:24 | Day surgery (SDC) | payer MEDICARE, OTHER ==
[2020-05-21 08:40] VITALS: BMI 34.9
[~2020-05-22 08:24] MED LIST changes: -AMPICILLIN 1,000 MG in SODIUM CHLORIDE 0.9% 50 ML IVPB ONE; -DEXAMETHASONE SOD PHOSPHATE 10 MG/ML 1 ML VIAL IV ONE; -GENTAMICIN 120 MG in SODIUM CHLORIDE 0.9% 100 ML IVPB ONE; +LACTATED RINGERS 1,000 ML IV SCH; +LIDOCAINE 1% (10MG/ML) FOR IV START INTRADERMA PRN; -LIDOCAINE 1% 20 ML VIAL (10MG/ML) FOR IV START INTRADERMA PRN; -MIDAZOLAM 2 MG/2 ML VIAL IV PRN; -ONDANSETRON 4 MG/2 ML VIAL IVP ONE; -SCOPOLAMINE 1.5MG/72HR PATCH TRANSDERM ONE
[2020-05-22 09:04] VITALS: TEMP 97.9
[2020-05-22] MEDS ORDERED: PROPOFOL 10 MG/ML 20 ML VIAL IV ONE (10:02)
--- NOTE | 2020-05-22 10:24 | P.PCN ---
Date of Procedure: 05/22/20 Procedure(s) Performed: BRIEF HISTORY: Patient is a 69-year-old pleasant female scheduled for an elective colonoscopy as a part of screening for colorectal neoplasia. She also has family history of colon cancer diagnosed in her father at age 60. PROCEDURE PERFORMED: Colonoscopy. PREOPERATIVE DIAGNOSIS: Screening for colon cancer/family history of colon cancer. IV sedation per Anesthesia. PROCEDURE: After informed consent was obtained, the patient, was brought into the endoscopy unit. IV sedation was administered by Anesthesia under continuous monitoring. Digital rectal examination was normal. Initially the Olympus CF-160 flexible video colonoscope was then inserted in the rectum, gradually advanced into the cecum without any difficulty. Careful examination was performed as the scope was gradually being withdrawn. Ileocecal valve and the appendiceal orifice were visualized and appeared normal. Prep was excellent. Mucosa of the cecum, ascending colon, transverse colon, descending colon, sigmoid colon, and rectum appeared normal. Scattered left-sided diverticulosis. Retroflexion was performed in the rectum and no lesions were seen. The patient tolerated the procedure well. IMPRESSION: Normal-appearing colon from rectum to cecum with no evidence of colorectal neoplasia. Scattered sigmoid diverticulosis RECOMMENDATIONS: Findings of this examination were discussed with the patient as well as a family. She was advised to have a repeat screening colonoscopy in 5 years from now because of Family history of colon cancer..
[2020-05-22 10:27] VITALS: RESP 16
[2020-05-22 10:49] VITALS: BP 122/59; PULSE 79
== END 2020-05-22 11:42 | disposition home or self-care (01) ==
LOC: ORWHC2ENDO 08:24
PROVIDERS: ATTEND Internal Medicine Gastroenterology
DX: K57.30 Diverticulosis of large intestine without perforation or abscess without bleeding (principal); Z12.11 Encounter for screening for malignant neoplasm of colon; K21.9 Gastro-esophageal reflux disease without esophagitis; Z80.0 Family history of malignant neoplasm of digestive organs; I10 Essential (primary) hypertension; E78.5 Hyperlipidemia, unspecified; E07.9 Disorder of thyroid, unspecified; G82.20 Paraplegia, unspecified; Z90.49 Acquired absence of other specified parts of digestive tract; Z98.890 Other specified postprocedural states; Z79.02 Long term (current) use of antithrombotics/antiplatelets; Z79.890 Hormone replacement therapy; Z79.899 Other long term (current) drug therapy; Z79.891 Long term (current) use of opiate analgesic; Z91.048 Other nonmedicinal substance allergy status; Z91.041 Radiographic dye allergy status
CPT/HCPCS: J2704; G0105; 45378

== ENCOUNTER 2020-06-22 21:43 | Observation (INO) | payer MEDICARE, OTHER ==
[2020-06-22 22:27] LABS: Basophils # (A) 0.1 k/uL (0-0.2); Basophils % (A) 1 %; Eosinophils # (A) 0.5 k/uL (0-0.7); Eosinophils % (A) 8 %; HCT 43.5 % (34.0-46.0); HGB 13.7 gm/dL (11.4-16.0); Lymphocytes # (A) 3.1 k/uL (1.0-4.8); Lymphocytes % (A) 47 %; MCH 29.3 pg (25.0-35.0); MCHC 31.4 g/dL (31.0-37.0); MCV 93.3 fL (80.0-100.0); Mean Platelet Volume 9.8; Monocytes # (A) 0.3 k/uL (0-1.0); Monocytes % (A) 5 %; Neutrophils # (A) 2.5 k/uL (1.3-7.7); Neutrophils % (A) 38 %; Platelet Count 232 k/uL (150-450); RBC 4.66 m/uL (3.80-5.40); RDW 13.6 % (11.5-15.5); WBC 6.6 k/uL (3.8-10.6)
[2020-06-22 22:36] LABS: Albumin 3.9 g/dL (3.5-5.0); Calcium 9.1 mg/dL (8.4-10.2); Potassium 4.6 mmol/L (3.5-5.1); Total Bilirubin 0.3 mg/dL (0.2-1.3); Total Protein 7.1 g/dL (6.3-8.2)
[2020-06-22 22:53] LABS: INR 0.9 (<1.2); Prothrombin Time 9.7 sec (9.0-12.0)
--- NOTE | 2020-06-22 23:01 | XR ---
EXAMINATION TYPE: XR chest 2V DATE OF EXAM: 06/22/2020 COMPARISON: 04/23/2018 HISTORY: Chest pain TECHNIQUE: 2 views FINDINGS: There is no heart failure nor confluent pneumonic infiltrate. There are no hilar masses. Co stophrenic angles are clear. Bony thorax is intact. IMPRESSION: No active cardiopulmonary disease. Normal heart. No change.
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
[2020-06-23] MEDS ORDERED: TRANEXAMIC ACID 1,000 MG/10 ML VIAL INHALATION STA (01:06)
--- NOTE | 2020-06-23 02:17 | ED ---
Medical Decision Making - Medical Decision Making 69 female DF for evaluation, patient has recurrent hemoptysis not massive hemoptysis here in the ER, patient coughing up blood since 3 sputum no respiratory distress but has had recurrent hemoptysis 3 despite therapy, we'll hold Lovenox and observe for bleeding to stop - Lab Data Result diagrams: 06/22/20 21:59 06/22/20 21:59 Lab Results 06/22/20 06/22/20 06/22/20 Range/Units 21:59 21:59 21:59 WBC 6.6 (3.8-10.6) k/uL RBC 4.66 (3.80-5.40) m/uL Hgb 13.7 (11.4-16.0) gm/dL Hct 43.5 (34.0-46.0) % MCV 93.3 (80.0-100.0) fL MCH 29.3 (25.0-35.0) pg MCHC 31.4 (31.0-37.0) g/dL RDW 13.6 (11.5-15.5) % Plt Count 232 (150-450) k/uL MPV 9.8 Neutrophils % 38 % Lymphocytes % 47 % Monocytes % 5 % Eosinophils % 8 % Basophils % 1 % Neutrophils # 2.5 (1.3-7.7) k/uL Lymphocytes # 3.1 (1.0-4.8) k/uL Monocytes # 0.3 (0-1.0) k/uL Eosinophils # 0.5 (0-0.7) k/uL Basophils # 0.1 (0-0.2) k/uL PT 9.7 (9.0-12.0) sec INR 0.9 (<1.2) APTT 26.0 (22.0-30.0) sec Sodium 139 (137-145) mmol/L Potassium 4.6 (3.5-5.1) mmol/L Chloride 110 H (98-107) mmol/L Carbon Dioxide 23 (22-30) mmol/L Anion Gap 6 mmol/L BUN 17 (7-17) mg/dL Creatinine 1.05 H (0.52-1.04) mg/dL Est GFR (CKD-EPI)AfAm 62 (>60 ml/min/1.73 sqM) Est GFR (CKD-EPI)NonAf 54 (>60 ml/min/1.73 sqM) Glucose 93 (74-99) mg/dL Calcium 9.1 (8.4-10.2) mg/dL Total Bilirubin 0.3 (0.2-1.3) mg/dL AST 35 (14-36) U/L ALT 33 (4-34) U/L Alkaline Phosphatase 115 (38-126) U/L Total Protein 7.1 (6.3-8.2) g/dL Albumin 3.9 (3.5-5.0) g/dL Blood Type Blood Type Recheck Bld Type Recheck Status Antibody Screen Spec Expiration Date 06/22/20 Range/Units 22:00 WBC (3.8-10.6) k/uL RBC (3.80-5.40) m/uL Hgb (11.4-16.0) gm/dL Hct (34.0-46.0) % MCV (80.0-100.0) fL MCH (25.0-35.0) pg MCHC (31.0-37.0) g/dL RDW (11.5-15.5) % Plt Count (150-450) k/uL MPV Neutrophils % % Lymphocytes % % Monocytes % % Eosinophils % % Basophils % % Neutrophils # (1.3-7.7) k/uL Lymphocytes # (1.0-4.8) k/uL Monocytes # (0-1.0) k/uL Eosinophils # (0-0.7) k/uL Basophils # (0-0.2) k/uL PT (9.0-12.0) sec INR (<1.2) APTT (22.0-30.0) sec Sodium (137-145) mmol/L Potassium (3.5-5.1) mmol/L Chloride (98-107) mmol/L Carbon Dioxide (22-30) mmol/L Anion Gap mmol/L BUN (7-17) mg/dL Creatinine (0.52-1.04) mg/dL Est GFR (CKD-EPI)AfAm (>60 ml/min/1.73 sqM) Est GFR (CKD-EPI)NonAf (>60 ml/min/1.73 sqM) Glucose (74-99) mg/dL Calcium (8.4-10.2) mg/dL Total Bilirubin (0.2-1.3) mg/dL AST (14-36) U/L ALT (4-34) U/L Alkaline Phosphatase (38-126) U/L Total Protein (6.3-8.2) g/dL Albumin (3.5-5.0) g/dL Blood Type O Positive Blood Type Recheck O Pos Bld Type Recheck Status No Antibody Screen NEGATIVE Spec Expiration Date 06/25/2020 - 2299 - Radiology Data Radiology results: report reviewed (Chest x-ray is no changes), image reviewed Disposition Clinical Impression: Cough with hemoptysis Disposition: ADMITTED IP TO [facility] Condition: Good Instructions (If sedation given, give patient instructions): Hemoptysis (ED) Additional Instructions: Please follow-up with your doctor. If you have any worsening symptoms or recurrent blood while coughing return to the emergency room. Is patient prescribed a controlled substance at d/c from ED?: No Referrals: Jorge Hughes MD [Primary Care Provider] - 1-2 days
--- NOTE | 2020-06-23 02:48 | XR ---
EXAM: XR Chest, 1 View CLINICAL HISTORY: ITS.REASON XR Reason: hemoptysis TECHNIQUE: Frontal view of the chest. COMPARISON: Chest x-ray dated 06/22/2020 FINDINGS: Lungs: Question airspace opacities within lower lungs which may be inflammatory or infectious. Pleural space: Unremarkable. Heart: Unremarkable. Mediastinum: Unremarkable. Bones/joints: Unremarkable. IMPRESSION: Question airspace opacities within lower lungs which may be inflammatory or infectious.
[2020-06-23] MEDS ORDERED: LORATADINE 10 MG TAB PO PRN (10:52)
[2020-06-23] MEDS ORDERED: HYDROcodone/APAP 5-325MG 1 EACH TAB PO PRN (10:52)
[2020-06-23] MEDS ORDERED: bisacodyL 10 MG SUPP RECTAL PRN (10:52)
[2020-06-23] MEDS ORDERED: NA PHOS,M-B/NA PHOS,DI-BA 133 ML ENEMA RECTAL PRN (10:52)
[2020-06-23] MEDS ORDERED: ACETAMINOPHEN TAB 500 MG TAB PO PRN (10:52)
[2020-06-23] MEDS: SIMETHICONE 80 MG CHEWABLE PO SCH ×2 (13:12→23:38)
[2020-06-23 15:07] VITALS: RESP 18
[2020-06-23] MEDS ORDERED: RX INFO: IV CONTRAST WAS GIVEN 1 EACH MISC MISCELLANE PRN (19:04)
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
[2020-06-23] MEDS ORDERED: predniSONE 50 MG TAB PO ONE (19:30)
[2020-06-23] MEDS ORDERED: SENNOSIDES 8.6 MG TAB PO SCH (21:00)
[2020-06-23] MEDS ORDERED: LATANOPROST 0.005% OPHTH DROPS 2.5 ML BTL BOTH EYES SCH (21:00)
[2020-06-23] MEDS ORDERED: ATORVASTATIN 10 MG TAB PO SCH (21:00)
[2020-06-23] MEDS: FAMOTIDINE 20 MG TAB PO SCH (21:27)
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
[2020-06-23] MEDS: LACTULOSE 20 GM/30 ML CUP PO SCH (23:37)
[2020-06-24] MEDS: IPRATROPIUM-ALBUTEROL 3 ML NEB INHALATION SCH ×4 (00:51→16:33)
[2020-06-24] MEDS: BUDESONIDE 1 MG/2 ML NEBU INHALATION SCH ×2 (00:51→07:12)
[2020-06-24] MEDS: TIMOLOL 0.5% OPHTH DROPS 5 ML BTL BOTH EYES SCH ×2 (01:02→09:14)
[2020-06-24] MEDS ORDERED: predniSONE 50 MG TAB PO ONE ×2 (02:30→07:00)
[2020-06-24] MEDS ORDERED: LEVOTHYROXINE 100 MCG TAB PO SCH (06:00)
[2020-06-24] MEDS ORDERED: diphenhydrAMINE 50 MG CAP PO ONE (07:00)
[2020-06-24] MEDS ORDERED: ASCORBIC ACID 500 MG TAB PO SCH (08:00)
[2020-06-24] MEDS ORDERED: MULTIVITAMINS, THERA 1 EACH TAB PO SCH (08:00)
[2020-06-24] MEDS: FAMOTIDINE 20 MG TAB PO SCH (09:13)
[2020-06-24] MEDS: SIMETHICONE 80 MG CHEWABLE PO SCH ×2 (09:13→12:24)
[2020-06-24] MEDS: LACTULOSE 20 GM/30 ML CUP PO SCH (09:13)
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
[2020-06-24 10:40] VITALS: BP 156/77; TEMP 97.5
--- NOTE | 2020-06-24 11:02 | CT ---
EXAMINATION TYPE: CT chest w con DATE OF EXAM: 06/24/2020 COMPARISON: Chest CTA December 31, 2013 HISTORY: Hemoptysis CT DLP: 471.6 mGycm. Automated Exposure Control for Dose Reduction was Utilized. TECHNIQUE: CT scan of the thorax is performed following with IV Contrast, patient injected with 80 m L of Isovue 300. FINDINGS: LUNGS: Mild emphysematous change with [id number] scattered pulmonary fibrotic change bilaterall y is now present, some interval progression from 2014 study noted. Focal bronchiectasis and linear sc arring in the posterior left lung apex on current study. No new suspicious nodules or masses. No pleu ral effusion or pneumothorax. From prior. MEDIASTINUM: There are no new greater than 1 cm noncalcified hilar or mediastinal lymph n odes. Some calcified subcentimeter scattered thoracic lymph nodes are redemonstrated No cardiomegaly or pericardial effusion is seen. Calcification at level of mitral and aortic valve noted. Prominent left pericardial fat pad again seen OTHER: Cholecystectomy clips are redemonstrated. Persistent old displaced fracture deformity of the T 11 vertebra into the spinal canal stable from 2014 study. Additional moderate multilevel spurring in the spine anteriorly and laterally redemonstrated. Moderate calcified plaque of the aorta extends int o branch vessels. Multifocal areas of cortical scarring in both kidneys noted. There is partial visua lization suspected left-sided mild hydronephrosis improved from October 17, 2019 CT. IMPRESSION: Chronic changes without acute pulmonary process. No suspicious new mass or adenopathy not ed. Note is made of multifocal areas of cortical nonperfusion and volume loss in both kidneys.
[2020-06-24 11:42] VITALS: PULSE 74
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
[2020-06-26] MEDS ORDERED: LEVOTHYROXINE 112 MCG TAB PO SCH (06:00)
== END 2020-06-24 15:55 ==
LOC: EC 21:43 → 4SSUR 06-23 02:16 → 1SOBS 06-23 15:15
PROVIDERS: ADMIT Hospitalist; ATTEND Hospitalist
DX: J11.00 Influenza due to unidentified influenza virus with unspecified type of pneumonia (principal); J44.0 Chronic obstructive pulmonary disease with (acute) lower respiratory infection; R04.2 Hemoptysis; E78.5 Hyperlipidemia, unspecified; I10 Essential (primary) hypertension; M06.9 Rheumatoid arthritis, unspecified; E03.9 Hypothyroidism, unspecified; G82.20 Paraplegia, unspecified; R15.9 Full incontinence of feces; H54.62 Unqualified visual loss, left eye, normal vision right eye; Z97.4 Presence of external hearing-aid; M21.372 Foot drop, left foot; M21.371 Foot drop, right foot; R53.81 Other malaise; D64.9 Anemia, unspecified; K21.9 Gastro-esophageal reflux disease without esophagitis; H91.93 Unspecified hearing loss, bilateral; K59.00 Constipation, unspecified; H40.9 Unspecified glaucoma; H57.89 Other specified disorders of eye and adnexa; Z87.828 Personal history of other (healed) physical injury and trauma; Z87.440 Personal history of urinary (tract) infections; Z93.6 Other artificial openings of urinary tract status; Z87.891 Personal history of nicotine dependence; Z87.442 Personal history of urinary calculi; Z20.828 Contact with and (suspected) exposure to other viral communicable diseases; Z16.24 Resistance to multiple antibiotics; Z86.14 Personal history of Methicillin resistant Staphylococcus aureus infection; Z90.49 Acquired absence of other specified parts of digestive tract; Z79.891 Long term (current) use of opiate analgesic; Z79.890 Hormone replacement therapy; Z79.899 Other long term (current) drug therapy; Z91.041 Radiographic dye allergy status; Z91.048 Other nonmedicinal substance allergy status; Z80.0 Family history of malignant neoplasm of digestive organs; Z82.3 Family history of stroke; Z84.1 Family history of disorders of kidney and ureter
CPT/HCPCS: 96365; 99285; 36415; 94640 ×2; 93005; 86900; 86901; 80053; 85025; 85610; 85730; 86850; 84145; 87635; 71045; 71046; 71260; G0378 ×3; J0696 ×2; J7512 ×2; Q9967

== ENCOUNTER 2020-11-12 12:46 | Emergency (ER) | payer MEDICARE, OTHER ==
[2020-11-12 13:23] VITALS: RESP 16
[2020-11-12] MEDS ORDERED: HYDROmorphone 1 MG/ML 1 ML SYRINGE IVP STA (14:26)
[2020-11-12] MEDS ORDERED: methylPREDNISolone SOD SUCCI 125 MG/2 ML VIAL IV STA (15:04)
[2020-11-12] MEDS ORDERED: FAMOTIDINE 20 MG/2 ML VIAL IV STA (15:04)
[2020-11-12] MEDS ORDERED: diphenhydrAMINE 50 MG/ML 1 ML VIAL IVP STA (15:04)
[2020-11-12 15:15] LABS: Basophils # (A) 0.1 k/uL (0-0.2); Basophils % (A) 1 %; Eosinophils # (A) 0.2 k/uL (0-0.7); Eosinophils % (A) 2 %; HCT 44.4 % (34.0-46.0); HGB 14.8 gm/dL (11.4-16.0); Lymphocytes # (A) 1.7 k/uL (1.0-4.8); Lymphocytes % (A) 20 %; MCH 30.3 pg (25.0-35.0); MCHC 33.3 g/dL (31.0-37.0); Mean Platelet Volume 9.9; Monocytes # (A) 0.6 k/uL (0-1.0); Monocytes % (A) 7 %; Neutrophils # (A) 5.7 k/uL (1.3-7.7); Neutrophils % (A) 69 %; Platelet Count 240 k/uL (150-450); RBC 4.87 m/uL (3.80-5.40); RDW 13.7 % (11.5-15.5); WBC 8.3 k/uL (3.8-10.6)
[2020-11-12 15:21] LABS: Albumin 4.1 g/dL (3.5-5.0); Calcium 9.4 mg/dL (8.4-10.2); Potassium 4.5 mmol/L (3.5-5.1); Total Bilirubin 0.5 mg/dL (0.2-1.3); Total Protein 7.2 g/dL (6.3-8.2)
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
--- NOTE | 2020-11-12 17:07 | CT ---
EXAMINATION TYPE: CT abdomen pelvis w con DATE OF EXAM: 11/12/2020 COMPARISON: 10/17/2019 HISTORY: non draining urostomy, rule out perforation CT DLP: 2183.4 mGycm Automated exposure control for dose reduction was used. CONTRAST: Performed with IV Contrast, patient injected with 100 mL of Isovue 300. Images obtained from the diaphragm to the floor the pelvis with IV contrast. There is some mild subsegmental atelectasis left lung base. Heart size is normal. There is no pericar dial effusion. There are clips from cholecystectomy. Liver is intact. Spleen is intact. Stomach has n ormal size. There is no pancreatic mass. There is no adrenal mass. There is mild bilateral hydronephrosis. There is ileal conduit noted. There is fluid in the conduit. I see no obstructing lesion. Conduit measures up to 4 cm in diameter at the subcutaneous tissues over the anterior abdomen. There is some fat stranding around the lower rectum and anus. There is cystectomy. There is no free f luid in the pelvis. There is no inguinal hernia. There is no evidence of pelvic mass. There is no ret roperitoneal adenopathy. There is no ascites or free air. There is no bowel obstruction. There is thoracolumbar kyphotic deformity with anterior wedging of T11 vertebra. There is anterior mendoza bluxation of T10 with spinal stenosis. There is significant left-sided deformity with old femoral nec k fracture and deformity of the femoral head. IMPRESSION: There is dilated ileal conduit up to the skin surface. This could relate to a stricture of the openin g at the surface. This appears new compared to old exam. There is mild bilateral hydronephrosis that is decreased compared to old exam. There is some fat stranding around the anus which is increased compared to old exam and could relate to some inflammatory process.
[2020-11-12 18:17] VITALS: BP 154/78; PULSE 78; TEMP 98
== END 2020-11-12 18:52 | disposition home or self-care (01) ==
LOC: EC 12:46
DX: R33.9 Retention of urine, unspecified (principal); T83.018A Breakdown (mechanical) of other urinary catheter, initial encounter; G82.20 Paraplegia, unspecified; I10 Essential (primary) hypertension; E78.5 Hyperlipidemia, unspecified; K21.9 Gastro-esophageal reflux disease without esophagitis; H54.62 Unqualified visual loss, left eye, normal vision right eye; E07.9 Disorder of thyroid, unspecified; M06.9 Rheumatoid arthritis, unspecified; Z79.890 Hormone replacement therapy; Z79.899 Other long term (current) drug therapy; Z91.041 Radiographic dye allergy status; Z91.048 Other nonmedicinal substance allergy status; Z87.891 Personal history of nicotine dependence
CPT/HCPCS: 36415; 80053; 85025; 74177; 99284; 96374; 96375 ×3; J1200; J2930; J1170; Q9967

== ENCOUNTER 2020-11-25 11:04 | Inpatient (IN) | payer MEDICARE, OTHER ==
[2020-11-25] MEDS ORDERED: ONDANSETRON 4 MG/2 ML VIAL IVP STA (11:26)
[2020-11-25] MEDS ORDERED: FAMOTIDINE 20 MG/2 ML VIAL IV STA (11:27)
[2020-11-25] MEDS ORDERED: HYDROmorphone 1 MG/ML 1 ML SYRINGE IVP STA (11:27)
[2020-11-25] MEDS ORDERED: diphenhydrAMINE 50 MG/ML 1 ML VIAL IVP STA (11:27)
[2020-11-25] MEDS ORDERED: methylPREDNISolone SOD SUCCI 125 MG/2 ML VIAL IV STA (11:28)
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
[2020-11-25 12:17] LABS: Basophils # (A) 0.1 k/uL (0-0.2); Basophils % (A) 0 %; Eosinophils # (A) 0.2 k/uL (0-0.7); Eosinophils % (A) 1 %; HCT 45.3 % (34.0-46.0); Lymphocytes # (A) 1.6 k/uL (1.0-4.8); Lymphocytes % (A) 11 %; MCH 30.5 pg (25.0-35.0); MCV 92.6 fL (80.0-100.0); Mean Platelet Volume 9.6; Monocytes # (A) 0.8 k/uL (0-1.0); Monocytes % (A) 6 %; Neutrophils # (A) 11.1 k/uL (1.3-7.7); Neutrophils % (A) 81 %; Platelet Count 279 k/uL (150-450); RDW 13.7 % (11.5-15.5); WBC 13.7 k/uL (3.8-10.6)
[2020-11-25 12:21] LABS: Albumin 4.4 g/dL (3.5-5.0); Calcium 10.8 mg/dL (8.4-10.2); Potassium 4.8 mmol/L (3.5-5.1); Total Bilirubin 0.7 mg/dL (0.2-1.3); Total Protein 7.6 g/dL (6.3-8.2)
[2020-11-25 12:42] LABS: INR 0.9 (<1.2); Partial Thromboplastin Time 22.9 sec (22.0-30.0)
--- NOTE | 2020-11-25 14:20 | CT ---
EXAMINATION TYPE: CT abdomen pelvis w con DATE OF EXAM: 11/25/2020 COMPARISON: 11/04/2020 INDICATION: Bloating, abdominal pain-right kidney area DLP: 155.7 mGycm, Automated exposure control for dose reduction was used. CONTRAST: 80 mL of Isovue 300. Study performed without Oral Contrast TECHNIQUE: Axial images were obtained from above the diaphragm to the pubic rami in the axial plane a t 5 mm thick sections. Reconstructed images are reviewed on the computer in the coronal plane. FINDINGS: Limited CT sections are obtained the lung bases. No acute pulmonary process at the lung bases. Coron isaak artery calcifications noted.. CT ABDOMEN: Liver: Possible minimal biliary prominence may be present centrally. Common bile duct appears promine nt 0.2 cm Spleen: Normal Pancreas: Normal Adrenal glands: The adrenal glands are normal. Gallbladder: Surgically absent Kidneys: No masses are evident. Bilateral hydronephrosis is present. Hydroureter is present. This danita ears greater on the right left. Ileal conduit is present catheter is within the ileal conduit within the subcutaneous tissue region. No cysts are present. Delayed images were obtained through the kidne ys, which remain unremarkable. Aorta: Vascular calcification is within the aorta. Inferior vena cava: Normal. CT PELVIS: Loops of bowel within the abdomen and pelvis are normal. There are loops of bowel which are incom pletely distended or lack oral contrast limiting their evaluation. Appendix: Not visualized. Urinary bladder: Not visualized Genitourinary structures: Uterus and ovaries are not identified. Osseous structures: There is advanced degenerative change at the left hip. Prior pelvic fractures nataly dent. Degenerative changes present at the right hip . Facet changes and scoliosis are present. IMPRESSIONS: 1. Bilateral hydronephrosis with ileostomy 2. Bilateral advanced degenerative changes. 3. There may be some mild extrahepatic biliary dilatation and prominent common bile duct.
[2020-11-25] MEDS ORDERED: ONDANSETRON 4 MG/2 ML VIAL IVP PRN (14:42)
[2020-11-25] MEDS ORDERED: NALOXONE 0.4 MG/ML 1 ML VIAL IV PRN (14:42)
[2020-11-25] MEDS: SODIUM CHLORIDE 0.9% 1,000 ML IV SCH (16:03)
[2020-11-25 18:54] LABS: Appearance,Urine Turbid (Clear); Bilirubin,Urine Negative (Negative); Blood,Urine Moderate (Negative); Budding Yeast,Urine Many /hpf; Color,Urine Light Yellow; Glucose,Urine (UA) Negative (Negative); Ketones,Urine Negative (Negative); Leukocyte Esterase,Urine Large (Negative); Mucus,Urine Rare /hpf; Nitrite,Urine Positive (Negative); Protein,Urine 1+ (Negative); RBC,Urine 107 /hpf (0-5); Specific Gravity,Urine 1.012 (1.001-1.035); Squamous Epithelial Cell,Urine 2 /hpf (0-4); Urobilinogen,Urine <2.0 mg/dL (<2.0); WBC,Urine >182 /hpf (0-5)
[2020-11-25] MEDS ORDERED: LORATADINE 10 MG TAB PO PRN (20:09)
[2020-11-25] MEDS ORDERED: MAGNESIUM HYDROXIDE 2,400 MG/10 ML CUP PO PRN (20:09)
[2020-11-25] MEDS ORDERED: HYDROmorphone 0.5 MG/0.5 ML SYRINGE IVP PRN (20:11)
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
[2020-11-25] MEDS ORDERED: SENNOSIDES 8.6 MG TAB PO SCH (21:00)
[2020-11-25] MEDS: HYDROcodone/APAP 5-325MG 1 EACH TAB PO PRN (21:07)
[2020-11-25] MEDS: SENNOSIDES 8.6 MG TAB PO SCH (21:07)
[2020-11-25] MEDS: ATORVASTATIN 10 MG TAB PO SCH (21:07)
[2020-11-25] MEDS: PANTOPRAZOLE 40 MG/10 ML VIAL IVP SCH ×2 (21:08)
--- NOTE | 2020-11-25 21:18 | XR ---
EXAMINATION TYPE: XR chest 1V portable DATE OF EXAM: 11/25/2020 COMPARISON: 06/23/2020 HISTORY: Elbow pain TECHNIQUE: Single view FINDINGS: Heart size is normal. There are no hilar masses. There is increased density over the medial left upper lobe consistent with airspace infiltrate. There are no hilar masses. Is increased density over the medial right lower lobe. IMPRESSION: There is some new left upper lobe pneumonia compared to old exam. There is also some new mild infiltrate medial right lower lobe compared to old exam. No heart failure.
[2020-11-25] MEDS: LATANOPROST 0.005% OPHTH DROPS 2.5 ML BTL BOTH EYES SCH (22:31)
[2020-11-25 22:34] LABS: ALT 68 U/L (4-34); AST 52 U/L (14-36); African American GFR (CKD) 76 (>60 ml/min/1.73 sqM); Albumin 4.5 g/dL (3.5-5.0); Albumin/Globulin Ratio 1.5; Alkaline Phosphatase 160 U/L (38-126); Anion Gap 13 mmol/L; Blood Urea Nitrogen 26 mg/dL (7-17); Calcium 10.2 mg/dL (8.4-10.2); Carbon Dioxide 21 mmol/L (22-30); Chloride 103 mmol/L (98-107); Globulin 3.1 g/dL; Glucose 139 mg/dL (74-99); Non-African American GFR(CKD) 66 (>60 ml/min/1.73 sqM); Potassium 5.6 mmol/L (3.5-5.1); Sodium 137 mmol/L (137-145); Total Bilirubin 0.5 mg/dL (0.2-1.3); Total Protein 7.6 g/dL (6.3-8.2)
[2020-11-26] MEDS: SODIUM CHLORIDE 0.9% 1,000 ML IV SCH ×3 (01:41→21:12)
[2020-11-26] MEDS: PIPERACILLIN-TAZOBACTAM 3.375 GM in SODIUM CHLORIDE 0.9% 100 ML IVPB SCH ×5 (01:41→15:31)
[2020-11-26] MEDS ORDERED: MAGNESIUM HYDROXIDE 2,400 MG/10 ML CUP PO PRN (05:34)
[2020-11-26 05:48] LABS: Basophils % (A) 0 %; Eosinophils % (A) 0 %; HCT 42.8 % (34.0-46.0); Lymphocytes # (A) 1.2 k/uL (1.0-4.8); Lymphocytes % (A) 10 %; MCH 30.1 pg (25.0-35.0); MCHC 32.7 g/dL (31.0-37.0); Mean Platelet Volume 9.4; Monocytes # (A) 0.2 k/uL (0-1.0); Monocytes % (A) 1 %; Neutrophils # (A) 10.3 k/uL (1.3-7.7); Neutrophils % (A) 88 %; Platelet Count 253 k/uL (150-450); RBC 4.66 m/uL (3.80-5.40); RDW 13.8 % (11.5-15.5); WBC 11.8 k/uL (3.8-10.6)
[2020-11-26] MEDS: HYDROcodone/APAP 5-325MG 1 EACH TAB PO PRN (06:20)
[2020-11-26] MEDS: LEVOTHYROXINE 100 MCG TAB PO SCH (06:57)
[2020-11-26 07:30] LABS: African American GFR (CKD) 73 (>60 ml/min/1.73 sqM); Albumin/Globulin Ratio 1.3; Amylase 81 U/L (30-110); Anion Gap 12 mmol/L; Blood Urea Nitrogen 26 mg/dL (7-17); Calcium 9.4 mg/dL (8.4-10.2); Carbon Dioxide 20 mmol/L (22-30); Chloride 106 mmol/L (98-107); Globulin 3.1 g/dL; Glucose 121 mg/dL (74-99); Non-African American GFR(CKD) 64 (>60 ml/min/1.73 sqM); Sodium 138 mmol/L (137-145); Total Bilirubin 0.5 mg/dL (0.2-1.3); Total Protein 7.1 g/dL (6.3-8.2)
[2020-11-26 07:31] LABS: ALT 57 U/L (4-34); AST 39 U/L (14-36); Alkaline Phosphatase 136 U/L (38-126); Lipase 30 U/L (23-300)
[2020-11-26] MEDS ORDERED: LACTOBACILLUS ACIDOPHILUS PO SCH (08:00)
[2020-11-26] MEDS: HYDROmorphone 1 MG/ML 1 ML SYRINGE IVP PRN ×3 (09:30→21:24)
[2020-11-26] MEDS: TIMOLOL 0.5% OPHTH DROPS 5 ML BTL BOTH EYES SCH (09:31)
[2020-11-26] MEDS: ENOXAPARIN 40 MG/0.4 ML SYRINGE SQ SCH (09:31)
[2020-11-26] MEDS: PANTOPRAZOLE 40 MG/10 ML VIAL IVP SCH ×2 (09:31→21:12)
[2020-11-26] MEDS: LACTULOSE 20 GM/30 ML CUP PO SCH ×2 (09:31→16:58)
[2020-11-26] MEDS: MULTIVITAMINS, THERA 1 EACH TAB PO SCH (09:32)
[2020-11-26] MEDS: LEVOTHYROXINE 112 MCG TAB PO SCH (09:32)
[2020-11-26] MEDS ORDERED: NYSTAT-TRIAMCIN 100,000-0.1 UNIT/GM-% CREAM 30 GM TUBE TOPICAL SCH (10:45)
[2020-11-26] MEDS: bisacodyL 10 MG SUPP RECTAL PRN (11:45)
[2020-11-26] MEDS: SIMETHICONE 80 MG CHEWABLE PO SCH ×3 (11:45→21:11)
[2020-11-26] MEDS: TRIAMCINOLONE 0.1% CREAM 80 GM TUBE TOPICAL SCH ×2 (11:45→21:15)
[2020-11-26] MEDS: NYSTATIN 100,000UNIT/GM CREAM 30 GM TUBE TOPICAL SCH ×2 (11:45→21:15)
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
--- NOTE | 2020-11-26 13:33 | P.PCN ---
Date of Procedure: 11/26/20 Preoperative Diagnosis: Hydronephrosis Postoperative Diagnosis: same Procedure(s) Performed: Catheter insertion and irrigation Anesthesia: DENITA Surgeon: Samuel Ferrera Indications for Procedure: 70 yo female with hx of ileal conduit for neurogenice bladder, developed a ulcer in lower edge of the stoma. Her ileal conduit is been managed with grimm catheter. on CT catheter is in the subcutaneous portion of stoma rather than conduit Description of Procedure: The balloon was deflated the catheter was pulled back and readvanced past the fascia, balloon inflated to 5 cc. Catheter irrigated w/o difficulty, minumum mucous obtained, She tolerated procedure well
--- NOTE | 2020-11-26 19:01 | PN ---
PROGRESS NOTE DATE OF SERVICE: 11/26/2020 This 70-year-old woman who was admitted with abdominal pain also had possible UTI with sepsis. Patient also had significant bilateral hydronephrosis and the patient also had a urostomy. A CT scan of the abdomen and pelvis was done which was reviewed personally by me. It showed some bilateral hydronephrosis. A chest x-ray was done which showed suspicious pneumonia lesions on a new chest x-ray, which was reviewed personally by me. Urology has seen the patient and recommended management of ileal conduit by using a Johnson catheter. No chest pain. No palpitations. No fever. Past medical history reviewed. REVIEW OF SYSTEMS: CARDIOVASCULAR SYSTEM: No angina, palpitations. RESPIRATORY SYSTEM: As mentioned earlier. GI: As mentioned earlier. : As mentioned earlier. NERVOUS SYSTEM: No numbness, weakness. CURRENT MEDICATIONS: Reviewed. They include [place], Lipitor, Dulcolax, Lovenox. Dilaudid, Cephulac, Synthroid, multivitamins, Mycostatin, Zosyn. Doses are reviewed. PHYSICAL EXAMINATION: Patient is alert and oriented x3. Pulse 87, blood pressure 117/72, respirations 16, temperature 97.6, pulse ox 96% on room air. HEENT: Conjunctivae normal. NECK: No jugular venous distention. CARDIOVASCULAR SYSTEM: S1, S2 muffled. RESPIRATORY SYSTEM: Breath sounds diminished at the bases. A few scattered rhonchi. ABDOMEN: Soft. Diffuse distention. Ileostomy present. Some stomal ulcers and excoriation and skin reaction also present. NERVOUS SYSTEM: No focal deficit. LABS: WBC 11.2, hemoglobin 11.4. Otherwise, AST is 39, ALT is 57, which is improving. UA noted. The cultures are negative so far. ASSESSMENT: 1. Acute urinary tract infection with possible sepsis, present on admission. 2. Increased white count. 3. Diffuse abdominal pain for evaluation. 4. Rule out pneumonia. 5. Elevated AST, ALT, alkaline phosphatase. 6. Bilateral hydronephrosis and obstructive uropathy. 7. Ileal conduit for neurogenic bladder, status post Johnson catheter insertion and irrigation. 8. History of gastroesophageal reflux disease. 9. Hypertension. 10.Hyperlipidemia. 11.History of rheumatoid arthritis. 12.Hypothyroidism. 13.History of paraplegia. 14.History of glaucoma. 15.History of nephrolithiasis. 16.History of appendectomy. 17.History of back surgery. 18.Obesity with body mass index of 35.5. 19.History of nicotine dependence. 20.FULL CODE. RECOMMENDATIONS AND DISCUSSION: I recommend to continue current medications, continue with the monitoring, symptomatic treatment. Otherwise at this time I recommend continuing with the empiric antibiotics and follow the cultures. The oxygenation is satisfactory. I would also recommend D- dimer, and if D-dimer is positive, obtain a CT angio as well. Otherwise, continue to monitor. Prognosis guarded. Further recommendations to follow. Repeat labs. The patient is on a prophylactic dose of Lovenox at this time. Infectious Disease and Gastroenterology have also been consulted. Guarded prognosis. Further recommendations to follow. MMODL / IJN: [id number] /
[2020-11-26] MEDS: ATORVASTATIN 10 MG TAB PO SCH (21:11)
[2020-11-26] MEDS: SENNOSIDES 8.6 MG TAB PO SCH (21:11)
[2020-11-26] MEDS: LATANOPROST 0.005% OPHTH DROPS 2.5 ML BTL BOTH EYES SCH (21:15)
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
[2020-11-27] MEDS: PIPERACILLIN-TAZOBACTAM 3.375 GM in SODIUM CHLORIDE 0.9% 100 ML IVPB SCH ×4 (00:33→23:29)
[2020-11-27 06:55] LABS: Basophils % (A) 0 %; Eosinophils # (A) 0.1 k/uL (0-0.7); Eosinophils % (A) 0 %; HCT 40.3 % (34.0-46.0); Lymphocytes # (A) 1.8 k/uL (1.0-4.8); Lymphocytes % (A) 11 %; MCHC 32.2 g/dL (31.0-37.0); MCV 93.4 fL (80.0-100.0); Mean Platelet Volume 9.4; Monocytes # (A) 1.1 k/uL (0-1.0); Monocytes % (A) 7 %; Neutrophils # (A) 13.2 k/uL (1.3-7.7); Neutrophils % (A) 81 %; Platelet Count 284 k/uL (150-450); RBC 4.32 m/uL (3.80-5.40); RDW 13.9 % (11.5-15.5); WBC 16.2 k/uL (3.8-10.6)
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
[2020-11-27] MEDS: LACTULOSE 20 GM/30 ML CUP PO SCH (07:54)
[2020-11-27] MEDS: ENOXAPARIN 40 MG/0.4 ML SYRINGE SQ SCH (07:55)
[2020-11-27] MEDS: PANTOPRAZOLE 40 MG/10 ML VIAL IVP SCH (07:55)
[2020-11-27] MEDS: MULTIVITAMINS, THERA 1 EACH TAB PO SCH (07:55)
[2020-11-27] MEDS: SIMETHICONE 80 MG CHEWABLE PO SCH ×3 (07:56→20:52)
[2020-11-27] MEDS: SODIUM CHLORIDE 0.9% 1,000 ML IV SCH ×3 (08:00→21:06)
[2020-11-27] MEDS: NYSTATIN 100,000UNIT/GM CREAM 30 GM TUBE TOPICAL SCH ×2 (08:02→20:19)
[2020-11-27] MEDS: TIMOLOL 0.5% OPHTH DROPS 5 ML BTL BOTH EYES SCH (08:02)
[2020-11-27] MEDS: TRIAMCINOLONE 0.1% CREAM 80 GM TUBE TOPICAL SCH ×2 (08:02→20:19)
[2020-11-27] MEDS: HYDROmorphone 1 MG/ML 1 ML SYRINGE IVP PRN ×2 (12:27→19:03)
[2020-11-27 15:20] VITALS: BMI 35.5
[2020-11-27 15:48] LABS: African American GFR (CKD) 74.6 (60.0-200.0); BUN/Creat Ratio 28.89 Ratio (12.00-20.00); Calcium 8.6 mg/dL (8.7-10.3); Non-African American GFR(CKD) 64.3 (60.0-200.0); Potassium 4.3 mmol/L (3.5-5.5)
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
--- NOTE | 2020-11-27 16:58 | PN ---
PROGRESS NOTE DATE OF SERVICE: 11/27/2020 This 70-year-old woman who was admitted with acute UTI with possible sepsis is being closely monitored. The patient has extensive excoriation of the abdominal wall at this time. Patient is on broad-spectrum IV antibiotics. Ostomy nurse as well as Infectious Disease as well as Urology is following the patient closely. Mycolog cream has been recommended. The culture showed Gram-negative bacilli; final ID is pending at this time. Past medical history reviewed. REVIEW OF SYSTEMS: CARDIOVASCULAR SYSTEM: No angina, palpitations. RESPIRATORY SYSTEM: As mentioned earlier. GI: Patient still has abdominal pain. : As mentioned earlier. NERVOUS SYSTEM: No numbness, weakness. CURRENT MEDICATIONS: [place], Lipitor, Dulcolax, Lovenox, Dilaudid, Synthroid, Claritin, milk of magnesia. PHYSICAL EXAMINATION: Patient is alert and oriented x3. Pulse 79, blood pressure 132/72, respirations 16, temperature 97.6, pulse ox 96% on room air. HEENT: Conjunctivae normal. NECK: No jugular venous distention. CARDIOVASCULAR SYSTEM: S1, S2 muffled. RESPIRATORY SYSTEM: Breath sounds diminished at the bases. A few scattered rhonchi and crackles. ABDOMEN: Soft. Mild diffuse distention. Mild tenderness in the mid part as well as to the left of the ostomy. Otherwise, leaking still present. LEGS: No edema. No swelling. NERVOUS SYSTEM: Unchanged. LABS: WBC 16.2, hemoglobin 13. D-dimer is 0.78. ASSESSMENT: 1. Acute urinary tract infection with Gram-negative bacilli with possible sepsis, present on admission. 2. Wound culture showing Gram-negative bacilli. 3. Increased white count. 4. Diffuse abdominal pain. 5. Rule out pneumonia. 6. Elevated AST, ALT, alkaline phosphatase. 7. Bilateral hydronephrosis and obstructive uropathy. 8. Ileal conduit for neurogenic bladder, status post Johnson catheter insertion and irrigation as well as leakage. 9. History of gastroesophageal reflux disease. 10.Hypertension. 11.Hyperlipidemia. 12.History of rheumatoid arthritis. 13.Hypothyroidism. 14.History of paraplegia. 15.History of glaucoma. 16.History of nephrolithiasis. 17.History of appendectomy. 18.History of back surgery. 19.Obesity with body mass index of 35.5. 20.History of nicotine dependence. 21.FULL CODE. RECOMMENDATIONS AND DISCUSSION: I recommend to continue current medications, continue with the monitoring, symptomatic treatment. Continue with the antibiotics. I would recommend repeat labs and closely follow with multiple consultants. Will adjust antibiotics according to the culture reports. Otherwise, the ostomy nurse to evaluate for the leakage around the Johnson catheter which was placed in the ileal conduit. Closely follow with Urology. Prognosis extremely guarded because of multiple complex medical issues. Further recommendations to follow. MMODL / IJN: [id number] /
[2020-11-27] MEDS: PANTOPRAZOLE 40 MG TABLET PO SCH (18:12)
[2020-11-27] MEDS: ATORVASTATIN 10 MG TAB PO SCH (20:19)
[2020-11-27] MEDS: SENNOSIDES 8.6 MG TAB PO SCH (20:19)
[2020-11-27] MEDS: polyethylene glycoL 3350 17 GM POWD.PACK PO SCH (20:19)
[2020-11-27] MEDS: LATANOPROST 0.005% OPHTH DROPS 2.5 ML BTL BOTH EYES SCH (20:21)
[2020-11-27] MEDS: diphenhydrAMINE 25 MG CAP PO PRN (20:52)
--- NOTE | 2020-11-27 23:03 | P.PN ---
Subjective Progress Note Date: 11/27/20 No acute overnight event, catheter patent and draining clear urine. Still having leakage around the catheter and onto the stomal ulcer Objective - Vital Signs Vital signs: Vital Signs Temp 97.6 F 11/27/20 12:46 Pulse 79 11/27/20 12:46 Resp 16 11/27/20 20:00 BP 132/72 11/27/20 12:46 Pulse Ox 96 11/27/20 12:46 Intake & Output 11/27/20 11/27/20 11/28/20 06:59 18:59 06:59 Intake Total 700 236 Output Total 225 350 Balance 475 -114 Weight 99.79 kg Intake: Intake, IV Titration 700 Amount Piperacillin-Tazobactam 3 100 .375 gm In Sodium Chloride 0.9% 100 ml @ 25 mls/hr IVPB Q8HR [facility] Rx# :[id number] Sodium Chloride 0.9% 1, 600 000 ml @ 75 mls/hr IV . [id number] [facility] Rx#:[id number] Oral 236 Output: Urine 225 350 Other: Voiding Method Ileal Conduit (Right) Ileal Conduit (Right) Ileal Conduit (Right) - Constitutional General appearance: Present: no acute distress - Psychiatric Psychiatric: Present: A&O x's 3 - Labs CBC & Chem 7: 11/27/20 06:27 11/27/20 06:27 Labs: Abnormal Lab Results - Last 24 Hours (Table) 11/27/20 11/27/20 Range/Units 06:27 06:27 WBC 16.2 H (3.8-10.6) k/uL Neutrophils # 13.2 H (1.3-7.7) k/uL Monocytes # 1.1 H (0-1.0) k/uL Carbon Dioxide 21.0 L (21.6-31.8) mmol/L Anion Gap 15.00 H (4.00-12.00) mmol/L BUN/Creatinine Ratio 28.89 H (12.00-20.00) Ratio Calcium 8.6 L (8.7-10.3) mg/dL Microbiology - Last 24 Hours (Table) 11/25/20 18:30 Urine Culture - Final Urine,Clean Catch Enterobacter hormaechei 11/25/20 21:18 Gram Stain - Final Abdomen Wound Culture - Final Enterobacter hormaechei 11/25/20 20:37 Blood Culture - Preliminary Blood No Growth after 24 hours Assessment and Plan Assessment: 70 yo female with hx of ileal conduit urinary diversion. She recently developed a non healing wound along the lower edge of the stoma. This is currently been managed with a grimm catheter through the stoma. She presented to the ED with complaints of abdominal discomfort, more pronounced in the upper quadrant with N/V. She underwent a CT abd/pelvis that showed mild extrahepatic biliary dilation and prominent common bile duct, and bilateral hydronephrosis and cathet er appears to be in the subcutaneous space of the conduit rather than the conduit. Catheter was repositioned back into the conduit yesterday. -Keep catheter in stoma. given continued leakage around the grimm. At this time recommend wound care consult for stoma, she might benefit from applying danita liance to the stomas given the persistent leakage around the catheter.
--- NOTE | 2020-11-27 23:40 | PN ---
PROGRESS NOTE DATE OF SERVICE: 11/27/2020 REASON FOR FOLLOWUP: 1. UTI. 2. Abdominal wall cellulitis. INTERVAL HISTORY: The patient is currently afebrile. The patient is breathing comfortably. Still complaining of some discomfort to the abdominal wall and erythema. The patient seems to have a continuous problem with leakage around ostomy site. The patient denies having any chest pain, shortness of breath or cough. No nausea. No vomiting. No diarrhea. PHYSICAL EXAMINATION: Blood pressure 132/72 with a pulse of 79, temperature 97.6. She is 97% on room air. General description is an elderly female lying in bed in no distress. RESPIRATORY SYSTEM: Unlabored breathing. Clear to auscultation anteriorly. HEART: S1, S2. Regular rate and rhythm. ABDOMEN: Soft. The abdominal wall erythema has slightly decreased; however, the patient still has significant leakage and drainage. LABS: Urine has been finalized with Enterobacter. DIAGNOSTIC IMPRESSION AND PLAN: Patient with abdominal wall cellulitis from leakage around her urostomy, evaluated with a Johnson catheter, has leakage. May benefit from applying colostomy pouch. Discussed with the RN. Patient is currently on Zosyn; to continue. Will monitor her clinical course closely. MMODL / IJN: [id number] / MTDD
[2020-11-28] MEDS: HYDROmorphone 1 MG/ML 1 ML SYRINGE IVP PRN (00:35)
[2020-11-28] MEDS: HYDROcodone/APAP 5-325MG 1 EACH TAB PO PRN ×2 (04:56→11:16)
[2020-11-28] MEDS: LEVOTHYROXINE 100 MCG TAB PO SCH (04:56)
[2020-11-28 05:31] LABS: Basophils % (A) 0 %; Eosinophils # (A) 0.1 k/uL (0-0.7); Eosinophils % (A) 1 %; HCT 38.4 % (34.0-46.0); HGB 12.6 gm/dL (11.4-16.0); Lymphocytes # (A) 1.9 k/uL (1.0-4.8); Lymphocytes % (A) 17 %; MCH 30.5 pg (25.0-35.0); MCHC 32.9 g/dL (31.0-37.0); MCV 92.5 fL (80.0-100.0); Mean Platelet Volume 9.4; Monocytes % (A) 8 %; Neutrophils # (A) 8.5 k/uL (1.3-7.7); Neutrophils % (A) 73 %; Platelet Count 226 k/uL (150-450); RBC 4.15 m/uL (3.80-5.40); WBC 11.6 k/uL (3.8-10.6)
[2020-11-28] MEDS: LEVOTHYROXINE 112 MCG TAB PO SCH (05:41)
[2020-11-28] MEDS: PIPERACILLIN-TAZOBACTAM 3.375 GM in SODIUM CHLORIDE 0.9% 100 ML IVPB SCH ×3 (07:17→23:48)
[2020-11-28] MEDS: ENOXAPARIN 40 MG/0.4 ML SYRINGE SQ SCH (07:53)
[2020-11-28] MEDS: PANTOPRAZOLE 40 MG TABLET PO SCH ×2 (07:53→17:08)
[2020-11-28] MEDS: MULTIVITAMINS, THERA 1 EACH TAB PO SCH (07:53)
[2020-11-28] MEDS: polyethylene glycoL 3350 17 GM POWD.PACK PO SCH ×2 (07:53→20:45)
[2020-11-28] MEDS: SIMETHICONE 80 MG CHEWABLE PO SCH ×3 (07:54→20:47)
[2020-11-28] MEDS: TIMOLOL 0.5% OPHTH DROPS 5 ML BTL BOTH EYES SCH (07:54)
[2020-11-28] MEDS: NYSTATIN 100,000UNIT/GM CREAM 30 GM TUBE TOPICAL SCH ×2 (07:54→20:50)
[2020-11-28] MEDS: TRIAMCINOLONE 0.1% CREAM 80 GM TUBE TOPICAL SCH ×2 (07:54→20:50)
[2020-11-28] MEDS: SODIUM CHLORIDE 0.9% 1,000 ML IV SCH (10:19)
[2020-11-28 10:31] LABS: African American GFR (CKD) 52.7 (60.0-200.0); Albumin 3.7 g/dL (3.80-4.90); Albumin/Globulin Ratio 1.68 (1.60-3.17); Anion Gap 10.3 mmol/L (4.00-12.00); BUN/Creat Ratio 21.67 Ratio (12.00-20.00); Calcium 8.3 mg/dL (8.7-10.3); Carbon Dioxide 23.7 mmol/L (21.6-31.8); Globulin 2.2 g/dL (1.6-3.3); Non-African American GFR(CKD) 45.4 (60.0-200.0); Potassium 4.5 mmol/L (3.5-5.5); Total Bilirubin 0.4 mg/dL (0.2-1.2); Total Protein 5.9 g/dL (6.2-8.2)
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
--- NOTE | 2020-11-28 18:28 | PN ---
PROGRESS NOTE DATE OF SERVICE: 11/28/2020 REASON FOR FOLLOWUP: Abdominal wall cellulitis and UTI. INTERVAL HISTORY: The patient is currently afebrile. The patient did mention that the abdominal wall/urostomy site leakage has stopped. Patient denies any significant abdominal discomfort. No chest pain, shortness of breath or cough. No vomiting or diarrhea. PHYSICAL EXAMINATION: Blood pressure 144/79, pulse of 90, temperature 98.3. She is 96% on room air. General description is an elderly female lying in bed in no distress. RESPIRATORY SYSTEM: Unlabored breathing. Clear to auscultation anteriorly. HEART: S1, S2. Regular rate and rhythm. ABDOMEN: Soft. Abdominal wall swelling and redness have decreased. LABS: Hemoglobin is 12.6, white count 11.6, BUN of 26, creatinine 1.2. Urine with Enterobacter. DIAGNOSTIC IMPRESSION AND PLAN: Patient with Enterobacter urinary tract infection, also with evidence of abdominal wall cellulitis. Culture growing same pathogen. Likely from leakage and maceration from the urine drainage. Patient clinically has responded to cefepime; to continue. Hopefully will transition to oral antibiotic on discharge with local wound care with Triad or Mycolog cream. Continue supportive care. MMODL / IJN: [id number] /
[2020-11-28] MEDS: ATORVASTATIN 10 MG TAB PO SCH (20:45)
[2020-11-28] MEDS: SENNOSIDES 8.6 MG TAB PO SCH (20:46)
[2020-11-28] MEDS: LATANOPROST 0.005% OPHTH DROPS 2.5 ML BTL BOTH EYES SCH (20:48)
--- NOTE | 2020-11-28 21:49 | PN ---
PROGRESS NOTE DATE OF SERVICE: 11/28/2020 This 70-year-old woman with a past medical history of multiple complex medical issues was admitted with possible UTI with sepsis and also abdominal pain. The patient had Enterobacter hormaechei grown from the culture. The patient was started on IV Zosyn. Infectious Disease is following the patient closely. Urology is also following the patient closely. The patient had some leakage of urine from the stoma around the Johnson catheter, which was placed in the stoma. Currently the patient is being closely monitored. No chest pain. No palpitations. Past medical history reviewed. REVIEW OF SYSTEMS: CARDIOVASCULAR SYSTEM: No angina, palpitations. RESPIRATORY SYSTEM: As mentioned earlier. GI: As mentioned earlier. : No dysuria or retention. NERVOUS SYSTEM: No numbness, weakness. CURRENT MEDICATIONS: Reviewed. They include Corder, Lipitor, Dulcolax, Benadryl, Lovenox, Dilaudid. Doses are reviewed. PHYSICAL EXAMINATION: Patient is alert, oriented x3. Pulse 90, blood pressure 144/79, respirations 16, temperature 98.2, pulse ox 96% on room air. HEENT: Conjunctivae normal. NECK: No jugular venous distention. CARDIOVASCULAR SYSTEM: S1, S2 muffled. RESPIRATORY SYSTEM: Breath sounds diminished at the bases. A few scattered rhonchi. ABDOMEN: Soft, obese. Mild diffuse discomfort. No guarding. No rigidity. No mass palpable. Excoriation around the stoma area present. NERVOUS SYSTEM: Unchanged. LABS: WBC 11.6. D-dimer is 0.78. Other labs are noted. ASSESSMENT: 1. Acute urinary tract infection with Enterobacter hormaechei with possible sepsis, present on admission. 2. Wound culture also showing Enterobacter. 3. Increased white count. 4. Diffuse abdominal pain. 5. Rule out pneumonia. 6. Elevated AST, ALT, alkaline phosphatase. 7. Bilateral hydronephrosis and obstructive uropathy. 8. Ileal conduit for neurogenic bladder, status post Johnson catheter insertion and irrigation as well as leakage. 9. History of gastroesophageal reflux disease. 10.Hypertension. 11.Hyperlipidemia. 12.History of rheumatoid arthritis. 13.Hypothyroidism. 14.History of paraplegia. 15.History of glaucoma. 16.History of nephrolithiasis. 17.History of appendectomy. 18.History of back surgery. 19.Obesity with body mass index of 33.5. 20.History of nicotine dependence. 21.FULL CODE. RECOMMENDATIONS AND DISCUSSION: I recommend to continue current medications, continue with the monitoring, symptomatic treatment. Continue with the broad-spectrum IV antibiotics. As mentioned earlier, the cultures are noted. I would recommend UA with micro to look for the clearance. White count is improving. The abdomen is only slightly better, but we will continue to monitor. DVT prophylaxis. Follow closely. Follow with multiple consultants. Further recommendations to follow. MMODL / IJN: [id number] /
[2020-11-29 01:37] LABS: Appearance,Urine Turbid (Clear); Bacteria,Urine Occasional /hpf; Bilirubin,Urine Negative (Negative); Blood,Urine Moderate (Negative); Budding Yeast,Urine Many /hpf; Color,Urine Light Yellow; Glucose,Urine (UA) Negative (Negative); Hyphae Yeast, Urine Rare /hpf; Ketones,Urine Negative (Negative); Leukocyte Esterase,Urine Large (Negative); Mucus,Urine Rare /hpf; Nitrite,Urine Negative (Negative); Protein,Urine 1+ (Negative); RBC,Urine 119 /hpf (0-5); Specific Gravity,Urine 1.017 (1.001-1.035); Squamous Epithelial Cell,Urine 1 /hpf (0-4); Urobilinogen,Urine <2.0 mg/dL (<2.0); WBC,Urine >182 /hpf (0-5)
[2020-11-29] MEDS: PANTOPRAZOLE 40 MG TABLET PO SCH ×2 (07:39→18:20)
[2020-11-29] MEDS: polyethylene glycoL 3350 17 GM POWD.PACK PO SCH ×2 (07:39→20:45)
[2020-11-29] MEDS: PIPERACILLIN-TAZOBACTAM 3.375 GM in SODIUM CHLORIDE 0.9% 100 ML IVPB SCH ×2 (07:39→16:26)
[2020-11-29] MEDS: SIMETHICONE 80 MG CHEWABLE PO SCH ×3 (07:39→20:47)
[2020-11-29] MEDS: ENOXAPARIN 40 MG/0.4 ML SYRINGE SQ SCH (07:39)
[2020-11-29] MEDS: MULTIVITAMINS, THERA 1 EACH TAB PO SCH (07:39)
[2020-11-29] MEDS: TIMOLOL 0.5% OPHTH DROPS 5 ML BTL BOTH EYES SCH (07:40)
[2020-11-29] MEDS: NYSTATIN 100,000UNIT/GM CREAM 30 GM TUBE TOPICAL SCH ×2 (07:40→20:48)
[2020-11-29] MEDS: TRIAMCINOLONE 0.1% CREAM 80 GM TUBE TOPICAL SCH ×2 (07:40→20:48)
[2020-11-29] MEDS: HYDROcodone/APAP 5-325MG 1 EACH TAB PO PRN (07:47)
[2020-11-29] MEDS: SODIUM CHLORIDE 0.9% 1,000 ML IV SCH (13:00)
--- NOTE | 2020-11-29 18:38 | PN ---
PROGRESS NOTE DATE OF SERVICE: 11/29/2020 REASON FOR FOLLOWUP: UTI and abdominal wall cellulitis. INTERVAL HISTORY: The patient is currently afebrile. The patient is feeling better. Breathing comfortably. Denies any further leakage on her urostomy. No chest pain, shortness of breath or cough. No vomiting or diarrhea. PHYSICAL EXAMINATION: Blood pressure is 160/73 with a pulse of 77, temperature 98. She is 97% on room air. General description is an elderly female in the bed in no distress. Respiratory system: Unlabored breathing, clear to auscultation anteriorly. Heart S1, S2. Regular rate and rhythm. Abdomen soft, no tenderness. LABS: Repeat urine is positive. Abdominal cultures showing Enterobacter. DIAGNOSTIC IMPRESSION AND PLAN: Patient with Enterobacter UTI, overall improvement on Zosyn. Finish therapy with oral Cipro on discharge. Continue supportive care. MMODL / IJN: [id number] / MTDD
[2020-11-29] MEDS: ATORVASTATIN 10 MG TAB PO SCH (20:46)
[2020-11-29] MEDS: SENNOSIDES 8.6 MG TAB PO SCH (20:46)
[2020-11-29] MEDS: LATANOPROST 0.005% OPHTH DROPS 2.5 ML BTL BOTH EYES SCH (20:47)
--- NOTE | 2020-11-29 20:50 | PN ---
PROGRESS NOTE DATE OF SERVICE: 11/29/2020 This 70-year-old woman who was admitted with UTI with an Enterobacter hormaechei with possible sepsis is being closely monitored. No chest pain. No palpitations. No fever. Patient on broad spectrum IV antibiotics. PHYSICAL EXAMINATION: Alert and oriented x3. Pulse 77, blood pressure 160/70, respirations 17, temperature 98 degrees, pulse ox 97% on room air skin. HEENT: Conjunctivae normal. Oral mucosa moist. NECK: No jugular venous distention. No lymph node enlargement. CARDIOVASCULAR: S1, S2, muffled. No S3, no S4, RESPIRATORY: Diminished breath sounds at the bases. ABDOMEN: Soft, nontender. LEGS: No edema, no swelling. NERVOUS SYSTEM: No focal deficits. LABS: WBC 7.6, other labs are noted. UA continues to be abnormal. ASSESSMENT: 1. Acute urinary tract infection with Enterobacter hormaechei with possible sepsis, present on admission. 2. Wound culture showing Enterobacter. 3. Increased WBC. 4. Diffuse abdominal pain. 5. Rule out pneumonia. 6. Elevated AST, ALT, alkaline phosphatase. 7. Bilateral hydronephrosis and obstructive uropathy. 8. Ileal conduit for neurogenic bladder, status post Johnson catheter insertion as well as irrigation and leakage around the Johnson catheter. 9. History of GERD. 10.Hypertension. 11.Hyperlipidemia. 12.History of rheumatoid arthritis. 13.Hypothyroidism. 14.History of paraplegia. 15.History of glaucoma. 16.History of nephrolithiasis. 17.History of appendectomy. 18.History of back surgery. 19.History of obesity with body mass index of 33.5. 20.History of nicotine dependence. 21.FULL CODE. RECOMMENDATIONS AND DISCUSSION: I recommend to continue current management, continue to monitor, continue symptomatic treatment. Otherwise at this time continue the broad-spectrum IV antibiotics. Closely follow with Infectious Disease and ostomy team. Guarded prognosis. Further recommendations to follow. MMODL / IJN: [id number] /
[2020-11-30] MEDS: PIPERACILLIN-TAZOBACTAM 3.375 GM in SODIUM CHLORIDE 0.9% 100 ML IVPB SCH ×4 (00:42→23:44)
[2020-11-30] MEDS: diphenhydrAMINE 25 MG CAP PO PRN ×2 (01:31→14:35)
[2020-11-30] MEDS: SODIUM CHLORIDE 0.9% 1,000 ML IV SCH ×3 (04:16→23:48)
[2020-11-30] MEDS: LEVOTHYROXINE 100 MCG TAB PO SCH (06:07)
[2020-11-30 06:11] LABS: Basophils % (A) 0 %; Eosinophils # (A) 0.2 k/uL (0-0.7); Eosinophils % (A) 3 %; HCT 35.4 % (34.0-46.0); HGB 11.6 gm/dL (11.4-16.0); Lymphocytes # (A) 2.2 k/uL (1.0-4.8); Lymphocytes % (A) 28 %; MCH 30.3 pg (25.0-35.0); MCHC 32.8 g/dL (31.0-37.0); MCV 92.4 fL (80.0-100.0); Mean Platelet Volume 9.4; Monocytes # (A) 0.5 k/uL (0-1.0); Monocytes % (A) 7 %; Neutrophils # (A) 4.6 k/uL (1.3-7.7); Neutrophils % (A) 60 %; Platelet Count 218 k/uL (150-450); RBC 3.83 m/uL (3.80-5.40); WBC 7.8 k/uL (3.8-10.6)
[2020-11-30] MEDS: polyethylene glycoL 3350 17 GM POWD.PACK PO SCH ×2 (07:43→21:32)
[2020-11-30] MEDS: PANTOPRAZOLE 40 MG TABLET PO SCH ×2 (07:43→17:42)
[2020-11-30] MEDS: MULTIVITAMINS, THERA 1 EACH TAB PO SCH (07:43)
[2020-11-30] MEDS: ENOXAPARIN 40 MG/0.4 ML SYRINGE SQ SCH (07:43)
[2020-11-30] MEDS: SIMETHICONE 80 MG CHEWABLE PO SCH ×3 (07:44→21:13)
[2020-11-30] MEDS: TRIAMCINOLONE 0.1% CREAM 80 GM TUBE TOPICAL SCH ×2 (07:44→21:07)
[2020-11-30] MEDS: NYSTATIN 100,000UNIT/GM CREAM 30 GM TUBE TOPICAL SCH ×2 (07:44→21:07)
[2020-11-30] MEDS: TIMOLOL 0.5% OPHTH DROPS 5 ML BTL BOTH EYES SCH (07:45)
[2020-11-30] MEDS: bisacodyL 10 MG SUPP RECTAL PRN (14:35)
--- NOTE | 2020-11-30 18:23 | PN ---
PROGRESS NOTE DATE OF SERVICE: 11/30/2020 This 70-year-old woman was admitted with acute UTI, had Enterobacter hormaechei with possible sepsis. There is excoriation around the urostomy site which is slightly better today. Leaking is also less. Awaiting ostomy team recommendations. No chest pain. No palpitations. No fever. PHYSICAL EXAMINATION: Alert and oriented x3. Pulse 66, blood pressure 145/70, respirations 16, temperature 97.4, pulse ox 90% on room air. skin: S1, S2 muffled. HEENT: Conjunctivae normal. Oral mucosa moist. NECK: No jugular venous distention. No lymph node enlargement. CARDIOVASCULAR: S1, S2, muffled. No S3, no S4, RESPIRATORY: Diminished breath sounds at the bases. Scattered rhonchi. ABDOMEN: Soft, nontender. Excoriation around the Johnson tube in the pouch present. LEGS: No edema, no swelling. NERVOUS SYSTEM: Unchanged. LAB STUDIES: WBC 10.2, hemoglobin 11.7. UA noted, still abnormal with clumps. ASSESSMENT: 1. Acute urinary tract infection with Enterobacter hormaechei with possible sepsis present on admission. 2. Wound culture showing Enterobacter. 3. Increased WBC. 4. Diffuse abdominal pain. 5. Pneumonia unlikely. 6. Elevated AST, ALT, alkaline phosphatase. 7. Bilateral hydronephrosis and obstructive uropathy. 8. Ileal conduit for neurogenic bladder, status post Johnson catheter insertion as well as irrigation and leakage around the Johnson catheter. 9. History of gastroesophageal reflux disease. 10.Hypertension. 11.Hyperlipidemia. 12.History of rheumatoid arthritis. 13.Hypothyroidism. 14.History of paraplegia. 15.History of glaucoma. 16.History of nephrolithiasis. 17.Appendectomy. 18.Back surgery. 19.Obesity with body mass index of 33.5. 20.History of nicotine dependence. 21.FULL CODE. RECOMMENDATIONS AND DISCUSSION: I recommend to continue current medication, continue symptomatic treatment. Otherwise, I would recommend continue the antibiotics. Closely follow with Infectious Disease. Guarded prognosis because of multiple complex medical issues. Further recommendations to follow. MMODL / IJN: [id number] /
--- NOTE | 2020-11-30 20:14 | PN ---
PROGRESS NOTE DATE OF SERVICE: 11/30/2020 REASON FOR FOLLOWUP: UTI and abdominal wall cellulitis. INTERVAL HISTORY: The patient is afebrile. The patient is feeling better. She did mention she did have slight leakage around her Johnson from the urostomy. Though abdominal discomfort has decreased. No chest pain, shortness of breath or cough. No nausea, vomiting or diarrhea. PHYSICAL EXAMINATION: Blood pressure 157/80 with a pulse of 68, temperature 97.7. She is 95% on room air. General description is an elderly female lying in bed in no distress. Respiratory system: Unlabored breathing, clear to auscultation anteriorly. Heart S1, S2. Regular rate and rhythm. ABDOMEN: Soft no tenderness. LABS: Hemoglobin 9.8, white count 7.8. DIAGNOSTIC IMPRESSION AND PLAN: Patient with Enterobacter urinary tract infection along with abdominal wall cellulitis. Overall improvement on Zosyn to finish therapy with Cipro. The local care with triad cream. Continue supportive care. MMODL / IJN: [id number] /
[2020-11-30] MEDS: ATORVASTATIN 10 MG TAB PO SCH (21:05)
[2020-11-30] MEDS: HYDROPHILIC CREAM 180 GM TUBE TOPICAL SCH (21:06)
[2020-11-30] MEDS: LATANOPROST 0.005% OPHTH DROPS 2.5 ML BTL BOTH EYES SCH (21:06)
[2020-11-30] MEDS: HYDROcodone/APAP 5-325MG 1 EACH TAB PO PRN (21:16)
[2020-11-30] MEDS: SENNOSIDES 8.6 MG TAB PO SCH (21:33)
[2020-12-01] MEDS: LEVOTHYROXINE 112 MCG TAB PO SCH (05:42)
[2020-12-01] MEDS: diphenhydrAMINE 25 MG CAP PO PRN (05:45)
[2020-12-01] MEDS: PIPERACILLIN-TAZOBACTAM 3.375 GM in SODIUM CHLORIDE 0.9% 100 ML IVPB SCH ×2 (07:41→16:25)
[2020-12-01] MEDS: SIMETHICONE 80 MG CHEWABLE PO SCH ×3 (07:41→20:17)
[2020-12-01] MEDS: ENOXAPARIN 40 MG/0.4 ML SYRINGE SQ SCH (07:41)
[2020-12-01] MEDS: PANTOPRAZOLE 40 MG TABLET PO SCH ×2 (07:42→16:25)
[2020-12-01] MEDS: MULTIVITAMINS, THERA 1 EACH TAB PO SCH (07:42)
[2020-12-01] MEDS: HYDROcodone/APAP 5-325MG 1 EACH TAB PO PRN (07:42)
[2020-12-01] MEDS: polyethylene glycoL 3350 17 GM POWD.PACK PO SCH ×2 (07:44→20:19)
[2020-12-01] MEDS: NYSTATIN 100,000UNIT/GM CREAM 30 GM TUBE TOPICAL SCH ×2 (07:45→21:13)
[2020-12-01] MEDS: HYDROPHILIC CREAM 180 GM TUBE TOPICAL SCH ×2 (07:45→20:18)
[2020-12-01] MEDS: TRIAMCINOLONE 0.1% CREAM 80 GM TUBE TOPICAL SCH ×2 (07:45→21:13)
[2020-12-01] MEDS: TIMOLOL 0.5% OPHTH DROPS 5 ML BTL BOTH EYES SCH (07:46)
[2020-12-01] MEDS: SODIUM CHLORIDE 0.9% 1,000 ML IV SCH (15:58)
--- NOTE | 2020-12-01 18:13 | PN ---
PROGRESS NOTE DATE OF SERVICE: 12/01/2020 This 70-year-old woman who was admitted acute UTI with Enterobacter hormaechei also had wound infection. No chest pain. No palpitations. No fever. ECF rehab is being planned. PHYSICAL EXAMINATION: Alert and oriented x3. Pulse 72, blood pressure 162/73, respiration 19, temperature 97.9, pulse 94% on room air. HEENT: Conjunctivae normal. NECK: No jugular venous distention. CARDIOVASCULAR SYSTEM: S1, S2 muffled. RESPIRATORY SYSTEM: Breath sounds diminished at the bases. ABDOMEN: Soft. Otherwise, excoriation around the ostomy site present. LEGS: No edema. NERVOUS: Unchanged. LABS: WBC 7.2, hemoglobin 11.6. UA noted. ASSESSMENT: 1. Acute urinary tract infection with Enterobacter hormaechei with possible sepsis, present on admission. 2. Wound culture showing Enterobacter. 3. Increased white count. 4. Diffuse abdominal pain. 5. Pneumonia unlikely. 6. Elevated AST, ALT, alkaline phosphatase. 7. Bilateral hydronephrosis and obstructive uropathy. 8. Ileal conduit for neurogenic bladder, status post Johnson catheter insertion as well as irrigation leakage around the Johnson catheter. 9. History of gastroesophageal reflux disease. 10.Hypertension. 11.Hyperlipidemia. 12.History of rheumatoid arthritis. 13.History of hypothyroidism. 14.History of paraplegia. 15.History of glaucoma. 16.History of nephrolithiasis. 17.History of appendectomy. 18.History of back surgery. 19.Obesity with a body mass index of 33.5. 20.History of nicotine dependence. 21.FULL CODE. RECOMMENDATIONS AND DISCUSSION: I recommend to continue current medications, continue with the monitoring, symptomatic treatment. Otherwise, I would recommend closely following with Infectious Disease. Guarded prognosis because of multiple complex medical issues. Further recommendations to follow. MMODL / IJN: [id number] /
[2020-12-01] MEDS: ATORVASTATIN 10 MG TAB PO SCH (20:17)
[2020-12-01] MEDS: CIPROFLOXACIN HCL 500 MG TAB PO SCH (20:17)
[2020-12-01] MEDS: LATANOPROST 0.005% OPHTH DROPS 2.5 ML BTL BOTH EYES SCH (20:19)
[2020-12-01] MEDS: SENNOSIDES 8.6 MG TAB PO SCH (20:19)
--- NOTE | 2020-12-01 23:22 | PN ---
PROGRESS NOTE DATE OF SERVICE: 12/01/2020 REASON FOR FOLLOWUP: UTI and abdominal wall cellulitis. INTERVAL HISTORY: The patient is afebrile. The patient is breathing comfortably. The patient denies having any chest pain, shortness of breath or cough. No nausea, vomiting. No abdominal discomfort or diarrhea. PHYSICAL EXAMINATION: Blood pressure 150/69, pulse of 74, temperature 98.1. She is 96% on room air. General description is an elderly female lying in bed in no distress. Respiratory system: Unlabored breathing, clear to auscultation anteriorly. Heart S1, S2. Regular rate and rhythm. ABDOMEN: Soft, no tenderness. EXTREMITIES: No edema of the feet. LABS: No new labs have been obtained today. DIAGNOSTIC IMPRESSION AND PLAN: Patient with bacteremia, UTI with abdominal cellulitis on Zosyn. Transition to oral Cipro for a week on discharge. Local care to continue with triad cream and continue supportive care. MMODL / IJN: [id number] /
[2020-12-02] MEDS: LEVOTHYROXINE 100 MCG TAB PO SCH (05:33)
[2020-12-02] MEDS: SIMETHICONE 80 MG CHEWABLE PO SCH (08:14)
[2020-12-02] MEDS: CIPROFLOXACIN HCL 500 MG TAB PO SCH (08:14)
[2020-12-02] MEDS: ENOXAPARIN 40 MG/0.4 ML SYRINGE SQ SCH (08:14)
[2020-12-02] MEDS: MULTIVITAMINS, THERA 1 EACH TAB PO SCH (08:14)
[2020-12-02] MEDS: PANTOPRAZOLE 40 MG TABLET PO SCH (08:15)
[2020-12-02] MEDS: TRIAMCINOLONE 0.1% CREAM 80 GM TUBE TOPICAL SCH (08:15)
[2020-12-02] MEDS: polyethylene glycoL 3350 17 GM POWD.PACK PO SCH (08:16)
[2020-12-02] MEDS: HYDROPHILIC CREAM 180 GM TUBE TOPICAL SCH (08:16)
[2020-12-02] MEDS: TIMOLOL 0.5% OPHTH DROPS 5 ML BTL BOTH EYES SCH (08:16)
[2020-12-02] MEDS: NYSTATIN 100,000UNIT/GM CREAM 30 GM TUBE TOPICAL SCH (08:16)
[2020-12-02] MEDS: diphenhydrAMINE 25 MG CAP PO PRN (09:27)
[2020-12-02 11:51] VITALS: BP 164/80; PULSE 75; RESP 17; TEMP 98
--- NOTE | 2020-12-02 12:38 | P.DS ---
Providers Date of admission: 11/27/20 14:36 Expected date of discharge: 12/02/20 Attending physician: Bernabe Avila Consults: 11/25/20 14:52 Consult Physician Urgent Consulting Provider: Samuel Ferrera Consult Reason/Comments: urological eval Do you want consulting provider notified?: Already Contacted 11/25/20 19:56 Consult Physician Routine Consulting Provider: Sosa Gage Consult Reason/Comments: Wound Do you want consulting provider notified?: Yes, Notify in am Primary care physician: Jorge Hughes Hospital Course: Final diagnosis Acute urinary tract infection with Enterobacter Hormaechei possible sepsis, present on admission Wound culture showing Enterobacter Increased white count Diffuse abdominal pain Pneumonia unlikely Elevated AST, ALT, alkaline phosphatase Bilateral hydronephrosis and obstructive uropathy Ileal conduit for neurogenic bladder status post Johnson catheter insertion as well as irrigation leakage around the Johnson catheter Gastroesophageal reflux disease Hyperlipidemia Hypertension Obesity with a body mass index of 35.5 History of nicotine dependence Full code Discharge disposition Patient is being discharged in a stable condition with guarded prognosis to [facility]. Patient will follow-up with Dr. Hughes upon discharge. Patient will continue with a short course of oral antibiotics in the form of Cipro 500 mg twice daily for the next 6 days and then may discontinue. Total time taken is greater than 35 minutes. Hospital course This is a 70-year-old female who was admitted with acute urinary tract infection with Enterobacter hormaechei also found to have abdominal wound infection with possibility of surrounding cellulitis and was being closely monitored. Patient was seen and evaluated by urology along with infectious disease and was maintained on IV antibiotics which we have transition to oral Cipro and is to continue Cipro 500 mg twice daily for the next 6 days and then may discontinue. Patient to continue with Triad cream twice daily to the surrounding peristomal area until resolution. Patient will also continue with nystatin cream and Kenalog as directed. Patient did have Covid testing prior to discharge which was negative. Patient continued to have drainage around the stoma and is currently using a urostomy pouch with improved results. Patient states she feels much better today and is asking to go back to [facility]. Currently no reports of chest pain, shortness of breath, or palpitations. Patient is afebrile. No reports of nausea or vomiting and patient is tolerating diet. Patient is being discharged to [facility] today. On exam vital signs are stable. Cardio S1, S2 are muffled. Respiratory shows diminished breath sounds at the bases with no wheezing or rhonchi noted. Abdomen is soft and nontender. Nervous system shows mild diffuse weakness. Please refer to medication reconciliation sheet for a list of medications. Patient Condition at Discharge: Stable Plan - Discharge Summary Discharge Rx Participant: No New Discharge Prescriptions: New diphenhydrAMINE [Benadryl] 25 mg PO QID PRN cap PRN Reason: Itching Ciprofloxacin HCl [Cipro] 500 mg PO BID 6 Days #12 tab Triamcinolone 0.1% Cream [Kenalog 0.1% Cream] 1 applic TOPICAL BID applic Nystatin 100,000Unit/gm Cream [Mycostatin Cream] 1 applic TOPICAL BID applic polyethylene glycoL 3350 [Miralax] 17 gm PO BID powd.pack Pantoprazole [Protonix] 40 mg PO AC-BID tablet.dr Hydrophilic Cream [Triad Cream] 1 applic TOPICAL BID applic Continue Levothyroxine Sodium [Synthroid] 100 mcg PO SUTUTHSA@0600 Multivitamins, Thera [Multivitamin (formulary)] 1 tab PO DAILY@0800 Levothyroxine Sodium [Synthroid] 112 mcg PO MOWEFR@0600 Simethicone [Gas-X] 125 mg PO TID@0800,1200,1700 Magnesium Hydroxide [Milk of Magnesia Concentrate] 7,200 mg PO Q48H PRN PRN Reason: Constipation Na Phos,M-B/Na Phos,Di-Ba [Fleet Adult] 133 ml RECTAL DAILY PRN PRN Reason: Constipation Latanoprost [Xalatan 0.005%] 1 drop BOTH EYES HS@2100 Lactulose 20 gm PO BID@0800,1700 Famotidine [Pepcid] 20 mg PO BID@0800,1700 Enoxaparin [Lovenox] 40 mg SQ DAILY@1700 bisacodyL [Dulcolax] 10 mg RECTAL DAILY PRN PRN Reason: Constipation Atorvastatin [Lipitor] 10 mg PO HS@2100 Ascorbic Acid [Vitamin C] 1,000 mg PO DAILY@0800 Cetirizine HCl [Zyrtec] 10 mg PO DAILY PRN PRN Reason: ITCH/WATERY EYES, ALLERGIES Lactobacillus Acidophilus [Acidophilus] 1 tab PO DAILY@0800 Acetaminophen Tab [Tylenol] 500 mg PO Q6H Sennosides/Docusate Sodium [Senna Plus 8.6-50 mg Softgel] 1 cap PO HS@2100 Acetaminophen Tab [Tylenol] 500 mg PO Q6H PRN PRN Reason: Pain Timolol 0.5% Ophth Soln [Timoptic 0.5% Ophth Soln] 1 drop BOTH EYES DAILY@0800 Liquacel 30 ml PO DAILY@1200 Changed HYDROcodone/APAP 5-325MG [[place] 5-325] 1 tab PO Q6H PRN #6 tab PRN Reason: Pain Discharge Medication List Levothyroxine Sodium [Synthroid] 100 mcg PO SUTUTHSA@0600 12/31/13 [History] Multivitamins, Thera [Multivitamin (formulary)] 1 tab PO DAILY@0800 11/09/17 [History] Levothyroxine Sodium [Synthroid] 112 mcg PO MOWEFR@0600 02/01/18 [History] Ascorbic Acid [Vitamin C] 1,000 mg PO DAILY@0800 10/17/19 [History] Atorvastatin [Lipitor] 10 mg PO HS@209910/17/19 [History] Enoxaparin [Lovenox] 40 mg SQ DAILY@169910/17/19 [History] Famotidine [Pepcid] 20 mg PO BID@0800,1700 10/17/19 [History] Lactulose 20 gm PO BID@0800,1700 10/17/19 [History] Latanoprost [Xalatan 0.005%] 1 drop BOTH EYES HS@209910/17/19 [History] Magnesium Hydroxide [Milk of Magnesia Concentrate] 7,200 mg PO Q48H PRN 10/17/19 [History] Na Phos,M-B/Na Phos,Di-Ba [Fleet Adult] 133 ml RECTAL DAILY PRN 10/17/19 [History] Simethicone [Gas-X] 125 mg PO TID@0800,1200,1700 10/17/19 [History] bisacodyL [Dulcolax] 10 mg RECTAL DAILY PRN 10/17/19 [History] Cetirizine HCl [Zyrtec] 10 mg PO DAILY PRN 11/04/20 [History] Lactobacillus Acidophilus [Acidophilus] 1 tab PO DAILY@0800 05/21/20 [History] Acetaminophen Tab [Tylenol] 500 mg PO Q6H 06/22/20 [History] Liquacel 30 ml PO DAILY@1200 11/12/20 [History] Sennosides/Docusate Sodium [Senna Plus 8.6-50 mg Softgel] 1 cap PO HS@2100 11/12/20 [History] Acetaminophen Tab [Tylenol] 500 mg PO Q6H PRN 11/25/20 [History] Timolol 0.5% Ophth Soln [Timoptic 0.5% Ophth Soln] 1 drop BOTH EYES DAILY@0800 11/25/20 [History] Ciprofloxacin HCl [Cipro] 500 mg PO BID 6 Days #12 tab 12/02/20 [Rx] HYDROcodone/APAP 5-325MG [[place] 5-325] 1 tab PO Q6H PRN #6 tab 12/02/20 [Rx] Hydrophilic Cream [Triad Cream] 1 applic TOPICAL BID applic 12/02/20 [Rx] Nystatin 100,000Unit/gm Cream [Mycostatin Cream] 1 applic TOPICAL BID applic 12/02/20 [Rx] Pantoprazole [Protonix] 40 mg PO AC-BID tablet. 12/02/20 [Rx] Triamcinolone 0.1% Cream [Kenalog 0.1% Cream] 1 applic TOPICAL BID applic 12/02/20 [Rx] diphenhydrAMINE [Benadryl] 25 mg PO QID PRN cap 12/02/20 [Rx] polyethylene glycoL 3350 [Miralax] 17 gm PO BID powd.pack 12/02/20 [Rx] Follow up Appointment(s)/Referral(s): Jorge Hughes MD [Primary Care Provider] - 1-2 days Activity/Diet/Wound Care/Special Instructions: Patient is going to [facility] Activity as tolerated Continue with antibiotics for 6 days and then may discontinue Continue with creams twice daily to the area Continue regular diet Continue with local wound care Discharge Disposition: TRANSFER TO [facility]/F
--- NOTE | 2020-12-02 15:28 | PN ---
PROGRESS NOTE DATE OF SERVICE: 12/02/2020 REASON FOR FOLLOWUP: UTI and abdominal wall cellulitis. INTERVAL HISTORY: The patient is currently afebrile. Patient is breathing comfortably. Denies having any chest pain or shortness of breath or cough. Abdominal pain is currently controlled. The patient did have application of urostomy pouch without any leakage. PHYSICAL EXAMINATION: Blood pressure 164/80 with a pulse of 75, temperature 98. She is 95% on room air. General description is a middle-aged female lying in bed in no distress. RESPIRATORY SYSTEM: Unlabored breathing, clear to auscultation anteriorly. HEART: S1, S2. Regular rate and rhythm. ABDOMEN: Soft, no tenderness. LABS: No new labs have been obtained today. DIAGNOSTIC IMPRESSION AND PLAN: Patient with Enterobacter urinary tract infection along with abdominal wall cellulitis with overall improvement, to finish therapy with oral Cipro along with Triad cream to the area and close outpatient followup. Continue supportive care. MMODL / IJN: [id number] /
== END 2020-12-02 17:29 | DRG 698 ==
LOC: EC 11:04 → 5NMEDONC 14:42 → OBSVTOIN 11-27 14:36
PROVIDERS: ADMIT Hospitalist; ATTEND Hospitalist
PROC: 0T9B70Z Drainage of Bladder with Drainage Device, Via Natural or Artificial Opening (ICD-10-PCS; principal; 2020-11-26)
DX: T83.518A Infection and inflammatory reaction due to other urinary catheter, initial encounter (principal); A41.4 Sepsis due to anaerobes; N13.6 Pyonephrosis; G82.20 Paraplegia, unspecified; L03.311 Cellulitis of abdominal wall; N99.528 Other complication of incontinent external stoma of urinary tract; L98.499 Non-pressure chronic ulcer of skin of other sites with unspecified severity; M06.9 Rheumatoid arthritis, unspecified; Z20.822 Contact with and (suspected) exposure to COVID-19; N31.9 Neuromuscular dysfunction of bladder, unspecified; K59.09 Other constipation; E03.9 Hypothyroidism, unspecified; K21.9 Gastro-esophageal reflux disease without esophagitis; H91.90 Unspecified hearing loss, unspecified ear; E78.5 Hyperlipidemia, unspecified; I10 Essential (primary) hypertension; H54.62 Unqualified visual loss, left eye, normal vision right eye; K57.30 Diverticulosis of large intestine without perforation or abscess without bleeding; M21.371 Foot drop, right foot; M21.372 Foot drop, left foot; H40.9 Unspecified glaucoma; E66.9 Obesity, unspecified; Z68.35 Body mass index [BMI] 35.0-35.9, adult; Z79.01 Long term (current) use of anticoagulants; Z79.890 Hormone replacement therapy; Z79.899 Other long term (current) drug therapy; Z87.442 Personal history of urinary calculi; Z97.4 Presence of external hearing-aid; Z86.14 Personal history of Methicillin resistant Staphylococcus aureus infection; Z86.19 Personal history of other infectious and parasitic diseases; Z90.49 Acquired absence of other specified parts of digestive tract; Z87.19 Personal history of other diseases of the digestive system; Z87.891 Personal history of nicotine dependence; Z98.41 Cataract extraction status, right eye; Z71.3 Dietary counseling and surveillance; Z87.2 Personal history of diseases of the skin and subcutaneous tissue; Z87.01 Personal history of pneumonia (recurrent); Z98.890 Other specified postprocedural states; Z91.041 Radiographic dye allergy status; Z91.048 Other nonmedicinal substance allergy status; Z80.0 Family history of malignant neoplasm of digestive organs; Z82.3 Family history of stroke; Z84.1 Family history of disorders of kidney and ureter
CPT/HCPCS: 36415; 71045; 74177; 80048; 80053; 81001; 82150; 83605; 83690; 85025; 85379; 85610; 85730; 87040; 87070; 87077; 87086; 87186; 87205; 87635; 93005; 96374; 96375; 99285

== ENCOUNTER → 2022-02-02 | Outpatient (CLI) | payer MEDICARE, OTHER ==
[~2022-02-02] MED LIST changes: +DOBUTamine DRIP for NUC MED 500 MG in DEXTROSE/WATER 1 250ML.BAG IV PRN; +DOBUTamine DRIP for NUC MED 500 MG/250 ML BAG IV ONE; -LACTATED RINGERS 1,000 ML IV SCH; -LIDOCAINE 1% (10MG/ML) FOR IV START INTRADERMA PRN
--- NOTE | 2022-02-02 12:37 | CA ---
Dobutamine Stress Echocardiogram Report Dulce Ramos Age: 71 Gender: F : 1950 Exam Date: 02/02/2022 10:25 Exam Location: [facility] Ordering Physician: Ronnie Sinha MD ([id number]) Referring Physician: Bharath GARCIA Basin Finish Operator Tig Welder: KAI Technologist: Ht (in): 66 Wt (lb): 231 Procedure CPT: Indication: Z01.818 pre op ICD-9 Codes: Rhythm: Patient History: Pre OP Cardiac Medications: Medications in past 24 hours: Contrast: Lumason Total Dose (mL): 5 Stress Results Protocol: Dobutamine Peak Dose (???g/kg/min): 30 Duration (min:sec): Atropine:(mg) Target HR: 126 Double Product: 61102 Resting HR: 91 Resting BP: 120 / 80 Peak HR: 133 Peak BP: 192 / 75 Max Predicted HR: 148 90 % Max Predicted HR Stress Summary: 14.94mgs Dobutamine BP Response: Reason for Termination: Cardiac Symptoms: Test terminated after reaching target heart rate (85% max predicted) ECG Analysis Resting EKG: Stress EKG: Arrhythmia: Echo Analysis Base Echo Analysis: Low Echo Anaylsis: Peak Echo Analysis: Recovery Echo: MEASUREMENTS (Male/Female) Normal Values CONCLUSIONS Stress EKG portion: At baseline patient's EKG showed normal sinus rhythm, normal axis, no significant ST or T wave abnormalities. At peak dobutamine infusion, EKG showed no significant change from baseline. Stress echo portion: 2-D echocardiogram was performed in the parasternal long, personal short, apical 2 and apical four-chamber views at rest, low-dose, peak infusion and in recovery. At baseline, echocardiogram showed left ventricular ejection fraction 60% without wall motion abnormalities. With peak infusion, echocardiogram shows improvement in left ventricular ejection fraction, increase contractility, decrease in left ventricular end systolic dimension without wall motion abnormalities consistent with a normal response to dobutamine. Conclusions: 1. Normal stress EKG and echo response to dobutamine infusion without any evidence of inducible ischemia. 2. Normal left ventricular ejection fraction 60% Dr. Molina Dos Santos DO (Electronically Signed) Final Date: 02 February 2022 12:36
== END | disposition home or self-care (01) ==
LOC: RADNMMAIN 09:34
PROVIDERS: ATTEND Internal Medicine Cardiovascular Disease
DX: Z01.810 Encounter for preprocedural cardiovascular examination (principal)
CPT/HCPCS: 93351; Q9950

== ENCOUNTER 2023-12-21 21:52 | Emergency (ER) | payer MEDICARE, OTHER ==
[2023-12-21 23:08] LABS: INR 0.9 (<1.2); Prothrombin Time 10.1 sec (10.0-12.5)
[2023-12-21 23:09] LABS: Basophils # (A) 0.1 k/uL (0-0.2); Basophils % (A) 2 %; Eosinophils # (A) 0.1 k/uL (0-0.7); Eosinophils % (A) 1 %; HCT 45.4 % (34.0-46.0); HGB 14.5 gm/dL (11.4-16.0); Lymphocytes # (A) 1.6 k/uL (1.0-4.8); Lymphocytes % (A) 23 %; MCH 29.5 pg (25.0-35.0); MCHC 31.8 g/dL (31.0-37.0); MCV 92.6 fL (80.0-100.0); Mean Platelet Volume 9.4; Monocytes # (A) 0.5 k/uL (0-1.0); Monocytes % (A) 7 %; Neutrophils # (A) 4.8 k/uL (1.3-7.7); Neutrophils % (A) 67 %; Partial Thromboplastin Time 24.9 sec (22.0-30.0); Platelet Count 321 k/uL (150-450); RDW 14.4 % (11.5-15.5); WBC 7.2 k/uL (3.8-10.6)
[2023-12-21 23:10] LABS: ALT 32 U/L (4-34); AST 27 U/L (14-36); African American GFR (CKD) 78 (>60 ml/min/1.73 sqM); Albumin 3.9 g/dL (3.5-5.0); Alkaline Phosphatase 148 U/L (38-126); Anion Gap 8 mmol/L; Blood Urea Nitrogen 12 mg/dL (7-17); Calcium 9.8 mg/dL (8.4-10.2); Carbon Dioxide 23 mmol/L (22-30); Chloride 106 mmol/L (98-107); Glucose 124 mg/dL (74-99); Non-African American GFR(CKD) 68 (>60 ml/min/1.73 sqM); Potassium 4.1 mmol/L (3.5-5.1); Sodium 137 mmol/L (137-145); Total Bilirubin 0.8 mg/dL (0.2-1.3); Total Protein 6.7 g/dL (6.3-8.2)
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
[2023-12-21] MEDS: SODIUM CHLORIDE 0.9% 1,000 ML IV SCH (23:52)
[2023-12-21] MEDS: SODIUM CHLORIDE 0.9% 500 ML 500 ML IV SCH (23:52)
[2023-12-22 01:23] VITALS: PULSE 90; RESP 18
[2023-12-22] MEDS ORDERED: NALOXONE 0.4 MG/ML 1 ML VIAL IV PRN (03:29)
[2023-12-22 06:22] VITALS: BP 137/64; TEMP 98.9
== END 2023-12-22 05:20 | disposition home or self-care (01) ==
LOC: EC 21:52
DX: L03.114 Cellulitis of left upper limb (principal); I10 Essential (primary) hypertension; R00.0 Tachycardia, unspecified; E66.01 Morbid (severe) obesity due to excess calories; Z68.39 Body mass index [BMI] 39.0-39.9, adult; Z87.891 Personal history of nicotine dependence
CPT/HCPCS: 96365; 96361; 99284; 36415; 93005; 80053; 83605; 85025; 85610; 85730; 87040; J0690

== ENCOUNTER 2024-03-08 06:33 | Emergency (ER) | payer MEDICARE, OTHER | END 2024-03-08 10:41 | disposition home or self-care (01) | LOC: EC 06:33 | DX: E78.5 Hyperlipidemia, unspecified (principal) | CPT/HCPCS: 93005; 99284 ==

== ENCOUNTER 2024-11-06 07:49 | Day surgery (SDC) | payer MEDICARE, OTHER ==
[2024-11-02 15:01] VITALS: BMI 34.1
[~2024-11-06 07:49] MED LIST changes: -DOBUTamine DRIP for NUC MED 500 MG in DEXTROSE/WATER 1 250ML.BAG IV PRN; -DOBUTamine DRIP for NUC MED 500 MG/250 ML BAG IV ONE; +HYDROmorphone 0.5 MG/0.5 ML SYRINGE IVP PRN; +METOCLOPRAMIDE 5 MG/ML 2 ML VIAL IVP PRN
[2024-11-06 08:48] VITALS: TEMP 96.8
[2024-11-06] MEDS: IV FLUID CONTINUATION 1,000 ML IV ONE (08:48)
[2024-11-06] MEDS: LACTATED RINGERS 1,000 ML IV SCH (09:02)
[2024-11-06] MEDS: LIDOCAINE 1% (10MG/ML) FOR IV START INTRADERMA PRN (09:03)
[2024-11-06] MEDS: ONDANSETRON 4 MG/2 ML VIAL IVP ONE (09:03)
[2024-11-06] MEDS: DEXAMETHASONE SOD PHOSPHATE 4 MG/ML 1 ML VIAL IV ONE (09:03)
[2024-11-06] MEDS: GENTAMICIN 120 MG in SODIUM CHLORIDE 0.9% 100 ML IVPB PRN (09:04)
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
[2024-11-06] MEDS ORDERED: fentaNYL (PF) 50 MCG/ML 2 ML AMP ONE (10:33)
[2024-11-06] MEDS ORDERED: PROPOFOL 10 MG/ML 20 ML VIAL IV ONE (10:33)
[2024-11-06] MEDS ORDERED: MIDAZOLAM 2 MG/2 ML VIAL ONE (10:33)
[2024-11-06] MEDS: ceFAZolin 2 GM in DEXTROSE 5% IN WATER 50 ML IVPB PRN (10:43)
[2024-11-06] MEDS: GENTAMICIN 80 MG in SODIUM CHLORIDE 0.9% 250 ML IRRIGATION ONE (10:56)
[2024-11-06 11:31] VITALS: RESP 16
[2024-11-06 11:52] VITALS: BP 127/63; PULSE 81
--- NOTE | 2024-11-06 14:27 | P.OP ---
Date of Procedure: 11/06/24 Preoperative Diagnosis: Chronic cystitis Postoperative Diagnosis: Same Procedure(s) Performed: Cystoscopy Implants: None Anesthesia: MAC Surgeon: Samuel Ferrera Estimated Blood Loss (ml): 5 Pathology: none sent Condition: stable Disposition: PACU Indications for Procedure: This is a 74-year-old female with history of neurogenic bladder status post diverting urostomy, her bladder still in place, she is having purulent drainage from the bladder. Discussed with her the option of doing a cystoscopy and a washout in the OR. Risk of bleeding, infection, persistent symptoms were discussed. She is a poor surgical candidate for cystectomy. Operative Findings: Blind-ending urethra, no bladder was seen, necrotic tissue along the anterior vaginal wall and tracking up into the pubic bone Description of Procedure: Patient brought to the operating room, sedation was induced. She was prepped and draped in sterile fashion and placed in dorsolithotomy position. Cystoscopy was inserted per urethra, of note the urethra was blind-ending as there was no bladder seen, this is consistent with cystectomy rather than bladder being still present. At this time exam under anesthesia was performed which showed significant amount of necrotic debris along the anterior vaginal wall and appeared to be tracking to the pubic bone. At this point the surgery was terminated. Patient will need to follow-up with [facility] and possibly orthopedics given this finding as from urology standpoint no further intervention is needed as the patient has a surgically absent bladder
== END 2024-11-06 13:20 ==
LOC: OR 07:49
PROVIDERS: ATTEND Urology
DX: N30.20 Other chronic cystitis without hematuria (principal); N31.9 Neuromuscular dysfunction of bladder, unspecified; J44.9 Chronic obstructive pulmonary disease, unspecified; E78.5 Hyperlipidemia, unspecified; I10 Essential (primary) hypertension; M06.9 Rheumatoid arthritis, unspecified; E03.9 Hypothyroidism, unspecified; G82.20 Paraplegia, unspecified; Z89.612 Acquired absence of left leg above knee; Z87.891 Personal history of nicotine dependence; Z79.890 Hormone replacement therapy
CPT/HCPCS: 52000; J2250; J1580 ×2; J1100; J0690; J2405; J3010; J2704

== ENCOUNTER 2024-11-28 15:13 | Inpatient (IN) | payer MEDICARE, OTHER ==
[2024-11-28] MEDS: SODIUM CHLORIDE 0.9% 1,000 ML IV ONE (16:08)
[2024-11-28] MEDS: KETOROLAC 15 MG/ML 1 ML VIAL IVP STA (16:09)
[2024-11-28 16:10] LABS: Basophils # (A) 0.17 10*3/uL (0.00-0.10); Basophils % (A) 0.9 %; Eosinophils # (A) 0.13 10*3/uL (0.04-0.35); Eosinophils % (A) 0.7 %; HCT 40.4 % (37.2-46.3); HGB 13.6 g/dL (12.0-15.0); Lymphocytes # (A) 1.73 10*3/uL (0.90-5.00); Lymphocytes % (A) 9.6 %; MCH 31.1 pg (27.0-32.0); MCHC 33.7 g/dL (32.0-37.0); MCV 92.4 fL (80.0-97.0); Mean Platelet Volume 10.9 fL (9.5-12.2); Monocytes # (A) 1.07 10*3/uL (0.20-1.00); Monocytes % (A) 5.9 %; Neutrophils # (A) 14.34 10*3/uL (1.80-7.70); Neutrophils % (A) 79.8 %; Platelet Count 350 10*3/uL (140-440); RBC 4.37 10*6/uL (4.10-5.20); RDW 15.5 % (11.5-14.5)
[2024-11-28 16:21] LABS: ALT 47 U/L (4-34); AST 40 U/L (14-36); African American GFR (CKD) 60 (>60 ml/min/1.73 sqM); Albumin 3.7 g/dL (3.5-5.0); Alkaline Phosphatase 202 U/L (38-126); Amylase 74 U/L (30-110); Anion Gap 11 mmol/L; Blood Urea Nitrogen 34 mg/dL (7-17); Calcium 9.8 mg/dL (8.4-10.2); Carbon Dioxide 22 mmol/L (22-30); Chloride 102 mmol/L (98-107); Glucose 134 mg/dL (74-99); Lipase 55 U/L (23-300); Non-African American GFR(CKD) 52 (>60 ml/min/1.73 sqM); Potassium 4.5 mmol/L (3.5-5.1); Sodium 135 mmol/L (137-145); Total Protein 6.9 g/dL (6.3-8.2)
[2024-11-28 16:29] LABS: Prothrombin Time 10.8 sec (10.0-12.5)
--- NOTE | 2024-11-28 16:57 | CT ---
EXAMINATION TYPE: CT abdomen pelvis wo con DATE OF EXAM: 11/28/2024 4:36 PM COMPARISON: CT abdomen pelvis most recent from 11/25/2020 CLINICAL INDICATION: Female, 74 years old with history of right flank pain, kidney stone pain per pat ient; Rt side flank pain. Hx of renal stones. TECHNIQUE: Axial CT abdomen pelvis wo con;Sagittal and coronal reformats were created on a separate workstation. Contrast used: mL of , (none if empty) Oral contrast used: without Oral Contrast (none if empty) CT DLP: 992.5 mGycm, Automated exposure control for dose reduction was used. FINDINGS: LOWER CHEST: 150 pulmonary nodules the largest in the right lower lobe measuring up to 26 mm. There i s more than 50 nodules present. The heart is mildly enlarged for size. Lipomatous hypertrophy of inte ratrial septum. Mitral valve annular calcifications. ABDOMEN LIVER: Hepatic low-density masses measuring up to 41 x 37 mm. There is at least 5 other masses identi fied GALLBLADDER AND BILE DUCTS: Unremarkable. PANCREAS: Unremarkable. SPLEEN: Unremarkable. ADRENAL GLANDS: Unremarkable. KIDNEYS AND URETERS: No evidence of hydronephrosis or obstructing renal calculus. The ureters are unr emarkable. Nonobstructing left renal calculi or staghorn-like measuring up to 10 mm PELVIS BLADDER: Urinary bladder is distended to be surgically absent with ileal conduit. REPRODUCTIVE: Large mass in the pelvis measuring at least 11.9 x 9.6 x 14.2 cm which immediately abut s the urinary bladder ABDOMEN & PELVIS STOMACH AND BOWEL: No evidence of bowel obstruction. No right renal calculi are nonobstructing. Posts urgical changes to the bowel in the right lower quadrant. PERITONEUM/RETROPERITONEUM: No evidence of pneumoperitoneum or free fluid. VASCULATURE: No evidence of aortic aneurysm. MUSCULOSKELETAL: No chronic deformity to the left femur likely from prior fracture with incomplete fu ellie. Calcifications extending along a tract from the skin to the right greater trochanter. Extensive degeneration changes of the spine present. LYMPH NODES: No gross evidence for lymphadenopathy. SOFT TISSUE/ABDOMINAL WALL: Lower abdominal wall ostomy present. IMPRESSION: 1. Large pelvic mass possibly urinary bladder radiology with more than 50 pulmonary nodules and mult iple liver masses compatible with primary malignancy with extensive metastatic disease. Oncologic wor kup recommended. 2. Surgically absent urinary bladder with Ileal conduit noted. 3. Chronic left femur fracture with incomplete osseous fusion. [facility], , 11/28/2024 4:55 PM
[2024-11-28] MEDS ORDERED: NALOXONE 0.4 MG/ML 1 ML VIAL IV PRN (17:35)
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
[2024-11-28 17:45] LABS: Appearance,Urine Cloudy (Clear); Bilirubin,Urine Negative (Negative); Blood,Urine Trace (Negative); Budding Yeast,Urine Rare /hpf; Color,Urine Yellow; Glucose,Urine (UA) Negative (Negative); Ketones,Urine Negative (Negative); Leukocyte Esterase,Urine Large (Negative); Mucus,Urine Rare /hpf; Nitrite,Urine Negative (Negative); Protein,Urine Negative (Negative); RBC,Urine 13 /hpf (0-5); Specific Gravity,Urine 1.018 (1.001-1.035); Squamous Epithelial Cell,Urine <1 /hpf (0-4); Urobilinogen,Urine <2.0 mg/dL (<2.0); WBC,Urine >182 /hpf (0-5)
[2024-11-28] MEDS: SODIUM CHLORIDE 0.9% 1,000 ML IV SCH (19:08)
[2024-11-28] MEDS: cefTRIAXone 2 GM in DEXTROSE 5% IN WATER 50 ML IVPB STA (19:08)
[2024-11-28] MEDS ORDERED: IPRATROPIUM-ALBUTEROL 3 ML NEB INHALATION PRN (21:37)
[2024-11-28] MEDS ORDERED: ACETAMINOPHEN TAB 500 MG TAB PO PRN (21:37)
[2024-11-28] MEDS ORDERED: NA PHOS,M-B/NA PHOS,DI-BA 133 ML ENEMA RECTAL PRN (21:37)
[2024-11-28] MEDS ORDERED: diphenhydrAMINE 25 MG CAP PO PRN (21:37)
[2024-11-28] MEDS ORDERED: MAGNESIUM HYDROXIDE 2,400 MG/30 ML CUP PO PRN (21:37)
[2024-11-28] MEDS ORDERED: LOPERAMIDE 2 MG CAP PO PRN (21:37)
[2024-11-28] MEDS ORDERED: bisacodyL 10 MG SUPP RECTAL PRN (21:37)
[2024-11-28] MEDS: IPRATROPIUM-ALBUTEROL 3 ML NEB INHALATION SCH (21:52)
[2024-11-28] MEDS: HYDROcodone/APAP 5-325MG 1 EACH TAB PO PRN (22:15)
[2024-11-29] MEDS: IPRATROPIUM-ALBUTEROL 3 ML NEB INHALATION SCH (00:11)
[2024-11-29] MEDS: KETOROLAC 15 MG/ML 1 ML VIAL IVP PRN (02:03)
[2024-11-29] MEDS: LEVOTHYROXINE 112 MCG TAB PO SCH (06:38)
[2024-11-29] MEDS: SYMBICORT 160-4.5 MCG INHALER INHALATION SCH (07:45)
[2024-11-29] MEDS: TIOTROPIUM 2.5 MCG INHALER INHALATION SCH (08:14)
[2024-11-29 08:17] LABS: ALT 38 U/L (8-44); AST 34 U/L (13-35); Albumin 3.4 g/dL (3.8-4.9); Albumin/Globulin Ratio 1.42 Ratio (1.60-3.17); Alkaline Phosphatase 194 U/L (41-126); BUN/Creat Ratio 30.08 Ratio (12.00-20.00); Blood Urea Nitrogen 36.1 mg/dL (9.0-27.0); Calcium 8.6 mg/dL (8.7-10.3); Carbon Dioxide 18.9 mmol/L (21.6-31.8); Chloride 107 mmol/L (96-109); Globulin 2.4 g/dL (1.6-3.3); Glucose 89 mg/dL (70-110); Potassium 4.5 mmol/L (3.5-5.5); Sodium 138 mmol/L (135-145); Total Bilirubin 0.4 mg/dL (0.3-1.2); Total Protein 5.8 g/dL (6.2-8.2)
[2024-11-29 08:28] LABS: Basophils # (A) 0.11 X 10*3/uL (0.00-0.10); Basophils % (A) 0.7 %; Eosinophils # (A) 0.12 X 10*3/uL (0.04-0.35); Eosinophils % (A) 0.8 %; HCT 39.4 % (37.2-46.3); HGB 12.3 g/dL (12.0-15.0); Lymphocytes # (A) 3.12 X 10*3/uL (0.90-5.00); MCH 29.9 pg (27.0-32.0); MCHC 31.2 g/dL (32.0-37.0); MCV 95.6 FL (80.0-97.0); Mean Platelet Volume 11.4 FL (9.5-12.2); Monocytes # (A) 1.08 X 10*3/uL (0.20-1.00); Monocytes % (A) 7.3 %; NRBC Per 100 WBC 0 X 10*3/uL (0.00-0.01); Neutrophils # (A) 10.13 X 10*3/uL (1.80-7.70); Platelet Count 318 X 10*3/uL (140-440); RBC 4.12 X 10*6/uL (4.10-5.20); RDW 15.8 % (11.5-14.5); WBC 14.89 X 10*3/uL (4.50-10.00)
[2024-11-29] MEDS: guaiFENesin 600 MG TABLET.ER PO SCH (08:28)
[2024-11-29] MEDS: ASCORBIC ACID 500 MG TAB PO SCH (08:28)
[2024-11-29] MEDS: FUROSEMIDE 20 MG TAB PO SCH (08:28)
[2024-11-29] MEDS: FAMOTIDINE 20 MG TAB PO SCH (08:28)
[2024-11-29] MEDS: ENOXAPARIN 40 MG/0.4 ML SYRINGE SQ SCH (08:28)
[2024-11-29] MEDS: POTASSIUM CHLORIDE ER 10 MEQ TAB.ER.PRT PO SCH (08:28)
[2024-11-29] MEDS: PANTOPRAZOLE 40 MG TABLET PO SCH (08:28)
[2024-11-29] MEDS: CHOLECALCIFEROL 25 MCG (1000 IU) TABLET PO SCH (08:28)
[2024-11-29] MEDS: LACTOBACILLUS ACIDOPHILUS/PECT 1 EACH CAPSULE PO SCH (08:28)
[2024-11-29] MEDS: ONDANSETRON ODT 4 MG TAB PO PRN (08:29)
[2024-11-29] MEDS: SENNOSIDES-DOCUSATE SODIUM 1 EACH TAB PO SCH (08:29)
[2024-11-29] MEDS: SERTRALINE 25 MG TAB PO SCH (08:29)
[2024-11-29] MEDS: SIMETHICONE 80 MG CHEWABLE PO SCH (08:29)
[2024-11-29] MEDS: polyethylene glycoL 3350 17 GM POWD.PACK PO SCH (08:29)
[2024-11-29] MEDS: DORZOLAMIDE-TIMOLOL 2.23%/0.68 10ML BTL BOTH EYES SCH (08:30)
[2024-11-29] MEDS: BRIMONIDINE TARTRATE 0.2% DROPS 5 ML BTL BOTH EYES SCH (08:30)
[2024-11-29] MEDS: FLUTICASONE NASAL 50MCG/SPRAY 16GM BTL EA NOSTRIL SCH (08:31)
[2024-11-29 15:04] VITALS: BMI 35.5
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
[2024-11-29] MEDS ORDERED: HYDROmorphone 0.5 MG/0.5 ML SYRINGE IVP PRN (16:08)
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
[2024-11-29] MEDS: HYDROcodone/APAP 10-325MG 1 EACH TAB PO PRN (17:27)
[2024-11-29] MEDS: ATORVASTATIN 10 MG TAB PO SCH (20:47)
[2024-11-29] MEDS: MONTELUKAST 10 MG TAB PO SCH (20:47)
[2024-11-29] MEDS: HEPARIN SODIUM,PORCINE 5,000 UNIT/ML 1 ML VIAL SQ SCH (20:47)
[2024-11-29] MEDS: ARTIFICIAL TEARS-HYPROMELLOSE DROPS 15 ML BTL BOTH EYES PRN (20:49)
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
--- NOTE | 2024-11-30 01:43 | HP ---
HISTORY AND PHYSICAL CHIEF COMPLAINT: Abdominal pain. HISTORY OF PRESENT ILLNESS: This is a 74-year-old woman, being followed by Dr. Hughes in the outpatient setting, was complaining of abdominal pain mainly to the right and low in ankle for more than a week and the patient is actually a resident of [facility] secondary to T11 paraplegia. She apparently had an abdominal tumor previously, but the current CT scan showed multiple passes including in the abdomen, pelvis, as well as multiple masses in the liver also indicating metastatic malignancy. The patient is being admitted for further evaluation and treatment. There is no history of any fever, rigors, or chills at this time. Interventional Radiology biopsy, and biopsy of the liver has been recommended by Oncology. PAST MEDICAL HISTORY: Reviewed which include, 1. Paraplegia. 2. History of hypertension. 3. Hyperlipidemia. 4. Rheumatoid arthritis. Rest of the history and rest of the chart are also reviewed. HOME MEDICATIONS: Reviewed include Synthroid. Dose and rest of medications reviewed. ALLERGIES: Iodinated contrast dyes. FAMILY HISTORY: History of colon cancer. SOCIAL HISTORY: The patient lives is [facility]. Wheelchair bound. REVIEW OF SYSTEMS: Fourteen-point review of systems is negative except as mentioned earlier. PHYSICAL EXAMINATION: VITAL SIGNS: Pulse 91, blood pressure 156/84, respirations 18. HEENT: Conjunctivae normal. NECK: No JVD. CARDIOVASCULAR: S1, S2. RESPIRATIONS: Breath sounds diminished at the bases. A few scattered rhonchi. ABDOMEN: Soft. Diffuse tenderness and diffuse mass lesions also present. LEGS: No edema. No swelling. NERVOUS SYSTEM: Diffusely weak. Paraplegia. LABORATORY DATA: WBC 14.8. ASSESSMENT: 1. Abdominal pain with possibly pelvic mass with multiple metastases to the liver and lungs, possibly metastatic malignancy. 2. Elevated WBC with possible acute urinary tract infection. 3. Elevated AST and ALT. 4. Severe abdominal pain. 5. T11 paraplegia. 6. Hypertension. 7. Hyperlipidemia. 8. History of rheumatoid arthritis. 9. History of vancomycin-resistant Enterococcus, Methicillin-resistant Staphylococcus aureus. RECOMMENDATIONS AND DISCUSSION: This is a 74-year-old woman, who presented with multiple complex medical issues, we will monitor the patient closely. I would recommend pain management. Liver biopsy per Interventional Radiology per Hematology, Oncology. Symptomatic treatment of the pain. Empiric antibiotics. Infectious Disease evaluation and cultures. Overall prognosis extremely guarded because of multiple complex medical issues. Further recommendation to follow. See orders for further details. MMODL / IJN: [id number] /
[2024-11-30 10:37] LABS: Basophils # (A) 0.13 X 10*3/uL (0.00-0.10); Eosinophils # (A) 0.18 X 10*3/uL (0.04-0.35); Eosinophils % (A) 1.4 %; HCT 39.8 % (37.2-46.3); HGB 12.3 g/dL (12.0-15.0); Lymphocytes # (A) 1.84 X 10*3/uL (0.90-5.00); Lymphocytes % (A) 14.7 %; MCH 29.7 pg (27.0-32.0); MCHC 30.9 g/dL (32.0-37.0); MCV 96.1 FL (80.0-97.0); Mean Platelet Volume 11.7 FL (9.5-12.2); Monocytes # (A) 0.99 X 10*3/uL (0.20-1.00); Monocytes % (A) 7.9 %; NRBC Per 100 WBC 0 X 10*3/uL (0.00-0.01); Neutrophils # (A) 9.08 X 10*3/uL (1.80-7.70); Neutrophils % (A) 72.6 %; Platelet Count 307 X 10*3/uL (140-440); RBC 4.14 X 10*6/uL (4.10-5.20); RDW 15.9 % (11.5-14.5); WBC 12.52 X 10*3/uL (4.50-10.00)
[2024-11-30 10:55] LABS: BUN/Creat Ratio 30.89 Ratio (12.00-20.00); Blood Urea Nitrogen 27.8 mg/dL (9.0-27.0); Chloride 108 mmol/L (96-109); Glucose 119 mg/dL (70-110); Potassium 4.4 mmol/L (3.5-5.5); Sodium 139 mmol/L (135-145)
[2024-11-30 10:56] LABS: ALT 31 U/L (8-44); AST 36 U/L (13-35); Albumin 3.3 g/dL (3.8-4.9); Albumin/Globulin Ratio 1.22 Ratio (1.60-3.17); Alkaline Phosphatase 196 U/L (41-126); Calcium 8.4 mg/dL (8.7-10.3); Carbon Dioxide 19.5 mmol/L (21.6-31.8); Globulin 2.7 g/dL (1.6-3.3); Total Bilirubin 0.5 mg/dL (0.3-1.2)
[2024-11-30] MEDS: diphenhydrAMINE 25 MG CAP PO ONE (15:48)
[2024-11-30] MEDS: predniSONE 50 MG TAB PO ONE (15:49)
--- NOTE | 2024-11-30 16:54 | P.PN ---
Subjective Progress Note Date: 11/30/24 No acute events overnight. At today's visit patient is reporting persisting right sided abdominal pain. Denies nausea or vomiting. Plan for liver biopsy Tuesday Objective - Vital Signs Vital signs: Vital Signs Temp 97.8 F 11/30/24 07:56 Pulse 84 11/30/24 11:45 Resp 17 11/30/24 07:56 BP 146/76 11/30/24 07:56 Pulse Ox 93 L 11/30/24 07:56 FiO2 Intake & Output 11/29/24 11/30/24 11/30/24 18:59 06:59 18:59 Intake Total 590 Output Total 500 700 Balance -500 -110 Weight 93.894 kg Intake: Oral 590 Output: Urine 500 700 Other: Voiding Method Indwelling Catheter Indwelling Catheter Indwelling Catheter Ileal Conduit (Left) Ileal Conduit (Left) Ileal Conduit (Left) - Constitutional General appearance: Present: no acute distress - EENT Eyes: Present: anicteric sclerae, EOMI ENT: Present: hearing grossly normal - Respiratory Details: breathing is even and unlabored - Cardiovascular Details: skin warm and dry - Gastrointestinal General gastrointestinal: Present: tenderness Localized gastrointestinal: tender: RUQ - Integumentary Integumentary: Absent: cyanotic - Psychiatric Psychiatric: Present: A&O x's 3 - Labs CBC & Chem 7: 11/30/24 06:20 11/30/24 06:20 Labs: Abnormal Lab Results - Last 24 Hours (Table) 11/30/24 11/30/24 Range/Units 06:20 06:20 WBC 12.52 H (4.50-10.00) X 10*3/uL MCHC 30.9 L (32.0-37.0) g/dL RDW 15.9 H (11.5-14.5) % Immature Gran # 0.30 H (0.00-0.04) X 10*3/uL Neutrophils # 9.08 H (1.80-7.70) X 10*3/uL Basophils # 0.13 H (0.00-0.10) X 10*3/uL Carbon Dioxide 19.5 L (21.6-31.8) mmol/L BUN 27.8 H (9.0-27.0) mg/dL BUN/Creatinine Ratio 30.89 H (12.00-20.00) Ratio Glucose 119 H (70-110) mg/dL Calcium 8.4 L (8.7-10.3) mg/dL AST 36 H (13-35) U/L Alkaline Phosphatase 196 H (41-126) U/L Total Protein 6.0 L (6.2-8.2) g/dL Albumin 3.3 L (3.8-4.9) g/dL Albumin/Globulin Ratio 1.22 L (1.60-3.17) Ratio Microbiology - Last 24 Hours (Table) 11/28/24 19:07 Blood Culture - Preliminary Blood 11/28/24 15:36 Urine Culture - Final Urine,Voided Assessment and Plan (1) Abdominal mass Current Visit: Yes Status: Acute Priority: High Code(s): R19.00 - INTRA- ABD AND PELVIC SWELLING, MASS AND LUMP, UNSP SITE SNOMED Code(s): 819800361 (2) Intractable abdominal pain Current Visit: Yes Status: Acute Code(s): R10.9 - UNSPECIFIED ABDOMINAL PAIN SNOMED Code(s): 68395852 (3) Liver mass Current Visit: Yes Status: Acute Priority: High Code(s): R16.0 - HEPATOMEGALY, NOT ELSEWHERE CLASSIFIED SNOMED Code(s): 880186521 (4) Pulmonary nodules Current Visit: Yes Status: Acute Priority: High Code(s): R91.8 - OTHER NONSPECIFIC ABNORMAL FINDING OF LUNG FIELD SNOMED Code(s): 160001309 (5) Abdominal pain Current Visit: Yes Status: Acute Code(s): R10.9 - UNSPECIFIED ABDOMINAL PAIN SNOMED Code(s): 67525147 Plan: Pelvic mass, liver lesions, pulmonary nodules - Patient admitted with complaints of abdominal pain, progressive over the last week. She has had early satiety for "some time". She is not sure of exactly how much weight loss if she has had any. She reports vaginal bleeding since March 2024. -It was discussed with the patient the abnormal findings on imaging. Suspicions for malignant process. Recommendation is for a biopsy. Patient is in agreement with that plan. Orders placed for interventional radiology to do a liver biopsy. Case discussed with Dr. Eduardo, will plan for liver biopsy Tuesday - Will need to obtain CT of the chest to complete staging. Abdominal pain - Pain medications adjusted. MS contin added, with norco prn for breakthrough pain - Medications for prevention of constipation Doctor attests: I performed a history and physical examination of this patient, developed impression and plan of care. Discussed with dictator. I agree with dictators note, documented as a scribe.
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
[2024-11-30] MEDS: MORPHINE SULFATE ER 15 MG TABLET PO SCH (21:02)
--- NOTE | 2024-12-01 03:28 | PN ---
PROGRESS NOTE DATE OF SERVICE: 11/30/2024 SUBJECTIVE: This 74-year-old woman was admitted with abdominal pain with pelvic mass with multiple mets. She is being closely monitored at this time. No chest pain, no palpitation. Liver biopsy is being planned on Tuesday. No chest pain, no palpitation. OBJECTIVE: VITAL SIGNS: Pulse is 80, blood pressure 144/77, and respirations 18. CHEST: Few scattered rhonchi. ABDOMEN: Soft, mild diffuse discomfort. LABORATORY DATA: WBC 12.52. Rest of the labs are noted. Cultures are noted. ASSESSMENT: 1. Abdominal pain with possibly pelvic mass with multiple metastases to the liver and lungs, possibly metastatic malignancy. 2. Elevated WBC, possible acute urinary tract infection. 3. Elevated AST and ALT. 4. Severe abdominal pain. 5. T11 paraplegia. 6. Hypertension. 7. Hyperlipidemia. 8. History of rheumatoid arthritis. 9. 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 RECOMMENDATION: Continue current management and treatment. Otherwise, repeat labs. Closely follow with Infectious Disease. Guarded prognosis. Possible liver biopsy on Tuesday. Further recommendations follow. MMODL / IJN: [id number] /
--- NOTE | 2024-12-01 11:10 | XR ---
EXAMINATION TYPE: XR chest 1V portable DATE OF EXAM: 12/01/2024 COMPARISON: 11/25/2020 CLINICAL INDICATION: Female, 74 years old with history of chf; TECHNIQUE: Single frontal view of the chest is obtained. FINDINGS: There is an interval development of pulmonary vascular congestion and scattered partially c onsolidated airspace opacity. Findings are consistent with diffuse acute cardiopulmonary process eith er CHF or diffuse pneumonia. There is no pneumothorax. There is no large pleural effusion. There are no focal osseous lesions. IMPRESSION: Acute cardiopulmonary disease consistent with CHF or diffuse pneumonia. Short-term follow-up to [facility] is suggested. [facility], , 12/01/2024 11:08 AM
--- NOTE | 2024-12-01 15:44 | P.PN ---
Subjective Progress Note Date: 11/30/24 Principal diagnosis: Reason for follow-up is leukocytosis/UTI Patient is a 74-year-old female with a past medical history significant for hypertension hyperlipidemia reflux rheumatoid arthritis hypothyroidism, paraplegia she did have a history of cystectomy and urostomy presenting to the hospital for evaluation of right flank pain did have a positive elevated white concerning for a UTI. On today's evaluation that is 11/30/2024, Patient is afebrile this morning anurag ent denies having any chest pain shortness of breath or cough, the patient is currently on room air, patient denies any abdominal pain no diarrhea no nausea no vomiting Patient white count is down to 14.89, creatinine is 1.2 Objective - Vital Signs Vital signs: Vital Signs Temp 98.1 F 11/30/24 14:00 Pulse 80 11/30/24 14:00 Resp 18 11/30/24 14:00 BP 144/77 11/30/24 14:00 Pulse Ox 95 11/30/24 14:00 FiO2 Intake & Output 11/29/24 11/30/24 11/30/24 18:59 06:59 18:59 Intake Total 590 Output Total 500 700 Balance -500 -110 Weight 93.894 kg Intake: Oral 590 Output: Urine 500 700 Other: Voiding Method Indwelling Catheter Indwelling Catheter Indwelling Catheter Ileal Conduit (Left) Ileal Conduit (Left) Ileal Conduit (Left) - Exam GENERAL DESCRIPTION: An elderly female lying in bed in no distress RESPIRATORY SYSTEM: Unlabored breathing , decreased breath sounds at bases HEART: S1 S2 regular rate and rhythm , ABDOMEN: Soft , no tenderness EXTREMITIES: No edema feet - Labs CBC & Chem 7: 11/30/24 06:20 11/30/24 06:20 Labs: Abnormal Lab Results - Last 24 Hours (Table) 11/30/24 11/30/24 Range/Units 06:20 06:20 WBC 12.52 H (4.50-10.00) X 10*3/uL MCHC 30.9 L (32.0-37.0) g/dL RDW 15.9 H (11.5-14.5) % Immature Gran # 0.30 H (0.00-0.04) X 10*3/uL Neutrophils # 9.08 H (1.80-7.70) X 10*3/uL Basophils # 0.13 H (0.00-0.10) X 10*3/uL Carbon Dioxide 19.5 L (21.6-31.8) mmol/L BUN 27.8 H (9.0-27.0) mg/dL BUN/Creatinine Ratio 30.89 H (12.00-20.00) Ratio Glucose 119 H (70-110) mg/dL Calcium 8.4 L (8.7-10.3) mg/dL AST 36 H (13-35) U/L Alkaline Phosphatase 196 H (41-126) U/L Total Protein 6.0 L (6.2-8.2) g/dL Albumin 3.3 L (3.8-4.9) g/dL Albumin/Globulin Ratio 1.22 L (1.60-3.17) Ratio Microbiology - Last 24 Hours (Table) 11/28/24 19:07 Blood Culture - Preliminary Blood 11/28/24 15:36 Urine Culture - Final Urine,Voided Assessment and Plan (1) Urinary tract infection Current Visit: Yes Status: Acute Code(s): N39.0 - URINARY TRACT INFECTION, SITE NOT SPECIFIED SNOMED Code(s): 66054525 (2) Leukocytosis Current Visit: Yes Status: Acute Code(s): D72.829 - ELEVATED WHITE BLOOD CELL COUNT, UNSPECIFIED SNOMED Code(s): 077878566 Plan: 1patient is in the hospital right flank pain in this patient who did have elevated white count positive UA concerning for a symptomatic UTI, patient also have have significant abnormality on the CT concerning for abdominal and pulmonary masses concerning for metastatic disease pulmonary oncology following the patient for the same currently waiting for tissue diagnosis 2leukocytosis possibly reactive versus related to possible UTI for now continue with Rocephin his white count is trending down Dictation was produced using [employer] dictation software. please excuse any grammatical, word or spelling errors. Time with Patient: Less than 30
--- NOTE | 2024-12-01 15:45 | P.PN ---
Subjective Progress Note Date: 12/01/24 Principal diagnosis: Reason for follow-up is leukocytosis/UTI Patient is a 74-year-old female with a past medical history significant for hypertension hyperlipidemia reflux rheumatoid arthritis hypothyroidism, paraplegia she did have a history of cystectomy and urostomy presenting to the hospital for evaluation of right flank pain did have a positive elevated white concerning for a UTI. On today's evaluation that is 12/01/2024, the patient continues to be afebrile the patient is breathing slightly comfortably pain to the right flank is slightly decreased intensity some nausea but no vomiting some lower abdominal discomfort no diarrhea. Patient white count is down to 12.52 with a creatinine of 0.9 blood and urine cultures currently pending Objective - Vital Signs Vital signs: Vital Signs Temp 98.1 F 12/01/24 13:48 Pulse 82 12/01/24 13:48 Resp 16 12/01/24 13:48 BP 125/70 12/01/24 13:48 Pulse Ox 95 12/01/24 13:48 FiO2 Intake & Output 11/30/24 12/01/24 12/01/24 18:59 06:59 18:59 Intake Total 780 Output Total 950 425 Balance -170 -425 Intake: Oral 780 Output: Urine 950 425 Other: Voiding Method Indwelling Catheter Indwelling Catheter Ileal Conduit (Left) Ileal Conduit (Left) # Bowel Movements 1 - Exam GENERAL DESCRIPTION: An elderly female lying in bed in no distress RESPIRATORY SYSTEM: Unlabored breathing , decreased breath sounds at bases HEART: S1 S2 regular rate and rhythm , ABDOMEN: Soft , no tenderness EXTREMITIES: No edema feet - Labs CBC & Chem 7: 11/30/24 06:20 11/30/24 06:20 Labs: Microbiology - Last 24 Hours (Table) 11/28/24 19:07 Blood Culture - Preliminary Blood Assessment and Plan (1) Urinary tract infection Current Visit: Yes Status: Acute Code(s): N39.0 - URINARY TRACT INFECTION, SITE NOT SPECIFIED SNOMED Code(s): 36721912 (2) Leukocytosis Current Visit: Yes Status: Acute Code(s): D72.829 - ELEVATED WHITE BLOOD CELL COUNT, UNSPECIFIED SNOMED Code(s): 765891450 Plan: 1patient is in the hospital right flank pain in this patient who did have elevated white count positive UA concerning for a symptomatic UTI, patient also have have significant abnormality on the CT concerning for abdominal and pulmonary masses concerning for metastatic disease pulmonary oncology following the patient for the same currently waiting for tissue diagnosis 2leukocytosis possibly reactive versus related to possible UTI, the patient white count is trending down culture has been negative for resistant pathogen so far continue with empiric Rocephin Dictation was produced using [employer] dictation software. please excuse any grammatical, word or spelling errors. Time with Patient: Less than 30
--- NOTE | 2024-12-01 18:51 | CT ---
EXAMINATION TYPE: CT chest wo con DATE OF EXAM: 12/01/2024 6:40 PM COMPARISON: CT chest dated 06/24/2020. CLINICAL INDICATION: Female, 74 years old with history of mass lesion?; PHH, Mass/lesion. TECHNIQUE: Multiple axial images were obtained through the chest. Sagittal and coronal reformats were created for review. MIP was performed on a separate workstation. CT DLP: 654.4 mGycm, Automated exposure control for dose reduction was used. FINDINGS: Heart size is within normal limits. No pericardial effusion. Coronary artery calcifications. Calcified atherosclerotic disease of the tho racic aorta without aneurysmal dilatation. No definite pathologic mediastinal lymphadenopathy. Dilati on for hilar lymphadenopathy significantly limited due to lack of IV contrast. Innumerable metastatic pulmonary nodules and pulmonary masses throughout the bilateral lungs. No siza ble pleural effusion. No pneumothorax. Largest lesion in the right lower lobe measures 3.3 cm. Larges t lesion in the right upper lobe measures 2.5 cm. Partially visualized bilateral hydronephrosis. Previous cholecystectomy. Multilevel thoracolumbar spi nal degenerative changes. IMPRESSION: Innumerable metastatic pulmonary nodules and pulmonary mass lesions. Oncologic workup recommended. [facility], , 12/01/2024 6:49 PM
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
--- NOTE | 2024-12-01 23:54 | PN ---
PROGRESS NOTE DATE OF SERVICE: 12/01/2024 SUBJECTIVE: This 74-year-old woman was admitted with abdominal pain as well as pelvic mass and multiple METS to the liver, possibly evaluated for possible liver biopsy on Tuesday. The patient also complaining of lung, some shortness of breath and pain. Chest x-ray showed multiple lesions, CHF is a possibility. PAST MEDICAL HISTORY: Reviewed. REVIEW OF SYSTEMS: Fourteen-point review of systems is negative except as mentioned earlier. CURRENT MEDICATIONS: Reviewed. PHYSICAL EXAMINATION: VITAL SIGNS: Pulse is 82, blood pressure 125/70, respirations 16. CHEST: Few scattered rhonchi and crackles. ABDOMEN: Soft, obese, mild diffuse discomfort. NERVOUS SYSTEM: Nonfocal. LABORATORY DATA: WBC 12.52, rest of the labs are noted. The BNP is not available. No recent 2D echo is available. ASSESSMENT: 1. Abdominal pain with possible pelvic mass with multiple METS to the liver and lung, possible metastatic malignancy. 2. Rule out congestive heart failure. 3. Elevated WBC, possible acute urinary tract infection and on empiric antibiotics. 4. Elevated AST, ALT. 5. Severe abdominal pain. 6. T11 paraplegia. 7. Hypertension. 8. Hyperlipidemia. 9. History of rheumatoid arthritis. 10.History of vancomycin-resistant Enterococcus, and Methicillin-resistant Staphylococcus aureus, previous records. RECOMMENDATIONS: Recommend to continue current medications, symptomatic pain management, otherwise empiric antibiotics. I would also recommend repeat 2D echo with Doppler and BNP. Otherwise, CAT scan of the chest also will be ordered to complete the workup. Previously the patient also had only a pelvis, abdomen CAT scan and closely follow with Hematology, Oncology for possible liver biopsy on Tuesday. Prognosis guarded. Further recommendations to follow. MMODL / IJN: [id number] / [facility]ITAL[facility]
[2024-12-02] MEDS ORDERED: IPRATROPIUM-ALBUTEROL 3 ML NEB INHALATION PRN (00:01)
[2024-12-02] MEDS: IPRATROPIUM-ALBUTEROL 3 ML NEB INHALATION SCH (08:52)
[2024-12-02 09:32] LABS: Basophils # (A) 0.11 X 10*3/uL (0.00-0.10); Basophils % (A) 0.8 %; Eosinophils # (A) 0.18 X 10*3/uL (0.04-0.35); Eosinophils % (A) 1.4 %; HCT 37.7 % (37.2-46.3); HGB 11.7 g/dL (12.0-15.0); MCH 30.1 pg (27.0-32.0); MCV 96.9 FL (80.0-97.0); Mean Platelet Volume 11.7 FL (9.5-12.2); Monocytes # (A) 1.13 X 10*3/uL (0.20-1.00); Monocytes % (A) 8.6 %; NRBC Per 100 WBC 0 X 10*3/uL (0.00-0.01); Neutrophils # (A) 8.91 X 10*3/uL (1.80-7.70); Neutrophils % (A) 67.6 %; Platelet Count 260 X 10*3/uL (140-440); RBC 3.89 X 10*6/uL (4.10-5.20); RDW 15.9 % (11.5-14.5); WBC 13.17 X 10*3/uL (4.50-10.00)
[2024-12-02 11:14] LABS: BUN/Creat Ratio 17.25 Ratio (12.00-20.00); Blood Urea Nitrogen 13.8 mg/dL (9.0-27.0); Calcium 8.7 mg/dL (8.7-10.3); Carbon Dioxide 17.8 mmol/L (21.6-31.8); Chloride 105 mmol/L (96-109); Glucose 106 mg/dL (70-110); Potassium 4.2 mmol/L (3.5-5.5); Sodium 136 mmol/L (135-145)
--- NOTE | 2024-12-02 13:51 | CA ---
Transthoracic Echo Report Name: Dulce Ramos Age: 74 Gender: F : 1950 Exam Date: 12/01/2024 17:03 Exam Location: [place] [facility] Ht (in): 64 Wt (lb): 207 Ordering Physician: Bernabe Avila MD Attending/Referring Phys: Dietetics Director Janiya Garza RDCS Procedure CPT: Indications: chf Cardiac Hx: Technical Quality: Fair Contrast 1: Total Dose (mL): Contrast 2: Total Dose (mL): MEASUREMENTS (Male / Female) Normal Values 2D ECHO LV Diastolic Diameter PLAX 2.9 cm 4.2 - 5.9 / 3.9 - 5.3 cm LV Systolic Diameter PLAX 2.1 cm IVS Diastolic Thickness 1.2 cm 0.6 - 1.0 / 0.6 - 0.9 cm LVPW Diastolic Thickness 1.2 cm 0.6 - 1.0 / 0.6 - 0.9 cm LV Relative Wall Thickness 0.8 LVOT Diameter 2.1 cm LV Diastolic Volume MOD BP 61.2 cm??? 67 - 155 / 56 - 104 cm??? LV Systolic Volume MOD BP 23.1 cm??? 22 - 58 / 19 - 49 cm??? LV Ejection Fraction MOD BP 62.3 % >= 55 % LV Cardiac Index MOD BP 1450.6 cm???/min???m??? LV Diastolic Volume MOD 4C 60.5 cm??? LV Systolic Volume MOD 4C 21.2 cm??? LV Ejection Fraction MOD 4C 65.0 % LV Cardiac Index MOD 4C 1499.7 cm???/min???m??? LV Diastolic Length 4C 7.0 cm LV Systolic Length 4C 5.6 cm LV Diastolic Volume MOD 2C 61.2 cm??? LV Systolic Volume MOD 2C 23.7 cm??? LV Ejection Fraction MOD 2C 61.3 % LV Cardiac Index MOD 2C 1427.8 cm???/min???m??? LV Diastolic Length 2C 7.0 cm LV Systolic Length 2C 6.0 cm LA Volume 34.6 cm??? 18 - 58 / 22 - 52 cm??? LA Volume Index 16.5 cm???/m??? 16 - 28 cm???/m??? DOPPLER AV Peak Velocity 241.8 cm/s AV Peak Gradient 23.4 mmHg AV Mean Velocity 176.8 cm/s AV Mean Gradient 13.9 mmHg AV Velocity Time Integral 49.8 cm LVOT Peak Velocity 139.3 cm/s LVOT Peak Gradient 7.8 mmHg LVOT Velocity Time Integral 28.3 cm LVOT Stroke Volume 94.3 cm??? LVOT Stroke Volume Index 47.5 ml/m??? LVOT Cardiac Index 3592.3 cm???/min???m??? AV Area Cont Eq vti 1.9 cm??? AV Area Cont Eq pk 1.9 cm??? MV Area PHT 4.7 cm??? Mitral E Point Velocity 94.4 cm/s Mitral A Point Velocity 103.7 cm/s Mitral E to A Ratio 0.9 MV Deceleration Time 162.7 ms TR Peak Velocity 231.6 cm/s TR Peak Gradient 21.5 mmHg Right Atrial Pressure 5.0 mmHg Pulmonary Artery Systolic Pressu 26.5 mmHg Right Ventricular Systolic Press 26.5 mmHg PV Peak Velocity 87.5 cm/s PV Peak Gradient 3.1 mmHg FINDINGS Left Ventricle Left ventricular ejection fraction is estimated at 60-65 %. Mildly increased septal wall thickness. Mildly increased posterior wall thickness. Left ventricular cavity size normal. No obvious regional wall motion abnormalities. Right Ventricle Normal right ventricular size and function. Right ventricular systolic pressure within normal limits. Right Atrium Normal right atrial size. Left Atrium Normal left atrial size. Mitral Valve Mitral valve thickened. No evidence for mitral valve prolapse. No mitral stenosis. Mild to moderate mitral regurgitation. Aortic Valve Aortic valve not well visualized. Mild aortic stenosis with a peak gradient of 23 mmHg and a mean gradient of 14 mmHg. No aortic regurgitation. Tricuspid Valve Structurally normal tricuspid valve. No tricuspid stenosis. Mild tricuspid regurgitation. Pulmonic Valve Pulmonic valve not well visualized. No pulmonic stenosis. No pulmonic regurgitation. Pericardium No pericardial effusion. Echo free space anterior to the right ventricle likely represents a fat pad. Aorta Normal size aortic root and proximal ascending aorta. CONCLUSIONS Hyperdynamic LV. The ejection fraction 60 to 65% Concentric left ventricular hypertrophy Aortic sclerosis with mild stenosis and mean gradient of 14 mmHg Mild to moderate mitral regurgitation Normal pulmonary artery systolic pressure No pericardial effusion Previewed by: Dr. Bobby Escalera MD (Electronically Signed) Final Date: 02 Dec 2024 13:50
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
[2024-12-02] MEDS: HYDROmorphone 0.5 MG/0.5 ML SYRINGE IVP PRN (15:46)
[2024-12-02] MEDS: ONDANSETRON 4 MG/2 ML VIAL IVP PRN ×2 (15:46→20:21)
--- NOTE | 2024-12-02 17:09 | P.PN ---
Subjective Progress Note Date: 12/02/24 Principal diagnosis: Reason for follow-up is leukocytosis/UTI Patient is a 74-year-old female with a past medical history significant for hypertension hyperlipidemia reflux rheumatoid arthritis hypothyroidism, paraplegia she did have a history of cystectomy and urostomy presenting to the hospital for evaluation of right flank pain did have a positive elevated white concerning for a UTI. On today's evaluation that is 12/02/2024,the patient remains to be afebrile, jonas ed is on room air not requiring supplemental oxygen and does not seem to be in any distress patient was sleepy seem to have issues with nausea and vomiting as reported by the nursing staff. Patient white count of 13.17 creatinine 0.8 blood and urine culture have been negative Objective - Vital Signs Vital signs: Vital Signs Temp 98.2 F 12/02/24 12:48 Pulse 85 12/02/24 12:48 Resp 17 12/02/24 12:48 BP 129/74 12/02/24 12:48 Pulse Ox 95 12/02/24 12:48 FiO2 Intake & Output 12/01/24 12/02/24 12/02/24 18:59 06:59 18:59 Intake Total 1080 Output Total 1000 700 Balance 80 -700 Intake: Oral 1080 Output: Urine 1000 700 Other: Voiding Method Indwelling Catheter Indwelling Catheter Ileal Conduit (Left) Ileal Conduit (Left) # Bowel Movements 0 - Exam GENERAL DESCRIPTION: An elderly female lying in bed in no distress RESPIRATORY SYSTEM: Unlabored breathing , decreased breath sounds at bases HEART: S1 S2 regular rate and rhythm , ABDOMEN: Soft , no tenderness EXTREMITIES: No edema feet - Labs CBC & Chem 7: 12/02/24 04:27 12/02/24 04:27 Labs: Abnormal Lab Results - Last 24 Hours (Table) 12/02/24 12/02/24 Range/Units 04:27 04:27 WBC 13.17 H (4.50-10.00) X 10*3/uL RBC 3.89 L (4.10-5.20) X 10*6/uL Hgb 11.7 L (12.0-15.0) g/dL MCHC 31.0 L (32.0-37.0) g/dL RDW 15.9 H (11.5-14.5) % Immature Gran # 0.34 H (0.00-0.04) X 10*3/uL Neutrophils # 8.91 H (1.80-7.70) X 10*3/uL Monocytes # 1.13 H (0.20-1.00) X 10*3/uL Basophils # 0.11 H (0.00-0.10) X 10*3/uL Carbon Dioxide 17.8 L (21.6-31.8) mmol/L Anion Gap 13.20 H (4.00-12.00) mmol/L Microbiology - Last 24 Hours (Table) 11/28/24 19:07 Blood Culture - Preliminary Blood Assessment and Plan (1) Urinary tract infection Current Visit: Yes Status: Acute Code(s): N39.0 - URINARY TRACT INFECTION, SITE NOT SPECIFIED SNOMED Code(s): 18430963 (2) Leukocytosis Current Visit: Yes Status: Acute Code(s): D72.829 - ELEVATED WHITE BLOOD CELL COUNT, UNSPECIFIED SNOMED Code(s): 440664145 Plan: 1patient is in the hospital right flank pain in this patient who did have elevated white count positive UA concerning for a symptomatic UTI, patient also have have significant abnormality on the CT concerning for abdominal and pulmonary masses concerning for metastatic disease pulmonary oncology following the patient for the same currently waiting for tissue diagnosis 2leukocytosis possibly reactive versus related to possible UTI, the patient white count is slightly up today need to be monitored closely for now continue with Rocephin Dictation was produced using [employer] dictation software. please excuse any grammatical, word or spelling errors. Time with Patient: Less than 30
[2024-12-02] MEDS: PANTOPRAZOLE 40 MG/10 ML VIAL IVP SCH (21:30)
[2024-12-02] MEDS: ZINC OXIDE PASTE (Z-GUARD) 1 APPLIC TOPICAL PRN (21:32)
--- NOTE | 2024-12-03 05:21 | PN ---
PROGRESS NOTE DATE OF SERVICE: 12/02/2024 SUBJECTIVE: This 74-year-old woman was admitted with significant abdominal pain, had some nausea at this time. The patient had multiple lesions including liver and pelvic mass. The patient also had a CAT scan of the chest showed innumerable metastatic pulmonary nodules and pulmonary mass lesion also. Dr. Curtis and Infectious Disease as well as Hematology/Oncology. The patient also complained of nausea, vomiting also. Liver biopsy is planned tomorrow. PAST MEDICAL HISTORY: Reviewed. REVIEW OF SYSTEMS: Fourteen-point review of systems is negative except as mentioned earlier. CURRENT MEDICATIONS: Reviewed. PHYSICAL EXAMINATION: VITAL SIGNS: Pulse is 92, blood pressure 140/67, respirations 18. HEENT: Conjunctivae normal. NECK: No jugular venous distention. CARDIOVASCULAR: S1, S2. RESPIRATIONS: Bilateral scattered rhonchi and crackles. ABDOMEN: Soft, diffuse distention present, tenderness also present. No guarding. No rigidity. LABORATORY DATA: Reviewed. ASSESSMENT: 1. Abdominal pain with possible pelvic mass with multiple metastases to the liver, lung, and possibly metastatic malignancy. 2. Nausea, vomiting, possible acute gastritis. 3. Elevated WBC, possible urinary tract infection, on empiric antibiotics. 4. Elevated AST and ALT. 5. Severe abdominal pain. 6. T11 paraplegia. 7. Hypertension. 8. Hyperlipidemia. 9. History of rheumatoid arthritis. 10.Multiple complex medical issues. 11.Full code. RECOMMENDATIONS: A 74-year-old woman, presented with multiple complex medical issues. I recommend symptomatic treatment. Continue the current medications, pain management. Possible liver biopsy tomorrow. Prognosis is extremely guarded because of multiple complex medical issues. The new CAT scan which I reviewed personally showed multiple pulmonary metastases at this time. MMODL / IJN: [id number] /
--- NOTE | 2024-12-03 07:56 | P.EN ---
Attempted to see Dulce on 12/02/2024 for clinical assessment and review imaging. Upon entering the room, she shook her head and said, "Not today honey". She is due for liver biopsy on 12/03/2024. We will continue to follow. Sunshine Jang MD
--- NOTE | 2024-12-03 11:18 | CT ---
EXAMINATION TYPE: CT biopsy liver DATE OF EXAM: 12/03/2024 10:55 AM COMPARISON : 11/28/2024 CLINICAL INDICATION:Female, 74 years old with history of Liver mass; TECHNIQUE: CT guided percutaneous liver biopsy using coaxial method. One or more CT dose reduction strategies we re utilized during this examination. Total CT dose [address] DLP: 559 mGycm, Automated exposure control for dose reduction was used. FINDINGS: The procedure was explained to the patient including risks of bleeding, bruising, infection, damage t o nearby organs and need for additional therapy including potential surgery. All questions were answ ered and consent was obtained. The previous studies were reviewed. The patient was placed on the CT couch in the supine position. The overlying skin was marked and prepped using sterile method. Timeout was taken per protocol. Follo wing administration of conscious sedation and local anesthesia a 19 gauge coaxial needle was introd uced on the hepatic mass. The coaxial needle tip was directed into the mass with CT guidance. Multi ple 20 gauge coaxial biopsies were then obtained. Touch prep of portions of the specimen were revie wed by pathology department personnel during the procedure to evaluate for cellularity of the samples . The biopsy samples were sent in appropriate containers for lab analysis. Following the procedur e the needle was removed and sterile dressing was applied to the percutaneous site. Post biopsy imag ing demonstrated no evidence of hemorrhage. Patient was taken for postprocedure observation in stable condition. IMPRESSIONS: Status post percutaneous right liver mass mass biopsy as described above. Pathology results pending. [facility], , 12/03/2024 11:16 AM
--- NOTE | 2024-12-03 17:51 | PN ---
PROGRESS NOTE DATE OF SERVICE: 12/03/2024 SUBJECTIVE: This 74-year-old woman, was admitted with abdominal pain and multiple metastatic lesions and had liver biopsy. The final report is pending at this time. No chest pain. No palpitations. The patient is complaining of nausea and abdominal pain. PAST MEDICAL HISTORY: Reviewed. REVIEW OF SYSTEMS: Fourteen-point review of systems is negative except as mentioned earlier. CURRENT MEDICATIONS: Reviewed. PHYSICAL EXAMINATION: VITAL SIGNS: Pulse is 99, blood pressure n respirations 17. HEENT: Conjunctivae normal. CARDIOVASCULAR: S1, S2. RESPIRATIONS: Bilateral scattered rhonchi and crackles. ABDOMEN: Soft, diffuse discomfort. LABORATORY DATA: Reviewed. ASSESSMENT: 1. Abdominal pain with possible pelvic mass with multiple metastases to the liver, lungs, possibly metastatic malignancy status post liver biopsy. 2. Nausea, vomiting, possible acute gastritis. 3. Elevated WBC, possibly urinary tract infection on empiric antibiotics. 4. Elevated AST and ALT. 5. Severe abdominal pain. 6. t11 paraplegia. 7. Hypertension. 8. Hyperlipidemia. 9. History of rheumatoid arthritis. 10.Multiple complex medical issues. 11.FULL CODE. RECOMMENDATIONS: Recommend to continue current management and symptomatic treatment. Otherwise, at this time I would recommend symptomatic treatment. Continue with p.r.n. Dilaudid. Continue with empiric antibiotics. Await biopsy reports. I would also recommend repeat labs. Overall prognosis extremely guarded. We will closely follow with Hematology, Oncology. Further recommendations to follow. MMODL / IJN: [id number] / MTDD
--- NOTE | 2024-12-03 19:22 | P.PN ---
Subjective Progress Note Date: 12/03/24 No acute events overnight. S/p liver biopsy this morning. At today's visit patient is reporting abdominal pain has been well controlled on current pain regimen, but is having pain at biopsy site. Objective - Vital Signs Vital signs: Vital Signs Temp 98.2 F 12/03/24 07:41 Pulse 96 12/03/24 11:09 Resp 18 12/03/24 10:41 BP 117/75 12/03/24 11:09 Pulse Ox 96 12/03/24 10:41 FiO2 Intake & Output 12/02/24 12/03/24 12/03/24 18:59 06:59 18:59 Intake Total 540 1020 Output Total 800 100 Balance -260 920 Intake: Intake, IV Titration 900 Amount Sodium Chloride 0.9% 1, 900 000 ml @ 75 mls/hr IV . [id number] REPLACED BY [facility] Rx#:[id number] Oral 540 120 Output: Urine 800 Emesis 100 Other: Voiding Method Indwelling Catheter Ileal Conduit (Left) Ileal Conduit (Left) Ileal Conduit (Left) - Constitutional General appearance: Present: no acute distress - EENT Eyes: Present: anicteric sclerae, EOMI ENT: Present: hearing grossly normal - Respiratory Details: breathing is even and unlabored - Cardiovascular Details: skin warm and dry - Integumentary Integumentary: Absent: cyanotic, jaundiced - Psychiatric Psychiatric: Present: A&O x's 3 - Labs CBC & Chem 7: 12/02/24 04:27 12/02/24 04:27 Assessment and Plan (1) Abdominal mass Current Visit: Yes Status: Acute Priority: High Code(s): R19.00 - INTRA- ABD AND PELVIC SWELLING, MASS AND LUMP, UNSP SITE SNOMED Code(s): 882598837 (2) Intractable abdominal pain Current Visit: Yes Status: Acute Code(s): R10.9 - UNSPECIFIED ABDOMINAL PAIN SNOMED Code(s): 79200059 (3) Liver mass Current Visit: Yes Status: Acute Priority: High Code(s): R16.0 - HEPATOMEGALY, NOT ELSEWHERE CLASSIFIED SNOMED Code(s): 081525289 (4) Pulmonary nodules Current Visit: Yes Status: Acute Priority: High Code(s): R91.8 - OTHER NONSPECIFIC ABNORMAL FINDING OF LUNG FIELD SNOMED Code(s): 477797672 (5) Abdominal pain Current Visit: Yes Status: Acute Code(s): R10.9 - UNSPECIFIED ABDOMINAL PAIN SNOMED Code(s): 71991005 Plan: Pelvic mass, liver lesions, pulmonary nodules - Patient admitted with complaints of abdominal pain, progressive over the last week. She has had early satiety for "some time". She is not sure of exactly how much weight loss if she has had any. She reports vaginal bleeding since March 2024. -It was discussed with the patient the abnormal findings on imaging. Suspicions for malignant process. Recommendation is for a biopsy. Orders placed for interventional radiology to do a liver biopsy. Case discussed with Dr. Eduardo. - S/p liver biopsy, path pending - CT chest w/o contrast showing innumerable metastatic pulmonary nodules and pulmonary mass lesions Abdominal pain - Pain medications adjusted. MS contin added, with norco prn for breakthrough pain - Medications for prevention of constipation - Reporting good pain control on current regimen Doctor attests: I performed a history and physical examination of this patient, developed impression and plan of care. Discussed with dictator. I agree with dictators note, documented as a scribe.
[2024-12-04 08:11] LABS: Basophils # (A) 0.08 X 10*3/uL (0.00-0.10); Basophils % (A) 0.4 %; Eosinophils # (A) 0.11 X 10*3/uL (0.04-0.35); Eosinophils % (A) 0.6 %; HCT 36.8 % (37.2-46.3); HGB 11.4 g/dL (12.0-15.0); Lymphocytes # (A) 1.63 X 10*3/uL (0.90-5.00); Lymphocytes % (A) 8.8 %; MCH 29.9 pg (27.0-32.0); MCV 96.6 FL (80.0-97.0); Mean Platelet Volume 11.3 FL (9.5-12.2); Monocytes # (A) 1.49 X 10*3/uL (0.20-1.00); NRBC Per 100 WBC 0 X 10*3/uL (0.00-0.01); Neutrophils # (A) 15.07 X 10*3/uL (1.80-7.70); Platelet Count 300 X 10*3/uL (140-440); RBC 3.81 X 10*6/uL (4.10-5.20); WBC 18.61 X 10*3/uL (4.50-10.00)
[2024-12-04 08:20] LABS: ALT 33 U/L (8-44); AST 43 U/L (13-35); Albumin/Globulin Ratio 1.07 Ratio (1.60-3.17); Alkaline Phosphatase 242 U/L (41-126); BUN/Creat Ratio 12.43 Ratio (12.00-20.00); Blood Urea Nitrogen 8.7 mg/dL (9.0-27.0); Calcium 8.2 mg/dL (8.7-10.3); Carbon Dioxide 19.2 mmol/L (21.6-31.8); Chloride 103 mmol/L (96-109); Globulin 2.8 g/dL (1.6-3.3); Glucose 121 mg/dL (70-110); Potassium 3.7 mmol/L (3.5-5.5); Sodium 137 mmol/L (135-145); Total Bilirubin 0.4 mg/dL (0.3-1.2); Total Protein 5.8 g/dL (6.2-8.2)
--- NOTE | 2024-12-04 08:46 | P.PN ---
Subjective Progress Note Date: 12/03/24 Principal diagnosis: Reason for follow-up is leukocytosis/UTI Patient is a 74-year-old female with a past medical history significant for hypertension hyperlipidemia reflux rheumatoid arthritis hypothyroidism, paraplegia she did have a history of cystectomy and urostomy presenting to the hospital for evaluation of right flank pain did have a positive elevated white concerning for a UTI. On today's evaluation that is 12/03/2024, the patient continues to be afebrile, the patient is on room air and breathing comfortably, the Pt denies having any chest pain or cough, the patient right flank pain has decreased complaints of abdominal discomfort did have nausea no diarrhea. Patient white count is slightly up to 13.17 creatinine 0.8 blood and urine culture have been negative so far Objective - Vital Signs Vital signs: Vital Signs Temp 98.2 F 12/03/24 07:41 Pulse 96 12/03/24 11:09 Resp 18 12/03/24 10:41 BP 117/75 12/03/24 11:09 Pulse Ox 96 12/03/24 10:41 FiO2 Intake & Output 12/02/24 12/03/24 12/03/24 18:59 06:59 18:59 Intake Total 540 1020 Output Total 800 100 Balance -260 920 Intake: Intake, IV Titration 900 Amount Sodium Chloride 0.9% 1, 900 000 ml @ 75 mls/hr IV . [id number] [facility] Rx#:[id number] Oral 540 120 Output: Urine 800 Emesis 100 Other: Voiding Method Indwelling Catheter Ileal Conduit (Left) Ileal Conduit (Left) Ileal Conduit (Left) - Exam GENERAL DESCRIPTION: An elderly female lying in bed in no distress RESPIRATORY SYSTEM: Unlabored breathing , decreased breath sounds at bases HEART: S1 S2 regular rate and rhythm , ABDOMEN: Soft , no tenderness EXTREMITIES: No edema feet - Labs CBC & Chem 7: 12/04/24 04:39 12/04/24 04:39 Assessment and Plan (1) Urinary tract infection Current Visit: Yes Status: Acute Code(s): N39.0 - URINARY TRACT INFECTION, SITE NOT SPECIFIED SNOMED Code(s): 24114036 (2) Leukocytosis Current Visit: Yes Status: Acute Code(s): D72.829 - ELEVATED WHITE BLOOD CELL COUNT, UNSPECIFIED SNOMED Code(s): 796364454 Plan: 1patient is in the hospital right flank pain in this patient who did have elevated white count positive UA concerning for a symptomatic UTI, patient also have have significant abnormality on the CT concerning for abdominal and pulmonary masses concerning for metastatic disease pulmonary oncology following the patient for the same currently waiting for tissue diagnosis 2leukocytosis possibly reactive versus related to possible UTI, cultures have been negative so far slight worsening of the white count needed will monitor closely for now continue with empiric Rocephin Dictation was produced using [employer] dictation software. please excuse any grammatical, word or spelling errors. Time with Patient: Less than 30
--- NOTE | 2024-12-04 14:58 | PN ---
PROGRESS NOTE DATE OF SERVICE: 12/04/2024 SUBJECTIVE: This 74-year-old woman, was admitted with possible metastatic malignancies. She is complaining of abdominal pain and nausea. Symptomatic treatment provided. The liver biopsy report is awaited. Multiple consultants are following the patient closely. PHYSICAL EXAMINATION: VITAL SIGNS: Pulse 101, blood pressure 140/70, and respirations 18. CHEST: Few scattered rhonchi. ABDOMEN: Soft, mild diffuse discomfort. EXTREMITIES: Legs, no swelling. LABORATORY DATA: WBC 18, rest of the labs are noted. ASSESSMENT: 1. Abdominal pain with possible pelvic mass and multiple mets to the liver and lungs, possibly metastatic malignancy, status post liver biopsy. 2. Nausea, vomiting, possible acute gastritis. 3. Elevated WBC, possible urinary tract infection on empiric antibiotics. 4. Elevated AST and ALT. 5. Severe abdominal pain. 6. History of T11 paraplegia. 7. Hypertension. 8. Hyperlipidemia. 9. Multiple complex medical issues. 10.FULL CODE. RECOMMENDATIONS: Recommend to continue current management and symptomatic treatment. Closely follow with Hematology, Oncology. Await biopsy report. Prognosis guarded. Further recommendations to follow. MMODL / IJN: [id number] /
[2024-12-04] MEDS: METOCLOPRAMIDE 5 MG/ML 2 ML VIAL IVP SCH (15:47)
--- NOTE | 2024-12-04 16:12 | P.PN ---
Subjective Progress Note Date: 12/04/24 Principal diagnosis: Reason for follow-up is leukocytosis/UTI Patient is a 74-year-old female with a past medical history significant for hypertension hyperlipidemia reflux rheumatoid arthritis hypothyroidism, paraplegia she did have a history of cystectomy and urostomy presenting to the hospital for evaluation of right flank pain did have a positive elevated white concerning for a UTI. On today's evaluation that is 12/04/2024, Patient is afebrile patient is curren tly on room air and denies having any shortness of breath, the patient has been complaining of feeling more nauseated some lower abdominal discomfort no diarrhea. The patient white count is up to 18.61 creatinine 0.7 blood and urine culture have been negative Objective - Vital Signs Vital signs: Vital Signs Temp 98.5 F 12/04/24 12:00 Pulse 95 12/04/24 12:00 Resp 17 12/04/24 12:00 BP 156/78 12/04/24 12:00 Pulse Ox 96 12/04/24 12:00 FiO2 Intake & Output 12/03/24 12/04/24 12/04/24 18:59 06:59 18:59 Intake Total 540 2352.5 Output Total 1200 650 900 Balance -660 1702.5 -900 Weight 93.894 kg Intake: Intake, IV Titration 1812.5 Amount Sodium Chloride 0.9% 1, 1762.5 000 ml @ 75 mls/hr IV . [id number] [facility] Rx#:[id number] cefTRIAXone 1 gm In 50 Sodium Chloride 0.9% 50 ml @ 100 mls/hr IVPB Q24HR [facility] Rx#:[id number] Oral 540 540 Output: Urine 1200 650 Emesis 900 Other: Voiding Method Ileal Conduit (Left) Ileal Conduit (Left) # Bowel Movements 1 - Exam GENERAL DESCRIPTION: An elderly female lying in bed in no distress RESPIRATORY SYSTEM: Unlabored breathing , decreased breath sounds at bases HEART: S1 S2 regular rate and rhythm , ABDOMEN: Soft , no tenderness EXTREMITIES: No edema feet - Labs CBC & Chem 7: 12/04/24 04:39 12/04/24 04:39 Labs: Abnormal Lab Results - Last 24 Hours (Table) 12/04/24 12/04/24 Range/Units 04:39 04:39 WBC 18.61 H (4.50-10.00) X 10*3/uL RBC 3.81 L (4.10-5.20) X 10*6/uL Hgb 11.4 L (12.0-15.0) g/dL Hct 36.8 L (37.2-46.3) % MCHC 31.0 L (32.0-37.0) g/dL RDW 16.0 H (11.5-14.5) % Immature Gran # 0.23 H (0.00-0.04) X 10*3/uL Neutrophils # 15.07 H (1.80-7.70) X 10*3/uL Monocytes # 1.49 H (0.20-1.00) X 10*3/uL Carbon Dioxide 19.2 L (21.6-31.8) mmol/L Anion Gap 14.80 H (4.00-12.00) mmol/L BUN 8.7 L (9.0-27.0) mg/dL Glucose 121 H (70-110) mg/dL Calcium 8.2 L (8.7-10.3) mg/dL AST 43 H (13-35) U/L Alkaline Phosphatase 242 H (41-126) U/L Total Protein 5.8 L (6.2-8.2) g/dL Albumin 3.0 L (3.8-4.9) g/dL Albumin/Globulin Ratio 1.07 L (1.60-3.17) Ratio Microbiology - Last 24 Hours (Table) 11/28/24 19:07 Blood Culture - Final Blood Assessment and Plan (1) Urinary tract infection Current Visit: Yes Status: Acute Code(s): N39.0 - URINARY TRACT INFECTION, SITE NOT SPECIFIED SNOMED Code(s): 82370389 (2) Leukocytosis Current Visit: Yes Status: Acute Code(s): D72.829 - ELEVATED WHITE BLOOD CELL COUNT, UNSPECIFIED SNOMED Code(s): 368326229 Plan: 1patient is in the hospital right flank pain in this patient who did have elevated white count positive UA concerning for a symptomatic UTI, patient also have have significant abnormality on the CT concerning for abdominal and pulmonary masses concerning for metastatic disease pulmonary oncology following the patient for the same currently waiting for tissue diagnosis 2 patient did have worsening of her white count also complaining of more abd ominal discomfort urine culture have been negative we will switch antibiotic therapy to Zosyn and monitor clinical course closely Dictation was produced using [employer] dictation software. please excuse any grammatical, word or spelling errors. Time with Patient: Less than 30
[2024-12-04] MEDS: PIPERACILLIN-TAZOBACTAM 3.375 GM in SODIUM CHLORIDE 0.9% 100 ML IVPB SCH (17:02)
[2024-12-05 08:19] LABS: Basophils # (A) 0.05 X 10*3/uL (0.00-0.10); Basophils % (A) 0.3 %; Eosinophils # (A) 0.06 X 10*3/uL (0.04-0.35); Eosinophils % (A) 0.4 %; HCT 36.5 % (37.2-46.3); HGB 11.2 g/dL (12.0-15.0); Lymphocytes % (A) 9.7 %; MCH 29.9 pg (27.0-32.0); MCHC 30.7 g/dL (32.0-37.0); MCV 97.3 FL (80.0-97.0); Mean Platelet Volume 11.8 FL (9.5-12.2); Monocytes # (A) 1.24 X 10*3/uL (0.20-1.00); Monocytes % (A) 7.6 %; NRBC Per 100 WBC 0 X 10*3/uL (0.00-0.01); Neutrophils # (A) 13.33 X 10*3/uL (1.80-7.70); Neutrophils % (A) 81.1 %; Platelet Count 302 X 10*3/uL (140-440); RBC 3.75 X 10*6/uL (4.10-5.20); WBC 16.42 X 10*3/uL (4.50-10.00)
[2024-12-05 08:54] LABS: ALT 26 U/L (8-44); AST 40 U/L (13-35); Albumin 2.9 g/dL (3.8-4.9); Albumin/Globulin Ratio 1.12 Ratio (1.60-3.17); Alkaline Phosphatase 235 U/L (41-126); Blood Urea Nitrogen 9.1 mg/dL (9.0-27.0); Calcium 8.3 mg/dL (8.7-10.3); Carbon Dioxide 17.8 mmol/L (21.6-31.8); Chloride 104 mmol/L (96-109); Globulin 2.6 g/dL (1.6-3.3); Glucose 101 mg/dL (70-110); Potassium 3.7 mmol/L (3.5-5.5); Sodium 137 mmol/L (135-145); Total Bilirubin 0.5 mg/dL (0.3-1.2); Total Protein 5.5 g/dL (6.2-8.2)
[2024-12-05] MEDS: methylPREDNISolone SOD SUCCI 125 MG/2 ML VIAL IV STA (14:12)
[2024-12-05] MEDS: FAMOTIDINE 20 MG/2 ML VIAL IV STA (14:13)
[2024-12-05] MEDS: diphenhydrAMINE 50 MG/ML 1 ML VIAL IVP STA (14:14)
[2024-12-05] MEDS: HYDROmorphone 0.5 MG/0.5 ML SYRINGE IVP PRN (16:28)
--- NOTE | 2024-12-05 16:30 | CT ---
EXAMINATION TYPE: CT abdomen pelvis w con DATE OF EXAM: 12/05/2024 COMPARISON: 11/28/2024 CLINICAL INDICATION: Female, 74 years old with history of intractable n/v, pelvic mass, metastatic di sease; PHH, Intractable n/v, pelvic mass, metastatic disease. TECHNIQUE: Performed without Oral Contrast and with IV Contrast, patient injected with 100 ml mL of Isovue 300. CT DLP: 2203.[address] CTDI: mGy Automated exposure control for dose reduction was used. FINDINGS: There are multiple innumerable metastatic pulmonary nodules unchanged compared to the prior study. There are multiple stable metastatic deposits within the liver. There is no abnormality of the pancre as spleen, right adrenal gland. There is mild stable left adrenal nodularity. There is surgical absence of the gallbladder. There is no biliary ductal dilatation. There is an ileal loop conduit. The bowel loops are normal in caliber and there is no evidence of obs truction. There is no free intraperitoneal air or fluid. There is a large partially solid partially cystic or necrotic pelvic mass essentially unchanged and p ossibly arising from the uterus or urinary bladder. There is a nonunion of a remote left hip fracture. There are no other focal osseous lesions. IMPRESSION: 1. Stable large pelvic mass consistent with malignancy was indeterminate origin, possibly uterus or u rinary bladder. 2. Ileal loop conduit suggesting surgical absence of the urinary bladder or markedly abnormal urinary bladder. 3. Marked metastatic disease within the visualized lung parenchyma 4. Marked metastatic liver lesions [facility], , 12/05/2024 4:28 PM
[2024-12-05] MEDS: FAMOTIDINE 20 MG TAB PO SCH (16:32)
--- NOTE | 2024-12-05 16:33 | P.PN ---
Subjective Progress Note Date: 12/05/24 Pt having intractable n/v, not tolerating fluids. Anti-emetics are somewhat helping improve symptoms. Reporting pain at biopsy site is improving. She did not take morphine this morning, pain being controlled on norco prn. If pain remains controlled without ER meds, will discuss discontinuing MS contin Objective - Vital Signs Vital signs: Vital Signs Temp 98.3 F 12/05/24 07:51 Pulse 96 12/05/24 07:58 Resp 16 12/05/24 07:51 BP 152/75 12/05/24 07:51 Pulse Ox 94 L 12/05/24 07:51 FiO2 Intake & Output 12/04/24 12/05/24 12/05/24 18:59 06:59 18:59 Intake Total 1080 Output Total 1875 500 Balance -795 -500 Weight 93.894 kg Intake: Oral 1080 Output: Urine 975 500 Emesis 900 Other: Voiding Method Ileal Conduit (Left) Ileal Conduit (Left) Ileal Conduit (Left) # Bowel Movements 1 - Constitutional General appearance: Present: average body habitus, no acute distress - EENT Eyes: Present: anicteric sclerae, EOMI ENT: Present: hearing grossly normal - Respiratory Details: breathing is even and unlabored - Cardiovascular Details: skin warm and dry - Gastrointestinal General gastrointestinal: Present: soft. Absent: tenderness - Integumentary Integumentary: Absent: cyanotic, jaundiced - Psychiatric Psychiatric: Present: A&O x's 3 - Labs CBC & Chem 7: 12/05/24 05:20 12/05/24 05:20 Labs: Abnormal Lab Results - Last 24 Hours (Table) 12/05/24 12/05/24 Range/Units 05:20 05:20 WBC 16.42 H (4.50-10.00) X 10*3/uL RBC 3.75 L (4.10-5.20) X 10*6/uL Hgb 11.2 L (12.0-15.0) g/dL Hct 36.5 L (37.2-46.3) % MCV 97.3 H (80.0-97.0) FL MCHC 30.7 L (32.0-37.0) g/dL RDW 16.0 H (11.5-14.5) % Immature Gran # 0.14 H (0.00-0.04) X 10*3/uL Neutrophils # 13.33 H (1.80-7.70) X 10*3/uL Monocytes # 1.24 H (0.20-1.00) X 10*3/uL Carbon Dioxide 17.8 L (21.6-31.8) mmol/L Anion Gap 15.20 H (4.00-12.00) mmol/L Calcium 8.3 L (8.7-10.3) mg/dL AST 40 H (13-35) U/L Alkaline Phosphatase 235 H (41-126) U/L C-Reactive Protein 21.80 H (0.00-0.80) mg/dL Total Protein 5.5 L (6.2-8.2) g/dL Albumin 2.9 L (3.8-4.9) g/dL Albumin/Globulin Ratio 1.12 L (1.60-3.17) Ratio Assessment and Plan (1) Abdominal mass Current Visit: Yes Status: Acute Priority: High Code(s): R19.00 - INTRA- ABD AND PELVIC SWELLING, MASS AND LUMP, UNSP SITE SNOMED Code(s): 131031467 (2) Intractable abdominal pain Current Visit: Yes Status: Acute Code(s): R10.9 - UNSPECIFIED ABDOMINAL PAIN SNOMED Code(s): 38933534 (3) Liver mass Current Visit: Yes Status: Acute Priority: High Code(s): R16.0 - HEPATOMEGALY, NOT ELSEWHERE CLASSIFIED SNOMED Code(s): 194816783 (4) Pulmonary nodules Current Visit: Yes Status: Acute Priority: High Code(s): R91.8 - OTHER NONSPECIFIC ABNORMAL FINDING OF LUNG FIELD SNOMED Code(s): 958730746 (5) Abdominal pain Current Visit: Yes Status: Acute Code(s): R10.9 - UNSPECIFIED ABDOMINAL PAIN SNOMED Code(s): 13490205 Plan: Pelvic mass, liver lesions, pulmonary nodules - Patient admitted with complaints of abdominal pain, progressive over the last week. She has had early satiety for "some time". She is not sure of exactly how much weight loss if she has had any. She reports vaginal bleeding since March 2024. -It was discussed with the patient the abnormal findings on imaging. Suspicions for malignant process. Recommendation is for a biopsy. Orders placed for interventional radiology to do a liver biopsy. Case discussed with Dr. Eduardo. - S/p liver biopsy, path pending - CT chest w/o contrast showing innumerable metastatic pulmonary nodules and pulmonary mass lesions Abdominal pain - Pain medications adjusted. MS contin added, with norco prn for breakthrough pain - Medications for prevention of constipation - Reporting good pain control on current regimen Intractable N/V: -Anti-emetics adjusted -Continue IV hydration -Pt does report history of bowel obstruction. Will obtain CT AP w/ contrast to further evaluate
[2024-12-06 08:15] LABS: Basophils # (A) 0.04 X 10*3/uL (0.00-0.10); Basophils % (A) 0.2 %; Eosinophils # (A) 0 X 10*3/uL (0.04-0.35); Eosinophils % (A) 0 %; HCT 36.7 % (37.2-46.3); HGB 11.2 g/dL (12.0-15.0); Lymphocytes # (A) 1.02 X 10*3/uL (0.90-5.00); Lymphocytes % (A) 5.6 %; MCH 29.8 pg (27.0-32.0); MCHC 30.5 g/dL (32.0-37.0); MCV 97.6 FL (80.0-97.0); Mean Platelet Volume 11.5 FL (9.5-12.2); Monocytes # (A) 0.32 X 10*3/uL (0.20-1.00); Monocytes % (A) 1.8 %; NRBC Per 100 WBC 0 X 10*3/uL (0.00-0.01); Neutrophils # (A) 16.67 X 10*3/uL (1.80-7.70); Neutrophils % (A) 91.4 %; Platelet Count 334 X 10*3/uL (140-440); RBC 3.76 X 10*6/uL (4.10-5.20); RDW 15.9 % (11.5-14.5); WBC 18.24 X 10*3/uL (4.50-10.00)
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
[2024-12-06 10:00] LABS: ALT 24 U/L (8-44); AST 35 U/L (13-35); Albumin 3.1 g/dL (3.8-4.9); Albumin/Globulin Ratio 1.11 Ratio (1.60-3.17); Alkaline Phosphatase 244 U/L (41-126); BUN/Creat Ratio 16.29 Ratio (12.00-20.00); Blood Urea Nitrogen 11.4 mg/dL (9.0-27.0); Calcium 8.4 mg/dL (8.7-10.3); Carbon Dioxide 20.4 mmol/L (21.6-31.8); Chloride 105 mmol/L (96-109); Globulin 2.8 g/dL (1.6-3.3); Glucose 145 mg/dL (70-110); Magnesium 1.8 mg/dL (1.5-2.4); Sodium 139 mmol/L (135-145); Total Bilirubin 0.4 mg/dL (0.3-1.2); Total Protein 5.9 g/dL (6.2-8.2)
[2024-12-06] MEDS: LORazepam 1 MG/0.5 ML VIAL IV STA (12:13)
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
--- NOTE | 2024-12-06 15:37 | P.PN ---
Subjective Progress Note Date: 12/05/24 Principal diagnosis: Reason for follow-up is leukocytosis/UTI Patient is a 74-year-old female with a past medical history significant for hypertension hyperlipidemia reflux rheumatoid arthritis hypothyroidism, paraplegia she did have a history of cystectomy and urostomy presenting to the hospital for evaluation of right flank pain did have a positive elevated white concerning for a UTI. On today's evaluation that is 12/05/2024, patient has been afebrile, patient is breathing comfortably and is currently on room air, patient denies having any chest pain and cough, patient has been complaining of issues with the nausea and vomiting some lower abdominal discomfort no diarrhea. The patient white count slightly down to 16.42, creatinine 0.7 Objective - Vital Signs Vital signs: Vital Signs Temp 97.6 F 12/05/24 16:00 Pulse 84 12/05/24 16:00 Resp 18 12/05/24 16:00 BP 144/83 12/05/24 16:00 Pulse Ox 94 L 12/05/24 16:00 FiO2 Intake & Output 12/05/24 12/05/24 12/06/24 06:59 18:59 06:59 Intake Total 2180 Output Total 500 800 Balance -500 1380 Intake: Intake, IV Titration 1100 Amount Piperacillin-Tazobactam 3 200 .375 gm In Sodium Chloride 0.9% 100 ml @ 25 mls/hr IVPB Q8HR [facility] Rx# :[id number] Sodium Chloride 0.9% 1, 900 000 ml @ 75 mls/hr IV . [id number] [facility] Rx#:[id number] Oral 1080 Output: Urine 500 800 Other: Voiding Method Ileal Conduit (Left) Ileal Conduit (Left) # Bowel Movements 1 - Exam GENERAL DESCRIPTION: An elderly female lying in bed in no distress RESPIRATORY SYSTEM: Unlabored breathing , decreased breath sounds at bases HEART: S1 S2 regular rate and rhythm , ABDOMEN: Soft , no tenderness EXTREMITIES: No edema feet - Labs CBC & Chem 7: 12/06/24 03:30 12/06/24 03:30 Labs: Abnormal Lab Results - Last 24 Hours (Table) 12/05/24 12/05/24 Range/Units 05:20 05:20 WBC 16.42 H (4.50-10.00) X 10*3/uL RBC 3.75 L (4.10-5.20) X 10*6/uL Hgb 11.2 L (12.0-15.0) g/dL Hct 36.5 L (37.2-46.3) % MCV 97.3 H (80.0-97.0) FL MCHC 30.7 L (32.0-37.0) g/dL RDW 16.0 H (11.5-14.5) % Immature Gran # 0.14 H (0.00-0.04) X 10*3/uL Neutrophils # 13.33 H (1.80-7.70) X 10*3/uL Monocytes # 1.24 H (0.20-1.00) X 10*3/uL Carbon Dioxide 17.8 L (21.6-31.8) mmol/L Anion Gap 15.20 H (4.00-12.00) mmol/L Calcium 8.3 L (8.7-10.3) mg/dL AST 40 H (13-35) U/L Alkaline Phosphatase 235 H (41-126) U/L C-Reactive Protein 21.80 H (0.00-0.80) mg/dL Total Protein 5.5 L (6.2-8.2) g/dL Albumin 2.9 L (3.8-4.9) g/dL Albumin/Globulin Ratio 1.12 L (1.60-3.17) Ratio Assessment and Plan (1) Urinary tract infection Current Visit: Yes Status: Acute Code(s): N39.0 - URINARY TRACT INFECTION, SITE NOT SPECIFIED SNOMED Code(s): 16825090 (2) Leukocytosis Current Visit: Yes Status: Acute Code(s): D72.829 - ELEVATED WHITE BLOOD CELL COUNT, UNSPECIFIED SNOMED Code(s): 823236260 Plan: 1patient is in the hospital right flank pain in this patient who did have elevated white count positive UA concerning for a symptomatic UTI, patient also have have significant abnormality on the CT concerning for abdominal and pulmonary masses concerning for metastatic disease pulmonary oncology following the patient for the same currently waiting for tissue diagnosis 2 patient white count is slightly down today CRP elevated blood culture to be currently pending continue with Kaylynn Dictation was produced using [employer] software. please excuse any g rammatical, word or spelling errors. Time with Patient: Less than 30
--- NOTE | 2024-12-06 15:39 | P.PN ---
Subjective Progress Note Date: 12/06/24 Principal diagnosis: Reason for follow-up is leukocytosis/UTI Patient is a 74-year-old female with a past medical history significant for hypertension hyperlipidemia reflux rheumatoid arthritis hypothyroidism, paraplegia she did have a history of cystectomy and urostomy presenting to the hospital for evaluation of right flank pain did have a positive elevated white concerning for a UTI. On today's evaluation that is 12/06/2024, Patient is afebrile this morning anurag ent denies having any chest pain shortness of breath or cough, the patient is currently on room air, patient has been complaining of nausea and vomiting and did episode of hematemesis no diarrhea. Patient white count is up to 18.24 creatinine 0.7 CRP 21.80 blood culture repeat currently pending repeat CK normal patient with pelvic mass and marked metastatic disease to the lung parenchyma as well as liver lesion Objective - Vital Signs Vital signs: Vital Signs Temp 98.1 F 12/06/24 15:13 Pulse 101 H 12/06/24 15:13 Resp 16 12/06/24 15:13 BP 151/82 12/06/24 15:13 Pulse Ox 96 12/06/24 15:13 FiO2 Intake & Output 12/05/24 12/06/24 12/06/24 18:59 06:59 18:59 Intake Total 2180 1560 Output Total 800 1000 500 Balance 1380 -1000 1060 Weight 93.894 kg Intake: Intake, IV Titration 1100 Amount Piperacillin-Tazobactam 3 200 .375 gm In Sodium Chloride 0.9% 100 ml @ 25 mls/hr IVPB Q8HR [facility] Rx# :[id number] Sodium Chloride 0.9% 1, 900 000 ml @ 75 mls/hr IV . [id number] [facility] Rx#:[id number] Oral 1080 1560 Output: Urine 800 1000 500 Other: Voiding Method Ileal Conduit (Left) Ileal Conduit (Left) Ileal Conduit (Left) # Bowel Movements 1 1 - Exam GENERAL DESCRIPTION: An elderly female lying in bed in no distress RESPIRATORY SYSTEM: Unlabored breathing , decreased breath sounds at bases HEART: S1 S2 regular rate and rhythm , ABDOMEN: Soft , no tenderness EXTREMITIES: No edema feet - Labs CBC & Chem 7: 12/06/24 03:30 12/06/24 03:30 Labs: Abnormal Lab Results - Last 24 Hours (Table) 12/06/24 12/06/24 Range/Units 03:30 03:30 WBC 18.24 H (4.50-10.00) X 10*3/uL RBC 3.76 L (4.10-5.20) X 10*6/uL Hgb 11.2 L (12.0-15.0) g/dL Hct 36.7 L (37.2-46.3) % MCV 97.6 H (80.0-97.0) FL MCHC 30.5 L (32.0-37.0) g/dL RDW 15.9 H (11.5-14.5) % Immature Gran # 0.19 H (0.00-0.04) X 10*3/uL Neutrophils # 16.67 H (1.80-7.70) X 10*3/uL Eosinophils # 0 L (0.04-0.35) X 10*3/uL Carbon Dioxide 20.4 L (21.6-31.8) mmol/L Anion Gap 13.60 H (4.00-12.00) mmol/L Glucose 145 H (70-110) mg/dL Calcium 8.4 L (8.7-10.3) mg/dL Alkaline Phosphatase 244 H (41-126) U/L Total Protein 5.9 L (6.2-8.2) g/dL Albumin 3.1 L (3.8-4.9) g/dL Albumin/Globulin Ratio 1.11 L (1.60-3.17) Ratio Assessment and Plan (1) Urinary tract infection Current Visit: Yes Status: Acute Code(s): N39.0 - URINARY TRACT INFECTION, SITE NOT SPECIFIED SNOMED Code(s): 27816155 (2) Leukocytosis Current Visit: Yes Status: Acute Code(s): D72.829 - ELEVATED WHITE BLOOD CELL COUNT, UNSPECIFIED SNOMED Code(s): 944284986 Plan: 1patient is in the hospital right flank pain in this patient who did have elevated white count positive UA concerning for a symptomatic UTI, patient also have have significant abnormality on the CT concerning for abdominal and pulmonary masses concerning for metastatic disease pulmonary oncology following the patient for the same currently waiting for tissue diagnosis 2 patient leukocytosis more likely related to her metastatic adenocarcinoma of the GI origin as reported by the liver biopsy empirically covered with Zosyn however the culture negative will recommend discontinue antibiotic, general chung usama been consulted for EGD keeping in mind persistent nausea vomiting and did have episode of hematemesis Dictation was produced using [employer] dictation software. please excuse any grammatical, word or spelling errors. Time with Patient: Less than 30
[2024-12-06] MEDS: PROCHLORPERAZINE INJ 10 MG/2 ML VIAL IVP PRN (16:33)
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
[2024-12-07 06:01] LABS: Basophils # (A) 0.08 10*3/uL (0.00-0.10); Basophils % (A) 0.5 %; Eosinophils # (A) 0.05 10*3/uL (0.04-0.35); Eosinophils % (A) 0.3 %; HCT 34.3 % (37.2-46.3); HGB 10.9 g/dL (12.0-15.0); Lymphocytes # (A) 1.83 10*3/uL (0.90-5.00); Lymphocytes % (A) 10.8 %; MCH 30.4 pg (27.0-32.0); MCHC 31.8 g/dL (32.0-37.0); MCV 95.5 fL (80.0-97.0); Mean Platelet Volume 11.1 fL (9.5-12.2); Monocytes # (A) 1.11 10*3/uL (0.20-1.00); Monocytes % (A) 6.6 %; Neutrophils # (A) 13.56 10*3/uL (1.80-7.70); Neutrophils % (A) 80.3 %; Platelet Count 398 10*3/uL (140-440); RBC 3.59 10*6/uL (4.10-5.20); RDW 15.9 % (11.5-14.5); WBC 16.88 10*3/uL (4.50-10.00)
[2024-12-07 06:18] LABS: African American GFR (CKD) 84 (>60 ml/min/1.73 sqM); Anion Gap 10 mmol/L; Blood Urea Nitrogen 19 mg/dL (7-17); Calcium 8.5 mg/dL (8.4-10.2); Carbon Dioxide 23 mmol/L (22-30); Chloride 104 mmol/L (98-107); Glucose 110 mg/dL (74-99); Non-African American GFR(CKD) 73 (>60 ml/min/1.73 sqM); Potassium 3.3 mmol/L (3.5-5.1); Sodium 137 mmol/L (137-145)
[2024-12-07] MEDS: POTASSIUM CHLORIDE ER 20 MEQ TAB.ER PO STA (08:48)
[2024-12-07] MEDS ORDERED: PROPOFOL 10 MG/ML 20 ML VIAL IV ONE (13:38)
[2024-12-07] MEDS ORDERED: LIDOCAINE 2% (PF) 20 MG/ML 5 ML VIAL ONE (13:38)
[2024-12-07] MEDS: IV FLUID CONTINUATION 1,000 ML IV ONE ×2 (13:40→14:06)
[2024-12-07] MEDS: SODIUM CHLORIDE 0.9% 500 ML 500 ML IV ONE (14:06)
--- NOTE | 2024-12-07 15:20 | P.PN ---
Subjective Progress Note Date: 12/07/24 Principal diagnosis: Reason for follow-up is leukocytosis/UTI Patient is a 74-year-old female with a past medical history significant for hypertension hyperlipidemia reflux rheumatoid arthritis hypothyroidism, paraplegia she did have a history of cystectomy and urostomy presenting to the hospital for evaluation of right flank pain did have a positive elevated white concerning for a UTI. On today's evaluation that is 12/07/2024,the patient denies any fever or any ch ills, patient is breathing comfortably on room air, the patient denies chest pain shortness of breath and no significant cough, patient did complain of lower abdominal discomfort and nausea. Patient white count slightly down to 16.88 creatinine 0.80 Objective - Vital Signs Vital signs: Vital Signs Temp 98.0 F 12/07/24 11:24 Pulse 83 12/07/24 11:24 Resp 16 12/07/24 11:24 BP 133/74 12/07/24 11:24 Pulse Ox 92 L 12/07/24 11:24 FiO2 Intake & Output 12/06/24 12/07/24 12/07/24 18:59 06:59 18:59 Intake Total 1560 1120 200 Output Total 500 780 650 Balance 1060 340 -450 Weight 93.894 kg Intake: IV 200 Intake, IV Titration 1000 Amount Piperacillin-Tazobactam 3 100 .375 gm In Sodium Chloride 0.9% 100 ml @ 25 mls/hr IVPB Q8HR [facility] Rx# :[id number] Sodium Chloride 0.9% 1, 900 000 ml @ 75 mls/hr IV . [id number] [facility] Rx#:[id number] Oral 1560 120 Output: Urine 500 600 650 Emesis 180 Other: Voiding Method Ileal Conduit (Left) Ileal Conduit (Left) Ileal Conduit (Left) # Bowel Movements 1 1 - Exam GENERAL DESCRIPTION: An elderly female lying in bed in no distress RESPIRATORY SYSTEM: Unlabored breathing , decreased breath sounds at bases HEART: S1 S2 regular rate and rhythm , ABDOMEN: Soft , no tenderness EXTREMITIES: No edema feet - Labs CBC & Chem 7: 12/07/24 05:28 12/07/24 05:28 Labs: Abnormal Lab Results - Last 24 Hours (Table) 12/07/24 12/07/24 Range/Units 05:28 05:28 WBC 16.88 H (4.50-10.00) 10*3/uL RBC 3.59 L (4.10-5.20) 10*6/uL Hgb 10.9 L (12.0-15.0) g/dL Hct 34.3 L (37.2-46.3) % MCHC 31.8 L (32.0-37.0) g/dL RDW 15.9 H (11.5-14.5) % Immature Gran # 0.25 H (0.00-0.04) 10*3/uL Neutrophils # 13.56 H (1.80-7.70) 10*3/uL Monocytes # 1.11 H (0.20-1.00) 10*3/uL Potassium 3.3 L (3.5-5.1) mmol/L BUN 19 H (7-17) mg/dL Glucose 110 H (74-99) mg/dL Assessment and Plan (1) Urinary tract infection Current Visit: Yes Status: Acute Code(s): N39.0 - URINARY TRACT INFECTION, SITE NOT SPECIFIED SNOMED Code(s): 22267716 (2) Leukocytosis Current Visit: Yes Status: Acute Code(s): D72.829 - ELEVATED WHITE BLOOD CELL COUNT, UNSPECIFIED SNOMED Code(s): 459086207 Plan: 1patient is in the hospital right flank pain in this patient who did have elevated white count positive UA concerning for a symptomatic UTI, patient also have have significant abnormality on the CT concerning for abdominal and pulmonary masses concerning for metastatic disease pulmonary oncology following the patient for the same currently waiting for tissue diagnosis 2 patient leukocytosis more likely related to her metastatic adenocarcinoma of the GI origin as reported by the liver biopsy 3patient is currently empirically covered with Zosyn, white count is trending down we will monitor closely Dictation was produced using [employer] dictation software. please excuse any grammatical, word or spelling errors. Time with Patient: Less than 30
[2024-12-07] MEDS: NYSTATIN 100,000 UNIT/GM POWD 15 GM TOPICAL SCH (16:29)
[2024-12-07] MEDS: LORazepam 1 MG/0.5 ML VIAL IV PRN (23:27)
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
--- NOTE | 2024-12-08 08:36 | P.PN ---
Progress Note - Text Progress Note Date: 12/08/24 No acute events overnight. Patient states she has had some bowel movements but has not passed gas. She feels bloated. EGD performed yesterday showed bile and stool in the stomach which likely represents an obstruction. No ulcers or active bleeding noted. PHYSICAL EXAM: VITAL SIGNS: Reviewed GENERAL: Well-developed in no acute distress. HEENT: No sclera icterus. Extraocular movements grossly intact. Moist buccal mucosa. Head is atraumatic, normocephalic. No nasal drainage. ABDOMEN: Soft. obese. Nondistended. Tenderness right upper quadrant with palpation NEUROLOGIC: Alert and oriented. Cranial nerves II through XII grossly intact. ASSESSMENT: 1. Abdominal pain with intractable nausea and vomiting and concern for coffee- ground emesis with blood clots 2. Large pelvic mass consistent with malignancy and metastatic disease within the lung and metastatic liver lesions 3. Liver lesion status post biopsy that reports metastatic adenocarcinoma consistent with gastrointestinal origin, favor colorectal PLAN: - Continue Nasogastric Tube to Low Intermittent Suction - Ok for Ice Chips and Popsicles - Continue PPI twice daily - Continue monitor hemoglobin - Monitor bowel function - Recommend Palliative Care Consult Diogo Escalante DO [facility] [phone]
[2024-12-08 09:14] LABS: Basophils # (A) 0.15 X 10*3/uL (0.00-0.10); Eosinophils # (A) 0.14 X 10*3/uL (0.04-0.35); Eosinophils % (A) 0.9 %; HCT 35.6 % (37.2-46.3); HGB 10.6 g/dL (12.0-15.0); Lymphocytes # (A) 2.46 X 10*3/uL (0.90-5.00); Lymphocytes % (A) 16.2 %; MCH 29.5 pg (27.0-32.0); MCHC 29.8 g/dL (32.0-37.0); MCV 99.2 FL (80.0-97.0); Mean Platelet Volume 10.9 FL (9.5-12.2); Monocytes # (A) 0.96 X 10*3/uL (0.20-1.00); Monocytes % (A) 6.3 %; NRBC Per 100 WBC 0 X 10*3/uL (0.00-0.01); Platelet Count 395 X 10*3/uL (140-440); RBC 3.59 X 10*6/uL (4.10-5.20); RDW 16.3 % (11.5-14.5); WBC 15.21 X 10*3/uL (4.50-10.00)
[2024-12-08 09:38] LABS: BUN/Creat Ratio 21.14 Ratio (12.00-20.00); Blood Urea Nitrogen 14.8 mg/dL (9.0-27.0); Chloride 109 mmol/L (96-109); Glucose 75 mg/dL (70-110); Magnesium 1.8 mg/dL (1.5-2.4); Potassium 3.5 mmol/L (3.5-5.5); Sodium 143 mmol/L (135-145)
[2024-12-08 09:39] LABS: ALT 18 U/L (8-44); AST 36 U/L (13-35); Albumin/Globulin Ratio 1.11 Ratio (1.60-3.17); Alkaline Phosphatase 197 U/L (41-126); Globulin 2.7 g/dL (1.6-3.3); Total Bilirubin 0.3 mg/dL (0.3-1.2); Total Protein 5.7 g/dL (6.2-8.2)
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
[2024-12-09 09:06] LABS: Basophils # (A) 0.08 X 10*3/uL (0.00-0.10); Basophils % (A) 0.7 %; Eosinophils # (A) 0.05 X 10*3/uL (0.04-0.35); Eosinophils % (A) 0.5 %; HCT 33.8 % (37.2-46.3); HGB 10.3 g/dL (12.0-15.0); Lymphocytes # (A) 1.98 X 10*3/uL (0.90-5.00); Lymphocytes % (A) 18.4 %; MCHC 30.5 g/dL (32.0-37.0); MCV 98.5 FL (80.0-97.0); Mean Platelet Volume 11.1 FL (9.5-12.2); Monocytes # (A) 0.84 X 10*3/uL (0.20-1.00); Monocytes % (A) 7.8 %; NRBC Per 100 WBC 0 X 10*3/uL (0.00-0.01); Neutrophils # (A) 7.44 X 10*3/uL (1.80-7.70); Platelet Count 374 X 10*3/uL (140-440); RBC 3.43 X 10*6/uL (4.10-5.20); RDW 16.3 % (11.5-14.5); WBC 10.78 X 10*3/uL (4.50-10.00)
--- NOTE | 2024-12-09 09:27 | P.PN ---
Subjective Progress Note Date: 12/09/24 Patient seen and examined at bedside. Requesting nasogastric tube to be removed. States abdominal pain is minimal at this time. Objective - Vital Signs Vital signs: Vital Signs Temp 98 F 12/09/24 08:00 Pulse 89 12/09/24 08:00 Resp 16 12/09/24 08:00 BP 182/74 12/09/24 08:00 Pulse Ox 98 12/09/24 08:00 FiO2 Intake & Output 12/08/24 12/09/24 12/09/24 18:59 06:59 18:59 Output Total 1450 1150 Balance -1450 -1150 Output: Gastric Drainage 700 450 Urine 750 700 Other: Voiding Method Ileal Conduit (Left) Ileal Conduit (Left) # Bowel Movements 1 - Constitutional General appearance: Present: cooperative, no acute distress - Gastrointestinal Gastrointestinal Comment(s): Soft, nontender, nondistended, no rebound or guarding - Labs CBC & Chem 7: 12/09/24 04:08 12/08/24 06:03 Labs: Abnormal Lab Results - Last 24 Hours (Table) 12/08/24 12/09/24 Range/Units 06:03 04:08 WBC 10.78 H (4.50-10.00) X 10*3/uL RBC 3.43 L (4.10-5.20) X 10*6/uL Hgb 10.3 L (12.0-15.0) g/dL Hct 33.8 L (37.2-46.3) % MCV 98.5 H (80.0-97.0) FL MCHC 30.5 L (32.0-37.0) g/dL RDW 16.3 H (11.5-14.5) % Immature Gran # 0.39 H (0.00-0.04) X 10*3/uL Carbon Dioxide 18.0 L (21.6-31.8) mmol/L Anion Gap 16.00 H (4.00-12.00) mmol/L BUN/Creatinine Ratio 21.14 H (12.00-20.00) Ratio Calcium 8.0 L (8.7-10.3) mg/dL AST 36 H (13-35) U/L Alkaline Phosphatase 197 H (41-126) U/L Total Protein 5.7 L (6.2-8.2) g/dL Albumin 3.0 L (3.8-4.9) g/dL Albumin/Globulin Ratio 1.11 L (1.60-3.17) Ratio Assessment and Plan Plan: 74-year-old female with metastatic adenocarcinoma. Requesting discontinuing her nasogastric tube. Plan to clamp NG tube today with trial of clear liquids. Nasogastric tube placed secondary to concern for gastroparesis. At this point, no clinical evidence of small bowel obstruction is noted. No plan for acute surgical intervention. Oncology recommendations. Recommend palliative care evaluation.
[2024-12-09 09:58] LABS: BUN/Creat Ratio 16.71 Ratio (12.00-20.00); Blood Urea Nitrogen 11.7 mg/dL (9.0-27.0); Calcium 7.9 mg/dL (8.7-10.3); Carbon Dioxide 20.4 mmol/L (21.6-31.8); Chloride 109 mmol/L (96-109); Glucose 68 mg/dL (70-110); Potassium 3.3 mmol/L (3.5-5.5); Sodium 143 mmol/L (135-145)
--- NOTE | 2024-12-09 14:22 | P.PN ---
Subjective Progress Note Date: 12/08/24 Principal diagnosis: Reason for follow-up is leukocytosis/UTI Patient is a 74-year-old female with a past medical history significant for hypertension hyperlipidemia reflux rheumatoid arthritis hypothyroidism, paraplegia she did have a history of cystectomy and urostomy presenting to the hospital for evaluation of right flank pain did have a positive elevated white concerning for a UTI. On today's evaluation that is 12/08/2024,the patient remains to be afebrile, pa ed is on room air not requiring supplemental oxygen and denies any shortness of breath no chest pain or cough.Patient did have the NG denies any nausea or vomiting still having some abdominal pain no diarrhea constipation. Patient white count is down to 15.1, creatinine 0.7 Objective - Vital Signs Vital signs: Vital Signs Temp 97.5 F L 12/08/24 14:00 Pulse 87 12/08/24 14:00 Resp 17 12/08/24 14:00 BP 165/88 12/08/24 14:00 Pulse Ox 95 12/08/24 14:00 FiO2 Intake & Output 12/07/24 12/08/24 12/08/24 18:59 06:59 18:59 Intake Total 1300 240 Output Total 850 1000 750 Balance 450 -760 -750 Intake: IV 200 Intake, IV Titration 1100 Amount Piperacillin-Tazobactam 3 200 .375 gm In Sodium Chloride 0.9% 100 ml @ 25 mls/hr IVPB Q8HR [facility] Rx# :[id number] Sodium Chloride 0.9% 1, 900 000 ml @ 75 mls/hr IV . [id number] [facility] Rx#:[id number] Oral 240 Output: Gastric Drainage 200 600 400 Urine 650 400 350 Other: Voiding Method Ileal Conduit (Left) Ileal Conduit (Left) Ileal Conduit (Left) # Bowel Movements 1 1 - Exam GENERAL DESCRIPTION: An elderly female lying in bed in no distress RESPIRATORY SYSTEM: Unlabored breathing , decreased breath sounds at bases HEART: S1 S2 regular rate and rhythm , ABDOMEN: Soft , no tenderness EXTREMITIES: No edema feet - Labs CBC & Chem 7: 12/09/24 04:08 12/09/24 04:08 Labs: Abnormal Lab Results - Last 24 Hours (Table) 12/08/24 12/08/24 Range/Units 06:03 06:03 WBC 15.21 H (4.50-10.00) X 10*3/uL RBC 3.59 L (4.10-5.20) X 10*6/uL Hgb 10.6 L (12.0-15.0) g/dL Hct 35.6 L (37.2-46.3) % MCV 99.2 H (80.0-97.0) FL MCHC 29.8 L (32.0-37.0) g/dL RDW 16.3 H (11.5-14.5) % Immature Gran # 0.40 H (0.00-0.04) X 10*3/uL Neutrophils # 11.10 H (1.80-7.70) X 10*3/uL Basophils # 0.15 H (0.00-0.10) X 10*3/uL Carbon Dioxide 18.0 L (21.6-31.8) mmol/L Anion Gap 16.00 H (4.00-12.00) mmol/L BUN/Creatinine Ratio 21.14 H (12.00-20.00) Ratio Calcium 8.0 L (8.7-10.3) mg/dL AST 36 H (13-35) U/L Alkaline Phosphatase 197 H (41-126) U/L Total Protein 5.7 L (6.2-8.2) g/dL Albumin 3.0 L (3.8-4.9) g/dL Albumin/Globulin Ratio 1.11 L (1.60-3.17) Ratio Assessment and Plan (1) Urinary tract infection Current Visit: Yes Status: Acute Code(s): N39.0 - URINARY TRACT INFECTION, SITE NOT SPECIFIED SNOMED Code(s): 37985196 (2) Leukocytosis Current Visit: Yes Status: Acute Code(s): D72.829 - ELEVATED WHITE BLOOD CELL COUNT, UNSPECIFIED SNOMED Code(s): 676394945 Plan: 1patient is in the hospital right flank pain in this patient who did have stefani vated white count positive UA concerning for a symptomatic UTI, patient also have have significant abnormality on the CT concerning for abdominal and pulmonary masses concerning for metastatic disease pulmonary oncology following the patient for the same currently waiting for tissue diagnosis 2 patient leukocytosis more likely related to her metastatic adenocarcinoma of the GI origin, possible source of infection not excluded 3patient white count wanted to addition of Zosyn to continue while waiting for repeat culture to finalize Dictation was produced using [employer] dictation software. please excuse any grammatical, word or spelling errors. Time with Patient: Less than 30
--- NOTE | 2024-12-09 14:23 | P.PN ---
Subjective Progress Note Date: 12/09/24 Principal diagnosis: Reason for follow-up is leukocytosis/UTI Patient is a 74-year-old female with a past medical history significant for hypertension hyperlipidemia reflux rheumatoid arthritis hypothyroidism, paraplegia she did have a history of cystectomy and urostomy presenting to the hospital for evaluation of right flank pain did have a positive elevated white concerning for a UTI. On today's evaluation that is 12/09/2024, the patient continues to be afebrile, the patient is on room air and breathing comfortably, the Pt denies having any chest pain or cough, the patient denies having any nausea vomiting he was tolerating her diet and wanted an NG tube out abdominal pain has decreased no diarrhea. Patient white count is down to 10.78, creatinine 0.7 Objective - Vital Signs Vital signs: Vital Signs Temp 98.3 F 12/09/24 12:38 Pulse 83 12/09/24 12:38 Resp 16 12/09/24 12:38 BP 153/74 12/09/24 12:38 Pulse Ox 95 12/09/24 12:38 FiO2 Intake & Output 12/08/24 12/09/24 12/09/24 18:59 06:59 18:59 Output Total 1450 1150 800 Balance -1450 -1150 -800 Output: Gastric Drainage 700 450 Urine 750 700 800 Other: Voiding Method Ileal Conduit (Left) Ileal Conduit (Left) Ileal Conduit (Left) # Bowel Movements 1 - Exam GENERAL DESCRIPTION: An elderly female lying in bed in no distress RESPIRATORY SYSTEM: Unlabored breathing , decreased breath sounds at bases HEART: S1 S2 regular rate and rhythm , ABDOMEN: Soft , no tenderness EXTREMITIES: No edema feet - Labs CBC & Chem 7: 12/09/24 04:08 12/09/24 04:08 Labs: Abnormal Lab Results - Last 24 Hours (Table) 12/09/24 12/09/24 Range/Units 04:08 04:08 WBC 10.78 H (4.50-10.00) X 10*3/uL RBC 3.43 L (4.10-5.20) X 10*6/uL Hgb 10.3 L (12.0-15.0) g/dL Hct 33.8 L (37.2-46.3) % MCV 98.5 H (80.0-97.0) FL MCHC 30.5 L (32.0-37.0) g/dL RDW 16.3 H (11.5-14.5) % Immature Gran # 0.39 H (0.00-0.04) X 10*3/uL Potassium 3.3 L (3.5-5.5) mmol/L Carbon Dioxide 20.4 L (21.6-31.8) mmol/L Anion Gap 13.60 H (4.00-12.00) mmol/L Glucose 68 L (70-110) mg/dL Calcium 7.9 L (8.7-10.3) mg/dL Assessment and Plan (1) Urinary tract infection Current Visit: Yes Status: Acute Code(s): N39.0 - URINARY TRACT INFECTION, SITE NOT SPECIFIED SNOMED Code(s): 04214716 (2) Leukocytosis Current Visit: Yes Status: Acute Code(s): D72.829 - ELEVATED WHITE BLOOD CELL COUNT, UNSPECIFIED SNOMED Code(s): 596297633 Plan: 1patient is in the hospital right flank pain in this patient who did have elevated white count positive UA concerning for a symptomatic UTI, patient also have have significant abnormality on the CT concerning for abdominal and pulmonary masses concerning for metastatic disease pulmonary oncology following the patient for the same currently waiting for tissue diagnosis 2 patient leukocytosis more likely related to her metastatic adenocarcinoma of the GI origin, possible source of infection not excluded 3patient white count is trending down almost normalized with Zosyn to continue and monitor clinical course closely Dictation was produced using [employer] dictation software. please excuse any grammatical, word or spelling errors. Time with Patient: Less than 30
[2024-12-09] MEDS ORDERED: Potassium Replacement Protocol 1 EACH MISC MISCELLANE PRN (18:03)
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
--- NOTE | 2024-12-10 12:40 | P.PN ---
Subjective Patient sen and evaluated at bedside. Patient doing well, denies nausea or vomiting, having bowel function. Objective - Vital Signs Vital signs: Vital Signs Temp 97.7 F 12/10/24 07:17 Pulse 109 H 12/10/24 08:00 Resp 20 12/10/24 08:00 BP 137/61 12/10/24 07:17 Pulse Ox 95 12/10/24 07:17 FiO2 Intake & Output 12/09/24 12/10/24 12/10/24 18:59 06:59 18:59 Intake Total 540 Output Total 2100 650 Balance -2100 -110 Intake: Oral 540 Output: Gastric Drainage 300 400 Urine 1800 250 Other: Voiding Method Ileal Conduit (Left) Ileal Conduit (Left) Ileal Conduit (Left) # Bowel Movements 1 0 - Exam gen: nad cv: rrr pul: non labored breathing abd: soft, non distended, non tender to palpation - Labs CBC & Chem 7: 12/09/24 04:08 12/09/24 04:08 Assessment and Plan Assessment: 74 yo female w/ gastroparesis -nasogastric tube removed -advanced patient to regular diet -continue to monitor bowel function -if tolerating today, patient ok to discharge from surgical point in am Time with Patient: Less than 30
--- NOTE | 2024-12-10 13:00 | P.OP ---
Date of Procedure: 12/07/24 Preoperative Diagnosis: gi bleed Postoperative Diagnosis: gastroparesis suspected Procedure(s) Performed: egd Anesthesia: local Surgeon: Aiden Kent Pathology: none sent Condition: stable Disposition: PACU Indications for Procedure: gi bleed Operative Findings: greater than 1L of feculent material in stomach with dilation of small bowel. Description of Procedure: Patient was brought to the operating suite where she was positioned in the left lateral decubitus position and a timeout was performed everyone agreed with the information recited next the patient was anesthetized and adult size Olympus scope was used to traverse the mouth esophagus to the stomach and second portion of the duodenum the scope was slowly retracted looking at the mucosa in a circumferential fashion and no signs of recent bleeding or ulcers were seen however there was a large amount of feculent material in the stomach and the majority of the procedure was spent suctioning out all of this material. We suctioned at least greater than 1 L of feculent material the scope was retroflexed and no hiatal hernia was seen the scope was then removed out of the esophagus and mouth intact. The patient tolerated the procedure well and was transported to PACU in stable condition
--- NOTE | 2024-12-10 14:43 | P.PN ---
Subjective Progress Note Date: 12/10/24 Principal diagnosis: Reason for follow-up is leukocytosis/UTI Patient is a 74-year-old female with a past medical history significant for hypertension hyperlipidemia reflux rheumatoid arthritis hypothyroidism, paraplegia she did have a history of cystectomy and urostomy presenting to the hospital for evaluation of right flank pain did have a positive elevated white concerning for a UTI. On today's evaluation that is 12/10/2024, Patient is afebrile patient is curren tly on room air and breathing comfortably no distress the patient was sleepy did not answer any question no significant changes reported by the nursing staff. No new lab has been obtained today blood culture has been negative Objective - Vital Signs Vital signs: Vital Signs Temp 98.1 F 12/10/24 13:33 Pulse 77 12/10/24 13:33 Resp 16 12/10/24 13:33 BP 126/69 12/10/24 13:33 Pulse Ox 95 12/10/24 13:33 FiO2 Intake & Output 12/09/24 12/10/24 12/10/24 18:59 06:59 18:59 Intake Total 540 Output Total 2100 650 Balance -2100 -110 Intake: Oral 540 Output: Gastric Drainage 300 400 Urine 1800 250 Other: Voiding Method Ileal Conduit (Left) Ileal Conduit (Left) Ileal Conduit (Left) # Bowel Movements 1 0 - Exam GENERAL DESCRIPTION: An elderly female lying in bed in no distress RESPIRATORY SYSTEM: Unlabored breathing , decreased breath sounds at bases HEART: S1 S2 regular rate and rhythm , ABDOMEN: Soft , no tenderness EXTREMITIES: No edema feet - Labs CBC & Chem 7: 12/09/24 04:08 12/09/24 04:08 Assessment and Plan (1) Urinary tract infection Current Visit: Yes Status: Acute Code(s): N39.0 - URINARY TRACT INFECTION, SITE NOT SPECIFIED SNOMED Code(s): 20317919 (2) Leukocytosis Current Visit: Yes Status: Acute Code(s): D72.829 - ELEVATED WHITE BLOOD CELL COUNT, UNSPECIFIED SNOMED Code(s): 800831555 Plan: 1patient is in the hospital right flank pain in this patient who did have elevated white count positive UA concerning for a symptomatic UTI, patient also have have significant abnormality on the CT concerning for abdominal and pulmonary masses concerning for metastatic disease pulmonary oncology following the patient for the same currently waiting for tissue diagnosis 2 patient leukocytosis more likely related to her metastatic adenocarcinoma of the GI origin, possible source of infection not excluded 3patient white count is almost normalized as of yesterday no CBC was done today May continue Zosyn and monitor clinical course closely Dictation was produced using [employer] dictation software. please excuse any grammatical, word or spelling errors. Time with Patient: Less than 30
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
[2024-12-11 08:16] LABS: Basophils # (A) 0.06 X 10*3/uL (0.00-0.10); Basophils % (A) 0.8 %; Eosinophils # (A) 0.08 X 10*3/uL (0.04-0.35); HCT 32.1 % (37.2-46.3); HGB 10.1 g/dL (12.0-15.0); Lymphocytes # (A) 1.82 X 10*3/uL (0.90-5.00); MCH 29.8 pg (27.0-32.0); MCHC 31.5 g/dL (32.0-37.0); MCV 94.7 FL (80.0-97.0); Mean Platelet Volume 11.4 FL (9.5-12.2); Monocytes # (A) 0.75 X 10*3/uL (0.20-1.00); Monocytes % (A) 9.5 %; NRBC Per 100 WBC 0 X 10*3/uL (0.00-0.01); Neutrophils % (A) 61.7 %; Platelet Count 364 X 10*3/uL (140-440); RBC 3.39 X 10*6/uL (4.10-5.20); RDW 16.1 % (11.5-14.5); WBC 7.93 X 10*3/uL (4.50-10.00)
[2024-12-11 08:20] LABS: Blood Urea Nitrogen 5.1 mg/dL (9.0-27.0); Carbon Dioxide 22.1 mmol/L (21.6-31.8); Chloride 102 mmol/L (96-109); Glucose 117 mg/dL (70-110); Potassium 3.2 mmol/L (3.5-5.5); Sodium 137 mmol/L (135-145)
--- NOTE | 2024-12-11 11:10 | P.PN ---
Progress Note - Text Progress Note Date: 12/11/24 No acute events overnight. Tolerating diet PHYSICAL EXAM: VITAL SIGNS: Reviewed GENERAL: Well-developed in no acute distress. HEENT: No sclera icterus. Extraocular movements grossly intact. Moist buccal mucosa. Head is atraumatic, normocephalic. No nasal drainage. ABDOMEN: Soft. obese. Nondistended. Tenderness right upper quadrant with palpation NEUROLOGIC: Alert and oriented. Cranial nerves II through XII grossly intact. ASSESSMENT: 1. Abdominal pain with intractable nausea and vomiting and concern for coffee- ground emesis with blood clots 2. Large pelvic mass consistent with malignancy and metastatic disease within the lung and metastatic liver lesions 3. Liver lesion status post biopsy that reports metastatic adenocarcinoma consistent with gastrointestinal origin, favor colorectal 4. Gastroparesis PLAN: - Regular Diet - No acute surgical intervention planned Diogo Escalante DO [facility] [phone]
[2024-12-11] MEDS: bisacodyL 10 MG SUPP RECTAL SCH (11:57)
--- NOTE | 2024-12-11 15:08 | P.PN ---
Subjective Progress Note Date: 12/11/24 Principal diagnosis: Reason for follow-up is leukocytosis/UTI Patient is a 74-year-old female with a past medical history significant for hypertension hyperlipidemia reflux rheumatoid arthritis hypothyroidism, paraplegia she did have a history of cystectomy and urostomy presenting to the hospital for evaluation of right flank pain did have a positive elevated white concerning for a UTI. On today's evaluation that is 12/11/2024, patient has been afebrile, patient is breathing comfortably and is currently on room air, patient denies having any chest pain and cough, patient has been complaining of feeling nauseated and lower abdominal discomfort no bowel movement. Patient white count normalized to 7.93 creatinine 0.6 Objective - Vital Signs Vital signs: Vital Signs Temp 98.3 F 12/11/24 07:39 Pulse 87 12/11/24 07:39 Resp 16 12/11/24 07:39 BP 132/69 12/11/24 07:39 Pulse Ox 94 L 12/11/24 07:39 FiO2 Intake & Output 12/10/24 12/11/24 12/11/24 18:59 06:59 18:59 Intake Total 480 540 Output Total 800 300 Balance -320 240 Intake: Oral 480 540 Output: Urine 800 300 Other: Voiding Method Ileal Conduit (Left) Ileal Conduit (Left) Ileal Conduit (Left) - Exam GENERAL DESCRIPTION: An elderly female lying in bed in no distress RESPIRATORY SYSTEM: Unlabored breathing , decreased breath sounds at bases HEART: S1 S2 regular rate and rhythm , ABDOMEN: Soft , no tenderness EXTREMITIES: No edema feet - Labs CBC & Chem 7: 12/11/24 04:20 12/11/24 04:20 Labs: Abnormal Lab Results - Last 24 Hours (Table) 12/11/24 12/11/24 Range/Units 04:20 04:20 RBC 3.39 L (4.10-5.20) X 10*6/uL Hgb 10.1 L (12.0-15.0) g/dL Hct 32.1 L (37.2-46.3) % MCHC 31.5 L (32.0-37.0) g/dL RDW 16.1 H (11.5-14.5) % Immature Gran # 0.32 H (0.00-0.04) X 10*3/uL Potassium 3.2 L (3.5-5.5) mmol/L Anion Gap 12.90 H (4.00-12.00) mmol/L BUN 5.1 L (9.0-27.0) mg/dL BUN/Creatinine Ratio 8.50 L (12.00-20.00) Ratio Glucose 117 H (70-110) mg/dL Calcium 8.0 L (8.7-10.3) mg/dL Assessment and Plan (1) Urinary tract infection Current Visit: Yes Status: Acute Code(s): N39.0 - URINARY TRACT INFECTION, SITE NOT SPECIFIED SNOMED Code(s): 10955455 (2) Leukocytosis Current Visit: Yes Status: Acute Code(s): D72.829 - ELEVATED WHITE BLOOD CELL COUNT, UNSPECIFIED SNOMED Code(s): 712901236 Plan: 1patient is in the hospital right flank pain in this patient who did have elevated white count positive UA concerning for a symptomatic UTI, patient also have have significant abnormality on the CT concerning for abdominal and pulmonary masses concerning for metastatic disease pulmonary oncology following the patient for the same currently waiting for tissue diagnosis 2 patient leukocytosis more likely related to her metastatic adenocarcinoma of the GI origin, possible source of infection not excluded 3patient white count has normalized we will continue with Zosyn await further recommendation from oncology care discussed with the nursing staff Dictation was produced using [employer] dictation software. please excuse any grammatical, word or spelling errors. Time with Patient: Less than 30
[2024-12-11] MEDS: POTASSIUM CHLORIDE ER 20 MEQ TAB.ER PO SCH ×2 (16:03→21:40)
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
[2024-12-11] MEDS ORDERED: Magnesium Replacement Protocol 1 EACH MISC MISCELLANE PRN (20:24)
[2024-12-11] MEDS ORDERED: Potassium Replacement Protocol 1 EACH MISC MISCELLANE PRN (20:25)
--- NOTE | 2024-12-11 20:42 | P.PN ---
Subjective Progress Note Date: 12/11/24 Pt reports having increased abd pain and nausea today since advancement of diet. EGD showed > 1L of feculent material in stomach and dilation of small bowel. Objective - Vital Signs Vital signs: Vital Signs Temp 97.8 F 12/11/24 19:12 Pulse 95 12/11/24 19:12 Resp 18 12/11/24 19:12 BP 130/55 12/11/24 19:12 Pulse Ox 93 L 12/11/24 19:12 FiO2 Intake & Output 12/11/24 12/11/24 12/12/24 06:59 18:59 06:59 Intake Total 540 Output Total 300 450 Balance 240 -450 Weight 93.894 kg Intake: Oral 540 Output: Urine 300 450 Other: Voiding Method Ileal Conduit (Left) Ileal Conduit (Left) - Constitutional General appearance: Present: average body habitus, no acute distress - EENT Eyes: Present: anicteric sclerae, EOMI ENT: Present: hearing grossly normal - Respiratory Details: breathing is even and unlabored - Cardiovascular Details: skin warm and dry - Gastrointestinal General gastrointestinal: Present: soft - Integumentary Integumentary: Absent: cyanotic - Musculoskeletal Musculoskeletal: Present: generalized weakness - Psychiatric Psychiatric: Present: A&O x's 3 - Labs CBC & Chem 7: 12/11/24 04:20 12/11/24 18:40 Labs: Abnormal Lab Results - Last 24 Hours (Table) 12/11/24 12/11/24 12/11/24 Range/Units 04:20 04:20 18:40 RBC 3.39 L (4.10-5.20) X 10*6/uL Hgb 10.1 L (12.0-15.0) g/dL Hct 32.1 L (37.2-46.3) % MCHC 31.5 L (32.0-37.0) g/dL RDW 16.1 H (11.5-14.5) % Immature Gran # 0.32 H (0.00-0.04) X 10*3/uL Potassium 3.2 L 2.9 L (3.5-5.5) mmol/L Anion Gap 12.90 H (4.00-12.00) mmol/L BUN 5.1 L (9.0-27.0) mg/dL BUN/Creatinine Ratio 8.50 L (12.00-20.00) Ratio Glucose 117 H (70-110) mg/dL Calcium 8.0 L (8.7-10.3) mg/dL Assessment and Plan (1) Abdominal mass Current Visit: Yes Status: Acute Priority: High Code(s): R19.00 - INTRA- ABD AND PELVIC SWELLING, MASS AND LUMP, UNSP SITE SNOMED Code(s): 612018876 (2) Intractable abdominal pain Current Visit: Yes Status: Acute Code(s): R10.9 - UNSPECIFIED ABDOMINAL PAIN SNOMED Code(s): 64945587 (3) Liver mass Current Visit: Yes Status: Acute Priority: High Code(s): R16.0 - HEPATOMEG BENEDICT, NOT ELSEWHERE CLASSIFIED SNOMED Code(s): 034849147 (4) Pulmonary nodules Current Visit: Yes Status: Acute Priority: High Code(s): R91.8 - OTHER NONSPECIFIC ABNORMAL FINDING OF LUNG FIELD SNOMED Code(s): 067502475 (5) Abdominal pain Current Visit: Yes Status: Acute Code(s): R10.9 - UNSPECIFIED ABDOMINAL PAIN SNOMED Code(s): 71776034 Plan: Metastatic colon adenocarcinoma - Patient admitted with complaints of abdominal pain, progressive over the last week. She has had early satiety for "some time". She is not sure of exactly how much weight loss if she has had any. She reports vaginal bleeding since March 2024. -It was discussed with the patient the abnormal findings on imaging. Suspicions for malignant process - S/p liver biopsy, path positive for GI primary, favoring colorectal. Molecular testing has been requested - CT chest w/o contrast showing innumerable metastatic pulmonary nodules and pulmonary mass lesions -Due to poor PS would not recommend systemic chemo, however, will await molecular testing, if MSI high could be candidate for immunotherapy Abdominal pain - Pain medications adjusted. MS contin added, with norco prn for breakthrough pain - Medications for prevention of constipation - Reporting good pain control on current regimen Intractable N/V: -Anti-emetics adjusted -S/p EGD, showing > 1L of feculent material in stomach with dilation of small bowel. Concern for suspected gastroporesis -Due to metastati disease, concern for peritoneal carcinomatosis and possible frozen bowel contributing to patients symptoms. Spoke with surgery team regarding considering exp lap for further evaluation. Not recommending further surgical evaluation at this time -Due to increased abd pain and nausea with advancement of diet, will switch to clear liquid diet
[2024-12-11] MEDS: MAGNESIUM SULFATE-D5W PMX 1 GM in DEXTROSE/WATER 1 100ML.BAG IVPB ONE (23:23)
[2024-12-12 05:30] LABS: Basophils # (A) 0.07 10*3/uL (0.00-0.10); Basophils % (A) 0.8 %; Eosinophils # (A) 0.06 10*3/uL (0.04-0.35); Eosinophils % (A) 0.7 %; HCT 33.1 % (37.2-46.3); HGB 10.6 g/dL (12.0-15.0); Lymphocytes # (A) 1.92 10*3/uL (0.90-5.00); MCH 30.1 pg (27.0-32.0); Mean Platelet Volume 11.2 fL (9.5-12.2); Monocytes # (A) 0.78 10*3/uL (0.20-1.00); Monocytes % (A) 9.4 %; Neutrophils # (A) 5.24 10*3/uL (1.80-7.70); Platelet Count 396 10*3/uL (140-440); RBC 3.52 10*6/uL (4.10-5.20); WBC 8.33 10*3/uL (4.50-10.00)
[2024-12-12 05:56] LABS: African American GFR (CKD) >90 (>60 ml/min/1.73 sqM); Anion Gap 8 mmol/L; Blood Urea Nitrogen 7 mg/dL (7-17); Calcium 8.8 mg/dL (8.4-10.2); Carbon Dioxide 27 mmol/L (22-30); Chloride 100 mmol/L (98-107); Glucose 102 mg/dL (74-99); Non-African American GFR(CKD) 88 (>60 ml/min/1.73 sqM); Potassium 3.4 mmol/L (3.5-5.1); Sodium 135 mmol/L (137-145)
[2024-12-12] MEDS: POTASSIUM CHLORIDE ER 20 MEQ TAB.ER PO SCH (06:48)
[2024-12-12] MEDS ORDERED: BARIUM SULFATE 2% - 450 ML ORAL.SUSP BOTTLE PO PRN (11:11)
--- NOTE | 2024-12-12 11:15 | P.PN ---
Subjective Progress Note Date: 12/12/24 SURGICAL PROGRESS NOTE CHIEF COMPLAINT: Abdominal pain HISTORY OF PRESENT ILLNESS: Patient reports increased abdominal pain during the night with episode of vomiting yesterday and this morning. She reports feeling more bloated and distended. The emesis was clearish in color. She did receive a suppository yesterday with a very tiny amount of liquid stool. Afebrile. WBC 8.33 PHYSICAL EXAM: VITAL SIGNS: Reviewed. GENERAL: Well-developed in no acute distress. ABDOMEN: Distended. Tenderness palpation mid abdomen. Obese. Urostomy in place. NEUROLOGIC: Alert and oriented. Cranial nerves II through XII grossly intact. ASSESSMENT: 1. Abdominal pain with intractable nausea and vomiting and concern for coffee- ground emesis with blood clots 2. Large pelvic mass consistent with malignancy and metastatic disease within the lung and metastatic liver lesions 3. Liver lesion status post biopsy that reports metastatic adenocarcinoma consistent with gastrointestinal origin, favor colorectal 4. Gastroparesis suspected on EGD PLAN: - Due to increased abdominal pain, vomiting and abdominal distention CT scan abdomen pelvis ordered - Educated patient to go slowly with the liquid diet. She may need to be placed back to NPO. Physician Hat [employer] note has been reviewed by physician. Signing provider agrees with the documented findings, assessment, and plan of care. Objective - Vital Signs Vital signs: Vital Signs Temp 97.9 F 12/12/24 07:53 Pulse 90 12/12/24 07:53 Resp 20 12/12/24 07:53 BP 129/71 12/12/24 07:53 Pulse Ox 92 L 12/12/24 07:53 FiO2 Intake & Output 12/11/24 12/12/24 12/12/24 18:59 06:59 18:59 Intake Total 300 Output Total 450 Balance -450 300 Weight 93.894 kg Intake: Oral 300 Output: Urine 450 Other: Voiding Method Ileal Conduit (Left) Ileal Conduit (Left) - Labs CBC & Chem 7: 12/12/24 04:45 12/12/24 04:45 Labs: Abnormal Lab Results - Last 24 Hours (Table) 12/11/24 12/12/24 12/12/24 Range/Units 18:40 04:45 04:45 RBC 3.52 L (4.10-5.20) 10*6/uL Hgb 10.6 L (12.0-15.0) g/dL Hct 33.1 L (37.2-46.3) % RDW 16.0 H (11.5-14.5) % Immature Gran # 0.26 H (0.00-0.04) 10*3/uL Sodium 135 L (137-145) mmol/L Potassium 2.9 L 3.4 L (3.5-5.1) mmol/L Glucose 102 H (74-99) mg/dL
[2024-12-12] MEDS: FAMOTIDINE 20 MG/2 ML VIAL IV ONE (11:35)
[2024-12-12] MEDS: diphenhydrAMINE 50 MG/ML 1 ML VIAL IVP ONE (11:36)
[2024-12-12] MEDS: methylPREDNISolone SOD SUCCI 125 MG/2 ML VIAL IV ONE (11:36)
--- NOTE | 2024-12-12 13:19 | CT ---
EXAMINATION TYPE: CT abdomen pelvis w con DATE OF EXAM: 12/12/2024 COMPARISON: 125 CLINICAL INDICATION: Female, 74 years old with history of abdominal pain, distention, vomting; PHH, A BD PAIN/DISTENSION TECHNIQUE: Performed without Oral Contrast and with IV Contrast, patient injected with 100 mL of Isovue 300. CT DLP: [address] CTDI: mGy Automated exposure control for dose reduction was used. FINDINGS: There is no significant interval change in the large pelvic neoplasm, the marked pulmonary metastasis in the lower lobes the lungs and metastasis within the liver. There is no change in the nonobstructing left renal calcifications. There are renal cysts but no naomy d renal masses. Caliber of the abdominal aorta is normal. There is no retroperitoneal adenopathy. The bowel loops are normal in caliber. No dilatation or obstruction. There is no free intraperitoneal air or fluid. There is no change in the small ventral hernia containing nonobstructed and nonstrangu lated bowel loops. No change in the chronic nonhealed left pelvic fracture with deformity. IMPRESSION: 1. 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 2. No acute changes compared to the prior study. No new abnormalities [facility], , 12/12/2024 1:17 PM
[2024-12-12] MEDS: METOCLOPRAMIDE 5 MG/ML 2 ML VIAL IVP SCH (14:26)
--- NOTE | 2024-12-12 19:14 | P.PN ---
Subjective Progress Note Date: 12/12/24 Pt reports she had 1 episode of vomiting this morning. But tolerated popsicle after without n/v or abd pain. CT AP has been ordered by surgery team. Pt reporting abd distention Objective - Vital Signs Vital signs: Vital Signs Temp 97.9 F 12/12/24 07:53 Pulse 90 12/12/24 07:53 Resp 20 12/12/24 07:53 BP 129/71 12/12/24 07:53 Pulse Ox 92 L 12/12/24 07:53 FiO2 Intake & Output 12/11/24 12/12/24 12/12/24 18:59 06:59 18:59 Intake Total 300 Output Total 450 Balance -450 300 Weight 93.894 kg Intake: Oral 300 Output: Urine 450 Other: Voiding Method Ileal Conduit (Left) Ileal Conduit (Left) - Constitutional General appearance: Present: no acute distress - EENT Eyes: Present: anicteric sclerae, EOMI ENT: Present: hearing grossly normal - Respiratory Details: breathing is even and unlabored - Cardiovascular Details: skin warm and dry - Gastrointestinal General gastrointestinal: Present: distended. Absent: tenderness - Integumentary Integumentary: Absent: cyanotic, jaundiced - Psychiatric Psychiatric: Present: A&O x's 3 - Labs CBC & Chem 7: 12/12/24 04:45 12/12/24 16:18 Labs: Abnormal Lab Results - Last 24 Hours (Table) 12/11/24 12/12/24 12/12/24 Range/Units 18:40 04:45 04:45 RBC 3.52 L (4.10-5.20) 10*6/uL Hgb 10.6 L (12.0-15.0) g/dL Hct 33.1 L (37.2-46.3) % RDW 16.0 H (11.5-14.5) % Immature Gran # 0.26 H (0.00-0.04) 10*3/uL Sodium 135 L (137-145) mmol/L Potassium 2.9 L 3.4 L (3.5-5.1) mmol/L Glucose 102 H (74-99) mg/dL Assessment and Plan (1) Abdominal mass Current Visit: Yes Status: Acute Priority: High Code(s): R19.00 - INTRA- ABD AND PELVIC SWELLING, MASS AND LUMP, UNSP SITE SNOMED Code(s): 069320829 (2) Intractable abdominal pain Current Visit: Yes Status: Acute Code(s): R10.9 - UNSPECIFIED ABDOMINAL PAIN SNOMED Code(s): 29717667 (3) Liver mass Current Visit: Yes Status: Acute Priority: High Code(s): R16.0 - HEPATOMEGALY, NOT ELSEWHERE CLASSIFIED SNOMED Code(s): 804028271 (4) Pulmonary nodules Current Visit: Yes Status: Acute Priority: High Code(s): R91.8 - OTHER NONSPECIFIC ABNORMAL FINDING OF LUNG FIELD SNOMED Code(s): 160545163 (5) Abdominal pain Current Visit: Yes Status: Acute Code(s): R10.9 - UNSPECIFIED ABDOMINAL PAIN SNOMED Code(s): 35902404 Plan: Metastatic colon adenocarcinoma - Patient admitted with complaints of abdominal pain, progressive over the last week. She has had early satiety for "some time". She is not sure of exactly how much weight loss if she has had any. She reports vaginal bleeding since 2023. -It was discussed with the patient the abnormal findings on imaging. Suspicions for malignant process - S/p liver biopsy, path positive for GI primary, favoring colorectal. Molecular testing has been requested - CT chest w/o contrast showing innumerable metastatic pulmonary nodules and pulmonary mass lesions -Due to poor PS would not recommend systemic chemo, however, will await molecular testing, if MSI high could be candidate for immunotherapy Diagnosis and POC discussed with pt, all questions and concerns were addressed Abdominal pain - Pain medications adjusted. MS contin added, with norco prn for breakthrough pain - Medications for prevention of constipation - Reporting adequate pain control on current regimen Intractable N/V: -Anti-emetics adjusted -S/p EGD, showing > 1L of feculent material in stomach with dilation of small bowel. Concern for suspected gastroporesis. Scheduled reglan started -Due to metastatic disease, concern for peritoneal carcinomatosis and possible frozen bowel contributing to patients symptoms. Spoke with surgery team regarding considering exp lap for further evaluation. Not recommending further surgical evaluation at this time -Patient experienced increased abd pain and nausea with advancement of diet, restarted clear liquid diet. Tolerating clear liquid better, but still having n/v and abd pain -Repeat CT AP ordered by surgery team -Due to abdominal distention, will placed IR consult for paracentesis. Fluid studies and cytology ordered
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
--- NOTE | 2024-12-13 12:12 | US ---
EXAMINATION TYPE: US abdomen limited DATE OF EXAM: 12/13/2024 Radiological Health Specialist notes: Exam done portable COMPARISON: NONE CLINICAL INDICATION: Female, 74 years old with history of ascites; distention TECHNIQUE: Grayscale imaging of the 4 abdominal quadrants for ascites. FINDINGS AND IMPRESSION: No abdominal ascites seen [facility] Landon Burciaga, Workstation: [employer], 12/13/2024 12:09 PM
--- NOTE | 2024-12-13 13:50 | P.PN ---
Subjective Progress Note Date: 12/12/24 Principal diagnosis: Reason for follow-up is leukocytosis/UTI Patient is a 74-year-old female with a past medical history significant for hypertension hyperlipidemia reflux rheumatoid arthritis hypothyroidism, paraplegia she did have a history of cystectomy and urostomy presenting to the hospital for evaluation of right flank pain did have a positive elevated white concerning for a UTI. On today's evaluation that is 12/12/2024, Patient is afebrile this morning anurag ent denies having any chest pain shortness of breath or cough, the patient is currently on room air, patient still complaining of some mild lower abdominal discomfort no bowel movement Patient white count is 8.33, creatinine 0.63 Objective - Vital Signs Vital signs: Vital Signs Temp 97.9 F 12/12/24 07:53 Pulse 90 12/12/24 07:53 Resp 20 12/12/24 07:53 BP 129/71 12/12/24 07:53 Pulse Ox 92 L 12/12/24 07:53 FiO2 Intake & Output 12/11/24 12/12/24 12/12/24 18:59 06:59 18:59 Intake Total 300 Output Total 450 Balance -450 300 Weight 93.894 kg Intake: Oral 300 Output: Urine 450 Other: Voiding Method Ileal Conduit (Left) Ileal Conduit (Left) - Exam GENERAL DESCRIPTION: An elderly female lying in bed in no distress RESPIRATORY SYSTEM: Unlabored breathing , decreased breath sounds at bases HEART: S1 S2 regular rate and rhythm , ABDOMEN: Soft , no tenderness EXTREMITIES: No edema feet - Labs CBC & Chem 7: 12/12/24 04:45 12/12/24 16:18 Labs: Abnormal Lab Results - Last 24 Hours (Table) 12/11/24 12/12/24 12/12/24 Range/Units 18:40 04:45 04:45 RBC 3.52 L (4.10-5.20) 10*6/uL Hgb 10.6 L (12.0-15.0) g/dL Hct 33.1 L (37.2-46.3) % RDW 16.0 H (11.5-14.5) % Immature Gran # 0.26 H (0.00-0.04) 10*3/uL Sodium 135 L (137-145) mmol/L Potassium 2.9 L 3.4 L (3.5-5.1) mmol/L Glucose 102 H (74-99) mg/dL Assessment and Plan (1) Urinary tract infection Current Visit: Yes Status: Acute Code(s): N39.0 - URINARY TRACT INFECTION, SITE NOT SPECIFIED SNOMED Code(s): 62711044 (2) Leukocytosis Current Visit: Yes Status: Acute Code(s): D72.829 - ELEVATED WHITE BLOOD CELL COUNT, UNSPECIFIED SNOMED Code(s): 372439271 (3) Abdominal mass Current Visit: Yes Status: Acute Priority: High Code(s): R19.00 - INTRA- ABD AND PELVIC SWELLING, MASS AND LUMP, UNSP SITE SNOMED Code(s): 764677739 Plan: 1patient is in the hospital right flank pain in this patient who did have elevated white count positive UA concerning for a symptomatic UTI, patient also have have significant abnormality on the CT concerning for abdominal and pulmonary masses concerning for metastatic disease pulmonary oncology following the patient for the same currently waiting for tissue diagnosis 2 patient leukocytosis more likely related to her metastatic adenocarcinoma of the GI origin, possible source of infection not excluded 3patient white count has normalized, currently covered with Zosyn repeat CT has been ordered by oncology results will be followed Dictation was produced using [employer] dictation software. please excuse any grammatical, word or spelling errors. Time with Patient: Less than 30
--- NOTE | 2024-12-13 13:52 | P.PN ---
Subjective Progress Note Date: 12/13/24 Principal diagnosis: Reason for follow-up is leukocytosis/UTI Patient is a 74-year-old female with a past medical history significant for hypertension hyperlipidemia reflux rheumatoid arthritis hypothyroidism, paraplegia she did have a history of cystectomy and urostomy presenting to the hospital for evaluation of right flank pain did have a positive elevated white concerning for a UTI. On today's evaluation that is 12/13/2024,the patient denies any fever or any ch ills, patient is breathing comfortably on room air, the patient denies chest pain shortness of breath and no significant cough, patient mention feeling better no further nausea vomiting abdominal pain has decreased in intensity. No CBC was done today blood and urine has been negative, repeat CT abdominal pelvis with large abdominal tumor with metastatic disease did not mention any bowel obstruction abdominal ultrasound did not show any fluid paracentesis was not done Objective - Vital Signs Vital signs: Vital Signs Temp 97.8 F 12/13/24 12:11 Pulse 82 12/13/24 12:11 Resp 16 12/13/24 12:11 BP 117/65 12/13/24 12:11 Pulse Ox 91 L 12/13/24 12:11 FiO2 Intake & Output 12/12/24 12/13/24 12/13/24 18:59 06:59 18:59 Intake Total 120 Output Total 1650 1400 25 Balance -1650 -1280 -25 Intake: Oral 120 Output: Urine 1650 1400 25 Urostomy 25 Other: Voiding Method Ileal Conduit (Left) Ileal Conduit (Left) Ileal Conduit (Left) # Bowel Movements 1 - Exam GENERAL DESCRIPTION: An elderly female lying in bed in no distress RESPIRATORY SYSTEM: Unlabored breathing , decreased breath sounds at bases HEART: S1 S2 regular rate and rhythm , ABDOMEN: Soft , no tenderness EXTREMITIES: No edema feet - Labs CBC & Chem 7: 12/12/24 04:45 12/12/24 16:18 Assessment and Plan (1) Urinary tract infection Current Visit: Yes Status: Acute Code(s): N39.0 - URINARY TRACT INFECTION, SITE NOT SPECIFIED SNOMED Code(s): 81134104 (2) Leukocytosis Current Visit: Yes Status: Acute Code(s): D72.829 - ELEVATED WHITE BLOOD CELL COUNT, UNSPECIFIED SNOMED Code(s): 543072009 (3) Abdominal mass Current Visit: Yes Status: Acute Priority: High Code(s): R19.00 - INTRA- ABD AND PELVIC SWELLING, MASS AND LUMP, UNSP SITE SNOMED Code(s): 474373771 Plan: 1patient is in the hospital right flank pain in this patient who did have elevated white count positive UA concerning for a symptomatic UTI, patient also have have significant abnormality on the CT concerning for abdominal and pulmonary masses concerning for metastatic disease pulmonary oncology following the patient for the same 2 patient leukocytosis more likely related to her metastatic adenocarcinoma of the GI origin, and concern for possible abdominal source of infection for the patient received Zosyn 3patient white count has normalized, repeat CT abdominal pelvis did not mention any evidence of bowel obstruction colitis or abscess no evidence of any ascitic fluid, as no obvious focus of abdominal infection we will go ahead and discontinue Zosyn and monitor the patient closely off antibiotic therapy Dictation was produced using [employer] dictation software. please excuse any grammatical, word or spelling errors.
[2024-12-13] MEDS: IV FLUID CONTINUATION 1,000 ML IV ONE (15:40)
[2024-12-13] MEDS ORDERED: NEOSTIGMINE 1 MG/ML 10 ML VIAL ONE (16:44)
[2024-12-13] MEDS ORDERED: fentaNYL (PF) 50 MCG/ML 2 ML AMP ONE (16:44)
[2024-12-13] MEDS ORDERED: LIDOCAINE 1% INJ 10MG/ML (20 ML MDV) ONE (16:44)
[2024-12-13] MEDS ORDERED: GLYCOPYRROLATE 0.2 MG/ML 2 ML VIAL ONE (16:44)
[2024-12-13] MEDS ORDERED: PHENYLEPHRINE 10 MG/ML VIAL ONE (16:44)
[2024-12-13] MEDS ORDERED: MIDAZOLAM 2 MG/2 ML VIAL ONE (16:44)
[2024-12-13] MEDS ORDERED: ROCURONIUM 10 MG/ML (5 ML VIAL) IV ONE (16:44)
[2024-12-13] MEDS ORDERED: PROPOFOL 10 MG/ML 20 ML VIAL IV ONE (16:44)
[2024-12-13] MEDS: SODIUM CHLORIDE 0.9% 50 ML with ceFAZolin 2,000 MG IV ONE (16:49)
[2024-12-13] MEDS: LIDOCAINE 1%-EPI 1:100,000 20 ML VIAL SQ ONE ×2 (17:10)
--- NOTE | 2024-12-13 17:30 | P.OP ---
Date of Procedure: 12/13/24 Preoperative Diagnosis: Gastrointestinal adenocarcinoma with metastasis Postoperative Diagnosis: Gastrointestinal adenocarcinoma with metastasis Procedure(s) Performed: Diagnostic laparoscopy with fluid retrieval Anesthesia: DENITA Surgeon: Joao Ordonez Pathology: other (Ascites for cytology) Condition: stable Disposition: floor Indications for Procedure: 74-year-old female with recent finding of metastatic adenocarcinoma of GI source, favoring colorectal. Biopsy confirmed from liver biopsy. Patient also noted to have multiple pulmonary nodules concerning for metastasis. Oncology team has been following with request for diagnostic laparoscopy and evaluation of intra-abdominal cavity as patient has also had poor motility and frequent nausea and vomiting with oral intake. Patient is aware that surgery is not therapeutic rather diagnostic for today. Risks, benefits and alternatives were provided to the patient. She has provided consent for this. Operative Findings: Significant adhesive disease within the abdomen. Mild amount of ascites noted and removed for cytology. No clear carcinomatosis of the omental adhesions that were evaluated. Liver mets are noted. Description of Procedure: Patient was brought to the operating suite and placed in supine position on the operating table. Sedation provided by anesthesia and the patient underwent endotracheal intubation. She was then prepped and draped in regular sterile fashion. Incision was made at Russo's point and the abdomen was entered under direct visualization using a 5 Garcia port. Pneumoperitoneum was achieved. Scope was placed and patient was noted to have significant amount of intra- abdominal adhesions from her previous abdominal surgeries. Additional 5 mm port was placed in the left lateral mid abdomen and mild ascites was noted in the pelvis. This was removed and collected in trap and was sent for cytology. On evaluation of the omentum that was able to be visualized, no obvious carcinomatosis was noted. The liver was also able to be examined and the previously known metastatic disease was clearly visible. At this point, the procedure was terminated as visualization was quite poor secondary to intra- abdominal adhesions. As this is diagnostic, no indication for further evaluation with exploratory laparotomy. Pneumoperitoneum was released. Ports removed from the abdomen. All skin incision sites were closed with 4-0 Monocryl suture. Sterile dressing applied. Patient was awakened in the operating suite and taken to postanesthesia care unit in stable condition. Case to be discussed with oncology team.
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
[2024-12-14 09:24] LABS: Appearance,BF Cloudy
[2024-12-14 09:25] LABS: Nucleated Cells, Body Fluid 133 /uL; RBC, Body Fluid 306 /uL
[2024-12-14 09:40] LABS: Mononuclear WBC,Body Fluid 84 %; Polynuclear WBC,Body Fluid 16 %; Total Cells Counted,Body Fluid 100
[2024-12-14 12:30] LABS: Glucose, BF Source Ascities; Glucose, Body Fluid 98 mg/dL; T. Protein, Body Fluid Source Ascities; Total Protein, Body Fluid 3130 mg/dL
--- NOTE | 2024-12-14 16:10 | P.PN ---
Subjective Progress Note Date: 12/14/24 Principal diagnosis: Reason for follow-up is leukocytosis/UTI Patient is a 74-year-old female with a past medical history significant for hypertension hyperlipidemia reflux rheumatoid arthritis hypothyroidism, paraplegia she did have a history of cystectomy and urostomy presenting to the hospital for evaluation of right flank pain did have a positive elevated white concerning for a UTI. On today's evaluation that is 12/14/2024,the patient remains to be afebrile, jonas ed is on room air not requiring supplemental oxygen and denies any shortness of breath no chest pain or cough.Patient did have improvement in her nausea no further vomiting abdominal pain has decreased no diarrhea. No new lab has been obtained today patient did have laparoscopic and ascitic fluid which was cloudy white count only 133 cytology pending Objective - Vital Signs Vital signs: Vital Signs Temp 97.8 F 12/14/24 11:34 Pulse 89 12/14/24 11:34 Resp 16 12/14/24 11:34 BP 134/68 12/14/24 11:34 Pulse Ox 94 L 12/14/24 11:34 FiO2 Intake & Output 12/13/24 12/14/24 12/14/24 18:59 06:59 18:59 Intake Total 450 560 Output Total 185 685 7111 Balance -77 750 -740 Intake: IV 450 Oral 560 Output: Urine 637 020 8951 Urostomy 25 500 1300 Estimated Blood Loss 2 Other: Voiding Method Ileal Conduit (Left) Ileal Conduit (Left) Ileal Conduit (Left) # Bowel Movements 1 0 - Exam GENERAL DESCRIPTION: An elderly female lying in bed in no distress RESPIRATORY SYSTEM: Unlabored breathing , decreased breath sounds at bases HEART: S1 S2 regular rate and rhythm , ABDOMEN: Soft , no tenderness EXTREMITIES: No edema feet - Labs CBC & Chem 7: 12/12/24 04:45 12/12/24 16:18 Assessment and Plan (1) Urinary tract infection Current Visit: Yes Status: Acute Code(s): N39.0 - URINARY TRACT INFECTION, SITE NOT SPECIFIED SNOMED Code(s): 68320891 (2) Leukocytosis Current Visit: Yes Status: Acute Code(s): D72.829 - ELEVATED WHITE BLOOD CELL COUNT, UNSPECIFIED SNOMED Code(s): 219639190 (3) Abdominal mass Current Visit: Yes Status: Acute Priority: High Code(s): R19.00 - INTRA- ABD AND PELVIC SWELLING, MASS AND LUMP, UNSP SITE SNOMED Code(s): 375725842 Plan: 1patient is in the hospital right flank pain in this patient who did have elevated white count positive UA concerning for a symptomatic UTI, patient also have have significant abnormality on the CT concerning for abdominal and pulmonary masses concerning for metastatic disease pulmonary oncology following the patient for the same 2 patient leukocytosis more likely related to her metastatic adenocarcinoma of the GI origin, and concern for possible abdominal source of infection for the patient received Zosyn 3patient white count has normalized, repeat CT abdominal pelvis did not mention any evidence of bowel obstruction colitis or abscess patient is status post laparoscopic and retrieval of ascitic fluid which was cloudy but white count only 133 possibly malignant await cytology and will monitor closely off antibiotic Dictation was produced using [employer] dictation software. please excuse any grammatical, word or spelling errors. Time with Patient: Less than 30
--- NOTE | 2024-12-14 16:38 | P.PN ---
Subjective Patient sen and evaluated at bedside. Patient doing well, denies nausea or vomiting, having bowel function. Objective - Vital Signs Vital signs: Vital Signs Temp 97.8 F 12/14/24 11:34 Pulse 80 12/14/24 15:22 Resp 16 12/14/24 11:34 BP 134/68 12/14/24 11:34 Pulse Ox 94 L 12/14/24 11:34 FiO2 Intake & Output 12/13/24 12/14/24 12/14/24 18:59 06:59 18:59 Intake Total 450 560 Output Total 058 239 1098 Balance -77 -750 -740 Intake: IV 450 Oral 560 Output: Urine 681 933 9833 Urostomy 25 500 1300 Estimated Blood Loss 2 Other: Voiding Method Ileal Conduit (Left) Ileal Conduit (Left) Ileal Conduit (Left) # Bowel Movements 1 0 - Exam gen: nad cv: rrr pul: non labored breathing abd: soft, non distended, non tender to palpation - Labs CBC & Chem 7: 12/12/24 04:45 12/12/24 16:18 Assessment and Plan Assessment: 74 yo female status post diagnostic laparoscopy -advanced patient to regular diet -continue to monitor bowel function Time with Patient: Less than 30
--- NOTE | 2024-12-14 19:25 | P.PN ---
Subjective Progress Note Date: 12/14/24 S/p ex lap. Pt reports she is feeling much improved today. Denies n/v, tolerating oral intake. Objective - Vital Signs Vital signs: Vital Signs Temp 97.6 F 12/14/24 18:40 Pulse 95 12/14/24 18:40 Resp 17 12/14/24 18:40 BP 156/70 12/14/24 18:40 Pulse Ox 93 L 12/14/24 18:40 FiO2 Intake & Output 12/14/24 12/14/24 12/15/24 06:59 18:59 06:59 Intake Total 1340 Output Total 750 2300 Balance -750 -960 Intake: Oral 1340 Output: Urine 750 2300 Urostomy 500 1300 Other: Voiding Method Ileal Conduit (Left) Ileal Conduit (Left) # Bowel Movements 0 - Constitutional General appearance: Present: no acute distress - EENT Eyes: Present: anicteric sclerae, EOMI ENT: Present: hearing grossly normal - Respiratory Details: breathing is even and unlabored - Cardiovascular Details: skin warm and dry - Gastrointestinal General gastrointestinal: Absent: tenderness - Integumentary Integumentary: Absent: cyanotic, jaundiced - Psychiatric Psychiatric: Present: A&O x's 3 - Labs CBC & Chem 7: 12/12/24 04:45 12/12/24 16:18 Assessment and Plan (1) Abdominal mass Current Visit: Yes Status: Acute Priority: High Code(s): R19.00 - INTRA- ABD AND PELVIC SWELLING, MASS AND LUMP, UNSP SITE SNOMED Code(s): 344931700 (2) Intractable abdominal pain Current Visit: Yes Status: Acute Code(s): R10.9 - UNSPECIFIED ABDOMINAL PAIN SNOMED Code(s): 81773603 (3) Liver mass Current Visit: Yes Status: Acute Priority: High Code(s): R16.0 - HEPATOMEGALY, NOT ELSEWHERE CLASSIFIED SNOMED Code(s): 620401010 (4) Pulmonary nodules Current Visit: Yes Status: Acute Priority: High Code(s): R91.8 - OTHER NONSPECIFIC ABNORMAL FINDING OF LUNG FIELD SNOMED Code(s): 261653336 (5) Abdominal pain Current Visit: Yes Status: Acute Code(s): R10.9 - UNSPECIFIED ABDOMINAL PAIN SNOMED Code(s): 66140626 Plan: Metastatic colon adenocarcinoma - Patient admitted with complaints of abdominal pain, progressive over the last week. She has had early satiety for "some time". She is not sure of exactly how much weight loss if she has had any. She reports vaginal bleeding since March 2024. -It was discussed with the patient the abnormal findings on imaging. Suspicions for malignant process - S/p liver biopsy, path positive for GI primary, favoring colorectal. Molecular testing has been requested - CT chest w/o contrast showing innumerable metastatic pulmonary nodules and pulmonary mass lesions -Due to poor PS would not recommend systemic chemo, however, will await molecular testing, if MSI high could be candidate for immunotherapy Diagnosis and POC discussed with pt, all questions and concerns were addressed Abdominal pain - Pain medications adjusted. MS contin added, with norco prn for breakthrough pain - Medications for prevention of constipation - Reporting adequate pain control on current regimen Intractable N/V: -Anti-emetics adjusted -S/p EGD, showing > 1L of feculent material in stomach with dilation of small bowel. Concern for suspected gastroporesis. Scheduled reglan started -Due to metastatic disease, concern for peritoneal carcinomatosis and possible frozen bowel contributing to patients symptoms. Spoke with surgery team regarding considering exp lap for further evaluation. Not recommending further surgical evaluation at this time -Patient experienced increased abd pain and nausea with advancement of diet, restarted clear liquid diet. Tolerating clear liquid better, but still having n/v and abd pain -Repeat CT AP ordered by surgery team. Scan showed no change in the large pelvic neoplasm with metastatic disease to the lungs and liver. No acute changes to prior study. Patient under went diagnostic laparoscopy, findings showed significant adhesive disease within the abdomen and mild ascites which was sent for cytology. No clear carcinomatosis of the omental adhesions were noted. -At todays visist, pt reporting n/v has resolved. Tolerating oral intake Will continue to follow Doctor attests: I performed a history and physical examination of this patient, developed impression and plan of care. Discussed with dictator. I agree with dictators note, documented as a scribe.
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
--- NOTE | 2024-12-15 13:50 | P.PN ---
Subjective Patient sen and evaluated at bedside. Patient doing well, admits to nausea and 1 episode of vomiting, still having bowel function. Objective - Vital Signs Vital signs: Vital Signs Temp 98.5 F 12/15/24 12:31 Pulse 91 12/15/24 12:31 Resp 16 12/15/24 12:31 BP 125/73 12/15/24 12:31 Pulse Ox 94 L 12/15/24 12:31 FiO2 Intake & Output 12/14/24 12/15/24 12/15/24 18:59 06:59 18:59 Intake Total 1340 590 240 Output Total 2300 1000 100 Balance -960 -410 140 Intake: Oral 1340 590 240 Output: Urine 2300 1000 100 Urostomy 1300 100 Other: Voiding Method Ileal Conduit (Left) Ileal Conduit (Left) Ileal Conduit (Left) - Exam gen: nad cv: rrr pul: non labored breathing abd: soft, non distended, non tender to palpation - Labs CBC & Chem 7: 12/12/24 04:45 12/12/24 16:18 Labs: Microbiology - Last 24 Hours (Table) 12/13/24 17:26 Gram Stain - Preliminary Ascites Fluid Body Fluid Culture - Preliminary Assessment and Plan Assessment: 74 yo female status post diagnostic laparoscopy - Continue regular diet -continue to monitor bowel function No further intervention at this time Time with Patient: Less than 30
--- NOTE | 2024-12-15 15:57 | P.PN ---
Subjective Progress Note Date: 12/15/24 Principal diagnosis: Reason for follow-up is leukocytosis/UTI Patient is a 74-year-old female with a past medical history significant for hypertension hyperlipidemia reflux rheumatoid arthritis hypothyroidism, paraplegia she did have a history of cystectomy and urostomy presenting to the hospital for evaluation of right flank pain did have a positive elevated white concerning for a UTI. On today's evaluation that is 12/15/2024, the patient continues to be afebrile, the patient is on room air and breathing comfortably, the Pt denies having any chest pain or cough, the patient did have an episode of nausea vomiting this morning but no further nausea or vomiting abdominal pain is currently controlled. No new labs has been obtained today abdominal fluid culture currently pending Objective - Vital Signs Vital signs: Vital Signs Temp 98.5 F 12/15/24 12:31 Pulse 91 12/15/24 12:31 Resp 16 12/15/24 12:31 BP 125/73 12/15/24 12:31 Pulse Ox 94 L 12/15/24 12:31 FiO2 Intake & Output 12/14/24 12/15/24 12/15/24 18:59 06:59 18:59 Intake Total 7990 294 6929 Output Total 2300 1000 300 Balance -960 -410 900 Intake: Oral 6280 605 2255 Output: Urine 2300 1000 300 Urostomy 1300 100 Other: Voiding Method Ileal Conduit (Left) Ileal Conduit (Left) Ileal Conduit (Left) - Exam GENERAL DESCRIPTION: An elderly female lying in bed in no distress RESPIRATORY SYSTEM: Unlabored breathing , decreased breath sounds at bases HEART: S1 S2 regular rate and rhythm , ABDOMEN: Soft , no tenderness EXTREMITIES: No edema feet - Labs CBC & Chem 7: 12/12/24 04:45 12/12/24 16:18 Labs: Microbiology - Last 24 Hours (Table) 12/13/24 17:26 Gram Stain - Preliminary Ascites Fluid Body Fluid Culture - Preliminary Assessment and Plan (1) Urinary tract infection Current Visit: Yes Status: Acute Code(s): N39.0 - URINARY TRACT INFECTION, SITE NOT SPECIFIED SNOMED Code(s): 45956442 (2) Leukocytosis Current Visit: Yes Status: Acute Code(s): D72.829 - ELEVATED WHITE BLOOD CELL COUNT, UNSPECIFIED SNOMED Code(s): 938456988 (3) Abdominal mass Current Visit: Yes Status: Acute Priority: High Code(s): R19.00 - INTRA- ABD AND PELVIC SWELLING, MASS AND LUMP, UNSP SITE SNOMED Code(s): 394860041 Plan: 1patient presented to the hospital right flank pain in this patient who did have elevated white count positive UA concerning for a symptomatic UTI, patient also have have significant abnormality on the CT concerning for abdominal and pulmonary masses concerning for metastatic disease pulmonary oncology following the patient for the same 2 patient leukocytosis more likely related to her metastatic adenocarcinoma of the GI origin, and concern for possible abdominal source of infection for the patient received Zosyn 3patient white count has normalized, repeat CT abdominal pelvis did not mention any evidence of bowel obstruction colitis or abscess patient is status post laparoscopic and retrieval of ascitic fluid which was cloudy but white count only 133 possibly malignant await cytology as well as culture and will monitor the patient closely off antibiotic therapy at this point Dictation was produced using [employer] dictation software. please excuse any grammatical, word or spelling errors. Time with Patient: Less than 30
--- NOTE | 2024-12-16 14:59 | P.PN ---
Subjective Progress Note Date: 12/16/24 Principal diagnosis: Reason for follow-up is leukocytosis/UTI Patient is a 74-year-old female with a past medical history significant for hypertension hyperlipidemia reflux rheumatoid arthritis hypothyroidism, paraplegia she did have a history of cystectomy and urostomy presenting to the hospital for evaluation of right flank pain did have a positive elevated white concerning for a UTI. On today's evaluation that is 12/16/2024, Patient is afebrile patient is curren tly on room air and denies having any shortness of breath, the patient denies any chest pain or cough, the patient did have issues with the nausea vomiting this morning denies any abdominal pain denies any bowel movement. No new lab has been repeated today ascitic fluid cultures currently pending Objective - Vital Signs Vital signs: Vital Signs Temp 97.5 F L 12/16/24 13:14 Pulse 103 H 12/16/24 13:14 Resp 19 12/16/24 13:14 BP 119/64 12/16/24 13:14 Pulse Ox 93 L 12/16/24 13:14 FiO2 Intake & Output 12/15/24 12/16/24 12/16/24 18:59 06:59 18:59 Intake Total 1740 Output Total 300 300 Balance 1440 -300 Intake: Oral 1740 Output: Urine 300 300 Urostomy 100 Other: Voiding Method Ileal Conduit (Left) Ileal Conduit (Left) Ileal Conduit (Left) - Exam GENERAL DESCRIPTION: An elderly female lying in bed in no distress RESPIRATORY SYSTEM: Unlabored breathing , decreased breath sounds at bases HEART: S1 S2 regular rate and rhythm , ABDOMEN: Soft , no tenderness EXTREMITIES: No edema feet - Labs CBC & Chem 7: 12/12/24 04:45 12/12/24 16:18 Labs: Microbiology - Last 24 Hours (Table) 12/13/24 17:26 Gram Stain - Preliminary Ascites Fluid Body Fluid Culture - Preliminary Assessment and Plan (1) Urinary tract infection Current Visit: Yes Status: Acute Code(s): N39.0 - URINARY TRACT INFECTION, SITE NOT SPECIFIED SNOMED Code(s): 69718953 (2) Leukocytosis Current Visit: Yes Status: Acute Code(s): D72.829 - ELEVATED WHITE BLOOD CELL COUNT, UNSPECIFIED SNOMED Code(s): 770705836 (3) Abdominal mass Current Visit: Yes Status: Acute Priority: High Code(s): R19.00 - INTRA- ABD AND PELVIC SWELLING, MASS AND LUMP, UNSP SITE SNOMED Code(s): 817620730 Plan: 1patient presented to the hospital right flank pain in this patient who did have elevated white count positive UA concerning for a symptomatic UTI, patient also have have significant abnormality on the CT concerning for abdominal and pulmonary masses concerning for metastatic disease pulmonary oncology following the patient for the same 2 patient leukocytosis more likely related to her metastatic adenocarcinoma of the GI origin, and concern for possible abdominal source of infection for the patient received Zosyn 3patient white count has normalized, repeat CT abdominal pelvis did not mention any evidence of bowel obstruction colitis or abscess patient is status post laparoscopic and retrieval of ascitic fluid which was cloudy but white count only 133 possibly malignant await cytology as well as culture and will monitor the patient closely off antibiotic therapy at this point as low-grade suspicious for infectious source Dictation was produced using [employer] dictation software. please excuse any grammatical, word or spelling errors. Time with Patient: Less than 30
--- NOTE | 2024-12-16 16:19 | P.PN ---
Subjective Patient sen and evaluated at bedside. Patient doing well, admits to nausea and vomiting, still having bowel function. Objective - Vital Signs Vital signs: Vital Signs Temp 97.5 F L 12/16/24 13:14 Pulse 100 12/16/24 15:25 Resp 19 12/16/24 13:14 BP 119/64 12/16/24 13:14 Pulse Ox 93 L 12/16/24 13:14 FiO2 Intake & Output 12/15/24 12/16/24 12/16/24 18:59 06:59 18:59 Intake Total 1740 Output Total 300 300 Balance 1440 -300 Intake: Oral 1740 Output: Urine 300 300 Urostomy 100 Other: Voiding Method Ileal Conduit (Left) Ileal Conduit (Left) Ileal Conduit (Left) - Exam gen: nad cv: rrr pul: non labored breathing abd: soft, non distended, non tender to palpation - Labs CBC & Chem 7: 12/12/24 04:45 12/12/24 16:18 Labs: Microbiology - Last 24 Hours (Table) 12/13/24 17:26 Anaerobic Culture - Preliminary Ascites Fluid 12/13/24 17:26 Gram Stain - Preliminary Ascites Fluid Body Fluid Culture - Preliminary Assessment and Plan Assessment: 74 yo female status post diagnostic laparoscopy - Continue clear liquid diet -continue to monitor bowel function Will start Emend nausea medication
[2024-12-16] MEDS: SCOPOLAMINE 1 MG/72 HR PATCH TRANSDERM SCH (16:22)
[2024-12-16] MEDS: LORazepam 1 MG/0.5 ML VIAL IV PRN (23:02)
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
--- NOTE | 2024-12-17 14:25 | P.PN ---
Subjective Progress Note Date: 12/17/24 SURGICAL PROGRESS NOTE CHIEF COMPLAINT: Abdominal pain HISTORY OF PRESENT ILLNESS: Patient is sitting up in bedside chair. Patient still having vomiting. Per nursing staff the emesis did look feculent. There was a small amount of emesis in the basin at bedside this morning when I evaluated patient. Emesis was brownish in color. No odor noticed. Patient reports having bowel movements. Per nursing staff it is a clear, mucous jellylike substance. Nurse reports no actionable stool. Patient does have pain at the umbilicus. Afebrile. Mildly tachycardic. Patient is status post diagnostic laparoscopy. Awaiting cytology results of ascites fluid. PHYSICAL EXAM: VITAL SIGNS: Reviewed. GENERAL: Well-developed in no acute distress. ABDOMEN: Distended. Tenderness palpation mid abdomen. Obese. Urostomy in place. NEUROLOGIC: Alert and oriented. Cranial nerves II through XII grossly intact. ASSESSMENT: 1. Abdominal pain with intractable nausea and vomiting 2. Large pelvic mass consistent with malignancy and metastatic disease within the lung and metastatic liver lesions 3. Liver lesion status post biopsy that reports metastatic adenocarcinoma consistent with gastrointestinal origin, favor colorectal 4. Gastroparesis suspected on EGD 5. Ileus PLAN: -Patient would be a poor surgical candidate for exploratory laparotomy -Recommend discussion of goals of care -At this time we will hold off on small bowel follow-through due to concerns for aspirating contrast -Continue antiemetics -Continue Reglan Physician Outside Cutter note has been reviewed by physician. Signing provider agrees with the documented findings, assessment, and plan of care. Attestation Patient seen and examined at bedside. Continues to have vomiting. Case discussed with nursing. Patient has now had 2 CT scans that are negative for obstructive process. She did undergo diagnostic laparoscopy for evaluation of carcinomatosis which is absent. During the diagnostic laparoscopy, there was no significant dilation of bowel that was able to be visualized. With concern for gastroparesis on EGD, patient has been started on Reglan. Would recommend continuing at this time. Patient with continued emesis and nasogastric tube placed today for decompression. Oncology service did inquire about possible small bowel follow-through for further evaluation of motility and obstruction, however due to significant amount of vomiting, she would be at risk of aspirating contrast and we will hold off on this for now. I did discuss in depth with the patient about any surgical intervention that might be required. This would likely result in an exploratory laparotomy. Postoperative period for the patient would likely be difficult due to her inability to ambulate and high risk of wound infection secondary to urostomy. At this point, it is unclear what is causing the significant nausea and vomiting and also unclear whether surgical intervention would be beneficial for this patient. Awaiting cytology of ascites fluid that was taken during the diagnostic laparoscopy. I did discuss goals of care with the patient and would recommend palliative care evaluation and discussion with the patient. Joao Ordonez, Objective - Vital Signs Vital signs: Vital Signs Temp 97.5 F L 12/17/24 12:59 Pulse 99 12/17/24 12:59 Resp 17 12/17/24 12:59 BP 146/70 12/17/24 12:59 Pulse Ox 92 L 12/17/24 12:59 FiO2 Intake & Output 12/16/24 12/17/24 12/17/24 18:59 06:59 18:59 Intake Total 720 Output Total 550 100 Balance 170 -100 Intake: Oral 720 Output: Urine 550 100 Other: Voiding Method Ileal Conduit (Left) Ileal Conduit (Left) Ileal Conduit (Left) - Labs CBC & Chem 7: 12/12/24 04:45 12/12/24 16:18 Labs: Microbiology - Last 24 Hours (Table) 12/13/24 17:26 Gram Stain - Preliminary Ascites Fluid Body Fluid Culture - Preliminary 12/13/24 17:26 Anaerobic Culture - Preliminary Ascites Fluid
--- NOTE | 2024-12-17 15:40 | P.PN ---
Subjective Progress Note Date: 12/17/24 Over the weekend pt reports n/v began to worsen. Clear liquid diet restarted. Experiencing n/v after eating. Also reporting anticipatory nausea thinking about food. Continues scheduled reglan, zofran prn and scopolamine patch Objective - Vital Signs Vital signs: Vital Signs Temp 98.7 F 12/17/24 07:44 Pulse 105 H 12/17/24 10:14 Resp 16 12/17/24 07:44 BP 117/63 12/17/24 07:44 Pulse Ox 92 L 12/17/24 07:44 FiO2 Intake & Output 12/16/24 12/17/24 12/17/24 18:59 06:59 18:59 Intake Total 720 Output Total 550 100 Balance 170 -100 Intake: Oral 720 Output: Urine 550 100 Other: Voiding Method Ileal Conduit (Left) Ileal Conduit (Left) Ileal Conduit (Left) - Constitutional General appearance: Present: no acute distress, obese - EENT Eyes: Present: anicteric sclerae, EOMI ENT: Present: hearing grossly normal - Respiratory Details: breathing is even and unlabored - Cardiovascular Details: skin warm and dry - Integumentary Integumentary: Absent: cyanotic, jaundiced - Musculoskeletal Musculoskeletal: Present: generalized weakness - Psychiatric Psychiatric: Present: A&O x's 3 - Labs CBC & Chem 7: 12/12/24 04:45 12/12/24 16:18 Labs: Microbiology - Last 24 Hours (Table) 12/13/24 17:26 Gram Stain - Preliminary Ascites Fluid Body Fluid Culture - Preliminary 12/13/24 17:26 Anaerobic Culture - Preliminary Ascites Fluid Assessment and Plan (1) Abdominal mass Current Visit: Yes Status: Acute Priority: High Code(s): R19.00 - INTRA- ABD AND PELVIC SWELLING, MASS AND LUMP, UNSP SITE SNOMED Code(s): 216938785 (2) Intractable abdominal pain Current Visit: Yes Status: Acute Code(s): R10.9 - UNSPECIFIED ABDOMINAL PAIN SNOMED Code(s): 92874674 (3) Liver mass Current Visit: Yes Status: Acute Priority: High Code(s): R16.0 - HEPATOMEGALY, NOT ELSEWHERE CLASSIFIED SNOMED Code(s): 883428225 (4) Pulmonary nodules Current Visit: Yes Status: Acute Priority: High Code(s): R91.8 - OTHER NONSPECIFIC ABNORMAL FINDING OF LUNG FIELD SNOMED Code(s): 573876864 (5) Abdominal pain Current Visit: Yes Status: Acute Code(s): R10.9 - UNSPECIFIED ABDOMINAL PAIN SNOMED Code(s): 84841932 Plan: Metastatic colon adenocarcinoma - Patient admitted with complaints of abdominal pain, progressive over the last week. She has had early satiety for "some time". She is not sure of exactly how much weight loss if she has had any. She reports vaginal bleeding since March 2024. -It was discussed with the patient the abnormal findings on imaging. Suspicions for malignant process - S/p liver biopsy, path positive for GI primary, favoring colorectal. Molecular testing has been requested - CT chest w/o contrast showing innumerable metastatic pulmonary nodules and pulmonary mass lesions -Due to poor PS would not recommend systemic chemo, however, will await molecular testing, if MSI high could be candidate for immunotherapy Diagnosis and POC discussed with pt, all questions and concerns were addressed Abdominal pain - Pain medications adjusted. MS contin added, with norco prn for breakthrough pain - Medications for prevention of constipation - Reporting adequate pain control on current regimen Intractable N/V: -Anti-emetics adjusted -S/p EGD, showing > 1L of feculent material in stomach with dilation of small bowel. Concern for suspected gastroporesis. Scheduled reglan started -Due to metastatic disease, concern for peritoneal carcinomatosis and possible frozen bowel contributing to patients symptoms. Spoke with surgery team regarding considering exp lap for further evaluation. Not recommending further surgical evaluation at this time -Patient experienced increased abd pain and nausea with advancement of diet -Repeat CT AP ordered by surgery team. Scan showed no change in the large pelvic neoplasm with metastatic disease to the lungs and liver. No acute changes to prior study. Patient under went diagnostic laparoscopy, findings showed significant adhesive disease within the abdomen and mild ascites which was sent for cytology. No clear carcinomatosis of the omental adhesions were noted. -Cytology still pending -At todays visit, pt reporting increased n/v exacerbated with eating as well as anticipatory nausea. Continues scheduled reglan, zofran prn and scopolamine patch. Will add ativan 0.5 q8hrs for anticipatory nausea -Discussed case with surgery team, plan was for small bowel follow through, however, surgery believes pt is not a good surgical candidate and recommending holding imaging. Will further discuss with surgeon
[2024-12-17] MEDS: LORazepam 1 MG/0.5 ML VIAL IV SCH (15:43)
--- NOTE | 2024-12-17 16:38 | XR ---
EXAMINATION TYPE: XR chest 1V portable DATE OF EXAM: 12/17/2024 4:33 PM COMPARISON: 12/01/2024 CLINICAL INDICATION: Female, 74 years old with history of NG tube placement, TECHNIQUE: XR chest 1V portable view(s) obtained. FINDINGS: The heart size is normal. The pulmonary vasculature is normal. Patchy infiltrates present bilaterally greater on the right. Findings are nonspecific. There may be s ome improvement from comparison. Correlate for pneumonia. Consider atypical pneumonia. Follow-up to sangeeta chow is recommended. Underlying lung masses cannot be excluded. Nasogastric tube is been placed with the tip in the left upper quadrant of the abdomen. IMPRESSION: 1. Patchy bilateral lung infiltrates. Correlate for pneumonia and atypical pneumonia. Follow-up to marisa hathaway is recommended. 2. Nasogastric tube placement with the tip in the left upper quadrant of the abdomen. [facility], , 12/17/2024 4:35 PM
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
[2024-12-18 08:01] LABS: Basophils # (A) 0.06 X 10*3/uL (0.00-0.10); Basophils % (A) 0.6 %; Eosinophils # (A) 0.06 X 10*3/uL (0.04-0.35); Eosinophils % (A) 0.6 %; HCT 31.8 % (37.2-46.3); HGB 9.8 g/dL (12.0-15.0); Lymphocytes # (A) 2.28 X 10*3/uL (0.90-5.00); Lymphocytes % (A) 21.3 %; MCH 29.3 pg (27.0-32.0); MCHC 30.8 g/dL (32.0-37.0); MCV 95.2 FL (80.0-97.0); Mean Platelet Volume 11.2 FL (9.5-12.2); Monocytes % (A) 10.3 %; NRBC Per 100 WBC 0 X 10*3/uL (0.00-0.01); Neutrophils % (A) 65.1 %; Platelet Count 445 X 10*3/uL (140-440); RBC 3.34 X 10*6/uL (4.10-5.20); RDW 16.6 % (11.5-14.5); WBC 10.72 X 10*3/uL (4.50-10.00)
[2024-12-18 08:20] LABS: BUN/Creat Ratio 21.33 Ratio (12.00-20.00); Blood Urea Nitrogen 19.2 mg/dL (9.0-27.0); Carbon Dioxide 25.2 mmol/L (21.6-31.8); Chloride 96 mmol/L (96-109); Glucose 76 mg/dL (70-110); Magnesium 1.6 mg/dL (1.5-2.4); Potassium 3.9 mmol/L (3.5-5.5); Sodium 136 mmol/L (135-145)
[2024-12-18 08:21] LABS: ALT 11 U/L (8-44); AST 25 U/L (13-35); Albumin 2.9 g/dL (3.8-4.9); Albumin/Globulin Ratio 1.16 Ratio (1.60-3.17); Alkaline Phosphatase 221 U/L (41-126); Calcium 8.2 mg/dL (8.7-10.3); Globulin 2.5 g/dL (1.6-3.3); Total Bilirubin 0.4 mg/dL (0.3-1.2); Total Protein 5.4 g/dL (6.2-8.2)
--- NOTE | 2024-12-18 09:42 | XR ---
EXAMINATION TYPE: XR abdomen 1V DATE OF EXAM: 12/18/2024 9:19 AM COMPARISON: 04/25/2018 CLINICAL INDICATION: Female, 74 years old with history of abd pain, no recent bowel movement, TECHNIQUE: XR abdomen 1V view(s) obtained. FINDINGS: Nonspecific bowel gas is present. Air is within the colon. No significant fecal retention is identifi ed. Nasogastric tube is present with the tip in the left upper quadrant of the abdomen. Psoas margins are normal. No organomegaly is present. IMPRESSION: 1. No significant fecal retention. No suspicious changes for obstruction. [facility], , 12/18/2024 9:40 AM
[2024-12-18] MEDS: FAMOTIDINE 20 MG/2 ML VIAL IV STA (13:08)
[2024-12-18] MEDS: diphenhydrAMINE 50 MG/ML 1 ML VIAL IVP STA (13:08)
[2024-12-18] MEDS: methylPREDNISolone SOD SUCCI 125 MG/2 ML VIAL IM ONE (13:09)
[2024-12-18] MEDS: LORazepam 1 MG/0.5 ML VIAL IV STA (13:17)
--- NOTE | 2024-12-18 14:43 | P.PN ---
Subjective Progress Note Date: 12/17/24 Principal diagnosis: Reason for follow-up is leukocytosis/UTI Patient is a 74-year-old female with a past medical history significant for hypertension hyperlipidemia reflux rheumatoid arthritis hypothyroidism, paraplegia she did have a history of cystectomy and urostomy presenting to the hospital for evaluation of right flank pain did have a positive elevated white concerning for a UTI. On today's evaluation that is 12/17/2024, patient has been afebrile, patient is breathing comfortably and is currently on room air, patient denies having any chest pain and cough, patient still complaining of nausea and episode of vomiting this morning abdominal pain slightly decreased no bowel movement. No new lab has been obtained today Objective - Vital Signs Vital signs: Vital Signs Temp 97.5 F L 12/17/24 12:59 Pulse 99 12/17/24 12:59 Resp 17 12/17/24 12:59 BP 146/70 12/17/24 12:59 Pulse Ox 92 L 12/17/24 12:59 FiO2 Intake & Output 12/16/24 12/17/24 12/17/24 18:59 06:59 18:59 Intake Total 720 Output Total 550 100 Balance 170 -100 Intake: Oral 720 Output: Urine 550 100 Other: Voiding Method Ileal Conduit (Left) Ileal Conduit (Left) Ileal Conduit (Left) - Exam GENERAL DESCRIPTION: An elderly female lying in bed in no distress RESPIRATORY SYSTEM: Unlabored breathing , decreased breath sounds at bases HEART: S1 S2 regular rate and rhythm , ABDOMEN: Soft , no tenderness EXTREMITIES: No edema feet - Labs CBC & Chem 7: 12/18/24 05:34 12/18/24 05:34 Labs: Microbiology - Last 24 Hours (Table) 12/13/24 17:26 Gram Stain - Preliminary Ascites Fluid Body Fluid Culture - Preliminary 12/13/24 17:26 Anaerobic Culture - Preliminary Ascites Fluid Assessment and Plan (1) Urinary tract infection Current Visit: Yes Status: Acute Code(s): N39.0 - URINARY TRACT INFECTION, SITE NOT SPECIFIED SNOMED Code(s): 48780343 (2) Leukocytosis Current Visit: Yes Status: Acute Code(s): D72.829 - ELEVATED WHITE BLOOD CELL COUNT, UNSPECIFIED SNOMED Code(s): 124179428 (3) Abdominal mass Current Visit: Yes Status: Acute Priority: High Code(s): R19.00 - INTRA- ABD AND PELVIC SWELLING, MASS AND LUMP, UNSP SITE SNOMED Code(s): 060226188 Plan: 1patient presented to the hospital right flank pain in this patient who did have elevated white count positive UA concerning for a symptomatic UTI, patient also have have significant abnormality on the CT concerning for abdominal and pulmonary masses concerning for metastatic disease pulmonary oncology following the patient for the same 2 patient leukocytosis more likely related to her metastatic adenocarcinoma of the GI origin, and concern for possible abdominal source of infection for the patient received Zosyn 3patient white count has normalized, repeat CT abdominal pelvis did not mention any evidence of bowel obstruction colitis or abscess patient is status post laparoscopic and retrieval of ascitic fluid which was cloudy but white count only 133 possibly malignant cytology was negative for malignancy cultures are cu rrently pending we will continue monitor closely off antibiotic therapy Dictation was produced using [employer] dictation software. please excuse any grammatical, word or spelling errors.
--- NOTE | 2024-12-18 14:44 | P.PN ---
Subjective Progress Note Date: 12/18/24 Principal diagnosis: Reason for follow-up is leukocytosis/UTI Patient is a 74-year-old female with a past medical history significant for hypertension hyperlipidemia reflux rheumatoid arthritis hypothyroidism, paraplegia she did have a history of cystectomy and urostomy presenting to the hospital for evaluation of right flank pain did have a positive elevated white concerning for a UTI. On today's evaluation that is 12/18/2024, Patient is afebrile this morning anurag ent denies having any chest pain shortness of breath or cough, the patient is currently on room air, patient did have further episodes of vomiting requiring NG tube placement and also having diarrhea. Patient white count is up to 10.72, creatinine is 0.9 ascitic fluid culture negative Objective - Vital Signs Vital signs: Vital Signs Temp 97 F L 12/18/24 13:44 Pulse 101 H 12/18/24 13:44 Resp 16 12/18/24 13:44 BP 109/56 12/18/24 13:44 Pulse Ox 93 L 12/18/24 13:44 FiO2 Intake & Output 12/17/24 12/18/24 12/18/24 18:59 06:59 18:59 Intake Total 540 Output Total 600 950 Balance -60 -950 Weight 90.3 kg Intake: Oral 540 Output: Gastric Drainage 750 Urine 600 200 Other: Voiding Method Ileal Conduit (Left) Ileal Conduit (Left) Ileal Conduit (Left) - Exam GENERAL DESCRIPTION: An elderly female lying in bed in no distress RESPIRATORY SYSTEM: Unlabored breathing , decreased breath sounds at bases HEART: S1 S2 regular rate and rhythm , ABDOMEN: Soft , no tenderness EXTREMITIES: No edema feet - Labs CBC & Chem 7: 12/18/24 05:34 12/18/24 05:34 Labs: Abnormal Lab Results - Last 24 Hours (Table) 12/18/24 12/18/24 Range/Units 05:34 05:34 WBC 10.72 H (4.50-10.00) X 10*3/uL RBC 3.34 L (4.10-5.20) X 10*6/uL Hgb 9.8 L (12.0-15.0) g/dL Hct 31.8 L (37.2-46.3) % MCHC 30.8 L (32.0-37.0) g/dL RDW 16.6 H (11.5-14.5) % Plt Count 445 H (140-440) X 10*3/uL Immature Gran # 0.22 H (0.00-0.04) X 10*3/uL Monocytes # 1.10 H (0.20-1.00) X 10*3/uL Anion Gap 14.80 H (4.00-12.00) mmol/L BUN/Creatinine Ratio 21.33 H (12.00-20.00) Ratio Calcium 8.2 L (8.7-10.3) mg/dL Alkaline Phosphatase 221 H (41-126) U/L Total Protein 5.4 L (6.2-8.2) g/dL Albumin 2.9 L (3.8-4.9) g/dL Albumin/Globulin Ratio 1.16 L (1.60-3.17) Ratio Microbiology - Last 24 Hours (Table) 12/13/24 17:26 Anaerobic Culture - Final Ascites Fluid 12/13/24 17:26 Gram Stain - Final Ascites Fluid Body Fluid Culture - Final Assessment and Plan (1) Urinary tract infection Current Visit: Yes Status: Acute Code(s): N39.0 - URINARY TRACT INFECTION, SITE NOT SPECIFIED SNOMED Code(s): 16254764 (2) Leukocytosis Current Visit: Yes Status: Acute Code(s): D72.829 - ELEVATED WHITE BLOOD CELL COUNT, UNSPECIFIED SNOMED Code(s): 228120639 (3) Abdominal mass Current Visit: Yes Status: Acute Priority: High Code(s): R19.00 - INTRA- ABD AND PELVIC SWELLING, MASS AND LUMP, UNSP SITE SNOMED Code(s): 711929801 Plan: 1patient presented to the hospital right flank pain in this patient who did have elevated white count positive UA concerning for a symptomatic UTI, patient also have have significant abnormality on the CT concerning for abdominal and pulmonary masses concerning for metastatic disease pulmonary oncology following the patient for the same 2 patient leukocytosis more likely related to her metastatic adenocarcinoma of the GI origin, and concern for possible abdominal source of infection for the patient received Zosyn 3patient white count has normalized, repeat CT abdominal pelvis did not mention any evidence of bowel obstruction colitis or abscess patient is status post laparoscopic and retrieval of ascitic fluid which was cloudy but white count only 133 possibly malignant cytology was negative for malignancy cultures has been negative as well no need for any systemic antibiotic therapy at this point 4patient did develop significant diarrhea stool for C. difficile has been requested we will treat if positive Dictation was produced using [employer] dictation software. please excuse any gra mmatical, word or spelling errors. Time with Patient: Less than 30
--- NOTE | 2024-12-18 15:13 | P.PN ---
Subjective Progress Note Date: 12/18/24 SURGICAL PROGRESS NOTE CHIEF COMPLAINT: Abdominal pain HISTORY OF PRESENT ILLNESS: Patient had NG tube placed yesterday due to vomiting. She had 750 mL of brownish output. Patient did have a brownish stool this morning. She does complain of heartburn. Her abdominal pain is improved. She does complain of discomfort from the NG tube. She is scheduled for an MRI of the brain today. Cytology results show no malignant cells. Afebrile. Mildly tachycardic. WBC is 10.72 Hgb 9.8 stool for C. difficile negative PHYSICAL EXAM: VITAL SIGNS: Reviewed. GENERAL: Well-developed in no acute distress. ABDOMEN: Abdomen is softer. Nontender. Obese. Urostomy in place. NEUROLOGIC: Alert and oriented. Cranial nerves II through XII grossly intact. ASSESSMENT: 1. Abdominal pain with intractable nausea and vomiting 2. Large pelvic mass consistent with malignancy and metastatic disease within the lung and metastatic liver lesions 3. Liver lesion status post biopsy that reports metastatic adenocarcinoma consistent with gastrointestinal origin, favor colorectal 4. Gastroparesis suspected on EGD 5. Ileus 6. Status post diagnostic lap with no evidence of carcinomatosis PLAN: -Continue NG tube for decompression -Patient would be a poor surgical candidate -Continue antiemetics -Continue Reglan -Discussed case with oncology service. Awaiting MRI of brain results Physician Garde Manger note has been reviewed by physician. Signing provider agrees with the documented findings, assessment, and plan of care. Objective - Vital Signs Vital signs: Vital Signs Temp 97 F L 12/18/24 13:44 Pulse 101 H 12/18/24 13:44 Resp 16 12/18/24 13:44 BP 109/56 12/18/24 13:44 Pulse Ox 93 L 12/18/24 13:44 FiO2 Intake & Output 12/17/24 12/18/24 12/18/24 18:59 06:59 18:59 Intake Total 540 Output Total 600 950 Balance -60 -950 Weight 90.3 kg Intake: Oral 540 Output: Gastric Drainage 750 Urine 600 200 Other: Voiding Method Ileal Conduit (Left) Ileal Conduit (Left) Ileal Conduit (Left) - Labs CBC & Chem 7: 12/18/24 05:34 12/18/24 05:34 Labs: Abnormal Lab Results - Last 24 Hours (Table) 12/18/24 12/18/24 Range/Units 05:34 05:34 WBC 10.72 H (4.50-10.00) X 10*3/uL RBC 3.34 L (4.10-5.20) X 10*6/uL Hgb 9.8 L (12.0-15.0) g/dL Hct 31.8 L (37.2-46.3) % MCHC 30.8 L (32.0-37.0) g/dL RDW 16.6 H (11.5-14.5) % Plt Count 445 H (140-440) X 10*3/uL Immature Gran # 0.22 H (0.00-0.04) X 10*3/uL Monocytes # 1.10 H (0.20-1.00) X 10*3/uL Anion Gap 14.80 H (4.00-12.00) mmol/L BUN/Creatinine Ratio 21.33 H (12.00-20.00) Ratio Calcium 8.2 L (8.7-10.3) mg/dL Alkaline Phosphatase 221 H (41-126) U/L Total Protein 5.4 L (6.2-8.2) g/dL Albumin 2.9 L (3.8-4.9) g/dL Albumin/Globulin Ratio 1.16 L (1.60-3.17) Ratio Microbiology - Last 24 Hours (Table) 12/13/24 17:26 Anaerobic Culture - Final Ascites Fluid 12/13/24 17:26 Gram Stain - Final Ascites Fluid Body Fluid Culture - Final
--- NOTE | 2024-12-18 16:00 | MR ---
EXAMINATION TYPE: MR brain wo/w con DATE OF EXAM: 12/18/2024 2:57 PM COMPARISON: None. CLINICAL INDICATION: Female, 74 years old with history of metastatic cancer, intractable n/v; PHH, me tastatic cancer, intractable n/v TECHNIQUE: Multi planar, multi sequence imaging was performed through the brain including: T1, T2, In version recovery, susceptibility weighted imaging and gradient echo imaging and Diffusion weighted im aging. The patient was then given intravenous contrast and multi planar, T1 fat-saturation images wer e obtained. IV Contrast: 9 mL Gadobutrol FINDINGS: The vang-white junctions, ventricular system, basal cisterns appear unremarkable. Diffusion-weighted imaging shows no evidence of restricted diffusion to suggest acute/subacute infarct. Intracranial ar terial flow voids are maintained. Midline structures show no abnormality. Scattered foci of high T2 s ignal intensity are seen within the periventricular white matter. The susceptibility weighted images do not reveal any evidence for micro-hemorrhage. After administration of gadolinium, no abnormal enha ncement is seen. The bone marrow signal is within normal limits. Postsurgical changes suspected near the right lateral skull with foci of susceptibility artifact. Paranasal sinuses and mastoid air cells: No significant paranasal sinus disease. Visualized orbits: Right aphakia IMPRESSION: 1. No evidence of intracranial mass, acute/subacute infarct, or abnormal enhancement. 2. Nonspecific white matter changes, likely related to small vessel ischemic disease. [facility], , 12/18/2024 3:58 PM
--- NOTE | 2024-12-18 22:44 | P.PN ---
Subjective Progress Note Date: 12/18/24 Principal diagnosis: Intractable N,V, colon adenocarcinoma In f/u today pt has NG tube to suction, dark semisolid liquid in canister. She is not able to tolerate oral intake beyond ice chips and sips of water. Objective - Vital Signs Vital signs: Vital Signs Temp 97 F L 12/18/24 13:44 Pulse 101 H 12/18/24 13:44 Resp 16 12/18/24 13:44 BP 109/56 12/18/24 13:44 Pulse Ox 93 L 12/18/24 13:44 FiO2 Intake & Output 12/17/24 12/18/24 12/18/24 18:59 06:59 18:59 Intake Total 540 Output Total 600 950 Balance -60 -950 Weight 90.3 kg Intake: Oral 540 Output: Gastric Drainage 750 Urine 600 200 Other: Voiding Method Ileal Conduit (Left) Ileal Conduit (Left) Ileal Conduit (Left) - Constitutional General appearance: Present: cooperative, no acute distress, obese - EENT Eyes: Present: anicteric sclerae, EOMI ENT: Present: hearing grossly normal - Respiratory Details: resp unlabored at rest - Cardiovascular Details: skin warm, well perfused - Neurologic Neurologic: Present: CNII-XII intact - Musculoskeletal Musculoskeletal Comment(s): paraplegic - Psychiatric Psychiatric: Present: A&O x's 3, appropriate affect, intact judgment & insight - Labs CBC & Chem 7: 12/18/24 05:34 12/18/24 05:34 Labs: Abnormal Lab Results - Last 24 Hours (Table) 12/18/24 12/18/24 Range/Units 05:34 05:34 WBC 10.72 H (4.50-10.00) X 10*3/uL RBC 3.34 L (4.10-5.20) X 10*6/uL Hgb 9.8 L (12.0-15.0) g/dL Hct 31.8 L (37.2-46.3) % MCHC 30.8 L (32.0-37.0) g/dL RDW 16.6 H (11.5-14.5) % Plt Count 445 H (140-440) X 10*3/uL Immature Gran # 0.22 H (0.00-0.04) X 10*3/uL Monocytes # 1.10 H (0.20-1.00) X 10*3/uL Anion Gap 14.80 H (4.00-12.00) mmol/L BUN/Creatinine Ratio 21.33 H (12.00-20.00) Ratio Calcium 8.2 L (8.7-10.3) mg/dL Alkaline Phosphatase 221 H (41-126) U/L Total Protein 5.4 L (6.2-8.2) g/dL Albumin 2.9 L (3.8-4.9) g/dL Albumin/Globulin Ratio 1.16 L (1.60-3.17) Ratio Microbiology - Last 24 Hours (Table) 12/13/24 17:26 Anaerobic Culture - Final Ascites Fluid 12/13/24 17:26 Gram Stain - Final Ascites Fluid Body Fluid Culture - Final Assessment and Plan (1) Colon adenocarcinoma Current Visit: Yes Status: Acute Priority: High Code(s): C18.9 - MALIGNANT NEOPLASM OF COLON, UNSPECIFIED SNOMED Code(s): 062153105 (2) Abdominal mass Current Visit: Yes Status: Acute Priority: High Code(s): R19.00 - INTRA- ABD AND PELVIC SWELLING, MASS AND LUMP, UNSP SITE SNOMED Code(s): 985535624 (3) Liver mass Current Visit: Yes Status: Acute Priority: High Code(s): R16.0 - HEPATOMEGALY, NOT ELSEWHERE CLASSIFIED SNOMED Code(s): 733575231 (4) Pulmonary nodules Current Visit: Yes Status: Acute Priority: High Code(s): R91.8 - OTHER NONSPECIFIC ABNORMAL FINDING OF LUNG FIELD SNOMED Code(s): 613656565 Plan: Pelvic mass, liver lesions, pulmonary nodules. Pathology positive for GI primary malignancy - Patient admitted with complaints of abdominal pain, progressive x 1 week. She has had early satiety for "some time". She is not sure of exactly how much weight loss if she has had any. She reports vaginal bleeding since March 2024. -Liver biopsy, path positive for GI primary, favoring colorectal. Molecular testing requested - CT chest w/o contrast showing innumerable metastatic pulmonary nodules Abdominal pain - Pain medications were adjusted, now pt only appears to be on IV dilaudid. Will try to transition pt to oral pain meds - Medications for prevention of constipation Intractable N/V -Multiple Anti-emetics ordered, reglansamanthaivan for anticipatory nausea -EGD reported feculent material in stomach with dilation of small bowel. -CT AP showed no change in the large pelvic neoplasm with metastatic disease to the lungs and liver. No acute changes to prior study. No visible obstruction -Pt had both exp and diagnostic lap. Findings showed significant adhesions wi thin the abdomen and mild ascites, cytology negative. No clear carcinomatosis noted. -Patient now has NG tube in place. She is tolerating only sips of liquids and ice chips. - MRI of the brain has been ordered to rule out a neurological cause of intractable nausea and vomiting. Had a long discussion with the patient today about moving forward. Patient is not a good surgical candidate due to her being bedridden. This places her for significant risk of postoperative complications including blood clots, pneumonia, bedsores, infection. Patient also has a very poor nutritional status because of her inability to eat. We discussed that unfortunately her malignancy is stage IV. Intent of treatment would be palliation of symptoms as well as prolongation of life. Colon adenocarcinoma treatment is an aggressive treatment regimen, treatment is every 14 days with a pump for 72 hours. Patient will think about her wishes and we will discuss goals of care again. Time with Patient: Greater than 30
[2024-12-19] MEDS: ACETAMINOPHEN TAB 325 MG TAB PO PRN (05:32)
[2024-12-19] MEDS ORDERED: BENZOCAINE SPRAY 1 EACH MUCOUS MEM PRN (05:41)
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
[2024-12-19] MEDS ORDERED: LORazepam 1 MG/0.5 ML VIAL IV PRN (10:06)
[2024-12-19 10:33] LABS: Basophils # (A) 0.06 X 10*3/uL (0.00-0.10); Basophils % (A) 0.4 %; Eosinophils # (A) 0 X 10*3/uL (0.04-0.35); Eosinophils % (A) 0 %; HCT 33.9 % (37.2-46.3); HGB 10.5 g/dL (12.0-15.0); Lymphocytes # (A) 1.92 X 10*3/uL (0.90-5.00); Lymphocytes % (A) 13.7 %; MCV 96.9 FL (80.0-97.0); Mean Platelet Volume 11.1 FL (9.5-12.2); Monocytes # (A) 0.97 X 10*3/uL (0.20-1.00); Monocytes % (A) 6.9 %; NRBC Per 100 WBC 0 X 10*3/uL (0.00-0.01); Neutrophils # (A) 10.76 X 10*3/uL (1.80-7.70); Neutrophils % (A) 76.6 %; Platelet Count 513 X 10*3/uL (140-440); RDW 16.4 % (11.5-14.5); WBC 14.04 X 10*3/uL (4.50-10.00)
[2024-12-19 10:45] LABS: BUN/Creat Ratio 16.62 Ratio (12.00-20.00); Blood Urea Nitrogen 13.3 mg/dL (9.0-27.0); Calcium 8.5 mg/dL (8.7-10.3); Carbon Dioxide 20.8 mmol/L (21.6-31.8); Chloride 94 mmol/L (96-109); Glucose 92 mg/dL (70-110); Magnesium 1.8 mg/dL (1.5-2.4); Potassium 4.1 mmol/L (3.5-5.5); Sodium 134 mmol/L (135-145)
[2024-12-19 12:40] VITALS: BP 94/52; PULSE 86; RESP 15; TEMP 97.5
--- NOTE | 2024-12-19 14:13 | P.PN ---
Subjective Progress Note Date: 12/19/24 SURGICAL PROGRESS NOTE CHIEF COMPLAINT: Abdominal pain HISTORY OF PRESENT ILLNESS: Patient has had multiple liquidy stools. Stool for C. difficile was negative. Minimal to no output through NG tube. Her abdominal pain is less and she feels hungry. Cytology results show no malignant cells. Afebrile. WBC is from 10-14 Hgb 10.5. MRI of the brain with no malignancy. No evidence of bowel obstruction on either of her CT scans PHYSICAL EXAM: VITAL SIGNS: Reviewed. GENERAL: Well-developed in no acute distress. ABDOMEN: Abdomen is softer. Nontender. Obese. Urostomy in place. NEUROLOGIC: Alert and oriented. Cranial nerves II through XII grossly intact. ASSESSMENT: 1. Abdominal pain with intractable nausea and vomiting 2. Large pelvic mass consistent with malignancy and metastatic disease within the lung and metastatic liver lesions 3. Liver lesion status post biopsy that reports metastatic adenocarcinoma consistent with gastrointestinal origin, favor colorectal 4. Gastroparesis suspected on EGD 5. Ileus 6. Status post diagnostic lap with no evidence of carcinomatosis. Cytology result no evidence of malignant cells PLAN: -Discontinue NG tube -Start clear liquid diet -No surgical intervention recommended at this time. Patient is a poor surgical candidate -Continue Reglan Physician Food Adviser note has been reviewed by physician. Signing provider agrees with the documented findings, assessment, and plan of care. Attestation Patient seen and examined at bedside. Chief complaint of abdominal pain. Case was discussed in depth with oncology today. Concern is for beginning any oncologic treatment as patient has had continued ileus and motility issues with her bowel. No evidence of obstruction throughout her admission. She has had multiple liquid bowel movements. We will plan to remove nasogastric tube and begin patient on clear liquid diet. Patient is a poor surgical candidate in any major operation will be quite difficult to recover from, with possibility of no recovery. Continue Reglan at this time. Joao Ordonez DO Objective - Vital Signs Vital signs: Vital Signs Temp 97.5 F L 12/19/24 12:00 Pulse 86 12/19/24 12:00 Resp 15 12/19/24 12:00 BP 94/52 12/19/24 12:00 Pulse Ox 93 L 12/19/24 12:00 FiO2 Intake & Output 12/18/24 12/19/24 12/19/24 18:59 06:59 18:59 Intake Total 360 Output Total 750 800 Balance -390 -800 Intake: Oral 360 Output: Gastric Drainage 300 Urine 750 500 Other: Voiding Method Ileal Conduit (Left) Ileal Conduit (Left) Ileal Conduit (Left) # Bowel Movements 1 1 - Labs CBC & Chem 7: 12/19/24 05:54 12/19/24 05:54 Labs: Abnormal Lab Results - Last 24 Hours (Table) 12/19/24 12/19/24 Range/Units 05:54 05:54 WBC 14.04 H (4.50-10.00) X 10*3/uL RBC 3.50 L (4.10-5.20) X 10*6/uL Hgb 10.5 L (12.0-15.0) g/dL Hct 33.9 L (37.2-46.3) % MCHC 31.0 L (32.0-37.0) g/dL RDW 16.4 H (11.5-14.5) % Plt Count 513 H (140-440) X 10*3/uL Immature Gran # 0.33 H (0.00-0.04) X 10*3/uL Neutrophils # 10.76 H (1.80-7.70) X 10*3/uL Eosinophils # 0 L (0.04-0.35) X 10*3/uL Sodium 134 L (135-145) mmol/L Chloride 94 L (96-109) mmol/L Carbon Dioxide 20.8 L (21.6-31.8) mmol/L Anion Gap 19.20 H (4.00-12.00) mmol/L Calcium 8.5 L (8.7-10.3) mg/dL Microbiology - Last 24 Hours (Table) 12/13/24 17:26 Anaerobic Culture - Final Ascites Fluid
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
--- NOTE | 2024-12-19 21:54 | P.PN ---
Subjective Progress Note Date: 12/19/24 Principal diagnosis: Intractable N,V, colon adenocarcinoma In f/u today pt continues to have NG tube to suction, dark semisolid liquid in canister. She is requesting food. No other acute complaints Objective - Vital Signs Vital signs: Vital Signs Temp 97.5 F L 12/19/24 12:00 Pulse 86 12/19/24 12:00 Resp 15 12/19/24 12:00 BP 94/52 12/19/24 12:00 Pulse Ox 93 L 12/19/24 12:00 FiO2 Intake & Output 12/18/24 12/19/24 12/19/24 18:59 06:59 18:59 Intake Total 360 240 Output Total 750 800 550 Balance -390 -800 -310 Intake: Oral 360 240 Output: Gastric Drainage 300 Urine 750 500 550 Other: Voiding Method Ileal Conduit (Left) Ileal Conduit (Left) Ileal Conduit (Left) # Bowel Movements 1 1 - Constitutional General appearance: Present: cooperative, no acute distress, obese - EENT Eyes: Present: anicteric sclerae, EOMI ENT: Present: hearing grossly normal - Respiratory Details: resp unlabored at rest - Cardiovascular Details: skin warm, well perfused - Neurologic Neurologic: Present: CNII-XII intact - Psychiatric Psychiatric: Present: A&O x's 3, appropriate affect, intact judgment & insight - Labs CBC & Chem 7: 12/19/24 05:54 12/19/24 05:54 Labs: Abnormal Lab Results - Last 24 Hours (Table) 12/19/24 12/19/24 Range/Units 05:54 05:54 WBC 14.04 H (4.50-10.00) X 10*3/uL RBC 3.50 L (4.10-5.20) X 10*6/uL Hgb 10.5 L (12.0-15.0) g/dL Hct 33.9 L (37.2-46.3) % MCHC 31.0 L (32.0-37.0) g/dL RDW 16.4 H (11.5-14.5) % Plt Count 513 H (140-440) X 10*3/uL Immature Gran # 0.33 H (0.00-0.04) X 10*3/uL Neutrophils # 10.76 H (1.80-7.70) X 10*3/uL Eosinophils # 0 L (0.04-0.35) X 10*3/uL Sodium 134 L (135-145) mmol/L Chloride 94 L (96-109) mmol/L Carbon Dioxide 20.8 L (21.6-31.8) mmol/L Anion Gap 19.20 H (4.00-12.00) mmol/L Calcium 8.5 L (8.7-10.3) mg/dL - Imaging and Cardiology MRI - head: report reviewed Assessment and Plan (1) Colon adenocarcinoma Status: Acute Priority: High Code(s): C18.9 - MALIGNANT NEOPLASM OF COLON, UNSPECIFIED SNOMED Code(s): 650084424 (2) Abdominal mass Status: Acute Priority: High Code(s): R19.00 - INTRA-ABD AND PELVIC SWELLING, MASS AND LUMP, UNSP SITE SNOMED Code(s): 354950577 (3) Liver mass Status: Acute Priority: High Code(s): R16.0 - HEPATOMEGALY, NOT ELSEWHERE CLASSIFIED SNOMED Code(s): 574678334 (4) Pulmonary nodules Status: Acute Priority: High Code(s): R91.8 - OTHER NONSPECIFIC ABNORMAL FINDING OF LUNG FIELD SNOMED Code(s): 781250398 Plan: Pelvic mass, liver lesions, pulmonary nodules. Pathology positive for GI primary malignancy - Patient admitted with complaints of abdominal pain, progressive x 1 week. History of satiety for "some time", unsure of weight loss, vaginal bleeding since March 2024. -Liver biopsy, path positive for GI primary, favoring colorectal. Molecular testing requested - CT chest w/o contrast showing innumerable metastatic pulmonary nodules Abdominal pain -Mostly resolved. More complaints of intractable nausea and vomiting - Continue pain medications as needed, titrate for comfort. -Continue medications for prevention of constipation Intractable N/V -Multiple Anti-emetics ordered, reglan, ativan for anticipatory nausea-Ativan was changed to as needed due to causing patient drowsiness and some confusion. -EGD reported feculent material in stomach with dilation of small bowel. -CT AP showed no change in the large pelvic neoplasm with metastatic disease to the lungs and liver. No acute changes to prior study. No visible obstruction -Pt had both exp and diagnostic lap. Findings showed significant adhesions within the abdomen and mild ascites, cytology negative. No clear carcinomatosis noted. -Patient now has NG tube in place. She is tolerating only sips of liquids and ice chips. - MRI of the brain has been ordered to rule out a neurological cause of intractable nausea and vomiting. Earlier in the day Dr. Anaya summarized patient's clinical course for her. He reiterated that unfortunately she is not a good surgical candidate due to her being bedridden. This places her for significant risk of postoperative complications including blood clots, pneumonia, bedsores, infection. Patient also has a very poor nutritional status because of her inability to eat which will affect her ability to heal as well as to tolerate any treatment. He discussed that unfortunately her malignancy is stage IV. Intent of treatment would be palliation of symptoms as well as prolongation of life, that is if she is able to tolerate any treatment as well as manage the significant commitment to treatment and follow-up. Colon adenocarcinoma treatment is an aggressive treatment regimen, treatment is every 14 days with a pump for 72 hours. Patient stated that she wanted to discuss this with her family. Later in the day, patient's sister and niece were present. We were called back to discuss the same with them. All of their questions were answered. Patient and family have decided on hospice. Patient wants to return to [facility] where she has been a longtime resident. She did not want to continue with the NG tube at this time. She stated that "they can put it back" if at such time she needs it. Case was discussed with Internal Medicine CIGARETTE EXAMINER as well as Gas Combustion Engineer. Doctor attests: I performed a history and physical examination of this patient, developed impression and plan of care. Discussed with dictator. I agree with dictators note, documented as a scribe. Time with Patient: Greater than 30 (>60 min counseling and coordinating care)
== END 2024-12-19 18:47 | disposition hospice, inpatient (51) | DRG 327 ==
LOC: EC 15:13 → 5NMEDONC 17:37 → OBSVTOIN 17:38 → 5NMEDONC 19:36
PROVIDERS: ADMIT Hospitalist; ATTEND Hospitalist
PROC: 0FB03ZX Excision of Liver, Percutaneous Approach, Diagnostic (ICD-10-PCS; 2024-12-03)
PROC: 0D968ZZ Drainage of Stomach, Via Natural or Artificial Opening Endoscopic (ICD-10-PCS; principal; 2024-12-10)
PROC: 0WJG4ZZ Inspection of Peritoneal Cavity, Percutaneous Endoscopic Approach (ICD-10-PCS; 2024-12-13)
PROC: 0D9670Z Drainage of Stomach with Drainage Device, Via Natural or Artificial Opening (ICD-10-PCS; 2024-12-17)
PROC: 05HF33Z Insertion of Infusion Device into Left Cephalic Vein, Percutaneous Approach (ICD-10-PCS; 2024-12-18)
DX: C19 Malignant neoplasm of rectosigmoid junction (principal); C78.01 Secondary malignant neoplasm of right lung; C78.02 Secondary malignant neoplasm of left lung; C78.7 Secondary malignant neoplasm of liver and intrahepatic bile duct; K56.7 Ileus, unspecified; K92.0 Hematemesis; G82.20 Paraplegia, unspecified; M06.9 Rheumatoid arthritis, unspecified; I10 Essential (primary) hypertension; Z68.35 Body mass index [BMI] 35.0-35.9, adult; E03.9 Hypothyroidism, unspecified; R18.8 Other ascites; N39.0 Urinary tract infection, site not specified; S72.92XK Unspecified fracture of left femur, subsequent encounter for closed fracture with nonunion; Z93.6 Other artificial openings of urinary tract status; Z51.5 Encounter for palliative care; E66.9 Obesity, unspecified; K31.84 Gastroparesis; E78.5 Hyperlipidemia, unspecified; E86.0 Dehydration; F41.9 Anxiety disorder, unspecified; N93.9 Abnormal uterine and vaginal bleeding, unspecified; K21.9 Gastro-esophageal reflux disease without esophagitis; K66.0 Peritoneal adhesions (postprocedural) (postinfection); H54.62 Unqualified visual loss, left eye, normal vision right eye; H40.9 Unspecified glaucoma; H91.90 Unspecified hearing loss, unspecified ear; Z79.890 Hormone replacement therapy; Z79.01 Long term (current) use of anticoagulants; Z79.51 Long term (current) use of inhaled steroids; Z79.899 Other long term (current) drug therapy; Z87.891 Personal history of nicotine dependence; Z74.01 Bed confinement status; Z99.3 Dependence on wheelchair; Z86.14 Personal history of Methicillin resistant Staphylococcus aureus infection; Z86.19 Personal history of other infectious and parasitic diseases; Z91.041 Radiographic dye allergy status
CPT/HCPCS: 36410; 36415; 43235; 47000; 70553; 71045; 71250; 74018; 74176; 74177; 76705; 76937; 77012; 80048; 80053; 81001; 82150; 82945; 83690; 83735; 83880; 84132; 84157; 85025; 85610; 85730; 86140; 87040; 87070; 87075; 87086; 87205; 87324; 88108; 88305; 88307; 88341; 88342; 89050; 93306; 94640; 96365; 96375; 99285